=== PATIENT | female | born 1970 | race Caucasian/White ===

== ENCOUNTER 2019-07-11 11:00 | Outpatient (RCR) | payer MEDICARE, MEDICAID, SELFPAY ==
--- NOTE | 2019-04-17 16:00 | PT.OIE ---
Current Diagnoses Lymphedema, not elsewhere classified (04/17/19) Visit Care Team Role Provider Type Yao Mallory MD Attending Provider Non-Staff Primary Care Provider Specialty: Family Practice Address: [address] [place] [address], [address], [place], [address] Email: Physical Therapy Initial Evaluation PT-OP-A Visit Information Start: 04/17/19 12:57 Freq: Status: Active Protocol: Document 04/17/19 12:58 [facility]AK (Rec: 04/17/19 14:24 SAK [id number]) Out-Patient Physical Therapy Visit Information Visit Information Visit Type Initial Evaluation Visit Start Time 12:58 Visit Stop Time 14:13 Total Visit Minutes 75 Visit Number 1 Number of DIGITAL FIELD SERVICE TECHNICIAN Visits 0 PT-OP-B Current Condition Start: 04/17/19 12:57 Freq: Status: Active Protocol: Document 04/17/19 12:58 SAK (Rec: 04/17/19 14:24 SAK [id number]) Current Condition History of Current Condition Onset Date 2001 Current Complaints lymphedema bilateral LE's. History of Current Condition lymphedema waist to toes. diagnosed 2001, not treated until 2009. Was in coma for 3 wks 2008, states she almost due to infection in legs. States the lymphedema is thought to have been caused by mosquitoes; had severe reaction to bites. Gradual increase in swelling in LE's. Most recent LE infection a couple months ago with open wound left LE. 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 Prior Treatments and Tests Has had wraps, MLD, has a lymphedema pump; unable to use pump at this time due to increase in lymphedema with inability to fit into pump legs. Has no compression garments. Currently wraps her legs her self, uses ones with velcro. Used to go to pool, had to stop due to open wound. Goes to [employer] 3x/wk , wears wraps when she exercises. States Farrow wrap ordered for her right LE due to having open wound so insurance will cover it; she is unable to afford on her own . Lymphedema surgery bilateral LE's 2 years ago, with tissue and skin removed after determined lymph node transfer wouldn't be effective due to lack of functioning lymph nodes. Gastric bypass 2012 went from 600lbs, now down to 340. Has had skin removal on stomach. Treatment Goals Patient/Caregiver Goals Decrease lymphedema sufficient to allow her to use compression pump, be able to self-manage her lymphedema. 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 Current Functional Impairments (Reported) Functional Limitations- ADL's More difficult due to increased weight of legs Functional Limitations- Mobility/Gait limited to household due to weight of legs Functional Limitations- Work/School more difficult to care for her mother Personal Factors Other Personal Factors That May Effect Patient is 5'9, 340lbs Therapy/Recovery PT-OP-C Subjective Start: 04/17/19 12:57 Freq: Status: Active Protocol: Document 04/17/19 12:58 [facility] (Rec: 04/21/19 17:06 [facility] [id number]) Patient Questionnaires Lymphedema Life Impact Score Lymphedema Score 54% OP-PT Pain Assessment Pain Assessment Grid Paper Pain Assessment Grid Completed Yes Location right knee Pain Location Details 2 PT-OP-F Manual Assessment Start: 04/17/19 12:57 Freq: Status: Active Protocol: Document 04/17/19 12:58 [facility] (Rec: 04/21/19 17:06 [facility] [id number]) Manual Assessments Soft Tissue Assessment Soft Tissue Mobility Assessment Due to lymphedema patient demonstrating decreased movement of LE tissue with fibrosis evident medial lower leg on left around area of healing wound. PT-OP-K Range of Motion Start: 04/17/19 12:57 Freq: Status: Active Protocol: Document 04/17/19 12:58 [facility] (Rec: 04/21/19 17:06 [facility] [id number]) Knee Goniometric Range of Motion Knee ROM Limitations Knee ROM Limitations Swelling Comments lacking full flexion due to tissue approximation from lymphedema bilateral Ankle and Foot Goniometric Range of Motion Ankle and Foot ROM Limitations ROM Limitations Swelling Comments ankle df to neutral jaiden, pf WFL jaiden PT-OP-M Strength Start: 04/17/19 12:57 Freq: Status: Active Protocol: Document 04/17/19 12:58 SAK (Rec: 04/21/19 17:06 [facility] [id number]) Hip Strength Hip Manual Muscle Testing jaiden Flexion (L2) 3- Fair- Extension (S1) 2 Poor Abduction 2+ Poor+ Comments heaviness of leg Knee Strength Knee Manual Muscle Testing jaiden Flexion (S2) 4 Good Extension (L3) 4 Good Ankle/Foot Strength Ankle and Foot Manual Muscle Testing jaiden Dorsiflexion (L4) 4- Good- Plantarflexion (S1) 4- Good- PT-OP-N Lymphedema Start: 04/17/19 12:57 Freq: Status: Active Protocol: Document 04/17/19 12:58 [facility] (Rec: 04/21/19 17:06 [facility] [id number]) Lymphedema Measurements Lower Extremity Circumference Measurements Right Affected MT Heads 24.9 cm Medial Malleolus 30.4 cm 10 cm From Medial Malleolus 49.9 cm 20 cm From Medial Malleolus 64 cm 30 cm From Medial Malleolus 87.4 cm 40 cm From Medial Malleolus 63.7 cm 50 cm From Medial Malleolus 60.2 cm 60 cm From Medial Malleolus 80.2 cm 70 cm From Medial Malleolus 82.9 cm 80 cm From Medial Malleolus 81.4 cm Left Affected MT Heads 23.6 cm Medial Malleolus 30.2 cm 10 cm From Medial Malleolus 50.7 cm 20 cm From Medial Malleolus 64.1 cm 30 cm From Medial Malleolus 69.2 cm 40 cm From Medial Malleolus 65.8 cm 50 cm From Medial Malleolus 82.9 cm 60 cm From Medial Malleolus 82.7 cm 70 cm From Medial Malleolus 79.4 cm 80 cm From Medial Malleolus 91.7 cm PT-OP-Q Treatments Start: 04/17/19 12:57 Freq: Status: Active Protocol: Document 04/17/19 12:58 [facility] (Rec: 04/21/19 17:06 [facility] [id number]) Cardio Equipment Recumbent Elliptical (BiodTyto Life) Duration (Minutes) 10 Resistance 1 Other to facilitate lymphatic flow after lymphedema wrapping Lymphedema Treatment Lymphedema Wrapping Body Location bilateral LE's toes to knees Materials Comprilan, artiflex PT-OP-T Assessment and Plan Start: 04/17/19 12:57 Freq: Status: Active Protocol: Document 04/17/19 12:58 [facility] (Rec: 04/21/19 17:06 [facility] [id number]) Physical Therapy Assessment Rehab Potential Rehabilitation Potential Fair Evaluation Complexity Number of Personal Factors/Comorbidities 3 or More Number of Body Systems Impaired 3 Clinical Presentation at Evaluation Evolving Impairments Impairments Edema,ROM,Soft Tissue Mobility Goals Two Impairment Lymphedema Life Impact Scale 54% Short Term Goal (STG) Decrease to 40% STG Duration 6 wks Catering Staff Member Goal (LTG) Decrease to 30% LTG Duration 07/17/19 One Impairment lymphedema exacerbation [facility] Goal (LTG) Decrease lymphedema to stable level (no increase or decrease greater than 1 cm over the course of 1 wk), patient to be independent with self- management to include use of lymphedema pump, self-wrapping or use of appropriate compression garments, sequential lymphedema exercises and self-massage. LTG Duration 07/17/19 Assessment Summary Assessment Patient presents with lymphedema exacerbation bilateral LE's which has made it difficult for her to perform her usual activities and to self-manage her lymphedema including inability to use her lymphedema pump at home. She would benefit from physical therapy to decrease her lymphedema to the point that she can use her pump at home and self-managem as well as return to prior functional level. She has some fibrosis of her left LE soft tissues occurring with potential for more as well as for more infections if lymphedema not reduced. She appears highly motivated and cooperative. Physical Therapy Plan Frequency and Duration Frequency of Treatment 2x/Week Duration of Treatment 12 wks Plan of Care Start Date 04/17/19 Plan of Care End Date 07/17/19 Therapeutic Interventions Therapeutic Interventions Aquatic Therapy,Home Exercise Program,Lymphedema Management, Manual Therapy,Patient/ Caregiver Education,Self-Care/ Home Management,Therapeutic Exercises Modalities Vasopneumatic Devices Next Visit Focus/Plan Next Note Type Treatment Note Next Visit Plan Manual lymphatic drainage, lymphedema wrapping, sequential lymphedema exercise review. Determine whether current lymphedema pump has larger leg sleeves available.
--- NOTE | 2019-04-22 16:27 | PT.OTN ---
Current Diagnoses Lymphedema, not elsewhere classified (04/22/19) Physical Therapy Treatment Note PT-OP-A Visit Information Start: 04/17/19 12:57 Freq: Status: Active Protocol: Document 04/22/19 14:30 [facility]AK (Rec: 04/22/19 15:06 [facility] [id number]) Out-Patient Physical Therapy Visit Information Visit Information Visit Type Treatment Note Visit Start Time 14:58 Visit Stop Time 16:15 Total Visit Minutes 77 Visit Number 2 Number of ELECTRICAL MAINTENANCE MAN Visits 0 PT-OP-B Current Condition Start: 04/17/19 12:57 Freq: Status: Active Protocol: Document 04/17/19 12:58 [facility]AK (Rec: 04/17/19 14:24 SAK [id number]) Current Condition History of Current Condition Onset Date 2001 Current Complaints lymphedema bilateral LE's. History of Current Condition lymphedema waist to toes. diagnosed 2001, not treated until 2009. Was in coma for 3 wks 2008, states she almost due to infection in legs. States the lymphedema is thought to have been caused by mosquitoes; had severe reaction to bites. Gradual increase in swelling in LE's. Most recent LE infection a couple months ago with open wound left LE. 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 Prior Treatments and Tests Has had wraps, MLD, has a lymphedema pump; unable to use pump at this time due to increase in lymphedema with inability to fit into pump legs. Has no compression garments. Currently wraps her legs her self, uses ones with velcro. Used to go to pool, had to stop due to open wound. Goes to [employer] 3x/wk , wears wraps when she exercises. States Farrow wrap ordered for her right LE due to having open wound so insurance will cover it; she is unable to afford on her own . Lymphedema surgery bilateral LE's 2 years ago, with tissue and skin removed after determined lymph node transfer wouldn't be effective due to lack of functioning lymph nodes. Gastric bypass 2011 went from 600lbs, now down to 340. Has had skin removal on stomach. Treatment Goals Patient/Caregiver Goals Decrease lymphedema sufficient to allow her to use compression pump, be able to self-manage her lymphedema. 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 Current Functional Impairments (Reported) Functional Limitations- ADL's More difficult due to increased weight of legs Functional Limitations- Mobility/Gait limited to household due to weight of legs Functional Limitations- Work/School more difficult to care for her mother Personal Factors Other Personal Factors That May Effect Patient is 5'9, 340lbs Therapy/Recovery PT-OP-C Subjective Start: 04/17/19 12:57 Freq: Status: Active Protocol: Document 04/22/19 14:30 [facility] (Rec: 04/22/19 15:06 [facility] [id number]) OP-PT Subjective Patient Comments Patient Comments Patient reports has had LE's wrapped an average of 12 hrs/ day./ Using Dermasil lotion on LE's. Lymphedema pump brand [employer]. PT-OP-F Manual Assessment Start: 04/17/19 12:57 Freq: Status: Active Protocol: Document 04/17/19 12:58 [facility] (Rec: 04/21/19 17:06 [facility] [id number]) Manual Assessments Soft Tissue Assessment Soft Tissue Mobility Assessment Due to lymphedema patient demonstrating decreased movement of LE tissue with fibrosis evident medial lower leg on left around area of healing wound. PT-OP-K Range of Motion Start: 04/17/19 12:57 Freq: Status: Active Protocol: Document 04/17/19 12:58 [facility] (Rec: 04/21/19 17:06 [facility] [id number]) Knee Goniometric Range of Motion Knee ROM Limitations Knee ROM Limitations Swelling Comments lacking full flexion due to tissue approximation from lymphedema bilateral Ankle and Foot Goniometric Range of Motion Ankle and Foot ROM Limitations ROM Limitations Swelling Comments ankle df to neutral jaiden, pf WFL jaiden PT-OP-M Strength Start: 04/17/19 12:57 Freq: Status: Active Protocol: Document 04/17/19 12:58 [facility]AK (Rec: 04/21/19 17:06 [facility] [id number]) Hip Strength Hip Manual Muscle Testing jaiden Flexion (L2) 3- Fair- Extension (S1) 2 Poor Abduction 2+ Poor+ Comments heaviness of leg Knee Strength Knee Manual Muscle Testing jaiden Flexion (S2) 4 Good Extension (L3) 4 Good Ankle/Foot Strength Ankle and Foot Manual Muscle Testing jaiden Dorsiflexion (L4) 4- Good- Plantarflexion (S1) 4- Good- PT-OP-N Lymphedema Start: 04/17/19 12:57 Freq: Status: Active Protocol: Document 04/17/19 12:58 [facility] (Rec: 04/21/19 17:06 [facility] [id number]) Lymphedema Measurements Lower Extremity Circumference Measurements Right Affected MT Heads 24.9 cm Medial Malleolus 30.4 cm 10 cm From Medial Malleolus 49.9 cm 20 cm From Medial Malleolus 64 cm 30 cm From Medial Malleolus 87.4 cm 40 cm From Medial Malleolus 63.7 cm 50 cm From Medial Malleolus 60.2 cm 60 cm From Medial Malleolus 80.2 cm 70 cm From Medial Malleolus 82.9 cm 80 cm From Medial Malleolus 81.4 cm Left Affected MT Heads 23.6 cm Medial Malleolus 30.2 cm 10 cm From Medial Malleolus 50.7 cm 20 cm From Medial Malleolus 64.1 cm 30 cm From Medial Malleolus 69.2 cm 40 cm From Medial Malleolus 65.8 cm 50 cm From Medial Malleolus 82.9 cm 60 cm From Medial Malleolus 82.7 cm 70 cm From Medial Malleolus 79.4 cm 80 cm From Medial Malleolus 91.7 cm PT-OP-Q Treatments Start: 04/17/19 12:57 Freq: Status: Active Protocol: Document 04/22/19 14:30 [facility] (Rec: 04/22/19 15:06 [facility] [id number]) Cardio Equipment Recumbent Elliptical (Biodex) Duration (Minutes) 10 Resistance 1 Other to facilitate lymphatic flow after lymphedema wrapping Lymphedema Treatment Manual Lymphatic Drainage Location jaiden LE's Duration 50 min Lymphedema Wrapping Body Location bilateral LE's toes to knees Materials Comprilan, artiflex, foam around right ankle to achieve more cylindrical LE shape PT-OP-T Assessment and Plan Start: 04/17/19 12:57 Freq: Status: Active Protocol: Document 04/22/19 14:30 [facility] (Rec: 04/22/19 15:06 [facility] [id number]) Physical Therapy Assessment Goals Two Impairment Lymphedema Life Impact Scale 54% Short Term Goal (STG) Decrease to 40% STG Duration 6 wks Heavy Equipment Rental Associate Goal (LTG) Decrease to 30% LTG Duration 07/17/19 One Impairment lymphedema exacerbation Nursing Home Goal (LTG) Decrease lymphedema to stable level (no increase or decrease greater than 1 cm over the course of 1 wk), patient to be independent with self- management to include use of lymphedema pump, self-wrapping or use of appropriate compression garments, sequential lymphedema exercises and self-massage. LTG Duration 07/17/19 Assessment Summary Assessment Good tolerance for MLD and wrapping, Decrease in LE redness and lymphedema after MLD. Reports she should have Farrow wraps delivered by next PT appointment. Physical Therapy Plan Frequency and Duration Frequency of Treatment 2x/Week Duration of Treatment 12 wks Plan of Care Start Date 04/17/19 Plan of Care End Date 07/17/19 Therapeutic Interventions Therapeutic Interventions Aquatic Therapy,Home Exercise Program,Lymphedema Management, Manual Therapy,Patient/ Caregiver Education,Self-Care/ Home Management,Therapeutic Exercises Modalities Vasopneumatic Devices Next Visit Focus/Plan Next Note Type Treatment Note Next Visit Plan Circumferntial measurements, continue lymphedema management .
--- NOTE | 2019-04-24 15:16 | PT.OTN ---
Current Diagnoses Lymphedema, not elsewhere classified (04/24/19) Physical Therapy Treatment Note PT-OP-A Visit Information Start: 04/17/19 12:57 Freq: Status: Active Protocol: Document 04/24/19 15:07 [facility]GD (Rec: 04/24/19 15:15 [facility]GD [id number]) Out-Patient Physical Therapy Visit Information Visit Information Visit Type Treatment Note Visit Start Time 13:45 Visit Stop Time 15:15 Total Visit Minutes 90 Visit Number 3 Number of RETAIL SALES ASSOCIATE BILINGUAL Visits 1 PT-OP-B Current Condition Start: 04/17/19 12:57 Freq: Status: Active Protocol: Document 04/17/19 12:58 SAK (Rec: 04/17/19 14:24 SAK [id number]) Current Condition History of Current Condition Onset Date 2001 Current Complaints lymphedema bilateral LE's. History of Current Condition lymphedema waist to toes. diagnosed 2001, not treated until 2009. Was in coma for 3 wks 2008, states she almost due to infection in legs. States the lymphedema is thought to have been caused by mosquitoes; had severe reaction to bites. Gradual increase in swelling in LE's. Most recent LE infection a couple months ago with open wound left LE. 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 Prior Treatments and Tests Has had wraps, MLD, has a lymphedema pump; unable to use pump at this time due to increase in lymphedema with inability to fit into pump legs. Has no compression garments. Currently wraps her legs her self, uses ones with velcro. Used to go to pool, had to stop due to open wound. Goes to [employer] 3x/wk , wears wraps when she exercises. States Farrow wrap ordered for her right LE due to having open wound so insurance will cover it; she is unable to afford on her own . Lymphedema surgery bilateral LE's 2 years ago, with tissue and skin removed after determined lymph node transfer wouldn't be effective due to lack of functioning lymph nodes. Gastric bypass 2011 went from 600lbs, now down to 340. Has had skin removal on stomach. Treatment Goals Patient/Caregiver Goals Decrease lymphedema sufficient to allow her to use compression pump, be able to self-manage her lymphedema. 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 PT-OP-F Manual Assessment Start: 04/17/19 12:57 Freq: Status: Active Protocol: Document 04/17/19 12:58 SAK (Rec: 04/21/19 17:06 SAK [id number]) Manual Assessments Soft Tissue Assessment Soft Tissue Mobility Assessment Due to lymphedema patient demonstrating decreased movement of LE tissue with fibrosis evident medial lower leg on left around area of healing wound. PT-OP-K Range of Motion Start: 04/17/19 12:57 Freq: Status: Active Protocol: Document 04/17/19 12:58 SAK (Rec: 04/21/19 17:06 SAK [id number]) Knee Goniometric Range of Motion Knee ROM Limitations Knee ROM Limitations Swelling Comments lacking full flexion due to tissue approximation from lymphedema bilateral Ankle and Foot Goniometric Range of Motion Ankle and Foot ROM Limitations ROM Limitations Swelling Comments ankle df to neutral jaiden, pf WFL jaiden PT-OP-M Strength Start: 04/17/19 12:57 Freq: Status: Active Protocol: Document 04/17/19 12:58 SAK (Rec: 04/21/19 17:06 SAK [id number]) Hip Strength Hip Manual Muscle Testing jaiden Flexion (L2) 3- Fair- Extension (S1) 2 Poor Abduction 2+ Poor+ Comments heaviness of leg Knee Strength Knee Manual Muscle Testing jaiden Flexion (S2) 4 Good Extension (L3) 4 Good Ankle/Foot Strength Ankle and Foot Manual Muscle Testing jaiden Dorsiflexion (L4) 4- Good- Plantarflexion (S1) 4- Good- PT-OP-N Lymphedema Start: 04/17/19 12:57 Freq: Status: Active Protocol: Document 04/24/19 15:07 GGD (Rec: 04/24/19 15:15 GGD [id number]) Lymphedema Measurements Lower Extremity Circumference Measurements Right Affected MT Heads 25 cm Medial Malleolus 30.3 cm 10 cm From Medial Malleolus 49.1 cm 20 cm From Medial Malleolus 62 cm 30 cm From Medial Malleolus 69.6 cm 40 cm From Medial Malleolus 65.1 cm 50 cm From Medial Malleolus 62.2 cm 60 cm From Medial Malleolus 81.6 cm 70 cm From Medial Malleolus 82 cm Left Affected MT Heads 23.5 cm Medial Malleolus 30.1 cm 10 cm From Medial Malleolus 46.8 cm 20 cm From Medial Malleolus 58.7 cm 30 cm From Medial Malleolus 66.3 cm 40 cm From Medial Malleolus 66.5 cm 50 cm From Medial Malleolus 83 cm 60 cm From Medial Malleolus 83.5 cm 70 cm From Medial Malleolus 81.3 cm PT-OP-Q Treatments Start: 04/17/19 12:57 Freq: Status: Active Protocol: Document 04/24/19 15:07 GGD (Rec: 04/24/19 15:15 GGD [id number]) Cardio Equipment Recumbent Elliptical (Biodex) Duration (Minutes) 10 Resistance 1 Other to facilitate lymphatic flow after lymphedema wrapping Lymphedema Treatment Manual Lymphatic Drainage Location jaiden LE's Duration 50 min Lymphedema Wrapping Body Location bilateral LE's toes to knees Materials Comprilan, artiflex, foam around right ankle to achieve more cylindrical LE shape PT-OP-T Assessment and Plan Start: 04/17/19 12:57 Freq: Status: Active Protocol: Document 04/24/19 15:07 GGD (Rec: 04/24/19 15:15 GGD [id number]) Physical Therapy Assessment Goals Two Impairment Lymphedema Life Impact Scale 54% Short Term Goal (STG) Decrease to 40% STG Duration 6 wks [facility] Goal (LTG) Decrease to 30% LTG Duration 07/17/19 One Impairment lymphedema exacerbation Postal Superintendent Goal (LTG) Decrease lymphedema to stable level (no increase or decrease greater than 1 cm over the course of 1 wk), patient to be independent with self- management to include use of lymphedema pump, self-wrapping or use of appropriate compression garments, sequential lymphedema exercises and self-massage. LTG Duration 07/17/19 Assessment Summary Assessment Pt improving overall. She had decrease in circumferential measurements by 3 - 6 CM. Pt left knee increase in measurements, pt did report increase in knee pain. Physical Therapy Plan Next Visit Focus/Plan Next Note Type Treatment Note Next Visit Plan Circumferntial measurements, continue lymphedema management .
--- NOTE | 2019-04-29 16:47 | PT.OTN ---
Current Diagnoses Lymphedema, not elsewhere classified (04/29/19) Physical Therapy Treatment Note PT-OP-A Visit Information Start: 04/17/19 12:57 Freq: Status: Active Protocol: Document 04/29/19 16:39 GGD (Rec: 04/29/19 16:47 GGD [email or web address]) Out-Patient Physical Therapy Visit Information Visit Information Visit Type Treatment Note Visit Start Time 10:40 Visit Stop Time 11:50 Total Visit Minutes 70 Visit Number 4 Number of CATALOGUE [employer] PRODUCTS MANAGER Visits 2 PT-OP-B Current Condition Start: 04/17/19 12:57 Freq: Status: Active Protocol: Document 04/17/19 12:58 SAK (Rec: 04/17/19 14:24 SAK [id number]) Current Condition History of Current Condition Onset Date 2001 Current Complaints lymphedema bilateral LE's. History of Current Condition lymphedema waist to toes. diagnosed 2001, not treated until 2009. Was in coma for 3 wks 2008, states she almost due to infection in legs. States the lymphedema is thought to have been caused by mosquitoes; had severe reaction to bites. Gradual increase in swelling in LE's. Most recent LE infection a couple months ago with open wound left LE. 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 Prior Treatments and Tests Has had wraps, MLD, has a lymphedema pump; unable to use pump at this time due to increase in lymphedema with inability to fit into pump legs. Has no compression garments. Currently wraps her legs her self, uses ones with velcro. Used to go to pool, had to stop due to open wound. Goes to [employer] 3x/wk , wears wraps when she exercises. States Farrow wrap ordered for her right LE due to having open wound so insurance will cover it; she is unable to afford on her own . Lymphedema surgery bilateral LE's 2 years ago, with tissue and skin removed after determined lymph node transfer wouldn't be effective due to lack of functioning lymph nodes. Gastric bypass 2011 went from 600lbs, now down to 340. Has had skin removal on stomach. Treatment Goals Patient/Caregiver Goals Decrease lymphedema sufficient to allow her to use compression pump, be able to self-manage her lymphedema. 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 PT-OP-F Manual Assessment Start: 04/17/19 12:57 Freq: Status: Active Protocol: Document 04/17/19 12:58 SAK (Rec: 04/21/19 17:06 SAK [id number]) Manual Assessments Soft Tissue Assessment Soft Tissue Mobility Assessment Due to lymphedema patient demonstrating decreased movement of LE tissue with fibrosis evident medial lower leg on left around area of healing wound. PT-OP-K Range of Motion Start: 04/17/19 12:57 Freq: Status: Active Protocol: Document 04/17/19 12:58 SAK (Rec: 04/21/19 17:06 SAK [id number]) Knee Goniometric Range of Motion Knee ROM Limitations Knee ROM Limitations Swelling Comments lacking full flexion due to tissue approximation from lymphedema bilateral Ankle and Foot Goniometric Range of Motion Ankle and Foot ROM Limitations ROM Limitations Swelling Comments ankle df to neutral jaiden, pf WFL jaiden PT-OP-M Strength Start: 04/17/19 12:57 Freq: Status: Active Protocol: Document 04/17/19 12:58 SAK (Rec: 04/21/19 17:06 SAK [id number]) Hip Strength Hip Manual Muscle Testing jaiden Flexion (L2) 3- Fair- Extension (S1) 2 Poor Abduction 2+ Poor+ Comments heaviness of leg Knee Strength Knee Manual Muscle Testing [place] Flexion (S2) 4 Good Extension (L3) 4 Good Ankle/Foot Strength Ankle and Foot Manual Muscle Testing jaiden Dorsiflexion (L4) 4- Good- Plantarflexion (S1) 4- Good- PT-OP-N Lymphedema Start: 04/17/19 12:57 Freq: Status: Active Protocol: Document 04/24/19 15:07 GGD (Rec: 04/24/19 15:15 GGD [email or web address]) Lymphedema Measurements Lower Extremity Circumference Measurements Right Affected MT Heads 25 cm Medial Malleolus 30.3 cm 10 cm From Medial Malleolus 49.1 cm 20 cm From Medial Malleolus 62 cm 30 cm From Medial Malleolus 69.6 cm 40 cm From Medial Malleolus 65.1 cm 50 cm From Medial Malleolus 62.2 cm 60 cm From Medial Malleolus 81.6 cm 70 cm From Medial Malleolus 82 cm Left Affected MT Heads 23.5 cm Medial Malleolus 30.1 cm 10 cm From Medial Malleolus 46.8 cm 20 cm From Medial Malleolus 58.7 cm 30 cm From Medial Malleolus 66.3 cm 40 cm From Medial Malleolus 66.5 cm 50 cm From Medial Malleolus 83 cm 60 cm From Medial Malleolus 83.5 cm 70 cm From Medial Malleolus 81.3 cm PT-OP-Q Treatments Start: 04/17/19 12:57 Freq: Status: Active Protocol: Document 04/29/19 16:39 GGD (Rec: 04/29/19 16:47 GGD [email or web address]) Cardio Equipment Recumbent Elliptical (Biodex) Duration (Minutes) 10 Resistance 1 Other to facilitate lymphatic flow after lymphedema wrapping Lymphedema Treatment Manual Lymphatic Drainage Location jaiden LE's Duration 50 min Lymphedema Wrapping Body Location right LE's toes to knees Materials Comprilan, artiflex, foam around right ankle to achieve more cylindrical LE shape Other Farrow wrap to left LE PT-OP-T Assessment and Plan Start: 04/17/19 12:57 Freq: Status: Active Protocol: Document 04/29/19 16:39 GGD (Rec: 04/29/19 16:47 GGD [email or web address]) Physical Therapy Assessment Goals Two Impairment Lymphedema Life Impact Scale 54% Short Term Goal (STG) Decrease to 40% STG Duration 6 wks [facility] Goal (LTG) Decrease to 30% LTG Duration 07/17/19 Assessment Summary Assessment Pt improving with circumferential measurements. She continue to have right knee. Physical Therapy Plan Frequency and Duration Frequency of Treatment 2x/Week Duration of Treatment 12 wks Plan of Care Start Date 04/17/19 Plan of Care End Date 07/17/19 Next Visit Focus/Plan Next Note Type Treatment Note Next Visit Plan Circumferntial measurements, continue lymphedema management .
--- NOTE | 2019-05-05 16:19 | PT.OTN ---
Current Diagnoses Lymphedema, not elsewhere classified (05/05/19) Physical Therapy Treatment Note PT-OP-A Visit Information Start: 04/17/19 12:57 Freq: Status: Active Protocol: Document 05/05/19 11:00 LJ (Rec: 05/05/19 16:19 LJ [id number]) Out-Patient Physical Therapy Visit Information Visit Information Visit Type Aquatic Treatment Note Visit Start Time 11:00 Visit Stop Time 11:45 Total Visit Minutes 45 Visit Number 5 Number of PULP PRESS TENDER Visits 3 PT-OP-B Current Condition Start: 04/17/19 12:57 Freq: Status: Active Protocol: Document 04/17/19 12:58 SAK (Rec: 04/17/19 14:24 SAK [id number]) Current Condition History of Current Condition Onset Date 2001 Current Complaints lymphedema bilateral LE's. History of Current Condition lymphedema waist to toes. diagnosed 2001, not treated until 2009. Was in coma for 3 wks 2008, states she almost due to infection in legs. States the lymphedema is thought to have been caused by mosquitoes; had severe reaction to bites. Gradual increase in swelling in LE's. Most recent LE infection a couple months ago with open wound left LE. 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 Prior Treatments and Tests Has had wraps, MLD, has a lymphedema pump; unable to use pump at this time due to increase in lymphedema with inability to fit into pump legs. Has no compression garments. Currently wraps her legs her self, uses ones with velcro. Used to go to pool, had to stop due to open wound. Goes to [employer] 3x/wk , wears wraps when she exercises. States Farrow wrap ordered for her right LE due to having open wound so insurance will cover it; she is unable to afford on her own . Lymphedema surgery bilateral LE's 2 years ago, with tissue and skin removed after determined lymph node transfer wouldn't be effective due to lack of functioning lymph nodes. Gastric bypass 2011 went from 600lbs, now down to 340. Has had skin removal on stomach. Treatment Goals Patient/Caregiver Goals Decrease lymphedema sufficient to allow her to use compression pump, be able to self-manage her lymphedema. 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 Current Functional Impairments (Reported) Functional Limitations- ADL's More difficult due to increased weight of legs Functional Limitations- Mobility/Gait limited to household due to weight of legs Functional Limitations- Work/School more difficult to care for her mother Personal Factors Other Personal Factors That May Effect Patient is 5'9, 340lbs Therapy/Recovery PT-OP-C Subjective Start: 04/17/19 12:57 Freq: Status: Active Protocol: Document 05/05/19 11:00 LJ (Rec: 05/05/19 16:19 LJ [id number]) OP-PT Subjective Patient Comments Patient Comments Pt states she likes the pool and has attended water aerobics in the past at [facility]. PT-OP-F Manual Assessment Start: 04/17/19 12:57 Freq: Status: Active Protocol: Document 04/17/19 12:58 SAK (Rec: 04/21/19 17:06 SAK [id number]) Manual Assessments Soft Tissue Assessment Soft Tissue Mobility Assessment Due to lymphedema patient demonstrating decreased movement of LE tissue with fibrosis evident medial lower leg on left around area of healing wound. PT-OP-K Range of Motion Start: 04/17/19 12:57 Freq: Status: Active Protocol: Document 04/17/19 12:58 SAK (Rec: 04/21/19 17:06 SAK [id number]) Knee Goniometric Range of Motion Knee ROM Limitations Knee ROM Limitations Swelling Comments lacking full flexion due to tissue approximation from lymphedema bilateral Ankle and Foot Goniometric Range of Motion Ankle and Foot ROM Limitations ROM Limitations Swelling Comments ankle df to neutral jaiden, pf WFL jaiden PT-OP-M Strength Start: 04/17/19 12:57 Freq: Status: Active Protocol: Document 04/17/19 12:58 SAK (Rec: 04/21/19 17:06 SAK [id number]) Hip Strength Hip Manual Muscle Testing [place] Flexion (L2) 3- Fair- Extension (S1) 2 Poor Abduction 2+ Poor+ Comments heaviness of leg Knee Strength Knee Manual Muscle Testing [place] Flexion (S2) 4 Good Extension (L3) 4 Good Ankle/Foot Strength Ankle and Foot Manual Muscle Testing ja[place] Dorsiflexion (L4) 4- Good- Plantarflexion (S1) 4- Good- PT-OP-N Lymphedema Start: 04/17/19 12:57 Freq: Status: Active Protocol: Document 04/24/19 15:07 GGD (Rec: 04/24/19 15:15 GGD [email or web address]) Lymphedema Measurements Lower Extremity Circumference Measurements Right Affected MT Heads 25 cm Medial Malleolus 30.3 cm 10 cm From Medial Malleolus 49.1 cm 20 cm From Medial Malleolus 62 cm 30 cm From Medial Malleolus 69.6 cm 40 cm From Medial Malleolus 65.1 cm 50 cm From Medial Malleolus 62.2 cm 60 cm From Medial Malleolus 81.6 cm 70 cm From Medial Malleolus 82 cm Left Affected MT Heads 23.5 cm Medial Malleolus 30.1 cm 10 cm From Medial Malleolus 46.8 cm 20 cm From Medial Malleolus 58.7 cm 30 cm From Medial Malleolus 66.3 cm 40 cm From Medial Malleolus 66.5 cm 50 cm From Medial Malleolus 83 cm 60 cm From Medial Malleolus 83.5 cm 70 cm From Medial Malleolus 81.3 cm PT-OP-Q Treatments Start: 04/17/19 12:57 Freq: Status: Active Protocol: Document 04/29/19 16:39 GGD (Rec: 04/29/19 16:47 GGD [email or web address]) Cardio Equipment Recumbent Elliptical (Biodex) Duration (Minutes) 10 Resistance 1 Other to facilitate lymphatic flow after lymphedema wrapping Lymphedema Treatment Manual Lymphatic Drainage Location jaiden LE's Duration 50 min Lymphedema Wrapping Body Location right LE's toes to knees Materials Comprilan, artiflex, foam around right ankle to achieve more cylindrical LE shape Other Farrow wrap to left LE PT-OP-S Aquatic Treatment Start: 05/05/19 08:29 Freq: Status: Active Protocol: Document 05/05/19 11:00 LJ (Rec: 05/05/19 16:19 LJ [id number]) Aquatics Treatment Pool Entry/Exit Pool Entry/Exit Method Stairs Water Walking Lunge Walk Water Level Chest Level Level of Assistance Verbal Cues Marching Water Level Chest Level Level of Assistance Verbal Cues Monster Walk Water Level Chest Level Level of Assistance Verbal Cues [place] March Water Level Chest Level Level of Assistance Verbal Cues Sideways Water Level Chest Level Level of Assistance Verbal Cues Backwards Water Level Chest Level Level of Assistance Verbal Cues forward Water Level Chest Level Level of Assistance Verbal Cues Lower Extremity Exercises heel/toe raise Body Position Standing Water Level Waist Level Reps/Duration 2x10 each hip circumduction Body Position Standing Water Level Waist Level Reps/Duration 2x10 bilat, both directions ab/add Water Level Waist Level Reps/Duration 2x10 flex/ext Body Position Standing Water Level Waist Level Reps/Duration 2x10 Lower Extremity Stretches hip flexor Body Position Standing Water Level Waist Level Comments hand hold on wall Quad Body Position Standing Water Level Waist Level Equipment Small Noodle Comments cues for posture HS Body Position Standing Water Level Waist Level Equipment Small Noodle Upper Extremity Exercises ab/add; flex/ext Body Position Standing Water Level Chest Level Reps/Duration 2x10 each Winter Activities Winter Activities Bicycle,Cross Country,Hip Abduction/Adduction,Sit Kicks Other Activities pendulum w/sm BBs Equipment none Duration 12 Comments pt has experience exercising in deep water PT-OP-T Assessment and Plan Start: 04/17/19 12:57 Freq: Status: Active Protocol: Document 05/05/19 11:00 IDALIA (Rec: 05/05/19 16:19 [id number]) Physical Therapy Assessment Rehab Potential Rehabilitation Potential Fair Impairments Impairments Edema,ROM,Soft Tissue Mobility Goals Two Impairment Lymphedema Life Impact Scale 54% Short Term Goal (STG) Decrease to 40% STG Duration 6 wks Jail Goal (LTG) Decrease to 30% LTG Duration 07/17/19 One Impairment lymphedema exacerbation [employer] Goal (LTG) Decrease lymphedema to stable level (no increase or decrease greater than 1 cm over the course of 1 wk), patient to be independent with self- management to include use of lymphedema pump, self-wrapping or use of appropriate compression garments, sequential lymphedema exercises and self-massage. LTG Duration 07/17/19 Assessment Summary Assessment Pt tolerated exercises well. Due to previous experience with water aerobics, she is experienced with water exercises and shows knowledge and understanding with core exercises. Physical Therapy Plan Frequency and Duration Frequency of Treatment 2x/Week Duration of Treatment 12 wks Plan of Care Start Date 04/17/19 Plan of Care End Date 07/17/19 Next Visit Focus/Plan Next Note Type Treatment Note Next Visit Plan Continue with overall strengthening and conditioning to improve pt ability to continue exercising at [employer] and improve ability for pt to care for herself and her mother
--- NOTE | 2019-05-08 17:58 | PT.OTN ---
Current Diagnoses Lymphedema, not elsewhere classified (05/08/19) Physical Therapy Treatment Note PT-OP-A Visit Information Start: 04/17/19 12:57 Freq: Status: Active Protocol: Document 05/08/19 13:45 GGD (Rec: 05/08/19 17:51 GGD [email or web address]) Out-Patient Physical Therapy Visit Information Visit Information Visit Type Treatment Note Visit Start Time 13:45 Visit Stop Time 14:55 Total Visit Minutes 70 Visit Number 6 Number of VENEER DRIER FEEDER Visits 4 PT-OP-B Current Condition Start: 04/17/19 12:57 Freq: Status: Active Protocol: Document 04/17/19 12:58 SAK (Rec: 04/17/19 14:24 SAK [id number]) Current Condition History of Current Condition Onset Date 2001 Current Complaints lymphedema bilateral LE's. History of Current Condition lymphedema waist to toes. diagnosed 2001, not treated until 2009. Was in coma for 3 wks 2008, states she almost due to infection in legs. States the lymphedema is thought to have been caused by mosquitoes; had severe reaction to bites. Gradual increase in swelling in LE's. Most recent LE infection a couple months ago with open wound left LE. 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 Prior Treatments and Tests Has had wraps, MLD, has a lymphedema pump; unable to use pump at this time due to increase in lymphedema with inability to fit into pump legs. Has no compression garments. Currently wraps her legs her self, uses ones with velcro. Used to go to pool, had to stop due to open wound. Goes to [employer] 3x/wk , wears wraps when she exercises. States Farrow wrap ordered for her right LE due to having open wound so insurance will cover it; she is unable to afford on her own . Lymphedema surgery bilateral LE's 2 years ago, with tissue and skin removed after determined lymph node transfer wouldn't be effective due to lack of functioning lymph nodes. Gastric bypass 2011 went from 600lbs, now down to 340. Has had skin removal on stomach. Treatment Goals Patient/Caregiver Goals Decrease lymphedema sufficient to allow her to use compression pump, be able to self-manage her lymphedema. 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 PT-OP-F Manual Assessment Start: 04/17/19 12:57 Freq: Status: Active Protocol: Document 04/17/19 12:58 SAK (Rec: 04/21/19 17:06 SAK [id number]) Manual Assessments Soft Tissue Assessment Soft Tissue Mobility Assessment Due to lymphedema patient demonstrating decreased movement of LE tissue with fibrosis evident medial lower leg on left around area of healing wound. PT-OP-K Range of Motion Start: 04/17/19 12:57 Freq: Status: Active Protocol: Document 04/17/19 12:58 SAK (Rec: 04/21/19 17:06 SAK [id number]) Knee Goniometric Range of Motion Knee ROM Limitations Knee ROM Limitations Swelling Comments lacking full flexion due to tissue approximation from lymphedema bilateral Ankle and Foot Goniometric Range of Motion Ankle and Foot ROM Limitations ROM Limitations Swelling Comments ankle df to neutral jaiden, pf WFL jaiden PT-OP-M Strength Start: 04/17/19 12:57 Freq: Status: Active Protocol: Document 04/17/19 12:58 SAK (Rec: 04/21/19 17:06 SAK [id number]) Hip Strength Hip Manual Muscle Testing jaiden Flexion (L2) 3- Fair- Extension (S1) 2 Poor Abduction 2+ Poor+ Comments heaviness of leg Knee Strength Knee Manual Muscle Testing jaiden Flexion (S2) 4 Good Extension (L3) 4 Good Ankle/Foot Strength Ankle and Foot Manual Muscle Testing jaiden Dorsiflexion (L4) 4- Good- Plantarflexion (S1) 4- Good- PT-OP-N Lymphedema Start: 04/17/19 12:57 Freq: Status: Active Protocol: Document 05/08/19 13:45 GGD (Rec: 05/08/19 17:57 GGD [email or web address]) Lymphedema Measurements Lower Extremity Circumference Measurements Right Affected MT Heads 24.5 cm Medial Malleolus 32.3 cm 10 cm From Medial Malleolus 45.6 cm 20 cm From Medial Malleolus 57.4 cm 30 cm From Medial Malleolus 63.4 cm 40 cm From Medial Malleolus 68.1 cm 50 cm From Medial Malleolus 67.4 cm 60 cm From Medial Malleolus 80.6 cm 70 cm From Medial Malleolus 82.3 cm Left Affected MT Heads 23.7 cm Medial Malleolus 31.5 cm 10 cm From Medial Malleolus 44.3 cm 20 cm From Medial Malleolus 58.7 cm 30 cm From Medial Malleolus 66 cm 40 cm From Medial Malleolus 69.5 cm 50 cm From Medial Malleolus 80.3 cm 60 cm From Medial Malleolus 84.9 cm PT-OP-Q Treatments Start: 04/17/19 12:57 Freq: Status: Active Protocol: Document 05/08/19 13:45 GGD (Rec: 05/08/19 17:57 GGD [email or web address]) Cardio Equipment Recumbent Elliptical (Biodex) Duration (Minutes) 10 Resistance 3 Other to facilitate lymphatic flow after lymphedema wrapping Lymphedema Treatment Manual Lymphatic Drainage Location jaiden LE's Duration 50 min Lymphedema Wrapping Body Location right LE's toes to knees Materials Comprilan, artiflex, foam around right ankle to achieve more cylindrical LE shape Other Farrow wrap to left LE PT-OP-S Aquatic Treatment Start: 05/05/19 08:29 Freq: Status: Active Protocol: Document 05/05/19 11:00 LJ (Rec: 05/05/19 16:19 LJ [id number]) Aquatics Treatment Pool Entry/Exit Pool Entry/Exit Method Stairs Water Walking Lunge Walk Water Level Chest Level Level of Assistance Verbal Cues Marching Water Level Chest Level Level of Assistance Verbal Cues Monster Walk Water Level Chest Level Level of Assistance Verbal Cues [place] March Water Level Chest Level Level of Assistance Verbal Cues Sideways Water Level Chest Level Level of Assistance Verbal Cues Backwards Water Level Chest Level Level of Assistance Verbal Cues forward Water Level Chest Level Level of Assistance Verbal Cues Lower Extremity Exercises heel/toe raise Body Position Standing Water Level Waist Level Reps/Duration 2x10 each hip circumduction Body Position Standing Water Level Waist Level Reps/Duration 2x10 bilat, both directions ab/add Water Level Waist Level Reps/Duration 2x10 flex/ext Body Position Standing Water Level Waist Level Reps/Duration 2x10 Lower Extremity Stretches hip flexor Body Position Standing Water Level Waist Level Comments hand hold on wall Quad Body Position Standing Water Level Waist Level Equipment Small Noodle Comments cues for posture HS Body Position Standing Water Level Waist Level Equipment Small Noodle Upper Extremity Exercises ab/add; flex/ext Body Position Standing Water Level Chest Level Reps/Duration 2x10 each [place] Activities [place] Activities Bicycle,Cross Country,Hip Abduction/Adduction,Sit Kicks Other Activities pendulum w/sm BBs Equipment none Duration 12 Comments pt has experience exercising in deep water PT-OP-T Assessment and Plan Start: 04/17/19 12:57 Freq: Status: Active Protocol: Document 05/08/19 13:45 GGD (Rec: 05/08/19 17:57 GGD [email or web address]) Physical Therapy Assessment Goals Two Impairment Lymphedema Life Impact Scale 54% Short Term Goal (STG) Decrease to 40% STG Duration 6 wks Nursing Home Goal (LTG) Decrease to 30% LTG Duration 07/17/19 One Impairment lymphedema exacerbation Nursing Home Goal (LTG) Decrease lymphedema to stable level (no increase or decrease greater than 1 cm over the course of 1 wk), patient to be independent with self- management to include use of lymphedema pump, self-wrapping or use of appropriate compression garments, sequential lymphedema exercises and self-massage. LTG Duration 07/17/19 Assessment Summary Assessment Pt had decrease in circumferntial measurements. She had decrease in knee pain. Physical Therapy Plan Frequency and Duration Frequency of Treatment 2x/Week Duration of Treatment 12 wks Plan of Care Start Date 04/17/19 Plan of Care End Date 07/17/19 Next Visit Focus/Plan Next Note Type Treatment Note Next Visit Plan Continue with overall strengthening and conditioning to improve pt ability to continue exercising at [employer] and improve ability for pt to care for herself and her mother
--- NOTE | 2019-05-16 14:43 | PT.OTN ---
Current Diagnoses Lymphedema, not elsewhere classified (05/16/19) Physical Therapy Treatment Note PT-OP-A Visit Information Start: 04/17/19 12:57 Freq: Status: Active Protocol: Document 05/16/19 11:45 LJ (Rec: 05/16/19 14:43 LJ [id number]) Out-Patient Physical Therapy Visit Information Visit Information Visit Type Aquatic Treatment Note Visit Start Time 11:45 Visit Stop Time 12:30 Total Visit Minutes 45 Visit Number 7 Number of LARRIMAN HELPER Visits 5 PT-OP-B Current Condition Start: 04/17/19 12:57 Freq: Status: Active Protocol: Document 04/17/19 12:58 SAK (Rec: 04/17/19 14:24 SAK [id number]) Current Condition History of Current Condition Onset Date 2001 Current Complaints lymphedema bilateral LE's. History of Current Condition lymphedema waist to toes. diagnosed 2001, not treated until 2009. Was in coma for 3 wks 2008, states she almost due to infection in legs. States the lymphedema is thought to have been caused by mosquitoes; had severe reaction to bites. Gradual increase in swelling in LE's. Most recent LE infection a couple months ago with open wound left LE. 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 Prior Treatments and Tests Has had wraps, MLD, has a lymphedema pump; unable to use pump at this time due to increase in lymphedema with inability to fit into pump legs. Has no compression garments. Currently wraps her legs her self, uses ones with velcro. Used to go to pool, had to stop due to open wound. Goes to [employer] 3x/wk , wears wraps when she exercises. States Farrow wrap ordered for her right LE due to having open wound so insurance will cover it; she is unable to afford on her own . Lymphedema surgery bilateral LE's 2 years ago, with tissue and skin removed after determined lymph node transfer wouldn't be effective due to lack of functioning lymph nodes. Gastric bypass 2011 went from 600lbs, now down to 340. Has had skin removal on stomach. Treatment Goals Patient/Caregiver Goals Decrease lymphedema sufficient to allow her to use compression pump, be able to self-manage her lymphedema. 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 Her leg measurements have decreased. PT-OP-F Manual Assessment Start: 04/17/19 12:57 Freq: Status: Active Protocol: Document 04/17/19 12:58 SAK (Rec: 04/21/19 17:06 SAK [id number]) Manual Assessments Soft Tissue Assessment Soft Tissue Mobility Assessment Due to lymphedema patient demonstrating decreased movement of LE tissue with fibrosis evident medial lower leg on left around area of healing wound. PT-OP-K Range of Motion Start: 04/17/19 12:57 Freq: Status: Active Protocol: Document 04/17/19 12:58 SAK (Rec: 04/21/19 17:06 SAK [id number]) Knee Goniometric Range of Motion Knee ROM Limitations Knee ROM Limitations Swelling Comments lacking full flexion due to tissue approximation from lymphedema bilateral Ankle and Foot Goniometric Range of Motion Ankle and Foot ROM Limitations ROM Limitations Swelling Comments ankle df to neutral jaiden, pf WFL jaiden PT-OP-M Strength Start: 04/17/19 12:57 Freq: Status: Active Protocol: Document 04/17/19 12:58 SAK (Rec: 04/21/19 17:06 SAK [id number]) Hip Strength Hip Manual Muscle Testing ja[place] Flexion (L2) 3- Fair- Extension (S1) 2 Poor Abduction 2+ Poor+ Comments heaviness of leg Knee Strength Knee Manual Muscle Testing ja[place] Flexion (S2) 4 Good Extension (L3) 4 Good Ankle/Foot Strength Ankle and Foot Manual Muscle Testing ja[place] Dorsiflexion (L4) 4- Good- Plantarflexion (S1) 4- Good- PT-OP-N Lymphedema Start: 04/17/19 12:57 Freq: Status: Active Protocol: Document 05/08/19 13:45 GGD (Rec: 05/08/19 17:57 GGD [id number]) Lymphedema Measurements Lower Extremity Circumference Measurements Right Affected MT Heads 24.5 cm Medial Malleolus 32.3 cm 10 cm From Medial Malleolus 45.6 cm 20 cm From Medial Malleolus 57.4 cm 30 cm From Medial Malleolus 63.4 cm 40 cm From Medial Malleolus 68.1 cm 50 cm From Medial Malleolus 67.4 cm 60 cm From Medial Malleolus 80.6 cm 70 cm From Medial Malleolus 82.3 cm Left Affected MT Heads 23.7 cm Medial Malleolus 31.5 cm 10 cm From Medial Malleolus 44.3 cm 20 cm From Medial Malleolus 58.7 cm 30 cm From Medial Malleolus 66 cm 40 cm From Medial Malleolus 69.5 cm 50 cm From Medial Malleolus 80.3 cm 60 cm From Medial Malleolus 84.9 cm PT-OP-Q Treatments Start: 04/17/19 12:57 Freq: Status: Active Protocol: Document 05/08/19 13:45 GGD (Rec: 05/08/19 17:57 GGD [id number]) Cardio Equipment Recumbent Elliptical (Biodex) Duration (Minutes) 10 Resistance 3 Other to facilitate lymphatic flow after lymphedema wrapping Lymphedema Treatment Manual Lymphatic Drainage Location jaiden LE's Duration 50 min Lymphedema Wrapping Body Location right LE's toes to knees Materials Comprilan, artiflex, foam around right ankle to achieve more cylindrical LE shape Other Farrow wrap to left LE PT-OP-S Aquatic Treatment Start: 05/05/19 08:29 Freq: Status: Active Protocol: Document 05/16/19 11:45 LJ (Rec: 05/16/19 14:43 LJ [id number]) Aquatics Treatment Pool Entry/Exit Pool Entry/Exit Method Stairs Water Walking Lunge Walk Water Level Chest Level Marching Water Level Chest Level Monster Walk Water Level Chest Level [place] March Water Level Chest Level Sideways Water Level Chest Level Backwards Water Level Chest Level forward Water Level Chest Level Lower Extremity Exercises HS curl jog in place Water Level Chest Level Reps/Duration 1 min Comments gentle heel/toe raise Body Position Standing Water Level Chest Level Reps/Duration 2x10 each hip circumduction Body Position Standing Water Level Chest Level Reps/Duration 2x10 bilat, both directions ab/add Water Level Chest Level Reps/Duration 2x10 flex/ext Body Position Standing Water Level Chest Level Reps/Duration 2x10 Lower Extremity Stretches hip flexor Body Position Standing Water Level Waist Level Comments hand hold on wall Quad Body Position Standing Water Level Waist Level Equipment Small Noodle Comments cues for posture HS Body Position Standing Water Level Waist Level Equipment Small Noodle Upper Extremity Exercises ab/add; flex/ext Body Position Standing Water Level Chest Level Reps/Duration 2x10 each [place] Activities [place] Activities Bicycle,Cross Country,Hip Abduction/Adduction,Sit Kicks Other Activities pendulum w/sm BBs Equipment none Duration 10 PT-OP-T Assessment and Plan Start: 04/17/19 12:57 Freq: Status: Active Protocol: Document 05/16/19 11:45 LJ (Rec: 05/16/19 14:43 LJ [id number]) Physical Therapy Assessment Rehab Potential Rehabilitation Potential Fair Impairments Impairments Edema,ROM,Soft Tissue Mobility Goals Two Impairment Lymphedema Life Impact Scale 54% Short Term Goal (STG) Decrease to 40% STG Duration 6 wks Meat Cooler Goal (LTG) Decrease to 30% LTG Duration 07/17/19 One Impairment lymphedema exacerbation Mcfp Goal (LTG) Decrease lymphedema to stable level (no increase or decrease greater than 1 cm over the course of 1 wk), patient to be independent with self- management to include use of lymphedema pump, self-wrapping or use of appropriate compression garments, sequential lymphedema exercises and self-massage. LTG Duration 07/17/19 Assessment Summary Assessment Pt tolerated exercises well and had good body mechanics with all exercises. Physical Therapy Plan Frequency and Duration Frequency of Treatment 2x/Week Duration of Treatment 12 wks Plan of Care Start Date 04/17/19 Plan of Care End Date 07/17/19 Next Visit Focus/Plan Next Note Type Treatment Note Next Visit Plan Continue with overall strengthening and conditioning to improve pt ability to continue exercising at [employer] and improve ability for pt to care for herself and her mother
--- NOTE | 2019-05-19 15:28 | PT.OTN ---
Current Diagnoses Lymphedema, not elsewhere classified (05/16/19) Physical Therapy Treatment Note PT-OP-A Visit Information Start: 04/17/19 12:57 Freq: Status: Active Protocol: Document 05/19/19 11:00 LJ (Rec: 05/19/19 15:28 LJ [id number]) Out-Patient Physical Therapy Visit Information Visit Information Visit Type Aquatic Treatment Note Visit Start Time 11:00 Visit Stop Time 11:45 Total Visit Minutes 45 Visit Number 8 Number of APPEALS REPRESENTATIVE Visits 6 PT-OP-B Current Condition Start: 04/17/19 12:57 Freq: Status: Active Protocol: Document 04/17/19 12:58 SAK (Rec: 04/17/19 14:24 SAK [id number]) Current Condition History of Current Condition Onset Date 2001 Current Complaints lymphedema bilateral LE's. History of Current Condition lymphedema waist to toes. diagnosed 2001, not treated until 2009. Was in coma for 3 wks 2008, states she almost due to infection in legs. States the lymphedema is thought to have been caused by mosquitoes; had severe reaction to bites. Gradual increase in swelling in LE's. Most recent LE infection a couple months ago with open wound left LE. 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 Prior Treatments and Tests Has had wraps, MLD, has a lymphedema pump; unable to use pump at this time due to increase in lymphedema with inability to fit into pump legs. Has no compression garments. Currently wraps her legs her self, uses ones with velcro. Used to go to pool, had to stop due to open wound. Goes to [employer] 3x/wk , wears wraps when she exercises. States Farrow wrap ordered for her right LE due to having open wound so insurance will cover it; she is unable to afford on her own . Lymphedema surgery bilateral LE's 2 years ago, with tissue and skin removed after determined lymph node transfer wouldn't be effective due to lack of functioning lymph nodes. Gastric bypass 2011 went from 600lbs, now down to 340. Has had skin removal on stomach. Treatment Goals Patient/Caregiver Goals Decrease lymphedema sufficient to allow her to use compression pump, be able to self-manage her lymphedema. 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 She has not been able to go to the gym due to her other being sick PT-OP-F Manual Assessment Start: 04/17/19 12:57 Freq: Status: Active Protocol: Document 04/17/19 12:58 SAK (Rec: 04/21/19 17:06 SAK [id number]) Manual Assessments Soft Tissue Assessment Soft Tissue Mobility Assessment Due to lymphedema patient demonstrating decreased movement of LE tissue with fibrosis evident medial lower leg on left around area of healing wound. PT-OP-K Range of Motion Start: 04/17/19 12:57 Freq: Status: Active Protocol: Document 04/17/19 12:58 SAK (Rec: 04/21/19 17:06 SAK [id number]) Knee Goniometric Range of Motion Knee ROM Limitations Knee ROM Limitations Swelling Comments lacking full flexion due to tissue approximation from lymphedema bilateral Ankle and Foot Goniometric Range of Motion Ankle and Foot ROM Limitations ROM Limitations Swelling Comments ankle df to neutral jaiden, pf WFL jaiden PT-OP-M Strength Start: 04/17/19 12:57 Freq: Status: Active Protocol: Document 04/17/19 12:58 SAK (Rec: 04/21/19 17:06 SAK [id number]) Hip Strength Hip Manual Muscle Testing [place] Flexion (L2) 3- Fair- Extension (S1) 2 Poor Abduction 2+ Poor+ Comments heaviness of leg Knee Strength Knee Manual Muscle Testing [place] Flexion (S2) 4 Good Extension (L3) 4 Good Ankle/Foot Strength Ankle and Foot Manual Muscle Testing [place] Dorsiflexion (L4) 4- Good- Plantarflexion (S1) 4- Good- PT-OP-N Lymphedema Start: 04/17/19 12:57 Freq: Status: Active Protocol: Document 05/08/19 13:45 GGD (Rec: 05/08/19 17:57 GGD [id number]) Lymphedema Measurements Lower Extremity Circumference Measurements Right Affected MT Heads 24.5 cm Medial Malleolus 32.3 cm 10 cm From Medial Malleolus 45.6 cm 20 cm From Medial Malleolus 57.4 cm 30 cm From Medial Malleolus 63.4 cm 40 cm From Medial Malleolus 68.1 cm 50 cm From Medial Malleolus 67.4 cm 60 cm From Medial Malleolus 80.6 cm 70 cm From Medial Malleolus 82.3 cm Left Affected MT Heads 23.7 cm Medial Malleolus 31.5 cm 10 cm From Medial Malleolus 44.3 cm 20 cm From Medial Malleolus 58.7 cm 30 cm From Medial Malleolus 66 cm 40 cm From Medial Malleolus 69.5 cm 50 cm From Medial Malleolus 80.3 cm 60 cm From Medial Malleolus 84.9 cm PT-OP-Q Treatments Start: 04/17/19 12:57 Freq: Status: Active Protocol: Document 05/08/19 13:45 GGD (Rec: 05/08/19 17:57 GGD [id number]) Cardio Equipment Recumbent Elliptical (Biodex) Duration (Minutes) 10 Resistance 3 Other to facilitate lymphatic flow after lymphedema wrapping Lymphedema Treatment Manual Lymphatic Drainage Location jaiden LE's Duration 50 min Lymphedema Wrapping Body Location right LE's toes to knees Materials Comprilan, artiflex, foam around right ankle to achieve more cylindrical LE shape Other Farrow wrap to left LE PT-OP-S Aquatic Treatment Start: 05/05/19 08:29 Freq: Status: Active Protocol: Document 05/19/19 11:00 IDALIA (Rec: 05/19/19 15:28 LJ [id number]) Aquatics Treatment Pool Entry/Exit Pool Entry/Exit Method Stairs Water Walking hip circumduction Water Level Chest Level Lunge Walk Water Level Chest Level Marching Water Level Chest Level Monster Walk Water Level Chest Level [place] March Water Level Chest Level Sideways Water Level Chest Level Backwards Water Level Chest Level forward Water Level Chest Level Lower Extremity Exercises HS curl jog in place Water Level Chest Level Reps/Duration 1 min Comments gentle heel/toe raise Body Position Standing Water Level Chest Level Reps/Duration 2x10 each hip circumduction Body Position Standing Water Level Chest Level Reps/Duration 2x10 bilat, both directions ab/add Water Level Chest Level Reps/Duration 2x10 Comments cross over behind standing leg flex/ext Body Position Standing Water Level Chest Level Reps/Duration 2x10 Lower Extremity Stretches gastroc and soleus Body Position Standing Water Level Chest Level hip flexor Body Position Standing Water Level Waist Level Comments hand hold on wall Quad Body Position Standing Water Level Waist Level Equipment Small Noodle Comments cues for posture HS Body Position Standing Water Level Waist Level Equipment Small Noodle Upper Extremity Exercises unilateral flex ext Body Position Standing Water Level Chest Level Reps/Duration 2x10 each ab/add; flex/ext Body Position Standing Water Level Chest Level Reps/Duration 2x10 each Comments cues for sholder retraction [place] Activities [place] Activities Bicycle,Cross Country,Hip Abduction/Adduction,Sit Kicks Other Activities pendulum w/sm BBs Equipment none Duration 12 PT-OP-T Assessment and Plan Start: 04/17/19 12:57 Freq: Status: Active Protocol: Document 05/19/19 11:00 IDALIA (Rec: 05/19/19 15:28 [id number]) Physical Therapy Assessment Rehab Potential Rehabilitation Potential Fair Impairments Impairments Edema,ROM,Soft Tissue Mobility Goals Two Impairment Lymphedema Life Impact Scale 54% Short Term Goal (STG) Decrease to 40% STG Duration 6 wks Dance Teacher Goal (LTG) Decrease to 30% LTG Duration 07/17/19 One Impairment lymphedema exacerbation Dance Teacher Goal (LTG) Decrease lymphedema to stable level (no increase or decrease greater than 1 cm over the course of 1 wk), patient to be independent with self- management to include use of lymphedema pump, self-wrapping or use of appropriate compression garments, sequential lymphedema exercises and self-massage. LTG Duration 07/17/19 Assessment Summary Assessment Pt reported slight knee pain with standing exercises. Tolerated exercise session well requiring fewer cues for posture and body mechanics. Physical Therapy Plan Frequency and Duration Frequency of Treatment 2x/Week Duration of Treatment 12 wks Plan of Care Start Date 04/17/19 Plan of Care End Date 07/17/19 Next Visit Focus/Plan Next Note Type Treatment Note Next Visit Plan Increase strengthening and endurance with resistance equipment. Incorporate more core strengthening in water for pt gait functioning on land to reduce lateral sway
--- NOTE | 2019-05-27 08:44 | PT.OTN ---
Current Diagnoses Lymphedema, not elsewhere classified (05/26/19) Physical Therapy Treatment Note PT-OP-A Visit Information Start: 04/17/19 12:57 Freq: Status: Active Protocol: Document 05/26/19 11:15 NFW (Rec: 05/27/19 08:44 NFW [id number]) Out-Patient Physical Therapy Visit Information Visit Information Visit Type Aquatic Treatment Note Visit Start Time 11:15 Visit Stop Time 12:00 Total Visit Minutes 45 Visit Number 9 Number of CLIPPER COUNTERS Visits 0 PT-OP-B Current Condition Start: 04/17/19 12:57 Freq: Status: Active Protocol: Document 04/17/19 12:58 SAK (Rec: 04/17/19 14:24 SAK [id number]) Current Condition History of Current Condition Onset Date 2001 Current Complaints lymphedema bilateral LE's. History of Current Condition lymphedema waist to toes. diagnosed 2001, not treated until 2009. Was in coma for 3 wks 2008, states she almost due to infection in legs. States the lymphedema is thought to have been caused by mosquitoes; had severe reaction to bites. Gradual increase in swelling in LE's. Most recent LE infection a couple months ago with open wound left LE. 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 Prior Treatments and Tests Has had wraps, MLD, has a lymphedema pump; unable to use pump at this time due to increase in lymphedema with inability to fit into pump legs. Has no compression garments. Currently wraps her legs her self, uses ones with velcro. Used to go to pool, had to stop due to open wound. Goes to [employer] 3x/wk , wears wraps when she exercises. States Farrow wrap ordered for her right LE due to having open wound so insurance will cover it; she is unable to afford on her own . Lymphedema surgery bilateral LE's 2 years ago, with tissue and skin removed after determined lymph node transfer wouldn't be effective due to lack of functioning lymph nodes. Gastric bypass 2011 went from 600lbs, now down to 340. Has had skin removal on stomach. Treatment Goals Patient/Caregiver Goals Decrease lymphedema sufficient to allow her to use compression pump, be able to self-manage her lymphedema. 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 Current Functional Impairments (Reported) Functional Limitations- ADL's More difficult due to increased weight of legs Functional Limitations- Mobility/Gait limited to household due to weight of legs Functional Limitations- Work/School more difficult to care for her mother Personal Factors Other Personal Factors That May Effect Patient is 5'9, 340lbs Therapy/Recovery PT-OP-C Subjective Start: 04/17/19 12:57 Freq: Status: Active Protocol: Document 05/26/19 11:15 NFW (Rec: 05/27/19 08:44 NFW [id number]) OP-PT Subjective Patient Comments Patient Comments Patient has been busy caring for her mother. Keeping up with her own home care. PT-OP-F Manual Assessment Start: 04/17/19 12:57 Freq: Status: Active Protocol: Document 04/17/19 12:58 SAK (Rec: 04/21/19 17:06 SAK [id number]) Manual Assessments Soft Tissue Assessment Soft Tissue Mobility Assessment Due to lymphedema patient demonstrating decreased movement of LE tissue with fibrosis evident medial lower leg on left around area of healing wound. PT-OP-K Range of Motion Start: 04/17/19 12:57 Freq: Status: Active Protocol: Document 04/17/19 12:58 SAK (Rec: 04/21/19 17:06 SAK [id number]) Knee Goniometric Range of Motion Knee ROM Limitations Knee ROM Limitations Swelling Comments lacking full flexion due to tissue approximation from lymphedema bilateral Ankle and Foot Goniometric Range of Motion Ankle and Foot ROM Limitations ROM Limitations Swelling Comments ankle df to neutral jaiden, pf WFL jaiden PT-OP-M Strength Start: 04/17/19 12:57 Freq: Status: Active Protocol: Document 04/17/19 12:58 SAK (Rec: 04/21/19 17:06 SAK [id number]) Hip Strength Hip Manual Muscle Testing jaiden Flexion (L2) 3- Fair- Extension (S1) 2 Poor Abduction 2+ Poor+ Comments heaviness of leg Knee Strength Knee Manual Muscle Testing jaiden Flexion (S2) 4 Good Extension (L3) 4 Good Ankle/Foot Strength Ankle and Foot Manual Muscle Testing jaiden Dorsiflexion (L4) 4- Good- Plantarflexion (S1) 4- Good- PT-OP-N Lymphedema Start: 04/17/19 12:57 Freq: Status: Active Protocol: Document 05/08/19 13:45 GGD (Rec: 05/08/19 17:57 GGD [email or web address]) Lymphedema Measurements Lower Extremity Circumference Measurements Right Affected MT Heads 24.5 cm Medial Malleolus 32.3 cm 10 cm From Medial Malleolus 45.6 cm 20 cm From Medial Malleolus 57.4 cm 30 cm From Medial Malleolus 63.4 cm 40 cm From Medial Malleolus 68.1 cm 50 cm From Medial Malleolus 67.4 cm 60 cm From Medial Malleolus 80.6 cm 70 cm From Medial Malleolus 82.3 cm Left Affected MT Heads 23.7 cm Medial Malleolus 31.5 cm 10 cm From Medial Malleolus 44.3 cm 20 cm From Medial Malleolus 58.7 cm 30 cm From Medial Malleolus 66 cm 40 cm From Medial Malleolus 69.5 cm 50 cm From Medial Malleolus 80.3 cm 60 cm From Medial Malleolus 84.9 cm PT-OP-Q Treatments Start: 04/17/19 12:57 Freq: Status: Active Protocol: Document 05/08/19 13:45 GGD (Rec: 05/08/19 17:57 GGD [email or web address]) Cardio Equipment Recumbent Elliptical ([employer]) Duration (Minutes) 10 Resistance 3 Other to facilitate lymphatic flow after lymphedema wrapping Lymphedema Treatment Manual Lymphatic Drainage Location jaiden LE's Duration 50 min Lymphedema Wrapping Body Location right LE's toes to knees Materials Comprilan, artiflex, foam around right ankle to achieve more cylindrical LE shape Other Farrow wrap to left LE PT-OP-S Aquatic Treatment Start: 05/05/19 08:29 Freq: Status: Active Protocol: Document 05/26/19 11:15 NFW (Rec: 05/27/19 08:44 NFW [id number]) Aquatics Treatment Water Walking hip circumduction Water Level Chest Level Lunge Walk Water Level Chest Level Marching Water Level Chest Level Monster Walk Water Level Chest Level Clarita March Water Level Chest Level Sideways Water Level Chest Level Backwards Water Level Chest Level forward Water Level Chest Level Lower Extremity Exercises HS curl jog in place Water Level Chest Level Reps/Duration 1 min Comments gentle heel/toe raise Body Position Standing Water Level Chest Level Reps/Duration 2x10 each hip circumduction Body Position Standing Water Level Chest Level Reps/Duration 2x10 bilat, both directions ab/add Water Level Chest Level Comments cross over behind standing leg flex/ext Body Position Standing Water Level Chest Level Reps/Duration 2x10 Upper Extremity Exercises unilateral flex ext Body Position Standing Water Level Chest Level Reps/Duration 2x10 each ab/add; flex/ext Body Position Standing Water Level Chest Level Reps/Duration 2x10 each Boswell Activities Boswell Activities Bicycle,Cross Country,Hip Abduction/Adduction,Sit Kicks Other Activities pendulum w/sm BBs Equipment none Duration 15 PT-OP-T Assessment and Plan Start: 04/17/19 12:57 Freq: Status: Active Protocol: Document 05/26/19 11:15 NFW (Rec: 05/27/19 08:44 NFW [id number]) Physical Therapy Assessment Rehab Potential Rehabilitation Potential Fair Impairments Impairments Edema,ROM,Soft Tissue Mobility Assessment Summary Assessment Tolerated core strengthening exercises with deep water exercises. Occasional cuing for proper body positioning. Exercises with good intensity. Physical Therapy Plan Frequency and Duration Duration of Treatment 12 wks Plan of Care Start Date 04/17/19 Plan of Care End Date 07/17/19 Next Visit Focus/Plan Next Note Type Treatment Note Next Visit Plan Continue to progress in improving endurance and core strengthening.
--- NOTE | 2019-05-29 15:41 | PT.OTN ---
Current Diagnoses Lymphedema, not elsewhere classified (05/29/19) Physical Therapy Treatment Note PT-OP-A Visit Information Start: 04/17/19 12:57 Freq: Status: Active Protocol: Document 05/29/19 15:30 GGD (Rec: 05/29/19 15:41 GGD [email or web address]) Out-Patient Physical Therapy Visit Information Visit Information Visit Type Treatment Note Visit Start Time 13:45 Visit Stop Time 14:55 Total Visit Minutes 70 Visit Number 10 Number of ARTIFICIAL BREEDING RANCH SUPERVISOR Visits 1 PT-OP-B Current Condition Start: 04/17/19 12:57 Freq: Status: Active Protocol: Document 04/17/19 12:58 SAK (Rec: 04/17/19 14:24 SAK [id number]) Current Condition History of Current Condition Onset Date 2001 Current Complaints lymphedema bilateral LE's. History of Current Condition lymphedema waist to toes. diagnosed 2001, not treated until 2009. Was in coma for 3 wks 2008, states she almost due to infection in legs. States the lymphedema is thought to have been caused by mosquitoes; had severe reaction to bites. Gradual increase in swelling in LE's. Most recent LE infection a couple months ago with open wound left LE. 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 Prior Treatments and Tests Has had wraps, MLD, has a lymphedema pump; unable to use pump at this time due to increase in lymphedema with inability to fit into pump legs. Has no compression garments. Currently wraps her legs her self, uses ones with velcro. Used to go to pool, had to stop due to open wound. Goes to [employer] 3x/wk , wears wraps when she exercises. States Farrow wrap ordered for her right LE due to having open wound so insurance will cover it; she is unable to afford on her own . Lymphedema surgery bilateral LE's 2 years ago, with tissue and skin removed after determined lymph node transfer wouldn't be effective due to lack of functioning lymph nodes. Gastric bypass 2011 went from 600lbs, now down to 340. Has had skin removal on stomach. Treatment Goals Patient/Caregiver Goals Decrease lymphedema sufficient to allow her to use compression pump, be able to self-manage her lymphedema. 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 Current Functional Impairments (Reported) Functional Limitations- ADL's More difficult due to increased weight of legs Functional Limitations- Mobility/Gait limited to household due to weight of legs Functional Limitations- Work/School more difficult to care for her mother Personal Factors Other Personal Factors That May Effect Patient is 5'9, 340lbs Therapy/Recovery PT-OP-C Subjective Start: 04/17/19 12:57 Freq: Status: Active Protocol: Document 05/29/19 15:30 GGD (Rec: 05/29/19 15:41 GGD [email or web address]) OP-PT Subjective Patient Comments Patient Comments 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 Patient Questionnaires Lymphedema Life Impact Score Lymphedema Score 25 PT-OP-F Manual Assessment Start: 04/17/19 12:57 Freq: Status: Active Protocol: Document 04/17/19 12:58 SAK (Rec: 04/21/19 17:06 SAK [id number]) Manual Assessments Soft Tissue Assessment Soft Tissue Mobility Assessment Due to lymphedema patient demonstrating decreased movement of LE tissue with fibrosis evident medial lower leg on left around area of healing wound. PT-OP-K Range of Motion Start: 04/17/19 12:57 Freq: Status: Active Protocol: Document 04/17/19 12:58 SAK (Rec: 04/21/19 17:06 SAK [id number]) Knee Goniometric Range of Motion Knee ROM Limitations Knee ROM Limitations Swelling Comments lacking full flexion due to tissue approximation from lymphedema bilateral Ankle and Foot Goniometric Range of Motion Ankle and Foot ROM Limitations ROM Limitations Swelling Comments ankle df to neutral jaiden, pf WFL jaiden PT-OP-M Strength Start: 04/17/19 12:57 Freq: Status: Active Protocol: Document 04/17/19 12:58 SAK (Rec: 04/21/19 17:06 SAK [id number]) Hip Strength Hip Manual Muscle Testing jaiden Flexion (L2) 3- Fair- Extension (S1) 2 Poor Abduction 2+ Poor+ Comments heaviness of leg Knee Strength Knee Manual Muscle Testing jaiden Flexion (S2) 4 Good Extension (L3) 4 Good Ankle/Foot Strength Ankle and Foot Manual Muscle Testing jaiden Dorsiflexion (L4) 4- Good- Plantarflexion (S1) 4- Good- PT-OP-N Lymphedema Start: 04/17/19 12:57 Freq: Status: Active Protocol: Document 05/29/19 15:30 GGD (Rec: 05/29/19 15:41 GGD [email or web address]) Lymphedema Measurements Lower Extremity Circumference Measurements Right Affected MT Heads 23.5 cm Medial Malleolus 30.5 cm 10 cm From Medial Malleolus 47.5 cm 20 cm From Medial Malleolus 59 cm 30 cm From Medial Malleolus 61.9 cm 40 cm From Medial Malleolus 68.5 cm 50 cm From Medial Malleolus 66.5 cm 60 cm From Medial Malleolus 80 cm 70 cm From Medial Malleolus 80.6 cm Left Affected MT Heads 23.5 cm Medial Malleolus 30.2 cm 10 cm From Medial Malleolus 43 cm 20 cm From Medial Malleolus 58.6 cm 30 cm From Medial Malleolus 66.9 cm 40 cm From Medial Malleolus 70 cm 50 cm From Medial Malleolus 66.5 cm 60 cm From Medial Malleolus 81.7 cm 70 cm From Medial Malleolus 81.6 cm PT-OP-Q Treatments Start: 04/17/19 12:57 Freq: Status: Active Protocol: Document 05/29/19 15:30 GGD (Rec: 05/29/19 15:41 GGD [email or web address]) Cardio Equipment Recumbent Elliptical ([employer]) Duration (Minutes) 10 Resistance 3 Other to facilitate lymphatic flow after lymphedema wrapping Lymphedema Treatment Manual Lymphatic Drainage Location jaiden LE's Duration 50 min Lymphedema Wrapping Body Location right LE's toes to knees Materials Comprilan, artiflex, foam around right ankle to achieve more cylindrical LE shape Other Farrow wrap to left LE PT-OP-T Assessment and Plan Start: 04/17/19 12:57 Freq: Status: Active Protocol: Document 05/29/19 15:30 GGD (Rec: 05/29/19 15:41 GGD [email or web address]) Physical Therapy Assessment Goals Two Impairment Lymphedema Life Impact Scale 54% Short Term Goal (STG) Decrease to 40% STG Duration met 05/29/19 Food Supervisor Goal (LTG) Decrease to 30% LTG Duration 07/17/19 One Impairment lymphedema exacerbation Food Supervisor Goal (LTG) Decrease lymphedema to stable level (no increase or decrease greater than 1 cm over the course of 1 wk), patient to be independent with self- management to include use of lymphedema pump, self-wrapping or use of appropriate compression garments, sequential lymphedema exercises and self-massage. 05/29/19: making progress left > right LTG Duration 07/17/19 Assessment Summary Assessment Pt had decrease in circumferntial measurements, left > right. Left LE overall decreased by .5-1 cm, did increase above farrow wraps. Physical Therapy Plan Frequency and Duration Duration of Treatment 12 wks Plan of Care Start Date 04/17/19 Plan of Care End Date 07/17/19 Next Visit Focus/Plan Next Note Type Treatment Note Next Visit Plan Circumferntial measurements, continue lymphedema management .
--- NOTE | 2019-05-29 15:48 | PT.OPPN ---
Current Diagnoses Lymphedema, not elsewhere classified (05/29/19) Physical Therapy Progress Note PT-OP-A Visit Information Start: 04/17/19 12:57 Freq: Status: Active Protocol: Document 05/29/19 15:30 GGD (Rec: 05/29/19 15:41 GGD [email or web address]) Out-Patient Physical Therapy Visit Information Visit Information Visit Type Treatment Note Visit Start Time 13:45 Visit Stop Time 14:55 Total Visit Minutes 70 Visit Number 10 Number of DRILLER'S ASSISTANT Visits 1 PT-OP-B Current Condition Start: 04/17/19 12:57 Freq: Status: Active Protocol: Document 04/17/19 12:58 SAK (Rec: 04/17/19 14:24 SAK [id number]) Current Condition History of Current Condition Onset Date 2001 Current Complaints lymphedema bilateral LE's. History of Current Condition lymphedema waist to toes. diagnosed 2001, not treated until 2009. Was in coma for 3 wks 2008, states she almost due to infection in legs. States the lymphedema is thought to have been caused by mosquitoes; had severe reaction to bites. Gradual increase in swelling in LE's. Most recent LE infection a couple months ago with open wound left LE. 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 Prior Treatments and Tests Has had wraps, MLD, has a lymphedema pump; unable to use pump at this time due to increase in lymphedema with inability to fit into pump legs. Has no compression garments. Currently wraps her legs her self, uses ones with velcro. Used to go to pool, had to stop due to open wound. Goes to [employer] 3x/wk , wears wraps when she exercises. States Farrow wrap ordered for her right LE due to having open wound so insurance will cover it; she is unable to afford on her own . Lymphedema surgery bilateral LE's 2 years ago, with tissue and skin removed after determined lymph node transfer wouldn't be effective due to lack of functioning lymph nodes. Gastric bypass 2011 went from 600lbs, now down to 340. Has had skin removal on stomach. Treatment Goals Patient/Caregiver Goals Decrease lymphedema sufficient to allow her to use compression pump, be able to self-manage her lymphedema. 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 Current Functional Impairments (Reported) Functional Limitations- ADL's More difficult due to increased weight of legs Functional Limitations- Mobility/Gait limited to household due to weight of legs Functional Limitations- Work/School more difficult to care for her mother Personal Factors Other Personal Factors That May Effect Patient is 5'9, 340lbs Therapy/Recovery PT-OP-C Subjective Start: 04/17/19 12:57 Freq: Status: Active Protocol: Document 05/29/19 15:30 GGD (Rec: 05/29/19 15:41 GGD [email or web address]) OP-PT Subjective Patient Comments Patient Comments 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 Patient Questionnaires Lymphedema Life Impact Score Lymphedema Score 25 PT-OP-F Manual Assessment Start: 04/17/19 12:57 Freq: Status: Active Protocol: Document 04/17/19 12:58 SAK (Rec: 04/21/19 17:06 SAK [id number]) Manual Assessments Soft Tissue Assessment Soft Tissue Mobility Assessment Due to lymphedema patient demonstrating decreased movement of LE tissue with fibrosis evident medial lower leg on left around area of healing wound. PT-OP-K Range of Motion Start: 04/17/19 12:57 Freq: Status: Active Protocol: Document 04/17/19 12:58 SAK (Rec: 04/21/19 17:06 SAK [id number]) Knee Goniometric Range of Motion Knee ROM Limitations Knee ROM Limitations Swelling Comments lacking full flexion due to tissue approximation from lymphedema bilateral Ankle and Foot Goniometric Range of Motion Ankle and Foot ROM Limitations ROM Limitations Swelling Comments ankle df to neutral jaiden, pf WFL jaiden PT-OP-M Strength Start: 04/17/19 12:57 Freq: Status: Active Protocol: Document 04/17/19 12:58 SAK (Rec: 04/21/19 17:06 SAK [id number]) Hip Strength Hip Manual Muscle Testing jaiden Flexion (L2) 3- Fair- Extension (S1) 2 Poor Abduction 2+ Poor+ Comments heaviness of leg Knee Strength Knee Manual Muscle Testing jaiden Flexion (S2) 4 Good Extension (L3) 4 Good Ankle/Foot Strength Ankle and Foot Manual Muscle Testing jaiden Dorsiflexion (L4) 4- Good- Plantarflexion (S1) 4- Good- PT-OP-N Lymphedema Start: 04/17/19 12:57 Freq: Status: Active Protocol: Document 05/29/19 15:30 GGD (Rec: 05/29/19 15:41 GGD [email or web address]) Lymphedema Measurements Lower Extremity Circumference Measurements Right Affected MT Heads 23.5 cm Medial Malleolus 30.5 cm 10 cm From Medial Malleolus 47.5 cm 20 cm From Medial Malleolus 59 cm 30 cm From Medial Malleolus 61.9 cm 40 cm From Medial Malleolus 68.5 cm 50 cm From Medial Malleolus 66.5 cm 60 cm From Medial Malleolus 80 cm 70 cm From Medial Malleolus 80.6 cm Left Affected MT Heads 23.5 cm Medial Malleolus 30.2 cm 10 cm From Medial Malleolus 43 cm 20 cm From Medial Malleolus 58.6 cm 30 cm From Medial Malleolus 66.9 cm 40 cm From Medial Malleolus 70 cm 50 cm From Medial Malleolus 66.5 cm 60 cm From Medial Malleolus 81.7 cm 70 cm From Medial Malleolus 81.6 cm PT-OP-T Assessment and Plan Start: 04/17/19 12:57 Freq: Status: Active Protocol: Document 05/29/19 15:30 GGD (Rec: 05/29/19 15:41 GGD [email or web address]) Physical Therapy Assessment Goals Two Impairment Lymphedema Life Impact Scale 54% Short Term Goal (STG) Decrease to 40% STG Duration met 05/29/19 Fdc Goal (LTG) Decrease to 30% LTG Duration 07/17/19 One Impairment lymphedema exacerbation Fdc Goal (LTG) Decrease lymphedema to stable level (no increase or decrease greater than 1 cm over the course of 1 wk), patient to be independent with self- management to include use of lymphedema pump, self-wrapping or use of appropriate compression garments, sequential lymphedema exercises and self-massage. 05/29/19: making progress left > right LTG Duration 07/17/19 Assessment Summary Assessment Pt had decrease in circumferntial measurements, left > right. Left LE overall decreased by .5-1 cm, did increase above farrow wraps. Physical Therapy Plan Frequency and Duration Duration of Treatment 12 wks Plan of Care Start Date 04/17/19 Plan of Care End Date 07/17/19 Next Visit Focus/Plan Next Note Type Treatment Note Next Visit Plan Circumferntial measurements, continue lymphedema management .
--- NOTE | 2019-06-02 11:45 | PT.OTN ---
Current Diagnoses Lymphedema, not elsewhere classified (05/29/19) Physical Therapy Treatment Note PT-OP-A Visit Information Start: 04/17/19 12:57 Freq: Status: Active Protocol: Document 06/02/19 11:00 CLB (Rec: 06/02/19 14:05 CLB [id number]) Out-Patient Physical Therapy Visit Information Visit Information Visit Type Aquatic Treatment Note Visit Start Time 11:00 Visit Stop Time 11:45 Total Visit Minutes 45 Visit Number 11 Number of DRAPERY AND UPHOLSTERY ESTIMATOR Visits 2 PT-OP-B Current Condition Start: 04/17/19 12:57 Freq: Status: Active Protocol: Document 04/17/19 12:58 SAK (Rec: 04/17/19 14:24 SAK [id number]) Current Condition History of Current Condition Onset Date 2001 Current Complaints lymphedema bilateral LE's. History of Current Condition lymphedema waist to toes. diagnosed 2001, not treated until 2009. Was in coma for 3 wks 2008, states she almost due to infection in legs. States the lymphedema is thought to have been caused by mosquitoes; had severe reaction to bites. Gradual increase in swelling in LE's. Most recent LE infection a couple months ago with open wound left LE. 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 Prior Treatments and Tests Has had wraps, MLD, has a lymphedema pump; unable to use pump at this time due to increase in lymphedema with inability to fit into pump legs. Has no compression garments. Currently wraps her legs her self, uses ones with velcro. Used to go to pool, had to stop due to open wound. Goes to [employer] 3x/wk , wears wraps when she exercises. States Farrow wrap ordered for her right LE due to having open wound so insurance will cover it; she is unable to afford on her own . Lymphedema surgery bilateral LE's 2 years ago, with tissue and skin removed after determined lymph node transfer wouldn't be effective due to lack of functioning lymph nodes. Gastric bypass 2011 went from 600lbs, now down to 340. Has had skin removal on stomach. Treatment Goals Patient/Caregiver Goals Decrease lymphedema sufficient to allow her to use compression pump, be able to self-manage her lymphedema. 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 Current Functional Impairments (Reported) Functional Limitations- ADL's More difficult due to increased weight of legs Functional Limitations- Mobility/Gait limited to household due to weight of legs Functional Limitations- Work/School more difficult to care for her mother Personal Factors Other Personal Factors That May Effect Patient is 5'9, 340lbs Therapy/Recovery PT-OP-C Subjective Start: 04/17/19 12:57 Freq: Status: Active Protocol: Document 06/02/19 11:00 CLB (Rec: 06/02/19 14:05 CLB [id number]) OP-PT Subjective Patient Comments Patient Comments Pt with no new complaints states mom was in hospital but is now home. PT-OP-F Manual Assessment Start: 04/17/19 12:57 Freq: Status: Active Protocol: Document 04/17/19 12:58 SAK (Rec: 04/21/19 17:06 SAK [id number]) Manual Assessments Soft Tissue Assessment Soft Tissue Mobility Assessment Due to lymphedema patient demonstrating decreased movement of LE tissue with fibrosis evident medial lower leg on left around area of healing wound. PT-OP-K Range of Motion Start: 04/17/19 12:57 Freq: Status: Active Protocol: Document 04/17/19 12:58 SAK (Rec: 04/21/19 17:06 SAK [id number]) Knee Goniometric Range of Motion Knee ROM Limitations Knee ROM Limitations Swelling Comments lacking full flexion due to tissue approximation from lymphedema bilateral Ankle and Foot Goniometric Range of Motion Ankle and Foot ROM Limitations ROM Limitations Swelling Comments ankle df to neutral jaiden, pf WFL jaiden PT-OP-M Strength Start: 04/17/19 12:57 Freq: Status: Active Protocol: Document 04/17/19 12:58 SAK (Rec: 04/21/19 17:06 SAK [id number]) Hip Strength Hip Manual Muscle Testing [place] Flexion (L2) 3- Fair- Extension (S1) 2 Poor Abduction 2+ Poor+ Comments heaviness of leg Knee Strength Knee Manual Muscle Testing [place] Flexion (S2) 4 Good Extension (L3) 4 Good Ankle/Foot Strength Ankle and Foot Manual Muscle Testing [place] Dorsiflexion (L4) 4- Good- Plantarflexion (S1) 4- Good- PT-OP-N Lymphedema Start: 04/17/19 12:57 Freq: Status: Active Protocol: Document 05/29/19 15:30 GGD (Rec: 05/29/19 15:41 GGD [id number]) Lymphedema Measurements Lower Extremity Circumference Measurements Right Affected MT Heads 23.5 cm Medial Malleolus 30.5 cm 10 cm From Medial Malleolus 47.5 cm 20 cm From Medial Malleolus 59 cm 30 cm From Medial Malleolus 61.9 cm 40 cm From Medial Malleolus 68.5 cm 50 cm From Medial Malleolus 66.5 cm 60 cm From Medial Malleolus 80 cm 70 cm From Medial Malleolus 80.6 cm Left Affected MT Heads 23.5 cm Medial Malleolus 30.2 cm 10 cm From Medial Malleolus 43 cm 20 cm From Medial Malleolus 58.6 cm 30 cm From Medial Malleolus 66.9 cm 40 cm From Medial Malleolus 70 cm 50 cm From Medial Malleolus 66.5 cm 60 cm From Medial Malleolus 81.7 cm 70 cm From Medial Malleolus 81.6 cm PT-OP-Q Treatments Start: 04/17/19 12:57 Freq: Status: Active Protocol: Document 05/29/19 15:30 GGD (Rec: 05/29/19 15:41 GGD [id number]) Cardio Equipment Recumbent Elliptical (Biodex) Duration (Minutes) 10 Resistance 3 Other to facilitate lymphatic flow after lymphedema wrapping Lymphedema Treatment Manual Lymphatic Drainage Location jaiden LE's Duration 50 min Lymphedema Wrapping Body Location right LE's toes to knees Materials Comprilan, artiflex, foam around right ankle to achieve more cylindrical LE shape Other Farrow wrap to left LE PT-OP-S Aquatic Treatment Start: 05/05/19 08:29 Freq: Status: Active Protocol: Document 06/02/19 11:00 CLB (Rec: 06/02/19 14:05 CLB [id number]) Aquatics Treatment Pool Entry/Exit Pool Entry/Exit Method Stairs Water Walking hip circumduction Water Level Chest Level Lunge Walk Water Level Chest Level Marching Water Level Chest Level Monster Walk Water Level Chest Level [place] March Water Level Chest Level Sideways Water Level Chest Level Backwards Water Level Chest Level forward Water Level Chest Level Lower Extremity Exercises Lumbar stabilization Details squats Body Position Standing Water Level Waist Level Equipment pull cord Reps/Duration [address] Comments cues for mm activation HS curl jog in place Water Level Chest Level Reps/Duration 1 min Comments gentle heel/toe raise Body Position Standing Water Level Chest Level Reps/Duration 2x10 each hip circumduction Body Position Standing Water Level Chest Level Reps/Duration 2x10 bilat, both directions ab/add Water Level Chest Level Comments cross over behind standing leg flex/ext Body Position Standing Water Level Chest Level Reps/Duration 2x10 [place] Activities [place] Activities Bicycle,Cross Country,Hip Abduction/Adduction,Sit Kicks Other Activities pendulum w/sm BBs Equipment none Duration 15 PT-OP-T Assessment and Plan Start: 04/17/19 12:57 Freq: Status: Active Protocol: Document 06/02/19 11:00 CLB (Rec: 06/02/19 14:05 CLB [id number]) Physical Therapy Assessment Goals Two Impairment Lymphedema Life Impact Scale 54% Short Term Goal (STG) Decrease to 40% STG Duration met 05/29/19 Diesel Locomotive Engineer Goal (LTG) Decrease to 30% LTG Duration 07/17/19 One Impairment lymphedema exacerbation Mcfp Goal (LTG) Decrease lymphedema to stable level (no increase or decrease greater than 1 cm over the course of 1 wk), patient to be independent with self- management to include use of lymphedema pump, self-wrapping or use of appropriate compression garments, sequential lymphedema exercises and self-massage. 05/29/19: making progress left > right LTG Duration 07/17/19 Assessment Summary Assessment Pt tolerating all aquatic ther ex well with cues for mm activation. Physical Therapy Plan Frequency and Duration Duration of Treatment 12 wks Plan of Care Start Date 04/17/19 Plan of Care End Date 07/17/19 Next Visit Focus/Plan Next Visit Plan Continue to progress in improving endurance and core strengthening.
--- NOTE | 2019-06-10 15:46 | PT.OTN ---
Current Diagnoses Lymphedema, not elsewhere classified (06/10/19) Physical Therapy Treatment Note PT-OP-A Visit Information Start: 04/17/19 12:57 Freq: Status: Active Protocol: Document 06/10/19 08:13 [facility] (Rec: 06/10/19 15:44 [facility] [id number]) Out-Patient Physical Therapy Visit Information Visit Information Visit Type Treatment Note Visit Start Time 08:13 Visit Stop Time 09:38 Total Visit Minutes 80 Visit Number 12 Number of OTOLARYNGOLOGY REP Visits 0 PT-OP-B Current Condition Start: 04/17/19 12:57 Freq: Status: Active Protocol: Document 04/17/19 12:58 SAK (Rec: 04/17/19 14:24 SAK [id number]) Current Condition History of Current Condition Onset Date 2001 Current Complaints lymphedema bilateral LE's. History of Current Condition lymphedema waist to toes. diagnosed 2001, not treated until 2009. Was in coma for 3 wks 2008, states she almost due to infection in legs. States the lymphedema is thought to have been caused by mosquitoes; had severe reaction to bites. Gradual increase in swelling in LE's. Most recent LE infection a couple months ago with open wound left LE. 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 Prior Treatments and Tests Has had wraps, MLD, has a lymphedema pump; unable to use pump at this time due to increase in lymphedema with inability to fit into pump legs. Has no compression garments. Currently wraps her legs her self, uses ones with velcro. Used to go to pool, had to stop due to open wound. Goes to [employer] 3x/wk , wears wraps when she exercises. States Farrow wrap ordered for her right LE due to having open wound so insurance will cover it; she is unable to afford on her own . Lymphedema surgery bilateral LE's 2 years ago, with tissue and skin removed after determined lymph node transfer wouldn't be effective due to lack of functioning lymph nodes. Gastric bypass 2011 went from 600lbs, now down to 340. Has had skin removal on stomach. Treatment Goals Patient/Caregiver Goals Decrease lymphedema sufficient to allow her to use compression pump, be able to self-manage her lymphedema. 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 Current Functional Impairments (Reported) Functional Limitations- ADL's More difficult due to increased weight of legs Functional Limitations- Mobility/Gait limited to household due to weight of legs Functional Limitations- Work/School more difficult to care for her mother Personal Factors Other Personal Factors That May Effect Patient is 5'9, 340lbs Therapy/Recovery PT-OP-C Subjective Start: 04/17/19 12:57 Freq: Status: Active Protocol: Document 06/10/19 08:13 SAK (Rec: 06/10/19 09:39 SAK [id number]) OP-PT Subjective Patient Comments Patient Comments REports over the weekend swelling increased in both legs for no known reason. Will be getting Farrow wrap for right LE for [place]. Had x-ray of right knee due to persistent pain, no results yet. PT-OP-F Manual Assessment Start: 04/17/19 12:57 Freq: Status: Active Protocol: Document 04/17/19 12:58 SAK (Rec: 04/21/19 17:06 [facility] [id number]) Manual Assessments Soft Tissue Assessment Soft Tissue Mobility Assessment Due to lymphedema patient demonstrating decreased movement of LE tissue with fibrosis evident medial lower leg on left around area of healing wound. PT-OP-K Range of Motion Start: 04/17/19 12:57 Freq: Status: Active Protocol: Document 04/17/19 12:58 SAK (Rec: 04/21/19 17:06 [facility] [id number]) Knee Goniometric Range of Motion Knee ROM Limitations Knee ROM Limitations Swelling Comments lacking full flexion due to tissue approximation from lymphedema bilateral Ankle and Foot Goniometric Range of Motion Ankle and Foot ROM Limitations ROM Limitations Swelling Comments ankle df to neutral jaiden, pf WFL ja[place] PT-OP-M Strength Start: 04/17/19 12:57 Freq: Status: Active Protocol: Document 04/17/19 12:58 SAK (Rec: 04/21/19 17:06 SAK [id number]) Hip Strength Hip Manual Muscle Testing [place] Flexion (L2) 3- Fair- Extension (S1) 2 Poor Abduction 2+ Poor+ Comments heaviness of leg Knee Strength Knee Manual Muscle Testing [place] Flexion (S2) 4 Good Extension (L3) 4 Good Ankle/Foot Strength Ankle and Foot Manual Muscle Testing [place] Dorsiflexion (L4) 4- Good- Plantarflexion (S1) 4- Good- PT-OP-N Lymphedema Start: 04/17/19 12:57 Freq: Status: Active Protocol: Document 06/10/19 08:13 SAK (Rec: 06/10/19 15:44 [facility] [id number]) Lymphedema Measurements Lower Extremity Circumference Measurements Right Affected MT Heads 25 cm Medial Malleolus 29.1 cm 10 cm From Medial Malleolus 49.7 cm 20 cm From Medial Malleolus 62.5 cm 30 cm From Medial Malleolus 72 cm 40 cm From Medial Malleolus 63.4 cm 50 cm From Medial Malleolus 81.9 cm 60 cm From Medial Malleolus 80 cm 70 cm From Medial Malleolus 82 cm Left Affected MT Heads 23.8 cm Medial Malleolus 28.3 cm 10 cm From Medial Malleolus 48.9 cm 20 cm From Medial Malleolus 63.7 cm 30 cm From Medial Malleolus 68.2 cm 40 cm From Medial Malleolus 67.4 cm 50 cm From Medial Malleolus 67.3 cm 60 cm From Medial Malleolus 82.2 cm 70 cm From Medial Malleolus 81.2 cm PT-OP-Q Treatments Start: 04/17/19 12:57 Freq: Status: Active Protocol: Document 06/10/19 08:13 SAK (Rec: 06/10/19 15:44 [facility] [id number]) Cardio Equipment Recumbent Elliptical (Biodex) Duration (Minutes) 10 Resistance 3 Other to facilitate lymphatic flow after lymphedema wrapping Lymphedema Treatment Manual Lymphatic Drainage Location jaiden LE's Duration 50 min Lymphedema Wrapping Body Location right LE's toes to knees Materials Comprilan, artiflex, foam around right ankle to achieve more cylindrical LE shape Other Farrow wrap to left LE Patient Education Other Discussed potential causes of increased lymphedema over weekend. PT-OP-S Aquatic Treatment Start: 05/05/19 08:29 Freq: Status: Active Protocol: Document 06/02/19 11:00 CLB (Rec: 06/02/19 14:05 CLB [id number]) Aquatics Treatment Pool Entry/Exit Pool Entry/Exit Method Stairs Water Walking hip circumduction Water Level Chest Level Lunge Walk Water Level Chest Level Marching Water Level Chest Level Monster Walk Water Level Chest Level [place] March Water Level Chest Level Sideways Water Level Chest Level Backwards Water Level Chest Level forward Water Level Chest Level Lower Extremity Exercises Lumbar stabilization Details squats Body Position Standing Water Level Waist Level Equipment pull cord Reps/Duration [address] Comments cues for mm activation HS curl jog in place Water Level Chest Level Reps/Duration 1 min Comments gentle heel/toe raise Body Position Standing Water Level Chest Level Reps/Duration 2x10 each hip circumduction Body Position Standing Water Level Chest Level Reps/Duration 2x10 bilat, both directions ab/add Water Level Chest Level Comments cross over behind standing leg flex/ext Body Position Standing Water Level Chest Level Reps/Duration 2x10 [place] Activities [place] Activities Bicycle,Cross Country,Hip Abduction/Adduction,Sit Kicks Other Activities pendulum w/sm BBs Equipment none Duration 15 PT-OP-T Assessment and Plan Start: 04/17/19 12:57 Freq: Status: Active Protocol: Document 06/10/19 08:13 [facility] (Rec: 06/10/19 09:39 SAK [id number]) Physical Therapy Assessment Goals Two Impairment Lymphedema Life Impact Scale 54% Short Term Goal (STG) Decrease to 40% STG Duration met 05/29/19 Sales Management Intern Goal (LTG) Decrease to 30% LTG Duration 07/17/19 One Impairment lymphedema exacerbation Care Home Goal (LTG) Decrease lymphedema to stable level (no increase or decrease greater than 1 cm over the course of 1 wk), patient to be independent with self- management to include use of lymphedema pump, self-wrapping or use of appropriate compression garments, sequential lymphedema exercises and self-massage. 05/29/19: making progress left > right LTG Duration 07/17/19 Assessment Summary Assessment Patient presented with increase in edema today bilateral LE's, no known reason. Applied new short stretch bandages on right LE due to current bandages worn out. Farrow wrap to left. Tolerated treatment well. Physical Therapy Plan Frequency and Duration Frequency of Treatment 2x/Week Duration of Treatment 12 wks Plan of Care Start Date 04/17/19 Plan of Care End Date 07/17/19 Next Visit Focus/Plan Next Note Type Treatment Note Next Visit Plan Continue lymphedema management .
--- NOTE | 2019-06-10 15:48 | PT.OTN ---
Current Diagnoses Lymphedema, not elsewhere classified (06/10/19) Physical Therapy Treatment Note PT-OP-A Visit Information Start: 04/17/19 12:57 Freq: Status: Active Protocol: Document 06/10/19 08:13 [facility] (Rec: 06/10/19 15:44 [facility] [id number]) Out-Patient Physical Therapy Visit Information Visit Information Visit Type Treatment Note Visit Start Time 08:13 Visit Stop Time 09:38 Total Visit Minutes 80 Visit Number 12 Number of CRUMB PACKER Visits 0 PT-OP-B Current Condition Start: 04/17/19 12:57 Freq: Status: Active Protocol: Document 04/17/19 12:58 SAK (Rec: 04/17/19 14:24 SAK [id number]) Current Condition History of Current Condition Onset Date 2001 Current Complaints lymphedema bilateral LE's. History of Current Condition lymphedema waist to toes. diagnosed 2001, not treated until 2009. Was in coma for 3 wks 2008, states she almost due to infection in legs. States the lymphedema is thought to have been caused by mosquitoes; had severe reaction to bites. Gradual increase in swelling in LE's. Most recent LE infection a couple months ago with open wound left LE. 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 Prior Treatments and Tests Has had wraps, MLD, has a lymphedema pump; unable to use pump at this time due to increase in lymphedema with inability to fit into pump legs. Has no compression garments. Currently wraps her legs her self, uses ones with velcro. Used to go to pool, had to stop due to open wound. Goes to [employer] 3x/wk , wears wraps when she exercises. States Farrow wrap ordered for her right LE due to having open wound so insurance will cover it; she is unable to afford on her own . Lymphedema surgery bilateral LE's 2 years ago, with tissue and skin removed after determined lymph node transfer wouldn't be effective due to lack of functioning lymph nodes. Gastric bypass 2011 went from 600lbs, now down to 340. Has had skin removal on stomach. Treatment Goals Patient/Caregiver Goals Decrease lymphedema sufficient to allow her to use compression pump, be able to self-manage her lymphedema. 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 Current Functional Impairments (Reported) Functional Limitations- ADL's More difficult due to increased weight of legs Functional Limitations- Mobility/Gait limited to household due to weight of legs Functional Limitations- Work/School more difficult to care for her mother Personal Factors Other Personal Factors That May Effect Patient is 5'9, 340lbs Therapy/Recovery PT-OP-C Subjective Start: 04/17/19 12:57 Freq: Status: Active Protocol: Document 06/10/19 08:13 SAK (Rec: 06/10/19 09:39 SAK [id number]) OP-PT Subjective Patient Comments Patient Comments REports over the weekend swelling increased in both legs for no known reason. Will be getting Farrow wrap for right LE for [place]ent. Had x-ray of right knee due to persistent pain, no results yet. PT-OP-F Manual Assessment Start: 04/17/19 12:57 Freq: Status: Active Protocol: Document 04/17/19 12:58 SAK (Rec: 04/21/19 17:06 [facility] [id number]) Manual Assessments Soft Tissue Assessment Soft Tissue Mobility Assessment Due to lymphedema patient demonstrating decreased movement of LE tissue with fibrosis evident medial lower leg on left around area of healing wound. PT-OP-K Range of Motion Start: 04/17/19 12:57 Freq: Status: Active Protocol: Document 04/17/19 12:58 SAK (Rec: 04/21/19 17:06 [facility] [id number]) Knee Goniometric Range of Motion Knee ROM Limitations Knee ROM Limitations Swelling Comments lacking full flexion due to tissue approximation from lymphedema bilateral Ankle and Foot Goniometric Range of Motion Ankle and Foot ROM Limitations ROM Limitations Swelling Comments ankle df to neutral jaiden, pf WFL jaiden PT-OP-M Strength Start: 04/17/19 12:57 Freq: Status: Active Protocol: Document 04/17/19 12:58 SAK (Rec: 04/21/19 17:06 SAK [id number]) Hip Strength Hip Manual Muscle Testing jaiden Flexion (L2) 3- Fair- Extension (S1) 2 Poor Abduction 2+ Poor+ Comments heaviness of leg Knee Strength Knee Manual Muscle Testing ja[place] Flexion (S2) 4 Good Extension (L3) 4 Good Ankle/Foot Strength Ankle and Foot Manual Muscle Testing jaiden Dorsiflexion (L4) 4- Good- Plantarflexion (S1) 4- Good- PT-OP-N Lymphedema Start: 04/17/19 12:57 Freq: Status: Active Protocol: Document 06/10/19 08:13 SAK (Rec: 06/10/19 15:44 [facility] [id number]) Lymphedema Measurements Lower Extremity Circumference Measurements Right Affected MT Heads 25 cm Medial Malleolus 29.1 cm 10 cm From Medial Malleolus 49.7 cm 20 cm From Medial Malleolus 62.5 cm 30 cm From Medial Malleolus 72 cm 40 cm From Medial Malleolus 63.4 cm 50 cm From Medial Malleolus 81.9 cm 60 cm From Medial Malleolus 80 cm 70 cm From Medial Malleolus 82 cm Left Affected MT Heads 23.8 cm Medial Malleolus 28.3 cm 10 cm From Medial Malleolus 48.9 cm 20 cm From Medial Malleolus 63.7 cm 30 cm From Medial Malleolus 68.2 cm 40 cm From Medial Malleolus 67.4 cm 50 cm From Medial Malleolus 67.3 cm 60 cm From Medial Malleolus 82.2 cm 70 cm From Medial Malleolus 81.2 cm PT-OP-Q Treatments Start: 04/17/19 12:57 Freq: Status: Active Protocol: Document 06/10/19 08:13 SAK (Rec: 06/10/19 15:44 [facility] [id number]) Cardio Equipment Recumbent Elliptical (Biodex) Duration (Minutes) 10 Resistance 3 Other to facilitate lymphatic flow after lymphedema wrapping Lymphedema Treatment Manual Lymphatic Drainage Location jaiden LE's Duration 50 min Lymphedema Wrapping Body Location right LE's toes to knees Materials Comprilan, artiflex, foam around right ankle to achieve more cylindrical LE shape Other Farrow wrap to left LE Patient Education Other Discussed potential causes of increased lymphedema over weekend. PT-OP-S Aquatic Treatment Start: 05/05/19 08:29 Freq: Status: Active Protocol: Document 06/02/19 11:00 CLB (Rec: 06/02/19 14:05 CLB [id number]) Aquatics Treatment Pool Entry/Exit Pool Entry/Exit Method Stairs Water Walking hip circumduction Water Level Chest Level Lunge Walk Water Level Chest Level Marching Water Level Chest Level Monster Walk Water Level Chest Level [place] March Water Level Chest Level Sideways Water Level Chest Level Backwards Water Level Chest Level forward Water Level Chest Level Lower Extremity Exercises Lumbar stabilization Details squats Body Position Standing Water Level Waist Level Equipment pull cord Reps/Duration [address] Comments cues for mm activation HS curl jog in place Water Level Chest Level Reps/Duration 1 min Comments gentle heel/toe raise Body Position Standing Water Level Chest Level Reps/Duration 2x10 each hip circumduction Body Position Standing Water Level Chest Level Reps/Duration 2x10 bilat, both directions ab/add Water Level Chest Level Comments cross over behind standing leg flex/ext Body Position Standing Water Level Chest Level Reps/Duration 2x10 [place] Activities [place] Activities Bicycle,Cross Country,Hip Abduction/Adduction,Sit Kicks Other Activities pendulum w/sm BBs Equipment none Duration 15 PT-OP-T Assessment and Plan Start: 04/17/19 12:57 Freq: Status: Active Protocol: Document 06/10/19 08:13 ASHWIN (Rec: 06/10/19 09:39 SAK [id number]) Physical Therapy Assessment Goals Two Impairment Lymphedema Life Impact Scale 54% Short Term Goal (STG) Decrease to 40% STG Duration met 05/29/19 Micromatic Hone Operator Goal (LTG) Decrease to 30% LTG Duration 07/17/19 One Impairment lymphedema exacerbation Alf Goal (LTG) Decrease lymphedema to stable level (no increase or decrease greater than 1 cm over the course of 1 wk), patient to be independent with self- management to include use of lymphedema pump, self-wrapping or use of appropriate compression garments, sequential lymphedema exercises and self-massage. 05/29/19: making progress left > right LTG Duration 07/17/19 Assessment Summary Assessment Patient presented with increase in edema today bilateral LE's, no known reason. Applied new short stretch bandages on right LE due to current bandages worn out. Farrow wrap to left. Tolerated treatment well. Physical Therapy Plan Frequency and Duration Frequency of Treatment 2x/Week Duration of Treatment 12 wks Plan of Care Start Date 04/17/19 Plan of Care End Date 07/17/19 Next Visit Focus/Plan Next Note Type Treatment Note Next Visit Plan Continue lymphedema management .
--- NOTE | 2019-06-13 16:22 | PT.OTN ---
Current Diagnoses Lymphedema, not elsewhere classified (06/13/19) Physical Therapy Treatment Note PT-OP-A Visit Information Start: 04/17/19 12:57 Freq: Status: Active Protocol: Document 06/13/19 10:15 LJ (Rec: 06/13/19 16:22 LJ [id number]) Out-Patient Physical Therapy Visit Information Visit Information Visit Type Aquatic Treatment Note Visit Start Time 10:15 Visit Stop Time 11:00 Total Visit Minutes 45 Visit Number 13 Number of NEUROCRITICAL CARE PHYSICIAN Visits 1 PT-OP-B Current Condition Start: 04/17/19 12:57 Freq: Status: Active Protocol: Document 04/17/19 12:58 SAK (Rec: 04/17/19 14:24 SAK [id number]) Current Condition History of Current Condition Onset Date 2001 Current Complaints lymphedema bilateral LE's. History of Current Condition lymphedema waist to toes. diagnosed 2001, not treated until 2009. Was in coma for 3 wks 2008, states she almost due to infection in legs. States the lymphedema is thought to have been caused by mosquitoes; had severe reaction to bites. Gradual increase in swelling in LE's. Most recent LE infection a couple months ago with open wound left LE. 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 Prior Treatments and Tests Has had wraps, MLD, has a lymphedema pump; unable to use pump at this time due to increase in lymphedema with inability to fit into pump legs. Has no compression garments. Currently wraps her legs her self, uses ones with velcro. Used to go to pool, had to stop due to open wound. Goes to [email or web address] 3x/wk , wears wraps when she exercises. States Farrow wrap ordered for her right LE due to having open wound so insurance will cover it; she is unable to afford on her own . Lymphedema surgery bilateral LE's 2 years ago, with tissue and skin removed after determined lymph node transfer wouldn't be effective due to lack of functioning lymph nodes. Gastric bypass 2011 went from 600lbs, now down to 340. Has had skin removal on stomach. Treatment Goals Patient/Caregiver Goals Decrease lymphedema sufficient to allow her to use compression pump, be able to self-manage her lymphedema. 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 Current Functional Impairments (Reported) Functional Limitations- ADL's More difficult due to increased weight of legs Functional Limitations- Mobility/Gait limited to household due to weight of legs Functional Limitations- Work/School more difficult to care for her mother Personal Factors Other Personal Factors That May Effect Patient is 5'9, 340lbs Therapy/Recovery PT-OP-C Subjective Start: 04/17/19 12:57 Freq: Status: Active Protocol: Document 06/13/19 10:15 LJ (Rec: 06/13/19 16:22 LJ [id number]) OP-PT Subjective Patient Comments Patient Comments Pt reports RLE knee sandy increased swelling for unknown reason. Pt will be getting Farrow wraps sooner than Madyson. Reports she has appointment with ortho to discuss treatment options for knee. PT-OP-F Manual Assessment Start: 04/17/19 12:57 Freq: Status: Active Protocol: Document 04/17/19 12:58 SAK (Rec: 04/21/19 17:06 SAK [id number]) Manual Assessments Soft Tissue Assessment Soft Tissue Mobility Assessment Due to lymphedema patient demonstrating decreased movement of LE tissue with fibrosis evident medial lower leg on left around area of healing wound. PT-OP-K Range of Motion Start: 04/17/19 12:57 Freq: Status: Active Protocol: Document 04/17/19 12:58 SAK (Rec: 04/21/19 17:06 SAK [id number]) Knee Goniometric Range of Motion Knee ROM Limitations Knee ROM Limitations Swelling Comments lacking full flexion due to tissue approximation from lymphedema bilateral Ankle and Foot Goniometric Range of Motion Ankle and Foot ROM Limitations ROM Limitations Swelling Comments ankle df to neutral jaiden, pf WFL jaiden PT-OP-M Strength Start: 04/17/19 12:57 Freq: Status: Active Protocol: Document 04/17/19 12:58 SAK (Rec: 04/21/19 17:06 SAK [id number]) Hip Strength Hip Manual Muscle Testing ja[place] Flexion (L2) 3- Fair- Extension (S1) 2 Poor Abduction 2+ Poor+ Comments heaviness of leg Knee Strength Knee Manual Muscle Testing [place] Flexion (S2) 4 Good Extension (L3) 4 Good Ankle/Foot Strength Ankle and Foot Manual Muscle Testing ja[place] Dorsiflexion (L4) 4- Good- Plantarflexion (S1) 4- Good- PT-OP-N Lymphedema Start: 04/17/19 12:57 Freq: Status: Active Protocol: Document 06/10/19 08:13 SAK (Rec: 06/10/19 15:44 SAK [id number]) Lymphedema Measurements Lower Extremity Circumference Measurements Right Affected MT Heads 25 cm Medial Malleolus 29.1 cm 10 cm From Medial Malleolus 49.7 cm 20 cm From Medial Malleolus 62.5 cm 30 cm From Medial Malleolus 72 cm 40 cm From Medial Malleolus 63.4 cm 50 cm From Medial Malleolus 81.9 cm 60 cm From Medial Malleolus 80 cm 70 cm From Medial Malleolus 82 cm Left Affected MT Heads 23.8 cm Medial Malleolus 28.3 cm 10 cm From Medial Malleolus 48.9 cm 20 cm From Medial Malleolus 63.7 cm 30 cm From Medial Malleolus 68.2 cm 40 cm From Medial Malleolus 67.4 cm 50 cm From Medial Malleolus 67.3 cm 60 cm From Medial Malleolus 82.2 cm 70 cm From Medial Malleolus 81.2 cm PT-OP-Q Treatments Start: 04/17/19 12:57 Freq: Status: Active Protocol: Document 06/10/19 08:13 SAK (Rec: 06/10/19 15:44 SAK [id number]) Cardio Equipment Recumbent Elliptical (Biodex) Duration (Minutes) 10 Resistance 3 Other to facilitate lymphatic flow after lymphedema wrapping Lymphedema Treatment Manual Lymphatic Drainage Location jaiden LE's Duration 50 min Lymphedema Wrapping Body Location right LE's toes to knees Materials Comprilan, artiflex, foam around right ankle to achieve more cylindrical LE shape Other Farrow wrap to left LE Patient Education Other Discussed potential causes of increased lymphedema over weekend. PT-OP-S Aquatic Treatment Start: 05/05/19 08:29 Freq: Status: Active Protocol: Document 06/13/19 10:15 IDALIA (Rec: 06/13/19 16:22 LJ [id number]) Aquatics Treatment Pool Entry/Exit Pool Entry/Exit Method Stairs Water Walking hip circumduction Water Level Chest Level Lunge Walk Water Level Chest Level Level of Assistance Verbal Cues Marching Water Level Chest Level Level of Assistance Verbal Cues Comments with spinal rotation Monster Walk Water Level Chest Level Level of Assistance Verbal Cues Sharps March Water Level Chest Level Level of Assistance Verbal Cues Comments with spinal rotation Sideways Water Level Chest Level Comments ab/ad arms Backwards Water Level Chest Level Comments BS arms forward Water Level Chest Level Comments BS arms Lower Extremity Exercises figure 8 hip stretch Body Position Standing Water Level Chest Level Reps/Duration 12 bilateral HS curl jog in place Water Level Chest Level Reps/Duration 1 min Comments gentle hip circumduction Body Position Standing Water Level Chest Level Reps/Duration 2x10 bilat, both directions ab/add Water Level Chest Level Comments cross over behind standing leg flex/ext Body Position Standing Water Level Chest Level Reps/Duration 2x10 Lower Extremity Stretches gastroc and soleus Body Position Standing Water Level Chest Level hip flexor Body Position Standing Water Level Waist Level Comments hand hold on wall Quad Body Position Standing Water Level Waist Level Equipment Small Noodle Comments cues for posture HS Body Position Standing Water Level Waist Level Equipment Small Noodle [place] Activities [place] Activities Bicycle,Cross Country,Hip Abduction/Adduction,Sit Kicks Other Activities pendulum w/sm BBs wall burpees 3 ways lateral pull downs sm BBs 5 second increments Equipment none Duration 15 PT-OP-T Assessment and Plan Start: 04/17/19 12:57 Freq: Status: Active Protocol: Document 06/13/19 10:15 IDALIA (Rec: 06/13/19 16:22 IDALIA [id number]) Physical Therapy Assessment Goals Two Impairment Lymphedema Life Impact Scale 54% Short Term Goal (STG) Decrease to 40% STG Duration met 05/29/19 [facility] Goal (LTG) Decrease to 30% LTG Duration 07/17/19 One Impairment lymphedema exacerbation Slicing Machine Feeder Goal (LTG) Decrease lymphedema to stable level (no increase or decrease greater than 1 cm over the course of 1 wk), patient to be independent with self- management to include use of lymphedema pump, self-wrapping or use of appropriate compression garments, sequential lymphedema exercises and self-massage. 05/29/19: making progress left > right LTG Duration 07/17/19 Assessment Summary Assessment Pt tolerated all treatment exercises this session. Increased difficulty of deep water activities and exercises challenged pt but she responded well to cueing. Physical Therapy Plan Frequency and Duration Frequency of Treatment 2x/Week Duration of Treatment 12 wks Plan of Care Start Date 04/17/19 Plan of Care End Date 07/17/19 Next Visit Focus/Plan Next Note Type Treatment Note Next Visit Plan Continue to progress in improving endurance and core strengthening in pool sessions
--- NOTE | 2019-06-18 14:28 | PT.OTN ---
Current Diagnoses Lymphedema, not elsewhere classified (06/18/19) Physical Therapy Treatment Note PT-OP-A Visit Information Start: 04/17/19 12:57 Freq: Status: Active Protocol: Document 06/18/19 11:45 LJ (Rec: 06/18/19 14:28 LJ [id number]) Out-Patient Physical Therapy Visit Information Visit Information Visit Type Aquatic Treatment Note Visit Start Time 11:45 Visit Stop Time 12:30 Total Visit Minutes 45 Visit Number 14 Number of HEMODIALYSIS RN Visits 2 PT-OP-B Current Condition Start: 04/17/19 12:57 Freq: Status: Active Protocol: Document 04/17/19 12:58 SAK (Rec: 04/17/19 14:24 SAK [id number]) Current Condition History of Current Condition Onset Date 2001 Current Complaints lymphedema bilateral LE's. History of Current Condition lymphedema waist to toes. diagnosed 2001, not treated until 2009. Was in coma for 3 wks 2008, states she almost due to infection in legs. States the lymphedema is thought to have been caused by mosquitoes; had severe reaction to bites. Gradual increase in swelling in LE's. Most recent LE infection a couple months ago with open wound left LE. 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 Prior Treatments and Tests Has had wraps, MLD, has a lymphedema pump; unable to use pump at this time due to increase in lymphedema with inability to fit into pump legs. Has no compression garments. Currently wraps her legs her self, uses ones with velcro. Used to go to pool, had to stop due to open wound. Goes to [email or web address] 3x/wk , wears wraps when she exercises. States Farrow wrap ordered for her right LE due to having open wound so insurance will cover it; she is unable to afford on her own . Lymphedema surgery bilateral LE's 2 years ago, with tissue and skin removed after determined lymph node transfer wouldn't be effective due to lack of functioning lymph nodes. Gastric bypass 2011 went from 600lbs, now down to 340. Has had skin removal on stomach. Treatment Goals Patient/Caregiver Goals Decrease lymphedema sufficient to allow her to use compression pump, be able to self-manage her lymphedema. 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 Current Functional Impairments (Reported) Functional Limitations- ADL's More difficult due to increased weight of legs Functional Limitations- Mobility/Gait limited to household due to weight of legs Functional Limitations- Work/School more difficult to care for her mother Personal Factors Other Personal Factors That May Effect Patient is 5'9, 340lbs Therapy/Recovery PT-OP-C Subjective Start: 04/17/19 12:57 Freq: Status: Active Protocol: Document 06/18/19 11:45 LJ (Rec: 06/18/19 14:28 LJ [id number]) OP-PT Subjective Patient Comments Patient Comments Pt reports she will be seeing an orthopedic surgeon for possible TKA. She thought her appointment was for 11:00 so she worked out in the shallow for 45 minutes prior to scheduled appointment PT-OP-F Manual Assessment Start: 04/17/19 12:57 Freq: Status: Active Protocol: Document 04/17/19 12:58 SAK (Rec: 04/21/19 17:06 SAK [id number]) Manual Assessments Soft Tissue Assessment Soft Tissue Mobility Assessment Due to lymphedema patient demonstrating decreased movement of LE tissue with fibrosis evident medial lower leg on left around area of healing wound. PT-OP-K Range of Motion Start: 04/17/19 12:57 Freq: Status: Active Protocol: Document 04/17/19 12:58 SAK (Rec: 04/21/19 17:06 SAK [id number]) Knee Goniometric Range of Motion Knee ROM Limitations Knee ROM Limitations Swelling Comments lacking full flexion due to tissue approximation from lymphedema bilateral Ankle and Foot Goniometric Range of Motion Ankle and Foot ROM Limitations ROM Limitations Swelling Comments ankle df to neutral jaiden, pf WFL jaiden PT-OP-M Strength Start: 04/17/19 12:57 Freq: Status: Active Protocol: Document 04/17/19 12:58 SAK (Rec: 04/21/19 17:06 SAK [id number]) Hip Strength Hip Manual Muscle Testing [place] Flexion (L2) 3- Fair- Extension (S1) 2 Poor Abduction 2+ Poor+ Comments heaviness of leg Knee Strength Knee Manual Muscle Testing [place] Flexion (S2) 4 Good Extension (L3) 4 Good Ankle/Foot Strength Ankle and Foot Manual Muscle Testing ja[place] Dorsiflexion (L4) 4- Good- Plantarflexion (S1) 4- Good- PT-OP-N Lymphedema Start: 04/17/19 12:57 Freq: Status: Active Protocol: Document 06/10/19 08:13 SAK (Rec: 06/10/19 15:44 SAK [id number]) Lymphedema Measurements Lower Extremity Circumference Measurements Right Affected MT Heads 25 cm Medial Malleolus 29.1 cm 10 cm From Medial Malleolus 49.7 cm 20 cm From Medial Malleolus 62.5 cm 30 cm From Medial Malleolus 72 cm 40 cm From Medial Malleolus 63.4 cm 50 cm From Medial Malleolus 81.9 cm 60 cm From Medial Malleolus 80 cm 70 cm From Medial Malleolus 82 cm Left Affected MT Heads 23.8 cm Medial Malleolus 28.3 cm 10 cm From Medial Malleolus 48.9 cm 20 cm From Medial Malleolus 63.7 cm 30 cm From Medial Malleolus 68.2 cm 40 cm From Medial Malleolus 67.4 cm 50 cm From Medial Malleolus 67.3 cm 60 cm From Medial Malleolus 82.2 cm 70 cm From Medial Malleolus 81.2 cm PT-OP-Q Treatments Start: 04/17/19 12:57 Freq: Status: Active Protocol: Document 06/10/19 08:13 SAK (Rec: 06/10/19 15:44 SAK [id number]) Cardio Equipment Recumbent Elliptical (Biodex) Duration (Minutes) 10 Resistance 3 Other to facilitate lymphatic flow after lymphedema wrapping Lymphedema Treatment Manual Lymphatic Drainage Location jaiden LE's Duration 50 min Lymphedema Wrapping Body Location right LE's toes to knees Materials Comprilan, artiflex, foam around right ankle to achieve more cylindrical LE shape Other Farrow wrap to left LE Patient Education Other Discussed potential causes of increased lymphedema over weekend. PT-OP-S Aquatic Treatment Start: 05/05/19 08:29 Freq: Status: Active Protocol: Document 06/18/19 11:45 LJ (Rec: 06/18/19 14:28 LJ [id number]) Aquatics Treatment Pool Entry/Exit Pool Entry/Exit Method Stairs Water Walking Marching Water Level Chest Level Level of Assistance Verbal Cues Comments with spinal rotation Monster Walk Water Level Chest Level Level of Assistance Verbal Cues [place] March Water Level Chest Level Level of Assistance Verbal Cues Comments with spinal rotation Sideways Water Level Chest Level Comments ab/ad arms Backwards Water Level Chest Level Comments BS arms forward Water Level Chest Level Comments BS arms Lower Extremity Exercises figure 8 hip stretch Body Position Standing Water Level Chest Level Reps/Duration 2x12 bilateral HS curl jog in place Water Level Chest Level Reps/Duration 1 min Comments gentle hip circumduction Body Position Standing Water Level Chest Level Reps/Duration 2x15 bilat, both directions ab/add Water Level Chest Level Reps/Duration 2x15 Comments cross over behind standing leg flex/ext Body Position Standing Water Level Chest Level Reps/Duration 2x15 Lower Extremity Stretches gastroc and soleus Body Position Standing Water Level Chest Level Reps/Duration 2x45 sec hip flexor Body Position Standing Water Level Waist Level Reps/Duration 2x45 sec Comments hand hold on wall Quad Body Position Standing Water Level Waist Level Equipment Small Noodle Reps/Duration 2x45 Comments cues for posture; right knee pain with too much resistance HS Body Position Standing Water Level Waist Level Equipment Small Noodle Reps/Duration 2x45 sec [place] Activities [place] Activities Bicycle,Cross Country,Hip Abduction/Adduction,Sit Kicks Other Activities pendulum w/sm BBs wall burpees 3 ways lateral pull downs sm BBs 5 second increments modified supine crunches w/BBs tap under bent knees Equipment none Duration 18 PT-OP-T Assessment and Plan Start: 04/17/19 12:57 Freq: Status: Active Protocol: Document 06/18/19 11:45 IDALIA (Rec: 06/18/19 14:28 IDALIA [email or web address]) Physical Therapy Assessment Goals Two Impairment Lymphedema Life Impact Scale 54% Short Term Goal (STG) Decrease to 40% STG Duration met 05/29/19 Met[employer] Equipment Rep[employer]r Goal (LTG) Decrease to 30% LTG Duration 07/17/19 One Impairment lymphedema exacerbation Fdc Goal (LTG) Decrease lymphedema to stable level (no increase or decrease greater than 1 cm over the course of 1 wk), patient to be independent with self- management to include use of lymphedema pump, self-wrapping or use of appropriate compression garments, sequential lymphedema exercises and self-massage. 05/29/19: making progress left > right LTG Duration 07/17/19 Assessment Summary Assessment Pt tolerated all treatment exercises this session. Shallow water included rocking horse and side kicks with plyometrics with soft landing. Pt able to tolerate increased intensity in shallow water. Physical Therapy Plan Next Visit Focus/Plan Next Note Type Treatment Note Next Visit Plan Continue to progress in improving endurance and core strengthening in pool sessions . Include sit kicks for LE VMO strengthening
--- NOTE | 2019-06-25 15:27 | PT.OTN ---
Current Diagnoses Lymphedema, not elsewhere classified (06/25/19) Physical Therapy Treatment Note PT-OP-A Visit Information Start: 04/17/19 12:57 Freq: Status: Active Protocol: Document 06/25/19 11:00 LJ (Rec: 06/25/19 15:26 LJ [id number]) Out-Patient Physical Therapy Visit Information Visit Information Visit Type Aquatic Treatment Note Visit Start Time 11:00 Visit Stop Time 11:45 Total Visit Minutes 45 Visit Number 15 Number of [employer]ERS Visits 3 PT-OP-B Current Condition Start: 04/17/19 12:57 Freq: Status: Active Protocol: Document 04/17/19 12:58 SAK (Rec: 04/17/19 14:24 SAK [id number]) Current Condition History of Current Condition Onset Date 2001 Current Complaints lymphedema bilateral LE's. History of Current Condition lymphedema waist to toes. diagnosed 2001, not treated until 2009. Was in coma for 3 wks 2008, states she almost due to infection in legs. States the lymphedema is thought to have been caused by mosquitoes; had severe reaction to bites. Gradual increase in swelling in LE's. Most recent LE infection a couple months ago with open wound left LE. 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 Prior Treatments and Tests Has had wraps, MLD, has a lymphedema pump; unable to use pump at this time due to increase in lymphedema with inability to fit into pump legs. Has no compression garments. Currently wraps her legs her self, uses ones with velcro. Used to go to pool, had to stop due to open wound. Goes to [employer] 3x/wk , wears wraps when she exercises. States Farrow wrap ordered for her right LE due to having open wound so insurance will cover it; she is unable to afford on her own . Lymphedema surgery bilateral LE's 2 years ago, with tissue and skin removed after determined lymph node transfer wouldn't be effective due to lack of functioning lymph nodes. Gastric bypass 2011 went from 600lbs, now down to 340. Has had skin removal on stomach. Treatment Goals Patient/Caregiver Goals Decrease lymphedema sufficient to allow her to use compression pump, be able to self-manage her lymphedema. 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 She has ordered wraps to apply for edema management and will be able to apply them herself. PT-OP-F Manual Assessment Start: 04/17/19 12:57 Freq: Status: Active Protocol: Document 04/17/19 12:58 SAK (Rec: 04/21/19 17:06 SAK [id number]) Manual Assessments Soft Tissue Assessment Soft Tissue Mobility Assessment Due to lymphedema patient demonstrating decreased movement of LE tissue with fibrosis evident medial lower leg on left around area of healing wound. PT-OP-K Range of Motion Start: 04/17/19 12:57 Freq: Status: Active Protocol: Document 04/17/19 12:58 SAK (Rec: 04/21/19 17:06 SAK [id number]) Knee Goniometric Range of Motion Knee ROM Limitations Knee ROM Limitations Swelling Comments lacking full flexion due to tissue approximation from lymphedema bilateral Ankle and Foot Goniometric Range of Motion Ankle and Foot ROM Limitations ROM Limitations Swelling Comments ankle df to neutral jaiden, pf WFL jaiden PT-OP-M Strength Start: 04/17/19 12:57 Freq: Status: Active Protocol: Document 04/17/19 12:58 SAK (Rec: 04/21/19 17:06 SAK [id number]) Hip Strength Hip Manual Muscle Testing [place] Flexion (L2) 3- Fair- Extension (S1) 2 Poor Abduction 2+ Poor+ Comments heaviness of leg Knee Strength Knee Manual Muscle Testing [place] Flexion (S2) 4 Good Extension (L3) 4 Good Ankle/Foot Strength Ankle and Foot Manual Muscle Testing [place] Dorsiflexion (L4) 4- Good- Plantarflexion (S1) 4- Good- PT-OP-N Lymphedema Start: 04/17/19 12:57 Freq: Status: Active Protocol: Document 06/10/19 08:13 SAK (Rec: 06/10/19 15:44 SAK [id number]) Lymphedema Measurements Lower Extremity Circumference Measurements Right Affected MT Heads 25 cm Medial Malleolus 29.1 cm 10 cm From Medial Malleolus 49.7 cm 20 cm From Medial Malleolus 62.5 cm 30 cm From Medial Malleolus 72 cm 40 cm From Medial Malleolus 63.4 cm 50 cm From Medial Malleolus 81.9 cm 60 cm From Medial Malleolus 80 cm 70 cm From Medial Malleolus 82 cm Left Affected MT Heads 23.8 cm Medial Malleolus 28.3 cm 10 cm From Medial Malleolus 48.9 cm 20 cm From Medial Malleolus 63.7 cm 30 cm From Medial Malleolus 68.2 cm 40 cm From Medial Malleolus 67.4 cm 50 cm From Medial Malleolus 67.3 cm 60 cm From Medial Malleolus 82.2 cm 70 cm From Medial Malleolus 81.2 cm PT-OP-Q Treatments Start: 04/17/19 12:57 Freq: Status: Active Protocol: Document 06/10/19 08:13 SAK (Rec: 06/10/19 15:44 SAK [id number]) Cardio Equipment Recumbent Elliptical (Biodex) Duration (Minutes) 10 Resistance 3 Other to facilitate lymphatic flow after lymphedema wrapping Lymphedema Treatment Manual Lymphatic Drainage Location jaiden LE's Duration 50 min Lymphedema Wrapping Body Location right LE's toes to knees Materials Comprilan, artiflex, foam around right ankle to achieve more cylindrical LE shape Other Farrow wrap to left LE Patient Education Other Discussed potential causes of increased lymphedema over weekend. PT-OP-S Aquatic Treatment Start: 05/05/19 08:29 Freq: Status: Active Protocol: Document 06/25/19 11:00 IDALIA (Rec: 06/25/19 15:26 LJ [id number]) Aquatics Treatment Pool Entry/Exit Pool Entry/Exit Method Stairs Water Walking hip circumduction Water Level Chest Level Lunge Walk Water Level Chest Level Level of Assistance Verbal Cues Marching Water Level Chest Level Level of Assistance Verbal Cues Comments with spinal rotation Monster Walk Water Level Chest Level Level of Assistance Verbal Cues [place] March Water Level Chest Level Level of Assistance Verbal Cues Comments with spinal rotation Sideways Water Level Chest Level Comments ab/ad arms Backwards Water Level Chest Level Comments BS arms forward Water Level Chest Level Comments BS arms Lower Extremity Exercises HS curl jog in place Water Level Chest Level Reps/Duration 1 min Comments gentle hip circumduction Body Position Standing Water Level Chest Level Reps/Duration 2x15 bilat, both directions ab/add Water Level Chest Level Reps/Duration 2x15 Comments cross over behind standing leg flex/ext Body Position Standing Water Level Chest Level Reps/Duration 2x15 Lower Extremity Stretches gastroc and soleus Body Position Standing Water Level Chest Level Reps/Duration 2x45 sec hip flexor Body Position Standing Water Level Waist Level Reps/Duration 2x45 sec Comments hand hold on wall Quad Body Position Standing Water Level Waist Level Equipment Small Noodle Reps/Duration 2x45 Comments cues for posture; right knee pain with too much resistance HS Body Position Standing Water Level Waist Level Equipment Small Noodle Reps/Duration 2x45 sec Upper Extremity Exercises unilateral flex ext Body Position Standing Water Level Chest Level Reps/Duration 2x10 each ab/add; flex/ext Body Position Standing Water Level Chest Level Reps/Duration 2x10 each [place] Activities [place] Activities Cross [place] Other Activities pendulum w/sm BBs wall burpees 3 ways Equipment none Duration 9 PT-OP-T Assessment and Plan Start: 04/17/19 12:57 Freq: Status: Active Protocol: Document 06/25/19 11:00 IDALIA (Rec: 06/25/19 15:26 [id number]) Physical Therapy Assessment Goals Two Impairment Lymphedema Life Impact Scale 54% Short Term Goal (STG) Decrease to 40% STG Duration met 05/29/19 Correction Goal (LTG) Decrease to 30% LTG Duration 07/17/19 One Impairment lymphedema exacerbation Correction Goal (LTG) Decrease lymphedema to stable level (no increase or decrease greater than 1 cm over the course of 1 wk), patient to be independent with self- management to include use of lymphedema pump, self-wrapping or use of appropriate compression garments, sequential lymphedema exercises and self-massage. 05/29/19: making progress left > right LTG Duration 07/17/19 Assessment Summary Assessment Pt tolerates all treatment exercises well. Demonstrates good posture with exercises in shallow and deep water. Physical Therapy Plan Frequency and Duration Frequency of Treatment 2x/Week Duration of Treatment 12 wks Plan of Care Start Date 04/17/19 Plan of Care End Date 07/17/19 Next Visit Focus/Plan Next Note Type Treatment Note Next Visit Plan Continue to progress in improving endurance and core strengthening in pool sessions . Include sit kicks for LE VMO strengthening
--- NOTE | 2019-06-30 17:19 | PT.OTN ---
Current Diagnoses Lymphedema, not elsewhere classified (06/30/19) Physical Therapy Treatment Note PT-OP-A Visit Information Start: 04/17/19 12:57 Freq: Status: Active Protocol: Document 06/30/19 10:15 SAK (Rec: 06/30/19 17:19 [facility] [id number]) Out-Patient Physical Therapy Visit Information Visit Information Visit Type Aquatic Treatment Note Visit Start Time 11:00 Visit Stop Time 11:45 Total Visit Minutes 45 Visit Number 15 Number of CLIENT APPLICATION SUPPORT ENGINEER Visits 3 PT-OP-B Current Condition Start: 04/17/19 12:57 Freq: Status: Active Protocol: Document 04/17/19 12:58 SAK (Rec: 04/17/19 14:24 SAK [id number]) Current Condition History of Current Condition Onset Date 2001 Current Complaints lymphedema bilateral LE's. History of Current Condition lymphedema waist to toes. diagnosed 2001, not treated until 2009. Was in coma for 3 wks 2008, states she almost due to infection in legs. States the lymphedema is thought to have been caused by mosquitoes; had severe reaction to bites. Gradual increase in swelling in LE's. Most recent LE infection a couple months ago with open wound left LE. 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 Prior Treatments and Tests Has had wraps, MLD, has a lymphedema pump; unable to use pump at this time due to increase in lymphedema with inability to fit into pump legs. Has no compression garments. Currently wraps her legs her self, uses ones with velcro. Used to go to pool, had to stop due to open wound. Goes to [email or web address] 3x/wk , wears wraps when she exercises. States Farrow wrap ordered for her right LE due to having open wound so insurance will cover it; she is unable to afford on her own . Lymphedema surgery bilateral LE's 2 years ago, with tissue and skin removed after determined lymph node transfer wouldn't be effective due to lack of functioning lymph nodes. Gastric bypass 2011 went from 600lbs, now down to 340. Has had skin removal on stomach. Treatment Goals Patient/Caregiver Goals Decrease lymphedema sufficient to allow her to use compression pump, be able to self-manage her lymphedema. 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 Current Functional Impairments (Reported) Functional Limitations- ADL's More difficult due to increased weight of legs Functional Limitations- Mobility/Gait limited to household due to weight of legs Functional Limitations- Work/School more difficult to care for her mother Personal Factors Other Personal Factors That May Effect Patient is 5'9, 340lbs Therapy/Recovery PT-OP-C Subjective Start: 04/17/19 12:57 Freq: Status: Active Protocol: Document 06/30/19 10:15 SAK (Rec: 06/30/19 17:19 SAK [id number]) OP-PT Subjective Patient Comments Patient Comments States she received her Farrow Wraps, hasn't put on yet, has continued to wrap her legs. Will bring Farrow Wraps to next land-based PT visit in a few days. PT-OP-F Manual Assessment Start: 04/17/19 12:57 Freq: Status: Active Protocol: Document 04/17/19 12:58 SAK (Rec: 04/21/19 17:06 [facility] [id number]) Manual Assessments Soft Tissue Assessment Soft Tissue Mobility Assessment Due to lymphedema patient demonstrating decreased movement of LE tissue with fibrosis evident medial lower leg on left around area of healing wound. PT-OP-K Range of Motion Start: 04/17/19 12:57 Freq: Status: Active Protocol: Document 04/17/19 12:58 SAK (Rec: 04/21/19 17:06 [facility] [id number]) Knee Goniometric Range of Motion Knee ROM Limitations Knee ROM Limitations Swelling Comments lacking full flexion due to tissue approximation from lymphedema bilateral Ankle and Foot Goniometric Range of Motion Ankle and Foot ROM Limitations ROM Limitations Swelling Comments ankle df to neutral jaiden, pf WFL jaiden PT-OP-M Strength Start: 04/17/19 12:57 Freq: Status: Active Protocol: Document 04/17/19 12:58 SAK (Rec: 04/21/19 17:06 SAK [id number]) Hip Strength Hip Manual Muscle Testing [place] Flexion (L2) 3- Fair- Extension (S1) 2 Poor Abduction 2+ Poor+ Comments heaviness of leg Knee Strength Knee Manual Muscle Testing [place] Flexion (S2) 4 Good Extension (L3) 4 Good Ankle/Foot Strength Ankle and Foot Manual Muscle Testing jaiden Dorsiflexion (L4) 4- Good- Plantarflexion (S1) 4- Good- PT-OP-N Lymphedema Start: 04/17/19 12:57 Freq: Status: Active Protocol: Document 06/10/19 08:13 SAK (Rec: 06/10/19 15:44 [facility] [id number]) Lymphedema Measurements Lower Extremity Circumference Measurements Right Affected MT Heads 25 cm Medial Malleolus 29.1 cm 10 cm From Medial Malleolus 49.7 cm 20 cm From Medial Malleolus 62.5 cm 30 cm From Medial Malleolus 72 cm 40 cm From Medial Malleolus 63.4 cm 50 cm From Medial Malleolus 81.9 cm 60 cm From Medial Malleolus 80 cm 70 cm From Medial Malleolus 82 cm Left Affected MT Heads 23.8 cm Medial Malleolus 28.3 cm 10 cm From Medial Malleolus 48.9 cm 20 cm From Medial Malleolus 63.7 cm 30 cm From Medial Malleolus 68.2 cm 40 cm From Medial Malleolus 67.4 cm 50 cm From Medial Malleolus 67.3 cm 60 cm From Medial Malleolus 82.2 cm 70 cm From Medial Malleolus 81.2 cm PT-OP-Q Treatments Start: 04/17/19 12:57 Freq: Status: Active Protocol: Document 06/10/19 08:13 ASHWIN (Rec: 06/10/19 15:44 [facility] [id number]) Cardio Equipment Recumbent Elliptical (Biodex) Duration (Minutes) 10 Resistance 3 Other to facilitate lymphatic flow after lymphedema wrapping Lymphedema Treatment Manual Lymphatic Drainage Location jaiden LE's Duration 50 min Lymphedema Wrapping Body Location right LE's toes to knees Materials Comprilan, artiflex, foam around right ankle to achieve more cylindrical LE shape Other Farrow wrap to left LE Patient Education Other Discussed potential causes of increased lymphedema over weekend. PT-OP-S Aquatic Treatment Start: 05/05/19 08:29 Freq: Status: Active Protocol: Document 06/30/19 10:15 SAK (Rec: 06/30/19 17:19 [facility] [id number]) Aquatics Treatment Pool Entry/Exit Pool Entry/Exit Method Stairs Water Walking walk with back kick/heel touch Water Level Chest Level Level of Assistance Verbal Cues hip circumduction Water Level Chest Level Lunge Walk Water Level Chest Level Level of Assistance Verbal Cues Marching Water Level Chest Level Level of Assistance Verbal Cues Comments with spinal rotation Monster Walk Water Level Chest Level Level of Assistance Verbal Cues [place] September Water Level Chest Level Level of Assistance Verbal Cues Comments with spinal rotation Sideways Water Level Chest Level Comments ab/ad arms Backwards Water Level Chest Level Comments BS arms forward Water Level Chest Level Comments BS arms Lower Extremity Exercises figure 8 hip stretch Body Position Standing Water Level Chest Level Reps/Duration 2x12 bilateral heel/toe raise Body Position Standing Water Level Chest Level Reps/Duration 2x10 each hip circumduction Body Position Standing Water Level Chest Level Reps/Duration 2x15 bilat, both directions ab/add Water Level Chest Level Reps/Duration 2x15 Comments cross over behind standing leg flex/ext Body Position Standing Water Level Chest Level Reps/Duration 2x15 Lower Extremity Stretches gastroc and soleus Body Position Standing Water Level Chest Level Reps/Duration 2x45 sec hip flexor Body Position Standing Water Level Waist Level Reps/Duration 2x45 sec Comments hand hold on wall Quad Body Position Standing Water Level Waist Level Equipment Small Noodle Reps/Duration 2x45 Comments cues for posture; right knee pain with too much resistance HS Body Position Standing Water Level Waist Level Equipment Small Noodle Reps/Duration 2x45 sec [place] Activities [place] Activities Bicycle,Bicycle Backwards, Cross Country,Running,Hip Abduction/Adduction,Sit Kicks Other Activities pendulum w/med BBs: lateral, side wall burpees 3 ways Equipment none Duration 14 PT-OP-T Assessment and Plan Start: 04/17/19 12:57 Freq: Status: Active Protocol: Document 06/30/19 10:15 [facility] (Rec: 06/30/19 17:19 [facility] [id number]) Physical Therapy Assessment Goals Two Impairment Lymphedema Life Impact Scale 54% Short Term Goal (STG) Decrease to 40% STG Duration met 05/29/19 Halfway Goal (LTG) Decrease to 30% LTG Duration 07/17/19 One Impairment lymphedema exacerbation Halfway Goal (LTG) Decrease lymphedema to stable level (no increase or decrease greater than 1 cm over the course of 1 wk), patient to be independent with self- management to include use of lymphedema pump, self-wrapping or use of appropriate compression garments, sequential lymphedema exercises and self-massage. 05/29/19: making progress left > right LTG Duration 07/17/19 Assessment Summary Assessment Improving exercise tolerance with emphasis on core activation, sequential ROM and flexibility ex to facilitate lymphatic flow Physical Therapy Plan Frequency and Duration Frequency of Treatment 2x/Week Duration of Treatment 12 wks Plan of Care Start Date 04/17/19 Plan of Care End Date 07/17/19 Next Visit Focus/Plan Next Note Type Treatment Note Next Visit Plan Circumferential measurements, assess fit of Farrow Wraps, MLD
--- NOTE | 2019-07-02 16:10 | PT.OTN ---
Current Diagnoses Lymphedema, not elsewhere classified (07/02/19) Physical Therapy Treatment Note PT-OP-A Visit Information Start: 04/17/19 12:57 Freq: Status: Active Protocol: Document 07/02/19 14:32 SAK (Rec: 07/02/19 16:06 SAK [id number]) Out-Patient Physical Therapy Visit Information Visit Information Visit Type Treatment Note Visit Start Time 14:30 Visit Stop Time 11:45 Total Visit Minutes 45 Visit Number 15 Number of ENRICHMENT DIRECTOR Visits 3 PT-OP-B Current Condition Start: 04/17/19 12:57 Freq: Status: Active Protocol: Document 04/17/19 12:58 SAK (Rec: 04/17/19 14:24 SAK [id number]) Current Condition History of Current Condition Onset Date 2001 Current Complaints lymphedema bilateral LE's. History of Current Condition lymphedema waist to toes. diagnosed 2001, not treated until 2009. Was in coma for 3 wks 2008, states she almost due to infection in legs. States the lymphedema is thought to have been caused by mosquitoes; had severe reaction to bites. Gradual increase in swelling in LE's. Most recent LE infection a couple months ago with open wound left LE. 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 Prior Treatments and Tests Has had wraps, MLD, has a lymphedema pump; unable to use pump at this time due to increase in lymphedema with inability to fit into pump legs. Has no compression garments. Currently wraps her legs her self, uses ones with velcro. Used to go to pool, had to stop due to open wound. Goes to [employer] 3x/wk , wears wraps when she exercises. States Farrow wrap ordered for her right LE due to having open wound so insurance will cover it; she is unable to afford on her own . Lymphedema surgery bilateral LE's 2 years ago, with tissue and skin removed after determined lymph node transfer wouldn't be effective due to lack of functioning lymph nodes. Gastric bypass 2011 went from 600lbs, now down to 340. Has had skin removal on stomach. Treatment Goals Patient/Caregiver Goals Decrease lymphedema sufficient to allow her to use compression pump, be able to self-manage her lymphedema. 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 Current Functional Impairments (Reported) Functional Limitations- ADL's More difficult due to increased weight of legs Functional Limitations- Mobility/Gait limited to household due to weight of legs Functional Limitations- Work/School more difficult to care for her mother Personal Factors Other Personal Factors That May Effect Patient is 5'9, 340lbs Therapy/Recovery PT-OP-C Subjective Start: 04/17/19 12:57 Freq: Status: Active Protocol: Document 07/02/19 14:32 SAK (Rec: 07/02/19 16:06 SAK [id number]) OP-PT Subjective Patient Comments Patient Comments Has new Farrow wraps, has worn since got out of pool 06/30/19 , seem to be fitting well. Is hopeful she may be able to use pump (sleeve may now fit.) PT-OP-F Manual Assessment Start: 04/17/19 12:57 Freq: Status: Active Protocol: Document 04/17/19 12:58 SAK (Rec: 04/21/19 17:[address] [facility] [id number]) Manual Assessments Soft Tissue Assessment Soft Tissue Mobility Assessment Due to lymphedema patient demonstrating decreased movement of LE tissue with fibrosis evident medial lower leg on left around area of healing wound. PT-OP-K Range of Motion Start: 04/17/19 12:57 Freq: Status: Active Protocol: Document 04/17/19 12:58 SAK (Rec: 04/21/19 17:[address] [facility] [id number]) Knee Goniometric Range of Motion Knee ROM Limitations Knee ROM Limitations Swelling Comments lacking full flexion due to tissue approximation from lymphedema bilateral Ankle and Foot Goniometric Range of Motion Ankle and Foot ROM Limitations ROM Limitations Swelling Comments ankle df to neutral jaiden, pf WFL jaiden PT-OP-M Strength Start: 04/17/19 12:57 Freq: Status: Active Protocol: Document 04/17/19 12:58 SAK (Rec: 04/21/19 17:06 SAK [id number]) Hip Strength Hip Manual Muscle Testing [place] Flexion (L2) 3- Fair- Extension (S1) 2 Poor Abduction 2+ Poor+ Comments heaviness of leg Knee Strength Knee Manual Muscle Testing [place] Flexion (S2) 4 Good Extension (L3) 4 Good Ankle/Foot Strength Ankle and Foot Manual Muscle Testing [place] Dorsiflexion (L4) 4- Good- Plantarflexion (S1) 4- Good- PT-OP-N Lymphedema Start: 04/17/19 12:57 Freq: Status: Active Protocol: Document 06/10/19 08:13 SAK (Rec: 06/10/19 15:44 SAK [id number]) Lymphedema Measurements Lower Extremity Circumference Measurements Right Affected MT Heads 25 cm Medial Malleolus 29.1 cm 10 cm From Medial Malleolus 49.7 cm 20 cm From Medial Malleolus 62.5 cm 30 cm From Medial Malleolus 72 cm 40 cm From Medial Malleolus 63.4 cm 50 cm From Medial Malleolus 81.9 cm 60 cm From Medial Malleolus 80 cm 70 cm From Medial Malleolus 82 cm Left Affected MT Heads 23.8 cm Medial Malleolus 28.3 cm 10 cm From Medial Malleolus 48.9 cm 20 cm From Medial Malleolus 63.7 cm 30 cm From Medial Malleolus 68.2 cm 40 cm From Medial Malleolus 67.4 cm 50 cm From Medial Malleolus 67.3 cm 60 cm From Medial Malleolus 82.2 cm 70 cm From Medial Malleolus 81.2 cm PT-OP-Q Treatments Start: 04/17/19 12:57 Freq: Status: Active Protocol: Document 07/02/19 14:32 SAK (Rec: 07/02/19 16:[address] [facility] [id number]) Cardio Equipment Recumbent Stepper (Sci-Fit) Duration (Minutes) 10 Resistance 6 Seat Position 13 Lymphedema Treatment Manual Lymphatic Drainage Location jaiden LE's Duration 40 min Lymphedema Wrapping Other Farrow wrap to bilateral LE's with education for assuring good coverage distally just above ankle. Compression Garment Assessment Compression Garment Assessment Details Good fit of compression garment (Farrow wraps) except for superior lower right leg due to larger circumference wraps tend to slide down. Overall patient pleased with compression. PT-OP-S Aquatic Treatment Start: 05/05/19 08:29 Freq: Status: Active Protocol: Document 06/30/19 10:15 SAK (Rec: 06/30/19 17:[address] [facility] [id number]) Aquatics Treatment Pool Entry/Exit Pool Entry/Exit Method Stairs Water Walking walk with back kick/heel touch Water Level Chest Level Level of Assistance Verbal Cues hip circumduction Water Level Chest Level Lunge Walk Water Level Chest Level Level of Assistance Verbal Cues Marching Water Level Chest Level Level of Assistance Verbal Cues Comments with spinal rotation Monster Walk Water Level Chest Level Level of Assistance Verbal Cues [place] March Water Level Chest Level Level of Assistance Verbal Cues Comments with spinal rotation Sideways Water Level Chest Level Comments ab/ad arms Backwards Water Level Chest Level Comments BS arms forward Water Level Chest Level Comments BS arms Lower Extremity Exercises figure 8 hip stretch Body Position Standing Water Level Chest Level Reps/Duration 2x12 bilateral heel/toe raise Body Position Standing Water Level Chest Level Reps/Duration 2x10 each hip circumduction Body Position Standing Water Level Chest Level Reps/Duration 2x15 bilat, both directions ab/add Water Level Chest Level Reps/Duration 2x15 Comments cross over behind standing leg flex/ext Body Position Standing Water Level Chest Level Reps/Duration 2x15 Lower Extremity Stretches gastroc and soleus Body Position Standing Water Level Chest Level Reps/Duration 2x45 sec hip flexor Body Position Standing Water Level Waist Level Reps/Duration 2x45 sec Comments hand hold on wall Quad Body Position Standing Water Level Waist Level Equipment Small Noodle Reps/Duration 2x45 Comments cues for posture; right knee pain with too much resistance HS Body Position Standing Water Level Waist Level Equipment Small Noodle Reps/Duration 2x45 sec [place] Activities [place] Activities Bicycle,Bicycle Backwards, Cross [place],Running,Hip Abduction/Adduction,Sit Kicks Other Activities pendulum w/med BBs: lateral, side wall burpees 3 ways Equipment none Duration 14 PT-OP-T Assessment and Plan Start: 04/17/19 12:57 Freq: Status: Active Protocol: Document 07/02/19 14:32 ASHWIN (Rec: 07/02/19 16:06 ASHWIN [id number]) Physical Therapy Assessment Goals Two Impairment Lymphedema Life Impact Scale 54% Short Term Goal (STG) Decrease to 40% STG Duration met 05/29/19 Alf Goal (LTG) Decrease to 30% LTG Duration 07/17/19 One Impairment lymphedema exacerbation Clinical Operations Consultant Goal (LTG) Decrease lymphedema to stable level (no increase or decrease greater than 1 cm over the course of 1 wk), patient to be independent with self- management to include use of lymphedema pump, self-wrapping or use of appropriate compression garments, sequential lymphedema exercises and self-massage. 05/29/19: making progress left > right LTG Duration 07/17/19 Assessment Summary Assessment Decrease in circumferential measurements bilateral LE's, responding well to treatment. Good fit of new Farrow wrap. Physical Therapy Plan Frequency and Duration Frequency of Treatment 2x/Week Duration of Treatment 12 wks Plan of Care Start Date 04/17/19 Plan of Care End Date 07/17/19 Therapeutic Interventions Therapeutic Interventions Aquatic Therapy,Home Exercise Program,Lymphedema Management, Manual Therapy,Patient/ Caregiver Education,Self-Care/ Home Management,Therapeutic Exercises Modalities Vasopneumatic Devices Next Visit Focus/Plan Next Note Type Treatment Note Next Visit Plan Continue PT treatment to decrease lymphedema and progress toward independent management.
--- NOTE | 2019-07-07 11:00 | PT.OTN ---
Current Diagnoses Lymphedema, not elsewhere classified (07/07/19) Physical Therapy Treatment Note PT-OP-A Visit Information Start: 04/17/19 12:57 Freq: Status: Active Protocol: Document 07/07/19 11:00 CLB (Rec: 07/07/19 15:19 CLB [email or web address]) Out-Patient Physical Therapy Visit Information Visit Information Visit Type Aquatic Treatment Note Visit Start Time 11:00 Visit Stop Time 11:45 Total Visit Minutes 45 Visit Number 17 Number of MAINTENANCE DEPARTMENT TECHNICIAN Visits 4 PT-OP-B Current Condition Start: 04/17/19 12:57 Freq: Status: Active Protocol: Document 04/17/19 12:58 SAK (Rec: 04/17/19 14:24 SAK [id number]) Current Condition History of Current Condition Onset Date 2001 Current Complaints lymphedema bilateral LE's. History of Current Condition lymphedema waist to toes. diagnosed 2001, not treated until 2009. Was in coma for 3 wks 2008, states she almost due to infection in legs. States the lymphedema is thought to have been caused by mosquitoes; had severe reaction to bites. Gradual increase in swelling in LE's. Most recent LE infection a couple months ago with open wound left LE. 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 Prior Treatments and Tests Has had wraps, MLD, has a lymphedema pump; unable to use pump at this time due to increase in lymphedema with inability to fit into pump legs. Has no compression garments. Currently wraps her legs her self, uses ones with velcro. Used to go to pool, had to stop due to open wound. Goes to [employer] 3x/wk , wears wraps when she exercises. States Farrow wrap ordered for her right LE due to having open wound so insurance will cover it; she is unable to afford on her own . Lymphedema surgery bilateral LE's 2 years ago, with tissue and skin removed after determined lymph node transfer wouldn't be effective due to lack of functioning lymph nodes. Gastric bypass 2011 went from 600lbs, now down to 340. Has had skin removal on stomach. Treatment Goals Patient/Caregiver Goals Decrease lymphedema sufficient to allow her to use compression pump, be able to self-manage her lymphedema. 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 Current Functional Impairments (Reported) Functional Limitations- ADL's More difficult due to increased weight of legs Functional Limitations- Mobility/Gait limited to household due to weight of legs Functional Limitations- Work/School more difficult to care for her mother Personal Factors Other Personal Factors That May Effect Patient is 5'9, 340lbs Therapy/Recovery PT-OP-C Subjective Start: 04/17/19 12:57 Freq: Status: Active Protocol: Document 07/07/19 11:00 CLB (Rec: 07/07/19 15:19 CLB [email or web address]) OP-PT Subjective Patient Comments Patient Comments Pt had no new information or issues to report. PT-OP-F Manual Assessment Start: 04/17/19 12:57 Freq: Status: Active Protocol: Document 04/17/19 12:58 SAK (Rec: 04/21/19 17:06 SAK [id number]) Manual Assessments Soft Tissue Assessment Soft Tissue Mobility Assessment Due to lymphedema patient demonstrating decreased movement of LE tissue with fibrosis evident medial lower leg on left around area of healing wound. PT-OP-K Range of Motion Start: 04/17/19 12:57 Freq: Status: Active Protocol: Document 04/17/19 12:58 SAK (Rec: 04/21/19 17:06 SAK [id number]) Knee Goniometric Range of Motion Knee ROM Limitations Knee ROM Limitations Swelling Comments lacking full flexion due to tissue approximation from lymphedema bilateral Ankle and Foot Goniometric Range of Motion Ankle and Foot ROM Limitations ROM Limitations Swelling Comments ankle df to neutral jaiden, pf WFL jaiden PT-OP-M Strength Start: 04/17/19 12:57 Freq: Status: Active Protocol: Document 04/17/19 12:58 SAK (Rec: 04/21/19 17:06 SAK [id number]) Hip Strength Hip Manual Muscle Testing [place] Flexion (L2) 3- Fair- Extension (S1) 2 Poor Abduction 2+ Poor+ Comments heaviness of leg Knee Strength Knee Manual Muscle Testing [place] Flexion (S2) 4 Good Extension (L3) 4 Good Ankle/Foot Strength Ankle and Foot Manual Muscle Testing [place] Dorsiflexion (L4) 4- Good- Plantarflexion (S1) 4- Good- PT-OP-N Lymphedema Start: 04/17/19 12:57 Freq: Status: Active Protocol: Document 06/10/19 08:13 [facility] (Rec: 06/10/19 15:44 [facility] [id number]) Lymphedema Measurements Lower Extremity Circumference Measurements Right Affected MT Heads 25 cm Medial Malleolus 29.1 cm 10 cm From Medial Malleolus 49.7 cm 20 cm From Medial Malleolus 62.5 cm 30 cm From Medial Malleolus 72 cm 40 cm From Medial Malleolus 63.4 cm 50 cm From Medial Malleolus 81.9 cm 60 cm From Medial Malleolus 80 cm 70 cm From Medial Malleolus 82 cm Left Affected MT Heads 23.8 cm Medial Malleolus 28.3 cm 10 cm From Medial Malleolus 48.9 cm 20 cm From Medial Malleolus 63.7 cm 30 cm From Medial Malleolus 68.2 cm 40 cm From Medial Malleolus 67.4 cm 50 cm From Medial Malleolus 67.3 cm 60 cm From Medial Malleolus 82.2 cm 70 cm From Medial Malleolus 81.2 cm PT-OP-Q Treatments Start: 04/17/19 12:57 Freq: Status: Active Protocol: Document 07/02/19 14:32 SAK (Rec: 07/02/19 16:06 [facility] [id number]) Cardio Equipment Recumbent Stepper (Sci-Fit) Duration (Minutes) 10 Resistance 6 Seat Position 13 Lymphedema Treatment Manual Lymphatic Drainage Location jaiden LE's Duration 40 min Lymphedema Wrapping Other Farrow wrap to bilateral LE's with education for assuring good coverage distally just above ankle. Compression Garment Assessment Compression Garment Assessment Details Good fit of compression garment (Farrow wraps) except for superior lower right leg due to larger circumference wraps tend to slide down. Overall patient pleased with compression. PT-OP-S Aquatic Treatment Start: 05/05/19 08:29 Freq: Status: Active Protocol: Document 07/07/19 11:00 CLB (Rec: 07/07/19 15:19 CLB [id number]) Aquatics Treatment Water Walking walk with back kick/heel touch Water Level Chest Level Level of Assistance Verbal Cues Lunge Walk Water Level Chest Level Level of Assistance Verbal Cues September Water Level Chest Level Level of Assistance Verbal Cues Comments with spinal rotation Sideways Water Level Chest Level Comments ab/ad arms Backwards Water Level Chest Level Comments BS arms Lower Extremity Exercises figure 8 hip stretch Body Position Standing Water Level Chest Level Reps/Duration 2x12 bilateral heel/toe raise Body Position Standing Water Level Chest Level Reps/Duration 2x10 each hip circumduction Body Position Standing Water Level Chest Level Reps/Duration 2x15 bilat, both directions ab/add Water Level Chest Level Reps/Duration 2x15 Comments cross over behind standing leg flex/ext Body Position Standing Water Level Chest Level Reps/Duration 2x15 Lower Extremity Stretches gastroc and soleus Body Position Standing Water Level Chest Level Reps/Duration 2x45 sec Quad Body Position Standing Water Level Waist Level Equipment Small Noodle Reps/Duration 2x45 Comments cues for posture; right knee pain with too much resistance HS Body Position Standing Water Level Waist Level Equipment Small Noodle Reps/Duration 2x45 sec Upper Extremity Exercises ab/add; flex/ext Body Position Standing Water Level Chest Level Reps/Duration 2x10 each [place] Activities [place] Activities Bicycle,Bicycle Backwards, Cross Country,Running,Hip Abduction/Adduction,Sit Kicks Other Activities pendulum w/med BBs: lateral, side wall burpees 3 ways Equipment none Duration 14 PT-OP-T Assessment and Plan Start: 04/17/19 12:57 Freq: Status: Active Protocol: Document 07/07/19 11:00 CLB (Rec: 07/07/19 15:19 CLB [email or web address]) Physical Therapy Assessment Goals Two Impairment Lymphedema Life Impact Scale 54% Short Term Goal (STG) Decrease to 40% STG Duration met 05/29/19 Custodial Goal (LTG) Decrease to 30% LTG Duration 07/17/19 One Impairment lymphedema exacerbation Custodial Goal (LTG) Decrease lymphedema to stable level (no increase or decrease greater than 1 cm over the course of 1 wk), patient to be independent with self- management to include use of lymphedema pump, self-wrapping or use of appropriate compression garments, sequential lymphedema exercises and self-massage. 05/29/19: making progress left > right LTG Duration 07/17/19 Assessment Summary Assessment Pt continues to improve with core activation but continues to require cues for posture during tx session. Physical Therapy Plan Frequency and Duration Frequency of Treatment 2x/Week Duration of Treatment 12 wks Plan of Care Start Date 04/17/19 Plan of Care End Date 07/17/19 Next Visit Focus/Plan Next Note Type Treatment Note Next Visit Plan Continue aquatic therapy per POC.
--- NOTE | 2019-07-09 15:53 | PT.OTN ---
Current Diagnoses Lymphedema, not elsewhere classified (07/09/19) Physical Therapy Treatment Note PT-OP-A Visit Information Start: 04/17/19 12:57 Freq: Status: Active Protocol: Document 07/09/19 14:29 [facility] (Rec: 07/09/19 14:41 [facility] [id number]) Out-Patient Physical Therapy Visit Information Visit Information Visit Type Treatment Note Visit Start Time 14:30 Visit Stop Time 15:57 Total Visit Minutes 88 Visit Number 18 Number of ACCOUNTING REPRESENTATIVE Visits 0 PT-OP-B Current Condition Start: 04/17/19 12:57 Freq: Status: Active Protocol: Document 04/17/19 12:58 SAK (Rec: 04/17/19 14:24 SAK [id number]) Current Condition History of Current Condition Onset Date 2001 Current Complaints lymphedema bilateral LE's. History of Current Condition lymphedema waist to toes. diagnosed 2001, not treated until 2009. Was in coma for 3 wks 2008, states she almost due to infection in legs. States the lymphedema is thought to have been caused by mosquitoes; had severe reaction to bites. Gradual increase in swelling in LE's. Most recent LE infection a couple months ago with open wound left LE. 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 Prior Treatments and Tests Has had wraps, MLD, has a lymphedema pump; unable to use pump at this time due to increase in lymphedema with inability to fit into pump legs. Has no compression garments. Currently wraps her legs her self, uses ones with velcro. Used to go to pool, had to stop due to open wound. Goes to [employer] 3x/wk , wears wraps when she exercises. States Farrow wrap ordered for her right LE due to having open wound so insurance will cover it; she is unable to afford on her own . Lymphedema surgery bilateral LE's 2 years ago, with tissue and skin removed after determined lymph node transfer wouldn't be effective due to lack of functioning lymph nodes. Gastric bypass 2011 went from 600lbs, now down to 340. Has had skin removal on stomach. Treatment Goals Patient/Caregiver Goals Decrease lymphedema sufficient to allow her to use compression pump, be able to self-manage her lymphedema. 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 Current Functional Impairments (Reported) Functional Limitations- ADL's More difficult due to increased weight of legs Functional Limitations- Mobility/Gait limited to household due to weight of legs Functional Limitations- Work/School more difficult to care for her mother Personal Factors Other Personal Factors That May Effect Patient is 5'9, 340lbs Therapy/Recovery PT-OP-C Subjective Start: 04/17/19 12:57 Freq: Status: Active Protocol: Document 07/09/19 14:29 SAK (Rec: 07/09/19 14:41 SAK [id number]) OP-PT Subjective Patient Comments Patient Comments Neuropathy right foot caused her to have to take off stocking and Farrow wraps last night. Was on feet a large part of the day. Hasn't tried lymphedema pump yet. PT-OP-F Manual Assessment Start: 04/17/19 12:57 Freq: Status: Active Protocol: Document 04/17/19 12:58 SAK (Rec: 04/21/19 17:06 [facility] [id number]) Manual Assessments Soft Tissue Assessment Soft Tissue Mobility Assessment Due to lymphedema patient demonstrating decreased movement of LE tissue with fibrosis evident medial lower leg on left around area of healing wound. PT-OP-K Range of Motion Start: 04/17/19 12:57 Freq: Status: Active Protocol: Document 04/17/19 12:58 SAK (Rec: 04/21/19 17:06 [facility] [id number]) Knee Goniometric Range of Motion Knee ROM Limitations Knee ROM Limitations Swelling Comments lacking full flexion due to tissue approximation from lymphedema bilateral Ankle and Foot Goniometric Range of Motion Ankle and Foot ROM Limitations ROM Limitations Swelling Comments ankle df to neutral jaiden, pf WFL jaiden PT-OP-M Strength Start: 04/17/19 12:57 Freq: Status: Active Protocol: Document 04/17/19 12:58 SAK (Rec: 04/21/19 17:06 [facility] [id number]) Hip Strength Hip Manual Muscle Testing [place] Flexion (L2) 3- Fair- Extension (S1) 2 Poor Abduction 2+ Poor+ Comments heaviness of leg Knee Strength Knee Manual Muscle Testing [place] Flexion (S2) 4 Good Extension (L3) 4 Good Ankle/Foot Strength Ankle and Foot Manual Muscle Testing [place] Dorsiflexion (L4) 4- Good- Plantarflexion (S1) 4- Good- PT-OP-N Lymphedema Start: 04/17/19 12:57 Freq: Status: Active Protocol: Document 06/10/19 08:13 SAK (Rec: 06/10/19 15:44 [facility] [id number]) Lymphedema Measurements Lower Extremity Circumference Measurements Right Affected MT Heads 25 cm Medial Malleolus 29.1 cm 10 cm From Medial Malleolus 49.7 cm 20 cm From Medial Malleolus 62.5 cm 30 cm From Medial Malleolus 72 cm 40 cm From Medial Malleolus 63.4 cm 50 cm From Medial Malleolus 81.9 cm 60 cm From Medial Malleolus 80 cm 70 cm From Medial Malleolus 82 cm Left Affected MT Heads 23.8 cm Medial Malleolus 28.3 cm 10 cm From Medial Malleolus 48.9 cm 20 cm From Medial Malleolus 63.7 cm 30 cm From Medial Malleolus 68.2 cm 40 cm From Medial Malleolus 67.4 cm 50 cm From Medial Malleolus 67.3 cm 60 cm From Medial Malleolus 82.2 cm 70 cm From Medial Malleolus 81.2 cm PT-OP-Q Treatments Start: 04/17/19 12:57 Freq: Status: Active Protocol: Document 07/09/19 14:29 SAK (Rec: 07/09/19 14:41 [facility] [id number]) Cardio Equipment Recumbent Stepper (Sci-Fit) Duration (Minutes) 10 Resistance 8 Seat Position 13 Lymphedema Treatment Manual Lymphatic Drainage Location jaiden LE's Duration 40 min Lymphedema Wrapping Other Farrow wraps ja[place] LE's PT-OP-R Modalities Start: 04/17/19 12:57 Freq: Status: Active Protocol: Document 07/09/19 14:29 SAK (Rec: 07/09/19 15:53 [facility] [id number]) Compression Pump Treatment Treatment Location bilateral LE's Pressure Amount (mmHg) (mmHG) 40 Inflation Time (Seconds) 30 Deflation Time (Seconds) 10 Treatment Duration (minutes) 30 Treatment Tolerance Excellent Treatment Comments 30x each LE during MLD to opposite LE PT-OP-S Aquatic Treatment Start: 05/05/19 08:29 Freq: Status: Active Protocol: Document 07/07/19 11:00 CLB (Rec: 07/07/19 15:19 CLB [id number]) Aquatics Treatment Water Walking walk with back kick/heel touch Water Level Chest Level Level of Assistance Verbal Cues Lunge Walk Water Level Chest Level Level of Assistance Verbal Cues September Water Level Chest Level Level of Assistance Verbal Cues Comments with spinal rotation Sideways Water Level Chest Level Comments ab/ad arms Backwards Water Level Chest Level Comments BS arms Lower Extremity Exercises figure 8 hip stretch Body Position Standing Water Level Chest Level Reps/Duration 2x12 bilateral heel/toe raise Body Position Standing Water Level Chest Level Reps/Duration 2x10 each hip circumduction Body Position Standing Water Level Chest Level Reps/Duration 2x15 bilat, both directions ab/add Water Level Chest Level Reps/Duration 2x15 Comments cross over behind standing leg flex/ext Body Position Standing Water Level Chest Level Reps/Duration 2x15 Lower Extremity Stretches gastroc and soleus Body Position Standing Water Level Chest Level Reps/Duration 2x45 sec Quad Body Position Standing Water Level Waist Level Equipment Small Noodle Reps/Duration 2x45 Comments cues for posture; right knee pain with too much resistance HS Body Position Standing Water Level Waist Level Equipment Small Noodle Reps/Duration 2x45 sec Upper Extremity Exercises ab/add; flex/ext Body Position Standing Water Level Chest Level Reps/Duration 2x10 each [place] Activities [place] Activities Bicycle,Bicycle Backwards, Cross [place],Running,Hip Abduction/Adduction,Sit Kicks Other Activities pendulum w/med BBs: lateral, side wall burpees 3 ways Equipment none Duration 14 PT-OP-T Assessment and Plan Start: 04/17/19 12:57 Freq: Status: Active Protocol: Document 07/09/19 14:29 [facility] (Rec: 07/09/19 14:41 [facility] [id number]) Physical Therapy Assessment Goals Two Impairment Lymphedema Life Impact Scale 54% Short Term Goal (STG) Decrease to 40% STG Duration met 05/29/19 Retirement Goal (LTG) Decrease to 30% LTG Duration 07/17/19 One Impairment lymphedema exacerbation Retirement Goal (LTG) Decrease lymphedema to stable level (no increase or decrease greater than 1 cm over the course of 1 wk), patient to be independent with self- management to include use of lymphedema pump, self-wrapping or use of appropriate compression garments, sequential lymphedema exercises and self-massage. 05/29/19: making progress left > right LTG Duration 07/17/19 Assessment Summary Assessment Mild increase in circumferential measurements on right LE, decrease on left LE today. Encouraged to use pump at home, decrease time on feet, try to get to pool on her own. Physical Therapy Plan Frequency and Duration Frequency of Treatment 2x/Week Duration of Treatment 12 wks Plan of Care Start Date 04/17/19 Plan of Care End Date 07/17/19 Therapeutic Interventions Therapeutic Interventions Aquatic Therapy,Home Exercise Program,Lymphedema Management, Manual Therapy,Patient/ Caregiver Education,Self-Care/ Home Management,Therapeutic Exercises Next Visit Focus/Plan Next Note Type Treatment Note Next Visit Plan Transition toward independent aquatic exercise and home management of lymphedema
--- NOTE | 2019-07-11 16:00 | PT.OPDS ---
Current Diagnoses Lymphedema, not elsewhere classified (07/11/19) Visit Care Team Role Provider Type Yao Mallory MD Attending Provider Non-Staff Primary Care Provider Specialty: Family Practice Address: [address] [place] [address], [place], [address] Email: Visit Number Visit Number 19 Discharge Summary PT-OP-B Current Condition Start: 04/17/19 12:57 Freq: Status: Active Protocol: Document 04/17/19 12:58 SAK (Rec: 04/17/19 14:24 SAK [id number]) Current Condition History of Current Condition Onset Date 2001 Current Complaints lymphedema bilateral LE's. History of Current Condition lymphedema waist to toes. diagnosed 2001, not treated until 2009. Was in coma for 3 wks 2008, states she almost due to infection in legs. States the lymphedema is thought to have been caused by mosquitoes; had severe reaction to bites. Gradual increase in swelling in LE's. Most recent LE infection a couple months ago with open wound left LE. 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 Prior Treatments and Tests Has had wraps, MLD, has a lymphedema pump; unable to use pump at this time due to increase in lymphedema with inability to fit into pump legs. Has no compression garments. Currently wraps her legs her self, uses ones with velcro. Used to go to pool, had to stop due to open wound. Goes to [employer] 3x/wk , wears wraps when she exercises. States Farrow wrap ordered for her right LE due to having open wound so insurance will cover it; she is unable to afford on her own . Lymphedema surgery bilateral LE's 2 years ago, with tissue and skin removed after determined lymph node transfer wouldn't be effective due to lack of functioning lymph nodes. Gastric bypass 2011 went from 600lbs, now down to 340. Has had skin removal on stomach. Treatment Goals Patient/Caregiver Goals Decrease lymphedema sufficient to allow her to use compression pump, be able to self-manage her lymphedema. 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 Current Functional Impairments (Reported) Functional Limitations- ADL's More difficult due to increased weight of legs Functional Limitations- Mobility/Gait limited to household due to weight of legs Functional Limitations- Work/School more difficult to care for her mother Personal Factors Other Personal Factors That May Effect Patient is 5'9, 340lbs Therapy/Recovery PT-OP-C Subjective Start: 04/17/19 12:57 Freq: Status: Active Protocol: Document 07/11/19 11:00 LJ (Rec: 07/11/19 16:49 LJ [id number]) OP-PT Subjective Patient Comments Patient Comments Pt looking forward to incorporate aquatic HEP into her weekly exercise routing. Not interested in printed HEP PT-OP-F Manual Assessment Start: 04/17/19 12:57 Freq: Status: Active Protocol: Document 04/17/19 12:58 SAK (Rec: 04/21/19 17:06 SAK [id number]) Manual Assessments Soft Tissue Assessment Soft Tissue Mobility Assessment Due to lymphedema patient demonstrating decreased movement of LE tissue with fibrosis evident medial lower leg on left around area of healing wound. PT-OP-K Range of Motion Start: 04/17/19 12:57 Freq: Status: Active Protocol: Document 04/17/19 12:58 SAK (Rec: 04/21/19 17:06 SAK [id number]) Knee Goniometric Range of Motion Knee ROM Limitations Knee ROM Limitations Swelling Comments lacking full flexion due to tissue approximation from lymphedema bilateral Ankle and Foot Goniometric Range of Motion Ankle and Foot ROM Limitations ROM Limitations Swelling Comments ankle df to neutral jaiden, pf WFL jaiden PT-OP-M Strength Start: 04/17/19 12:57 Freq: Status: Active Protocol: Document 04/17/19 12:58 SAK (Rec: 04/21/19 17:06 SAK [id number]) Hip Strength Hip Manual Muscle Testing [place]iden Flexion (L2) 3- Fair- Extension (S1) 2 Poor Abduction 2+ Poor+ Comments heaviness of leg Knee Strength Knee Manual Muscle Testing jaiden Flexion (S2) 4 Good Extension (L3) 4 Good Ankle/Foot Strength Ankle and Foot Manual Muscle Testing jaiden Dorsiflexion (L4) 4- Good- Plantarflexion (S1) 4- Good- PT-OP-N Lymphedema Start: 04/17/19 12:57 Freq: Status: Active Protocol: Document 06/10/19 08:13 SAK (Rec: 06/10/19 15:44 SAK [id number]) Lymphedema Measurements Lower Extremity Circumference Measurements Right Affected MT Heads 25 cm Medial Malleolus 29.1 cm 10 cm From Medial Malleolus 49.7 cm 20 cm From Medial Malleolus 62.5 cm 30 cm From Medial Malleolus 72 cm 40 cm From Medial Malleolus 63.4 cm 50 cm From Medial Malleolus 81.9 cm 60 cm From Medial Malleolus 80 cm 70 cm From Medial Malleolus 82 cm Left Affected MT Heads 23.8 cm Medial Malleolus 28.3 cm 10 cm From Medial Malleolus 48.9 cm 20 cm From Medial Malleolus 63.7 cm 30 cm From Medial Malleolus 68.2 cm 40 cm From Medial Malleolus 67.4 cm 50 cm From Medial Malleolus 67.3 cm 60 cm From Medial Malleolus 82.2 cm 70 cm From Medial Malleolus 81.2 cm PT-OP-T Assessment and Plan Start: 04/17/19 12:57 Freq: Status: Active Protocol: Document 07/11/19 11:00 IDALIA (Rec: 07/11/19 16:49 [id number]) Physical Therapy Assessment Rehab Potential Rehabilitation Potential Fair Evaluation Complexity Number of Personal Factors/Comorbidities 3 or More Number of Body Systems Impaired 3 Clinical Presentation at Evaluation Evolving Impairments Impairments Edema,ROM,Soft Tissue Mobility Goals Two Impairment Lymphedema Life Impact Scale 54% Short Term Goal (STG) Decrease to 40% STG Duration met 05/29/19 [facility]pc Goal (LTG) Decrease to 30% LTG Duration 07/17/19 One Impairment lymphedema exacerbation [employer] Goal (LTG) Decrease lymphedema to stable level (no increase or decrease greater than 1 cm over the course of 1 wk), patient to be independent with self- management to include use of lymphedema pump, self-wrapping or use of appropriate compression garments, sequential lymphedema exercises and self-massage. 05/29/19: making progress left > right LTG Duration 07/17/19 Assessment Summary Assessment Pt able to increase intensity with exercises this session. Posture has improved. Pt is ready for independent aquatic HEP Physical Therapy Plan Frequency and Duration Frequency of Treatment 2x/Week Duration of Treatment 12 wks Plan of Care Start Date 04/17/19 Plan of Care End Date 07/17/19 Therapeutic Interventions Therapeutic Interventions Aquatic Therapy,Home Exercise Program,Lymphedema Management, Manual Therapy,Patient/ Caregiver Education,Self-Care/ Home Management,Therapeutic Exercises Next Visit Focus/Plan Next Note Type Treatment Note Next Visit Plan DC pt to independent home and aquatic HEP.
--- NOTE | 2019-07-11 16:49 | PT.OTN ---
Current Diagnoses Lymphedema, not elsewhere classified (07/11/19) Physical Therapy Treatment Note PT-OP-A Visit Information Start: 04/17/19 12:57 Freq: Status: Active Protocol: Document 07/11/19 11:00 LJ (Rec: 07/11/19 16:49 LJ [id number]) Out-Patient Physical Therapy Visit Information Visit Information Visit Type Aquatic Treatment Note Visit Start Time 11:00 Visit Stop Time 11:45 Total Visit Minutes 45 Visit Number 19 Number of DATA SECURITY CONSULTANT Visits 1 PT-OP-B Current Condition Start: 04/17/19 12:57 Freq: Status: Active Protocol: Document 04/17/19 12:58 SAK (Rec: 04/17/19 14:24 SAK [id number]) Current Condition History of Current Condition Onset Date 2001 Current Complaints lymphedema bilateral LE's. History of Current Condition lymphedema waist to toes. diagnosed 2001, not treated until 2009. Was in coma for 3 wks 2008, states she almost due to infection in legs. States the lymphedema is thought to have been caused by mosquitoes; had severe reaction to bites. Gradual increase in swelling in LE's. Most recent LE infection a couple months ago with open wound left LE. 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 Prior Treatments and Tests Has had wraps, MLD, has a lymphedema pump; unable to use pump at this time due to increase in lymphedema with inability to fit into pump legs. Has no compression garments. Currently wraps her legs her self, uses ones with velcro. Used to go to pool, had to stop due to open wound. Goes to [employer] 3x/wk , wears wraps when she exercises. States Farrow wrap ordered for her right LE due to having open wound so insurance will cover it; she is unable to afford on her own . Lymphedema surgery bilateral LE's 2 years ago, with tissue and skin removed after determined lymph node transfer wouldn't be effective due to lack of functioning lymph nodes. Gastric bypass 2011 went from 600lbs, now down to 340. Has had skin removal on stomach. Treatment Goals Patient/Caregiver Goals Decrease lymphedema sufficient to allow her to use compression pump, be able to self-manage her lymphedema. 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 Current Functional Impairments (Reported) Functional Limitations- ADL's More difficult due to increased weight of legs Functional Limitations- Mobility/Gait limited to household due to weight of legs Functional Limitations- Work/School more difficult to care for her mother Personal Factors Other Personal Factors That May Effect Patient is 5'9, 340lbs Therapy/Recovery PT-OP-C Subjective Start: 04/17/19 12:57 Freq: Status: Active Protocol: Document 07/11/19 11:00 LJ (Rec: 07/11/19 16:49 LJ [id number]) OP-PT Subjective Patient Comments Patient Comments Pt looking forward to incorporate aquatic HEP into her weekly exercise routing. Not interested in printed HEP PT-OP-F Manual Assessment Start: 04/17/19 12:57 Freq: Status: Active Protocol: Document 04/17/19 12:58 SAK (Rec: 04/21/19 17:06 SAK [id number]) Manual Assessments Soft Tissue Assessment Soft Tissue Mobility Assessment Due to lymphedema patient demonstrating decreased movement of LE tissue with fibrosis evident medial lower leg on left around area of healing wound. PT-OP-K Range of Motion Start: 04/17/19 12:57 Freq: Status: Active Protocol: Document 04/17/19 12:58 SAK (Rec: 04/21/19 17:06 SAK [id number]) Knee Goniometric Range of Motion Knee ROM Limitations Knee ROM Limitations Swelling Comments lacking full flexion due to tissue approximation from lymphedema bilateral Ankle and Foot Goniometric Range of Motion Ankle and Foot ROM Limitations ROM Limitations Swelling Comments ankle df to neutral jaiden, pf WFL jaiden PT-OP-M Strength Start: 04/17/19 12:57 Freq: Status: Active Protocol: Document 04/17/19 12:58 SAK (Rec: 04/21/19 17:06 SAK [id number]) Hip Strength Hip Manual Muscle Testing ja[place] Flexion (L2) 3- Fair- Extension (S1) 2 Poor Abduction 2+ Poor+ Comments heaviness of leg Knee Strength Knee Manual Muscle Testing [place] Flexion (S2) 4 Good Extension (L3) 4 Good Ankle/Foot Strength Ankle and Foot Manual Muscle Testing ja[place] Dorsiflexion (L4) 4- Good- Plantarflexion (S1) 4- Good- PT-OP-N Lymphedema Start: 04/17/19 12:57 Freq: Status: Active Protocol: Document 06/10/19 08:13 SAK (Rec: 06/10/19 15:44 [facility] [id number]) Lymphedema Measurements Lower Extremity Circumference Measurements Right Affected MT Heads 25 cm Medial Malleolus 29.1 cm 10 cm From Medial Malleolus 49.7 cm 20 cm From Medial Malleolus 62.5 cm 30 cm From Medial Malleolus 72 cm 40 cm From Medial Malleolus 63.4 cm 50 cm From Medial Malleolus 81.9 cm 60 cm From Medial Malleolus 80 cm 70 cm From Medial Malleolus 82 cm Left Affected MT Heads 23.8 cm Medial Malleolus 28.3 cm 10 cm From Medial Malleolus 48.9 cm 20 cm From Medial Malleolus 63.7 cm 30 cm From Medial Malleolus 68.2 cm 40 cm From Medial Malleolus 67.4 cm 50 cm From Medial Malleolus 67.3 cm 60 cm From Medial Malleolus 82.2 cm 70 cm From Medial Malleolus 81.2 cm PT-OP-Q Treatments Start: 04/17/19 12:57 Freq: Status: Active Protocol: Document 07/09/19 14:29 [facility] (Rec: 07/09/19 14:41 [facility] [id number]) Cardio Equipment Recumbent Stepper (Sci-Fit) Duration (Minutes) 10 Resistance 8 Seat Position 13 Lymphedema Treatment Manual Lymphatic Drainage Location jaiden LE's Duration 40 min Lymphedema Wrapping Other Farrow wraps jaiden LE's PT-OP-R Modalities Start: 04/17/19 12:57 Freq: Status: Active Protocol: Document 07/09/19 14:29 [facility] (Rec: 07/09/19 15:53 [facility] [id number]) Compression Pump Treatment Treatment Location bilateral LE's Pressure Amount (mmHg) (mmHG) 40 Inflation Time (Seconds) 30 Deflation Time (Seconds) 10 Treatment Duration (minutes) 30 Treatment Tolerance Excellent Treatment Comments 30x each LE during MLD to opposite LE PT-OP-S Aquatic Treatment Start: 05/05/19 08:29 Freq: Status: Active Protocol: Document 07/11/19 11:00 LJ (Rec: 07/11/19 16:49 LJ [id number]) Aquatics Treatment Pool Entry/Exit Pool Entry/Exit Method Stairs Assistance Independent Water Walking jogging Water Level Chest Level Walking Equipment Ankle Weight- 2.5# Lunge Walk Water Level Chest Level Walking Equipment Ankle Weight- 2.5# Level of Assistance Verbal Cues Marching Water Level Chest Level Walking Equipment Ankle Weight- 2.5# Level of Assistance Verbal Cues Comments with spinal rotation [place] March Water Level Chest Level Walking Equipment Ankle Weight- 2.5# Level of Assistance Verbal Cues Comments with spinal rotation Sideways Water Level Chest Level Walking Equipment Ankle Weight- 2.5# Comments ab/ad arms Backwards Water Level Chest Level Walking Equipment Ankle Weight- 2.5# Comments BS arms forward Water Level Chest Level Comments BS arms Lower Extremity Exercises HS curls with kick back Body Position Standing Water Level Chest Level Equipment Ankle Weight- 2.5# Reps/Duration 15x2 figure 8 hip stretch Body Position Standing Water Level Chest Level Equipment Ankle Weight- 2.5# Reps/Duration 2x12 bilateral hip circumduction Body Position Standing Water Level Chest Level Equipment Ankle Weight- 2.5# Reps/Duration 2x15 bilat, both directions ab/add Water Level Chest Level Equipment Ankle Weight- 2.5# Reps/Duration 2x15 Comments cross over behind standing leg Lower Extremity Stretches gastroc and soleus Body Position Standing Water Level Chest Level Reps/Duration 2x45 sec Quad Body Position Standing Water Level Waist Level Equipment Small Noodle Reps/Duration 2x45 Comments cues for posture; right knee pain with too much resistance HS Body Position Standing Water Level Waist Level Equipment Small Noodle Reps/Duration 2x45 sec Upper Extremity Exercises ab/add; flex/ext Body Position Standing Water Level Chest Level Equipment med BBs Reps/Duration 2x10 each [place] Activities [place] Activities Bicycle,Cross Country,Running, Hip Abduction/Adduction Other Activities pendulum w/med BBs: lateral, side wall burpees 3 ways Equipment none Duration 15 PT-OP-T Assessment and Plan Start: 04/17/19 12:57 Freq: Status: Active Protocol: Document 07/11/19 11:00 IDALIA (Rec: 07/11/19 16:49 IDALIA [id number]) Physical Therapy Assessment Rehab Potential Rehabilitation Potential Fair Evaluation Complexity Number of Personal Factors/Comorbidities 3 or More Number of Body Systems Impaired 3 Clinical Presentation at Evaluation Evolving Impairments Impairments Edema,ROM,Soft Tissue Mobility Goals Two Impairment Lymphedema Life Impact Scale 54% Short Term Goal (STG) Decrease to 40% STG Duration met 05/29/19 Nursing Home Goal (LTG) Decrease to 30% LTG Duration 07/17/19 One Impairment lymphedema exacerbation [employer] Goal (LTG) Decrease lymphedema to stable level (no increase or decrease greater than 1 cm over the course of 1 wk), patient to be independent with self- management to include use of lymphedema pump, self-wrapping or use of appropriate compression garments, sequential lymphedema exercises and self-massage. 05/29/19: making progress left > right LTG Duration 07/17/19 Assessment Summary Assessment Pt able to increase intensity with exercises this session. Posture has improved. Pt is ready for independent aquatic HEP Physical Therapy Plan Frequency and Duration Frequency of Treatment 2x/Week Duration of Treatment 12 wks Plan of Care Start Date 04/17/19 Plan of Care End Date 07/17/19 Therapeutic Interventions Therapeutic Interventions Aquatic Therapy,Home Exercise Program,Lymphedema Management, Manual Therapy,Patient/ Caregiver Education,Self-Care/ Home Management,Therapeutic Exercises Next Visit Focus/Plan Next Note Type Treatment Note Next Visit Plan DC pt to independent home and aquatic HEP.
== END 2019-10-08 07:58 ==
LOC: PHYS 11:00
PROVIDERS: PCP Family Medicine; Visit Provider Family Medicine
DX: I89.0 Lymphedema, not elsewhere classified (principal)
CPT/HCPCS: 97016; 97110; 97113; 97140; 97163; 97530; 97535

== ENCOUNTER → 2021-04-25 11:58 | Outpatient (CLI) | payer OTHER, SELFPAY ==
[2021-04-25 16:42] LABS: COVID19 -Nasal RAPID Negative (Negative)
== END ==
PROVIDERS: PCP Family Medicine; Visit Provider Nurse Practitioner Family
DX: Z20.822 Contact with and (suspected) exposure to COVID-19 (principal); Z01.812 Encounter for preprocedural laboratory examination
CPT/HCPCS: 87635; C9803

== ENCOUNTER → 2021-04-26 13:28 | Day surgery (SDC) | payer OTHER, MEDICAID, SELFPAY ==
--- NOTE | 2021-04-26 | PATH_ITS ---
[facility] Accession Number: [id number] . 01 Material submitted: . esophagus, E-G Junction - GEJ . 02 Diagnosis: Gastroesophageal Junction, Biopsy: Columnar mucosa with mild chronic inflammation. Negative for intestinal metaplasia by alcian blue stain. Negative for dysplasia and malignancy. MRV 04/29/2021 1500 Local . 02 Electronically signed: . Gabriela Lemus MD, Pathologist NPI- [id number] . 01 Gross description: . GEJ: Received in formalin is 1 fragment(s) of garcia, soft tissue measuring 0.1 x 0.1 x 0.1 cm submitted entirely in 1 cassette(s) /JOANA 04/27/2021 0432 Local . 02 Microscopic: . An alcian blue stain was performed to evaluate for intestinal metaplasia and is negative. The control stain showed appropriate reactivity. . 02 Pathologist provided ICD-10: R13.10 . 02 CPT . 250768 Performed at: 01 [facility] [address], [place], [place] [id number] MD Aubrey Saravia MD Phone: [phone] Performed at: [address] [facility] [address] [place], [place] [id number] MD Gabriela Lemus MD Phone: [phone]
[2021-04-26] MEDS: SODIUM CHLORIDE 0.9% 1,000 ML 100 ML IV (14:09)
[2021-04-26 14:11] VITALS: BP 146/86; PULSE 65; RESP 18; TEMP 36.2; BMI 44.3
--- NOTE | 2021-04-26 14:37 | P.HP_ITS ---
History of Present Illness History of Present Illness Date Patient Seen: 04/26/21 Time Patient Seen: 14:37 Chief complaint: SDC Narrative: I reviewed my note from January 17, 2021. No changes. Patient History Family & Social History Social History: household members none Tobacco & Substance use: Smoking Status Never smoker alcohol intake never Substance Use Type does not use Meds Home Medications and Allergies Home Medications Medication Instructions Recorded Confirmed Type bupropion HCl 300 mg 24 hr tablet, 300 mg PO QDAY #0 10/04/11 04/26/21 History extended release (Wellbutrin XL) fluoxetine 40 mg capsule 80 mg PO QDAY #0 10/04/11 04/26/21 History furosemide 40 mg tablet 120 mg PO QDAY #0 10/04/11 04/26/21 History gabapentin 600 mg tablet 300 mg PO SEE INSTRUCTIONS #2 10/04/11 04/26/21 History (Neurontin) pantoprazole 40 mg tablet,delayed 40 mg PO QDAY #0 10/04/11 04/26/21 History release (Protonix) cholecalciferol (vitamin D3) 50 8,000 unit PO QDAY #0 07/03/17 04/26/21 History mcg (2,000 unit) capsule (Vitamin D3) cyanocobalamin (vitamin B-12) 1,000 mcg IM QMONTH #0 07/03/17 04/26/21 History 1,000 mcg/mL injection solution ibuprofen 600 mg tablet 600 mg PO Q6HP PRN #0 07/03/17 04/26/21 History multivitamin-iron 9 mg-folic acid 1 tab PO QDAY #0 07/03/17 04/26/21 History 400 mcg-calcium and minerals tablet (Thera M Plus (ferrous fumarate)) Allergies Allergy/AdvReac Type Severity Reaction Status Date / Time clindamycin [CLINDAMYCIN] Allergy Severe Hives Verified 04/26/21 14:01 doxycycline [DOXYCYCLINE] Allergy Severe Hives Verified 04/26/21 14:01 Sulfa (Sulfonamide Allergy Severe Hives Verified 04/26/21 14:01 Antibiotics) [SULFA (SULFONAMIDE ANTIBIOTICS)] adhesive tape [ADHESIVE TAPE] Allergy Intermediate Verified 04/26/21 14:01 quetiapine [From SEROQUEL] AdvReac Severe Anxiety Verified 04/26/21 14:14 Review of Systems Review of Systems ROS: Yes All systems reviewed with the patient and are negative except as otherwise documented Exam Vital Signs (past 8 hours): - 04/26/21 14:11 Temperature 97.1 F L Pulse Rate 65 Respiratory Rate 18 Blood Pressure 146/86 H Oxygen Delivery Method Room Air Const General: cooperative and comfortable Orientation: alert HENMT Head: normocephalic Ears: external ears normal Nose: external nose normal Face and sinus: normal facial exam Mouth: oral mucosae normal Eyes General: appearance normal, both eyes and all related structures Neck Neck: normal visual inspection Chest Chest: normal inspection of the chest Resp Effort & Inspection: normal respiratory effort Auscultation: clear to auscultation bilaterally Cardio Rate: regular rate Rhythm: regular rhythm Heart Sounds: no murmurs GI Inspection: normal to inspection Palpation: soft and No tender Auscultation: normal bowel sounds Skin General: no rashes or lesions noted and No jaundice Neuro General: patient alert and moves all extremities Cognition: normal cognition Speech: speech normal Extrem General: edema Psych Appearance: grossly normal Assessment & Plan Assessment & Plan narrative: 50-year-old female with a reported history of Singh ett's esophagus indicated for surveillance. EGD is planned for today. She has a history of gastric bypass anatomy. Time Spent With Patient Critical Care time: I spent a total of [] minutes of critical care time on this patient's care today; this time is exclusive of procedural time.
--- NOTE | 2021-04-26 14:39 | PM.PREOP ---
Pre-operative Note COVID-19 COVID-19 status: Negative Result date/Date tested (Pos, Neg/Pending): 04/25/21 Interval Note History & Physical reviewed/Exam performed by Physician: Yes Changes to H&P: No ASA Class (for procedural sedation): III
--- NOTE | 2021-04-26 14:56 | PM.OP.EGD ---
Operative Date/Time/Diagnoses Date of procedure: 04/26/21 Time of procedure: 14:56 Pre-op diagnosis: Leyva's esophagus Post-op diagnosis: same Procedure & Clinicians Study performed: EGD with biopsy Same procedure as scheduled: Yes Indications: Leyva's esophagus Surgeon: Venkat Garza Procedure Notes SCOAP/Timeout: Done Procedure in detail: After the risks and benefits were explained, written and verbal informed consent was obtained. The patient was brought into the procedure room and placed into the left lateral decubitus position. Please see nurse campaign assistant notes for sedation details. The scope was introduced into the mouth through the bite block and advanced under direct visualization to the 2nd portion of the duodenum. The scope was slowly withdrawn carefully examining the mucosa for any defects or lesions. Retroflexed views were accomplished in the stomach. The stomach was decompressed, the scope was then removed from the patient who tolerated the procedure well. Sedation minutes: 6 Complications: none Impression: 1. Esophagus: The GE junction was at approximately 36 cm from the incisors. There was no evidence of any active esophagitis. The Z-line was only mildly irregular and appeared to wonder into the distal esophagus by less than half a cm in a couple of locations. I therefore took a biopsy from 1 of these tongues of salmon-colored mucosa at the GE junction/Z-line. The remainder of the esophagus was visually unremarkable. 2. Stomach: Patient had a normal-sized gastric pouch. I did not see any ulceration or signs of neoplasia. The anastomosis was widely patent. 3. Afferent limb: This was quite short. See photographs. Otherwise normal. 4. Efferent limb: I traversed the ED for in limb for perhaps 10-15 cm and the mucosa appeared normal to this depth. Endoscopic diagnosis 1. Gastric bypass anatomy 2. Irregular Z-line -biopsied Post-procedure Plan for aftercare: 1. Await histopathology 2. If specialized intestinal metaplasia is identified, surveillance EGD can be considered for 3 years time. Disposition: PACU
[2021-04-26 15:00] VITALS: BP 118/75; PULSE 70; RESP 16; TEMP 36.3; O2SAT 93
[2021-04-26 15:04] VITALS: BP 130/75; PULSE 66; RESP 16; O2SAT 93
[2021-04-26 15:09] VITALS: BP 135/78; PULSE 66; RESP 14; O2SAT 93
[2021-04-26 15:14] VITALS: BP 133/82; PULSE 67; RESP 12; O2SAT 98
[2021-04-26 15:19] VITALS: BP 132/78; PULSE 74; RESP 16; O2SAT 97
== END | disposition home or self-care (01) ==
PROVIDERS: PCP Physician Assistant Medical; Referring Provider Internal Medicine Gastroenterology; Visit Provider Internal Medicine Gastroenterology
PROC: 0DJ08ZZ Inspection of Upper Intestinal Tract, Via Natural or Artificial Opening Endoscopic (ICD-10-PCS; CPT 43235; principal; 2021-04-26 15:00)
DX: K22.70 Barrett's esophagus without dysplasia (principal); E66.01 Morbid (severe) obesity due to excess calories; I89.0 Lymphedema, not elsewhere classified; K21.9 Gastro-esophageal reflux disease without esophagitis; Z68.41 Body mass index [BMI] 40.0-44.9, adult; K29.50 Unspecified chronic gastritis without bleeding
CPT/HCPCS: 43239; J2704

== ENCOUNTER 2021-10-27 14:53 | Observation (INO) | payer MEDICARE, MEDICAID, SELFPAY ==
[2021-10-27] VITALS (29 sets, daily range): BP systolic 109–206; BP diastolic 50–90; PULSE 99–130; RESP 15–25; TEMP 36.2–36.5; O2SAT 92–100; BMI 47.9; BMI 48.1
--- NOTE | 2021-10-27 15:04 | DI.RAD.S_ITS ---
PROCEDURE: XR CHEST 1V INDICATIONS: SOB TECHNIQUE: One view of the chest was acquired. COMPARISON: [facility], , CHEST 1 VIEW, 01/27/2014, 13:49. FINDINGS: Surgical changes and devices: None. Lungs and pleura: Increased interstitial markings with cephalization of pulmonary vessels. No pleural effusions or pneumothorax. Mediastinum: Mediastinal contours appear normal. Heart size is borderline enlarged. Bones and chest wall: No suspicious bony lesions. Overlying soft tissues appear unremarkable. IMPRESSION: Borderline cardiomegaly with findings of cardiogenic pulmonary edema, mild-moderate. Dictated by: Graeme Montes M.D. on 10/27/2021 at 15:21 Approved by: Graeme Montes M.D. on 10/27/2021 at 15:21
--- NOTE | 2021-10-27 15:36 | DI.US.S_ITS ---
PROCEDURE: US PERIPH VENOUS LOW EXTREM RT INDICATIONS: PAIN, INCREASED SWELLING, HARD LUMP IN UPPER R THIGH TECHNIQUE: Real-time imaging, as well as color and pulse Doppler interrogation, were performed of the lower extremity deep veins from the inguinal ligament to the popliteal fossa. COMPARISON: None. FINDINGS: The common femoral, femoral and popliteal veins are normally compressible, and free of intraluminal thrombus. Color and pulse Doppler demonstrate normal phasic intraluminal flow. There is normal augmentation response to distal compression maneuver. IMPRESSION: No sonographic evidence of DVT. Diffuse lower extremity edema. Dictated by: Graeme Montes M.D. on 10/27/2021 at 16:27 Approved by: Graeme Montes M.D. on 10/27/2021 at 16:28
--- NOTE | 2021-10-27 16:42 | ED_ITS ---
HPI - Arrhythmia/Palpitations General Chief Complaint: Arrhythmia/Palpitations Stated Complaint: pain/swelling in right leg, sudden weight gain Time Seen by Provider: 10/27/21 16:39 History of Present Illness HPI narrative: Patient is a 50-year-old female with morbid obesity bilateral lymphedema presenting today with increasing shortness of breath. She is also complaining of right leg pain which seems to be her biggest complaint. She has had bariatric surgery and multiple skin removal surgeries on her legs she says that she felt hard lump in her right medial thigh. It is not erythematous. She has not had any fever or chills. She was concerned about. She is found to be in AF ib with RVR heart rate of 130. She has no prior history of atrial fibrillation. She has noted increasing shortness of breath with exertion. She says with very little exertion she is quite short of breath. Related Data Home Medications Medication Instructions Recorded Confirmed bupropion HCl 300 mg 24 hr tablet, 300 mg PO QDAY #0 10/04/11 04/26/21 extended release (Wellbutrin XL) fluoxetine 40 mg capsule 80 mg PO QDAY #0 10/04/11 04/26/21 furosemide 40 mg tablet 120 mg PO QDAY #0 10/04/11 04/26/21 gabapentin 600 mg tablet 300 mg PO SEE INSTRUCTIONS #2 10/04/11 04/26/21 (Neurontin) pantoprazole 40 mg tablet,delayed 40 mg PO QDAY #0 10/04/11 04/26/21 release (Protonix) cholecalciferol (vitamin D3) 50 8,000 unit PO QDAY #0 07/03/17 04/26/21 mcg (2,000 unit) capsule (Vitamin D3) cyanocobalamin (vitamin B-12) 1,000 mcg IM QMONTH #0 07/03/17 04/26/21 1,000 mcg/mL injection solution ibuprofen 600 mg tablet 600 mg PO Q6HP PRN #0 07/03/17 04/26/21 multivitamin-iron 9 mg-folic acid 1 tab PO QDAY #0 07/03/17 04/26/21 400 mcg-calcium and minerals tablet (Thera M Plus (ferrous fumarate)) Allergies Allergy/AdvReac Type Severity Reaction Status Date / Time clindamycin [CLINDAMYCIN] Allergy Severe Hives Verified 04/26/21 14:01 doxycycline [DOXYCYCLINE] Allergy Severe Hives Verified 04/26/21 14:01 Sulfa (Sulfonamide Allergy Severe Hives Verified 04/26/21 14:01 Antibiotics) [SULFA (SULFONAMIDE ANTIBIOTICS)] adhesive tape [ADHESIVE TAPE] Allergy Intermediate Verified 04/26/21 14:01 quetiapine [From SEROQUEL] AdvReac Severe Anxiety Verified 04/26/21 14:14 Review of Systems Review of Systems Narrative: GENERAL: Denies chills, fatigue, malaise, fever, sweats, travel HEENT: Denies sinus pain, ear pain, sore throat, difficulty swallowing, neck pain RESPIRATORY: See HPI CARDIOVASCULAR: See HPI GASTROINTESTINAL: Denies nausea, vomiting, abdominal pain, diarrhea, constipation, melena. : Denies dysuria, frequency, incontinence, hematuria, urinary retention, flank pain. MUSCULOSKELETAL: Denies weakness, joint pain, or bony pain SKIN: No rash, no erythema, no pruritus NEUROLOGIC: Denies weakness, dizziness, headache, numbness, change in speech, confusion PSYCHIATRIC: No concerning psychosocial issues. 12 point review of systems is negative except for those stated above and HPI Patient History Social History household members: none Smoking Status: Never smoker alcohol intake: never Smoking Status: Never smoker Substance Use Type: does not use Exam Initial Vital Signs Initial Vital Signs: Vital Signs Temperature 97.7 F 10/27/21 14:58 Pulse Rate 130 H 10/27/21 14:58 Respiratory Rate 18 10/27/21 14:58 Blood Pressure 206/88 H 10/27/21 14:58 Pulse Oximetry 97 10/27/21 14:58 GENERAL: Alert well-appearing 50-year-old female BMI 47 HEENT: Head atraumatic,EOMI, pupils reactive, face symmetric, moist mucous membranes CARDIOVASCULAR: Tachycardic irregularly irregular RESPIRATORY: Breath sounds equal bilaterally, no wheezes rales or rhonchi. ABDOMEN: Soft, nontender. Normoactive bowel sounds all 4 quadrants. No guarding or rebound. EXTREMITIES: Normal range of motion, no clubbing or edema. Neurovascularly intact Lymphedema present bilaterally she does have bilateral medial thigh scars she is having some hardening of the skin on the right it is non erythematous nontender to touch NEUROLOGICAL: Alert and oriented x4.Normal gait and speech. SKIN: Warm, dry, no laceration, no petechiae, no rashes or lesions. Course Orders Ordered: ED Orders 10/27/21 15:03 EKG-12 Lead Stat Measure peak expiratory flow ONCE RT Consult Eval and Treat Now 10/27/21 15:04 XR chest 1V Stat 10/27/21 15:36 US periph venous low extrem rt Stat 10/27/21 16:49 Complete Blood Count AUTO DIFF Stat Comprehensive Metabolic Panel Stat Lactate (Lactic Acid) Stat NT-proBNP (BNP-Adult 18+) Stat Prothrombin Time INR Stat Troponin & CK Cardiac Panel Stat 10/27/21 17:08 CT angio chest PE protocol Stat 10/27/21 19:10 COVID19 -Nasal swab/Pre-Proc Stat Discontinued Medications Diltiazem HCl (Diltiazem 5 Mg/Ml Sdv) 10 mg IV NOW ONE Stop: 10/27/21 17:09 Last Admin: 10/27/21 18:05 Dose: 10 mg Documented by: KEN Diltiazem HCl (Diltiazem Sr 60 Mg) 60 mg PO NOW ONE Stop: 10/27/21 18:47 Last Admin: 10/27/21 19:02 Dose: 60 mg Documented by: FLORIN Furosemide (Furosemide 40 Mg/4 Ml Vial) 20 mg IV NOW ONE Stop: 10/27/21 18:58 Last Admin: 10/27/21 19:02 Dose: 20 mg Documented by: FLORIN Vital Signs Vital signs: Vital Signs - 8 hr 10/27/21 14:58 10/27/21 16:54 10/27/21 17:00 Temperature 97.7 F Pulse Rate 130 H 120 H 126 H Respiratory Rate 18 20 17 Blood Pressure 206/88 H Pulse Oximetry 97 95 94 10/27/21 17:01 10/27/21 17:45 10/27/21 18:00 Temperature Pulse Rate 116 H 115 H 111 H Respiratory Rate 18 23 Blood Pressure 146/71 H Pulse Oximetry 94 93 92 10/27/21 18:04 10/27/21 18:05 10/27/21 18:09 Temperature Pulse Rate 100 H 115 H 110 H Respiratory Rate 16 18 Blood Pressure 128/90 128/90 121/84 Pulse Oximetry 96 94 10/27/21 18:11 10/27/21 18:15 10/27/21 18:16 Temperature Pulse Rate 102 H 116 H 100 H Respiratory Rate 16 22 24 Blood Pressure 125/88 111/50 L 126/67 Pulse Oximetry 93 98 97 10/27/21 18:20 10/27/21 18:25 10/27/21 18:30 Temperature Pulse Rate 100 H 103 H 106 H Respiratory Rate 19 19 19 Blood Pressure 129/63 109/63 116/59 L Pulse Oximetry 99 100 99 10/27/21 18:36 10/27/21 18:41 10/27/21 18:46 Temperature Pulse Rate 107 H 99 H 105 H Respiratory Rate 25 H 16 21 Blood Pressure 119/61 112/69 118/58 L Pulse Oximetry 99 99 99 10/27/21 18:50 10/27/21 18:56 10/27/21 19:00 Temperature Pulse Rate 104 H 99 H 106 H Respiratory Rate 18 17 15 Blood Pressure 131/58 L 118/80 Pulse Oximetry 100 99 99 10/27/21 19:01 10/27/21 19:05 Temperature Pulse Rate 105 H 102 H Respiratory Rate 18 21 Blood Pressure 133/60 119/71 Pulse Oximetry 100 99 MDM - Arrhythmia/Palpitations Lab Data Result diagrams: 10/27/21 16:49 10/27/21 16:49 Labs: Lab Results 10/27/21 10/27/21 10/27/21 Range/Units 16:49 16:49 16:49 WBC 7.1 (4.5-11.0) X10^3/uL RBC 3.73 L (4.0-5.2) X10^6/uL Hgb 11.5 L (12.0-16.0) g/dL Hct 36.0 (36-46) % MCV 96.6 (80-100) fL MCH 30.9 (26-34) PG MCHC 32.0 (30-36) % RDW 14.7 (11.6-14.8) % Plt Count 283 (150-400) X10^3/uL Neut % (Auto) 61.7 (50-75) % Lymph % (Auto) 23.7 L (25-40) % [place] % (Auto) 9.9 (3-14) % Eos % (Auto) 3.4 (2-4) % Baso % (Auto) 1.3 (0-2) % Neut # (Auto) 4400 (9767-2010) /uL Lymph # (Auto) 1700 (1612-5867) /uL [place] # (Auto) 700 (0-900) /uL Eos # (Auto) 200 (0-450) /uL Baso # (Auto) 100 (0-100) /uL PT (10.1-12.7) SECONDS INR (0.9-1.3) Sodium 143 (137-145) mmol/L Potassium 4.2 (3.4-5.1) mmol/L Chloride 109 H (98-107) mmol/L Carbon Dioxide 26 (22-32) mmol/L BUN 19 H (7-17) mg/dL Creatinine 1.05 H (0.52-1.04) mg/dL Estimated GFR 55.0 L (>60) mL/min BUN/Creatinine Ratio 18.1 (6-22) Glucose 77 (70-100) mg/dL Lactate 0.7 (0.7-2.1) mmol/L Calcium 8.4 (8.4-10.2) mg/dL Total Bilirubin 0.2 (0.2-1.3) mg/dL AST 20 (14-36) IU/L ALT 18 (<35) IU/L Alkaline Phosphatase 88 (38-126) U/L Total Creatine Kinase (30-135) U/L CK-MB (CK-2) CK-MB (CK-2) Rel Index Troponin I (0.01-0.034) ng/mL NT-Pro-B Natriuret Pep (<125) pg/mL Total Protein 6.9 (6.3-8.2) g/dL Albumin 3.9 (3.5-5.0) g/dL Globulin 3.0 (1.7-4.1) g/dL Albumin/Globulin Ratio 1.3 (1.0-2.8) 10/27/21 10/27/21 10/27/21 Range/Units 16:49 16:49 16:49 WBC (4.5-11.0) X10^3/uL RBC (4.0-5.2) X10^6/uL Hgb (12.0-16.0) g/dL Hct (36-46) % MCV (80-100) fL MCH (26-34) PG MCHC (30-36) % RDW (11.6-14.8) % Plt Count (150-400) X10^3/uL Neut % (Auto) (50-75) % Lymph % (Auto) (25-40) % [place] % (Auto) (3-14) % Eos % (Auto) (2-4) % Baso % (Auto) (0-2) % Neut # (Auto) (1986-1777) /uL Lymph # (Auto) (8708-5194) /uL [place] # (Auto) (0-900) /uL Eos # (Auto) (0-450) /uL Baso # (Auto) (0-100) /uL PT 11.3 (10.1-12.7) SECONDS INR 1.0 (0.9-1.3) Sodium (137-145) mmol/L Potassium (3.4-5.1) mmol/L Chloride (98-107) mmol/L Carbon Dioxide (22-32) mmol/L BUN (7-17) mg/dL Creatinine (0.52-1.04) mg/dL Estimated GFR (>60) mL/min BUN/Creatinine Ratio (6-22) Glucose (70-100) mg/dL Lactate (0.7-2.1) mmol/L Calcium (8.4-10.2) mg/dL Total Bilirubin (0.2-1.3) mg/dL AST (14-36) IU/L ALT (<35) IU/L Alkaline Phosphatase (38-126) U/L Total Creatine Kinase 46 (30-135) U/L CK-MB (CK-2) TNP CK-MB (CK-2) Rel Index TNP Troponin I < 0.012 (0.01-0.034) ng/mL NT-Pro-B Natriuret Pep 2640 H (<125) pg/mL Total Protein (6.3-8.2) g/dL Albumin (3.5-5.0) g/dL Globulin (1.7-4.1) g/dL Albumin/Globulin Ratio (1.0-2.8) Imaging Data Chest x-ray: Radiologist[employer]: PROCEDURE:? XR CHEST 1V ? INDICATIONS:? SOB ? TECHNIQUE:? One view of the chest was acquired.? ? COMPARISON:? [facility], , CHEST 1 VIEW, 01/27/2014, 13:49. ? FINDINGS:? ? Surgical changes and devices:? None.? ? Lungs and pleura:? Increased interstitial markings with cephalization of pulmonary vessels.? No pleural effusions or pneumothorax.? ? Mediastinum:? Mediastinal contours appear normal.? Heart size is borderline enlarged.? ? Bones and chest wall:? No suspicious bony lesions.? Overlying soft tissues appear unremarkable.? ? IMPRESSION:? Borderline cardiomegaly with findings of cardiogenic pulmonary edema, mild-moderate. ? ? Dictated by: Graeme Montes M.D. on 10/27/2021 at 15:21 ? ? US - DVT: [employer]: PROCEDURE:? US PERIPH VENOUS LOW EXTREM RT ? INDICATIONS:? PAIN, INCREASED SWELLING, HARD LUMP IN UPPER R THIGH ? TECHNIQUE:? Real-time imaging, as well as color and pulse Doppler interrogation, were pe rformed of the lower extremity deep veins from the inguinal ligament to the popliteal fossa.? ? COMPARISON:? None. ? FINDINGS:? The common femoral, femoral and popliteal veins are normally compressible, and free of intraluminal thrombus.? Color and pulse Doppler demonstrate normal phasic intraluminal flow.? There is normal augmentation response to distal compression maneuver. ? ? IMPRESSION:? No sonographic evidence of DVT.? Diffuse lower extremity edema. ? ? Dictated by: Graeme Montes M.D. on 10/27/2021 at 16:27 ? ? CT scan - chest: Radiologist[employer]on: PROCEDURE:? CT ANGIO CHEST PE PROTOCOL ? INDICATIONS:? short of breath new onset afib and short of breath ? TECHNIQUE:? After the administration of intravenous contrast, 2 mm thick sections acquired from the pulmonary apices to the posterior costophrenic angles.? 3-dimensional maximum intensity projection (MIP) coronal and sagittal reformats were then acquired through the thorax.? For radiation dose reduction, the following was used:? automated exposure control, adjustment of mA and/or kV according to patient size.? ? COMPARISON:? [facility], , XR CHEST 1V, 10/27/2021, 15:04. ? FINDINGS:? Image quality:? Excellent.? ? Pulmonary arteries:? Main pulmonary artery is mildly enlarged, measuring 3.3 cm in diameter.? Pulmonary arteries demonstrate no intraluminal filling defects to suggest central pulmonary embolism.? ? Lungs and pleura:? Ground-glass density within both lungs is most likely secondary to subsegmental atelectasis related to non breath hold technique.? No pleural effusions or pneumothorax.? Central and peripheral airways are patent.? ? Mediastinum:? Heart size is mildly enlarged, without pericardial effusion.? No mediastinal or hilar adenopathy.? Thoracic aorta is normal in caliber and enhancement.? Esophagus is normal in caliber, without hiatal hernia.? ? Bones and chest wall:? Multiple healed right posterior rib fractures.? No susp icious bony lesions.? Mild degenerative changes are seen in the spine.? Thyroid is unremarkable.? No axillary or supraclavicular adenopathy.? ? Abdomen:? Postsurgical changes are partially seen at the gastroesophageal junction.? Visualized upper abdominal solid organs appear normal in the early arterial phase of enhancement.? ? IMPRESSION:? 1. No acute pulmonary embolus. 2. Main pulmonary artery is mildly enlarged to 3.3 cm, which can be seen in the setting of pulmonary arterial hypertension. 3. Mild cardiomegaly. ? ? ? Dictated by: Manuel Sanches M.D. on 10/27/2021 at 17:53 ? ? ECG Data Interpretation: Atrial fibrillation rate [address] no priors to compare MDM Narrative Medical decision making narrative: The patient's initial complaint is right leg pain is which is very underwhelming. She is found to have new onset atrial fibrillation with congestive heart failure. She is not hypoxic. Rate is controlled with initial dose of IV diltiazem. She is given an oral dose along with Lasix. However with new onset of atrial fibrillation and he is symptomatic recommended admission. Discussed case with Dr. Diez who happily accepts. Discharge Plan Departure Patient Disposition: Admitted as Observation Clinical Impression: Atrial fibrillation, new onset, Congestive heart failure Admit Date/Time: 10/27/21 19:05 Admit Provider: Srinivas Manzo
[2021-10-27 16:55] LABS: Add Manual Diff / Slide Review NO; Basophils Absolute Auto 100 /uL (0-100); Basophils Percent Auto 1.3 % (0-2); Eosinophils Absolute Auto 200 /uL (0-450); Eosinophils Percent Auto 3.4 % (2-4); Hemoglobin 11.5 g/dL (12.0-16.0); Lymphocytes Absolute Auto 1700 /uL (1100-4500); Lymphocytes Percent Auto 23.7 % (25-40); Mean Corpuscular Hemoglobin 30.9 PG (26-34); Mean Corpuscular Volume 96.6 fL (80-100); Monocytes Absolute Auto 700 /uL (0-900); Monocytes Percent Auto 9.9 % (3-14); Neutrophils Absolute Auto 4400 /uL (1500-7000); Neutrophils Percent Auto 61.7 % (50-75); Platelet Count 283 X10^3/uL (150-400); Red Blood Cell Count 3.73 X10^6/uL (4.0-5.2); Red Cell Distribution Width 14.7 % (11.6-14.8); White Blood Cell Count 7.1 X10^3/uL (4.5-11.0)
[2021-10-27 17:05] LABS: Prothrombin Time 11.3 SECONDS (10.1-12.7)
[2021-10-27 17:08] LABS: Creatine Kinase 46 U/L (30-135)
--- NOTE | 2021-10-27 17:08 | DI.CT.S_ITS ---
PROCEDURE: CT ANGIO CHEST PE PROTOCOL INDICATIONS: short of breath new onset afib and short of breath TECHNIQUE: After the administration of intravenous contrast, 2 mm thick sections acquired from the pulmonary apices to the posterior costophrenic angles. 3-dimensional maximum intensity projection (MIP) coronal and sagittal reformats were then acquired through the thorax. For radiation dose reduction, the following was used: automated exposure control, adjustment of mA and/or kV according to patient size. COMPARISON: [facility], CR, XR CHEST 1V, 10/27/2021, 15:04. FINDINGS: Image quality: Excellent. Pulmonary arteries: Main pulmonary artery is mildly enlarged, measuring 3.3 cm in diameter. Pulmonary arteries demonstrate no intraluminal filling defects to suggest central pulmonary embolism. Lungs and pleura: Ground-glass density within both lungs is most likely secondary to subsegmental atelectasis related to non breath hold technique. No pleural effusions or pneumothorax. Central and peripheral airways are patent. Mediastinum: Heart size is mildly enlarged, without pericardial effusion. No mediastinal or hilar adenopathy. Thoracic aorta is normal in caliber and enhancement. Esophagus is normal in caliber, without hiatal hernia. Bones and chest wall: Multiple healed right posterior rib fractures. No suspicious bony lesions. Mild degenerative changes are seen in the spine. Thyroid is unremarkable. No axillary or supraclavicular adenopathy. Abdomen: Postsurgical changes are partially seen at the gastroesophageal junction. Visualized upper abdominal solid organs appear normal in the early arterial phase of enhancement. IMPRESSION: 1. No acute pulmonary embolus. 2. Main pulmonary artery is mildly enlarged to 3.3 cm, which can be seen in the setting of pulmonary arterial hypertension. 3. Mild cardiomegaly. Dictated by: Manuel Sanches M.D. on 10/27/2021 at 17:53 Approved by: Manuel Sanches M.D. on 10/27/2021 at 18:00
[2021-10-27 17:09] LABS: Lactate (Lactic Acid) 0.7 mmol/L (0.7-2.1)
[2021-10-27 17:10] LABS: Alanine Aminotransferase 18 IU/L (<35); Albumin 3.9 g/dL (3.5-5.0); Albumin Globulin Ratio 1.3 (1.0-2.8); Alkaline Phosphatase 88 U/L (38-126); Aspartate Aminotransferase 20 IU/L (14-36); BUN Creatinine Ratio 18.1 (6-22); Bilirubin Total 0.2 mg/dL (0.2-1.3); Blood Urea Nitrogen 19 mg/dL (7-17); Calcium 8.4 mg/dL (8.4-10.2); Carbon Dioxide 26 mmol/L (22-32); Chloride 109 mmol/L (98-107); Glucose 77 mg/dL (70-100); HEMOLYSIS < 15 (0-50); Potassium 4.2 mmol/L (3.4-5.1); Sodium 143 mmol/L (137-145); Total Protein 6.9 g/dL (6.3-8.2)
[2021-10-27 17:18] LABS: NT-proBNP (BNP-Adult 18+) 2640 pg/mL (<125)
[2021-10-27 17:21] LABS: Troponin I < 0.012 ng/mL (0.01-0.034)
[2021-10-27] MEDS: dilTIAZem 5 MG/ML SDV 10 MG IV (18:05)
[2021-10-27] MEDS: dilTIAZem SR 60 MG PO (19:02)
[2021-10-27] MEDS: FUROSEMIDE 40 MG/4 ML VIAL 20 MG IV (19:02)
[2021-10-27 19:41] LABS: COVID19 -Nasal RAPID Negative (Negative)
--- NOTE | 2021-10-27 20:40 | P.HP_ITS ---
History of Present Illness History of Present Illness Date Patient Seen: 10/27/21 Time Patient Seen: 20:40 Chief complaint: pain/swelling in right leg, sudden weight gain Narrative: This is a 50-year-old female with a history of gastric bypass surgery, panniculectomy, surgical removal of excess thigh skin, depression, GERD and lymphedema who presented to the emergency department today with pain in the right thigh going on for 1 week along with increased swelling and dyspnea with exertion. She was not having palpitations and was not aware that she was in atrial fibrillation with rapid ventricular response. Her heart rate was in the 130s when she presented. With a 10 mg IV diltiazem dose the heart rate dropped into the 110s and with Lasix her dyspnea improved. Her CTA of the chest is negative for PE. Her troponin is normal. She appears to be in congestive heart failure as result of the AFib/RVR with a BNP of 2640. She tells me that she used to weigh over 600 lb and now weighs half of what she used to. Patient History Medical History (Updated 10/27/21 @ 22:18 by Srinivas Manzo MD) Depression Lymphedema Morbid obesity due to excess calories Surgical History (Updated 10/27/21 @ 22:17 by Srinivas Manzo MD) History of gastric bypass History of tonsillectomy Status post panniculectomy Family & Social History Family History (Updated 10/27/21 @ 22:18 by Srinivas Manzo MD) Father Prostate cancer Mother Congestive heart failure COPD (chronic obstructive pulmonary disease) Social History: household members none Safety & Behavioral: Feels Safe in Current Yes Environment Been Physically Hurt or No Threatened By a Person Tobacco & Substance use: Smoking Status Never smoker alcohol intake never Substance Use Type does not use Meds Home Medications and Allergies Home Medications Medication Instructions Recorded Confirmed Type bupropion HCl 300 mg 24 hr tablet, 300 mg PO QDAY #0 10/04/11 04/26/21 History extended release (Wellbutrin XL) fluoxetine 40 mg capsule 80 mg PO QDAY #0 10/04/11 04/26/21 History furosemide 40 mg tablet 120 mg PO QDAY #0 10/04/11 04/26/21 History gabapentin 600 mg tablet 300 mg PO SEE INSTRUCTIONS #2 10/04/11 04/26/21 History (Neurontin) pantoprazole 40 mg tablet,delayed 40 mg PO QDAY #0 10/04/11 04/26/21 History release (Protonix) cholecalciferol (vitamin D3) 50 8,000 unit PO QDAY #0 07/03/17 04/26/21 History mcg (2,000 unit) capsule (Vitamin D3) cyanocobalamin (vitamin B-12) 1,000 mcg IM QMONTH #0 07/03/17 04/26/21 History 1,000 mcg/mL injection solution ibuprofen 600 mg tablet 600 mg PO Q6HP PRN #0 07/03/17 04/26/21 History multivitamin-iron 9 mg-folic acid 1 tab PO QDAY #0 07/03/17 04/26/21 History 400 mcg-calcium and minerals tablet (Thera M Plus (ferrous fumarate)) Allergies Allergy/AdvReac Type Severity Reaction Status Date / Time clindamycin [CLINDAMYCIN] Allergy Severe Hives Verified 04/26/21 14:01 doxycycline [DOXYCYCLINE] Allergy Severe Hives Verified 04/26/21 14:01 Sulfa (Sulfonamide Allergy Severe Hives Verified 04/26/21 14:01 Antibiotics) [SULFA (SULFONAMIDE ANTIBIOTICS)] adhesive tape [ADHESIVE TAPE] Allergy Intermediate Verified 04/26/21 14:01 quetiapine [From SEROQUEL] AdvReac Severe Anxiety Verified 04/26/21 14:14 Review of Systems Review of Systems Narrative: Negative for fevers, chills, sweats, diarrhea, abdominal pain, chest pain, shortness breast, coughing, seizures, rash, headaches, sore throat and new aller gies Positive for shortness of breath, right leg pain. Exam Vital Signs (past 8 hours): - 10/27/21 14:58 10/27/21 16:54 10/27/21 17:00 Temperature 97.7 F Pulse Rate 130 H 120 H 126 H Respiratory Rate 18 20 17 Blood Pressure 206/88 H Pulse Oximetry 97 95 94 10/27/21 17:01 10/27/21 17:45 10/27/21 18:00 Temperature Pulse Rate 116 H 115 H 111 H Respiratory Rate 18 23 Blood Pressure 146/71 H Pulse Oximetry 94 93 92 10/27/21 18:04 10/27/21 18:05 10/27/21 18:09 Temperature Pulse Rate 100 H 115 H 110 H Respiratory Rate 16 18 Blood Pressure 128/90 128/90 121/84 Pulse Oximetry 96 94 10/27/21 18:11 10/27/21 18:15 10/27/21 18:16 Temperature Pulse Rate 102 H 116 H 100 H Respiratory Rate 16 22 24 Blood Pressure 125/88 111/50 L 126/67 Pulse Oximetry 93 98 97 10/27/21 18:20 10/27/21 18:25 10/27/21 18:30 Temperature Pulse Rate 100 H 103 H 106 H Respiratory Rate 19 19 19 Blood Pressure 129/63 109/63 116/59 L Pulse Oximetry 99 100 99 10/27/21 18:36 10/27/21 18:41 10/27/21 18:46 Temperature Pulse Rate 107 H 99 H 105 H Respiratory Rate 25 H 16 21 Blood Pressure 119/61 112/69 118/58 L Pulse Oximetry 99 99 99 10/27/21 18:50 10/27/21 18:56 10/27/21 19:00 Temperature Pulse Rate 104 H 99 H 106 H Respiratory Rate 18 17 15 Blood Pressure 131/58 L 118/80 Pulse Oximetry 100 99 99 10/27/21 19:01 10/27/21 19:05 10/27/21 19:10 Temperature Pulse Rate 105 H 102 H 99 H Respiratory Rate 18 21 22 Blood Pressure 133/60 119/71 119/58 L Pulse Oximetry 100 99 100 10/27/21 19:15 10/27/21 19:22 10/27/21 19:26 Temperature Pulse Rate 111 H 112 H 113 H Respiratory Rate 18 19 22 Blood Pressure 112/65 122/53 L 136/67 Pulse Oximetry 99 98 97 10/27/21 19:30 Temperature Pulse Rate 114 H Respiratory Rate 20 Blood Pressure Pulse Oximetry 98 Oxygen Delivery Method Room Air Narrative Exam Narrative: She is alert and oriented x3, in no apparent distress Pupils are equally round and reactive to light and accommodation Extraocular muscles are intact Sclerae are pink and nonicteric Throat looks normal No lymph nodes are felt head, neck, supraclavicular area JVD is less than 6 cm No carotid bruits are heard Heart is irregularly tachycardic. There is no murmur Lungs are clear to auscultation bilaterally Abdomen is obese, bowel sounds positive, nontender, no organomegaly. She has multiple healed laparoscopy scars She has a lower abdominal midline pannus removal scar Extremities have Ana wraps on. 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 There are scars on the inner thighs from her previous superfluous post weight loss skin excision. There is no rash or jaundice Neurological exam: Cranial nerves 2-12 test intact, there is no tremor, motor function is 4/5 throughout. Objective Labs Result Diagrams: 10/27/21 16:49 10/27/21 16:49 Labs: Laboratory Results - last 24 hr 10/27/21 10/27/21 10/27/21 16:49 16:49 16:49 WBC 7.1 RBC 3.73 L Hgb 11.5 L Hct 36.0 MCV 96.6 MCH 30.9 MCHC 32.0 RDW 14.7 Plt Count 283 Neut % (Auto) 61.7 Lymph % (Auto) 23.7 L [place] % (Auto) 9.9 Eos % (Auto) 3.4 Baso % (Auto) 1.3 Neut # (Auto) 4400 Lymph # (Auto) 1700 [place] # (Auto) 700 Eos # (Auto) 200 Baso # (Auto) 100 PT INR Sodium 143 Potassium 4.2 Chloride 109 H Carbon Dioxide 26 BUN 19 H Creatinine 1.05 H Estimated GFR 55.0 L BUN/Creatinine Ratio 18.1 Glucose 77 Lactate 0.7 Calcium 8.4 Total Bilirubin 0.2 AST 20 ALT 18 Alkaline Phosphatase 88 Total Creatine Kinase CK-MB (CK-2) CK-MB (CK-2) Rel Index Troponin I NT-Pro-B Natriuret Pep Total Protein 6.9 Albumin 3.9 Globulin 3.0 Albumin/Globulin Ratio 1.3 SARS-CoV-2 (PCR) 10/27/21 10/27/21 10/27/21 16:49 16:49 16:49 WBC RBC Hgb Hct MCV MCH MCHC RDW Plt Count Neut % (Auto) Lymph % (Auto) Jun[place] % (Auto) Eos % (Auto) Baso % (Auto) Neut # (Auto) Lymph # (Auto) Jun[place] # (Auto) Eos # (Auto) Baso # (Auto) PT 11.3 INR 1.0 Sodium Potassium Chloride Carbon Dioxide BUN Creatinine Estimated GFR BUN/Creatinine Ratio Glucose Lactate Calcium Total Bilirubin AST ALT Alkaline Phosphatase Total Creatine Kinase 46 CK-MB (CK-2) TNP CK-MB (CK-2) Rel Index TNP Troponin I < 0.012 NT-Pro-B Natriuret Pep 2640 H Total Protein Albumin Globulin Albumin/Globulin Ratio SARS-CoV-2 (PCR) 10/27/21 19:10 WBC RBC Hgb Hct MCV MCH MCHC RDW Plt Count Neut % (Auto) Lymph % (Auto) Jun[place] % (Auto) Eos % (Auto) Baso % (Auto) Neut # (Auto) Lymph # (Auto) [place] # (Auto) Eos # (Auto) Baso # (Auto) PT INR Sodium Potassium Chloride Carbon Dioxide BUN Creatinine Estimated GFR BUN/Creatinine Ratio Glucose Lactate Calcium Total Bilirubin AST ALT Alkaline Phosphatase Total Creatine Kinase CK-MB (CK-2) CK-MB (CK-2) Rel Index Troponin I NT-Pro-B Natriuret Pep Total Protein Albumin Globulin Albumin/Globulin Ratio SARS-CoV-2 (PCR) Negative Assessment & Plan Assessment & Plan narrative: This is a 50-year-old female with a history of gastric bypass surgery, panniculectomy, surgical removal of excess thigh skin, depression, GERD and lymphedema who presented to the emergency department today with pain in the right thigh going on for 1 week along with increased swelling and dyspnea with exertion. She was not having palpitations and was not aware that she was in atrial fibrillation with rapid ventricular response. Atrial fibrillation with rapid ventricle response, present on admission. Active. -check echocardiogram, magnesium and TSH. -begin metoprolol XL 50 mg daily -received IV diltiazem 10 mg x 1 in the ED. -discuss further intervention including possible cardioversion and anticoagulation with Cardiology in the morning Pulmonary edema, present on admission. Active. -secondary to AFib/RVR with BNP of 2640 -Diurese as needed, received IV Lasix x1 in the emergency department Lymphedema, present on admission. Chronic. -continue Hebert wraps and home furosemide dose of 120 mg daily GERD, present admission. Chronic. -continue pantoprazole Depression, present on admission. Chronic. -continue fluoxetine and bupropion. She will be on enoxaparin for DVT prevention Her backup decision maker is her sister Selene Ambrosio. Time Spent With Patient Critical Care time: I spent a total of [] minutes of critical care time on this patient's care today; this time is exclusive of procedural time.
[2021-10-27 21:17] LABS: Magnesium 1.9 mg/dL (1.6-2.3)
[2021-10-27 21:47] LABS: Thyroid Stimulating Hormone 1.55 uIU/mL (0.47-4.68)
[2021-10-27] MEDS: SODIUM CHLORIDE 0.9% 1,000 ML 70 ML IV (21:47)
--- NOTE | 2021-10-27 22:25 | DI.ECHO.S_ITS ---
[facility]---------+ [facility] +---------+ : : [address] [place] : : : : [id number] : : : : Phone: [phone]---------+ Echocardiogram Report + + :Name: NICHELLE RUIZ Study Date: 10/28/2021 Height: 27 in : :[facility] ReadingLocation: Weight: 316 lb: : Gender: Female BSA: 1.3 m2 : :: 1970 Age: 50 yrs : :Reason For Study: LEG PAIN : : Performed By: Veronica Johnson : :Referring: ORLIN KATE E : + + Interpretation Summary The ejection fraction is estimated to be 50-55%. Diastolic function could not be accurately assessed due to atrial fibrillation. The right ventricle is mildly dilated. Both atria are severely dilated. There is mild to moderate mitral regurgitation. The right ventricular systolic pressure is estimated to be at least at least 35 mmHg based on an estimated right atrial pressure of 15 mm Hg. Procedure: A two-dimensional transthoracic echocardiogram with color flow and Doppler was performed. The study quality was technically adequate. There is no prior echocardiogram noted for this patient. The patient was in atrial fibrillation with heart rates between 73-101 bpm during the exam. Left Ventricle: The left ventricle is normal in size and wall thickness. There is no thrombus. The ejection fraction is estimated to be 50-55%. Diastolic function could not be accurately assessed due to atrial fibrillation. Right Ventricle: The right ventricle is mildly dilated. The right ventricular systolic function is normal. Atria: Both atria are severely dilated. There is no Doppler evidence for an interatrial shunt. Mitral Valve: The mitral annulus is dilated. The mitral valve leaflets appear mildly thickened, but open well. There is mild mitral annular calcification. The mitral valve mean gradient is 3.3 mmHg. There is mild to moderate mitral regurgitation. Aortic Valve: The aortic valve opens well. There is no aortic valve stenosis. No aortic regurgitation is present. Tricuspid Valve: The tricuspid annulus is dilated. There is mild to moderate tricuspid regurgitation. The right ventricular systolic pressure is estimated to be at least at least 35 mmHg based on an estimated right atrial pressure of 15 mm Hg. Pulmonic Valve: The pulmonic valve is normal in structure and function. Great Vessels: The aortic root is normal size. The ascending aorta is normal in size. The aortic arch is mildly enlarged. The pulmonary artery is normal size. The IVC is dilated (diameter is greater than 2.1 cm) and it collapses less than 50% with a sniff. This suggests a high right atrial pressure of 15 mm Hg. Pericardium/ Pleura There is no pericardial effusion. There is no pleural effusion. MMode/2D Measurements & Calculations LVIDd: 6.0 cm LVOT diam: 2.5 cm LVIDs: 4.7 cm Ao root diam: 3.5 cm FS: 21.0 % asc Aorta Diam: 3.5 cm EPSS: 0.75 cm Ao Arch Diam (Prox Trans): 3.3 cm IVSd: 0.78 cm LVPWd: 0.97 cm LV avendaño. diameter/BSA (cm/m^2): 4.7 LV sys. diameter/BSA (cm/m^2): 3.7 LA A2 area: 30.5 cm2 RA long axis: 6.8 cm LA A4 area: 39.1 cm2 RA area: 22.2 cm2 LA length (vol): 7.0 cm RA vol: 61.5 ml LA vol: 143.6 ml RA : 48.7 ml/m2 LA vol index: 113.7 ml/m2 IVC diam: 3.4 cm RVD1 (basal): 4.5 cm TAPSE: 2.2 cm Doppler Measurements & Calculations Ao V2 max: 112.7 cm/sec LVOT Max Isai: 89.6 cm/sec Ao V2 mean: 85.9 cm/sec LV V1 max P.2 mmHg Ao max P.1 mmHg LV V1 VTI: 19.5 cm Ao mean P.2 mmHg JOANA(I,D): 4.2 cm2 Ao V2 VTI: 22.9 cm JOANA(V,D): 3.9 cm2 sev ratio: 0.85 JOANA indexed to BSA (cm^2/m^2): 3.3 MV E max isai: 110.2 cm/sec TR max isai: 222.4 cm/sec Med Peak E' Isai: 6.5 cm/sec TR max P.8 mmHg E/E' med: 16.9 MV P1/2t: 50.9 msec MVA(VTI): 3.6 cm2 MV V2 mean: 87.9 cm/sec MV P1/2t max isai: 110.2 cm/sec MV mean P.3 mmHg MVA(P1/2t): 4.3 cm2 MV V2 VTI: 26.8 cm SV(LVOT): 95.3 ml Reading Physician:01:50 PM
[2021-10-27] MEDS: IBUPROFEN 600 MG TABLET PO (23:13)
[2021-10-28 00:37] VITALS: BP 111/60; PULSE 92; RESP 16; TEMP 36.4; O2SAT 98
[2021-10-28 04:08] VITALS: BP 126/84; PULSE 74; RESP 16; TEMP 36.6; O2SAT 95
[2021-10-28 06:43] LABS: Add Manual Diff / Slide Review NO; Basophils Absolute Auto 100 /uL (0-100); Basophils Percent Auto 1.2 % (0-2); Eosinophils Absolute Auto 200 /uL (0-450); Eosinophils Percent Auto 4.1 % (2-4); Hematocrit 35.8 % (36-46); Hemoglobin 11.3 g/dL (12.0-16.0); Lymphocytes Absolute Auto 1500 /uL (1100-4500); Lymphocytes Percent Auto 30.1 % (25-40); Mean Corpuscular HGB Conc 31.6 % (30-36); Mean Corpuscular Hemoglobin 30.9 PG (26-34); Mean Corpuscular Volume 97.7 fL (80-100); Monocytes Absolute Auto 500 /uL (0-900); Monocytes Percent Auto 10.5 % (3-14); Neutrophils Absolute Auto 2600 /uL (1500-7000); Neutrophils Percent Auto 54.1 % (50-75); Platelet Count 249 X10^3/uL (150-400); Red Blood Cell Count 3.67 X10^6/uL (4.0-5.2); Red Cell Distribution Width 14.9 % (11.6-14.8); White Blood Cell Count 4.9 X10^3/uL (4.5-11.0)
[2021-10-28 06:48] LABS: BUN Creatinine Ratio 19.8 (6-22); Blood Urea Nitrogen 19 mg/dL (7-17); Calcium 8.2 mg/dL (8.4-10.2); Carbon Dioxide 27 mmol/L (22-32); Chloride 109 mmol/L (98-107); Estimated Glomerular Filt Rate > 60.0 mL/min (>60); Glucose 94 mg/dL (70-100); HEMOLYSIS < 15 (0-50); Potassium 3.9 mmol/L (3.4-5.1); Sodium 143 mmol/L (137-145)
[2021-10-28 09:00] VITALS: BP 126/82; PULSE 82; RESP 18; TEMP 36.9; O2SAT 94
[2021-10-28] MEDS: FUROSEMIDE 40 MG TABLET 80 MG PO (09:33)
[2021-10-28] MEDS: CHOLECALCIFEROL (VITAMIN D3) 1,000 UNIT TABLET 3000 UNIT PO (09:33)
[2021-10-28] MEDS: CHOLECALCIFEROL (VITAMIN D3) 5,000 UNIT TABLET 5000 UNIT PO (09:33)
[2021-10-28] MEDS: buPROPion XL 150 MG TAB 300 MG PO (09:33)
[2021-10-28] MEDS: METOPROLOL ER 50 MG TABLET PO (09:33)
[2021-10-28] MEDS: IBUPROFEN 600 MG TABLET PO (09:34)
[2021-10-28] MEDS: ENOXAPARIN 40 MG/0.4 ML SYRINGE SUBCUT (09:39)
[2021-10-28] MEDS: FLUoxetine 20 MG CAPSULE 80 MG PO (09:39)
[2021-10-28] MEDS: PANTOPRAZOLE DR 40 MG TABLET PO (09:40)
[2021-10-28 10:25] VITALS: PULSE 102
--- NOTE | 2021-10-28 10:48 | CM.DANOTE ---
DCP: Case received, EMR reviewed and met with patient. Introduced self and role. Was able to obtain information regarding patient's baseline activity status at home prior to hospitalization. DCP assessment completed with information currently available. Patient is a 50 year old female who admitted yesterday evening to the care of the hospitalist team. PCP: Dr. Dottie Miller. Payer: confirmed: [facility] MCR/Medicaid. Patient came to the hospital via private vehicle secondary to having increased pain and swelling in her leg, as well as shortness of breath. Patient was noted to have atrial fibrillation with rapic ventricular response. According to notes, patient had not had any palpitations, and unaware she was in a-fib. Patient has history of bariatric surgery in 2013, and used to weigh about 600 pounds. Patient indicated she had this surgery at [facility]. Met with patient in her room. She is pleasant, alert and oriented. Patient lives alone in [place]. She does have a [id number], Sunny Arthur, who is her main contact. At her baseline, she is independent. Her sister, Selene, is her decision maker. P: DCP to continue to follow for any needs. Patient is to be having an echo today. She should be able to go home when she is deemed medically stable. Kelsey Powell RN/[employer] Division Manager Discharge Planning/Care Management CM Discharge Assessment Start: 10/28/21 10:47 Freq: Status: Active Protocol: Document 10/28/21 10:47 (Rec: 10/28/21 10:48 [id number]) Discharge Planning Assessment Assigned Nibbler Operator Kelsey Powell RN/[employer] Division Manager Advance Directives? Yes Advance Directives on File Yes: Given at last vist History Provided By Patient,Medical Record Prior Living Arrangements Apartment/Condo Household Members none Type of transporation used prior to Drives own vehicle admit Independent with ADL's Yes Is patient alert and oriented? Yes Caregiver for Another No Barriers to Discharge No Discharge Plan Home Transportation Arrangement Family or friend. Referrals Initiated None needed Whiteboard Updated in Patient Room with Yes name and ext. # of Nibbler Operator Review Status In Process Next Review Type Continued Stay Review
[2021-10-28 11:54] VITALS: BP 112/66; PULSE 91; RESP 18; O2SAT 93
--- NOTE | 2021-10-28 14:00 | P.DS_ITS ---
History of Present Illness History of Present Illness Date Patient Seen: 10/28/21 Time Patient Seen: 09:15 Chief complaint: pain/swelling in right leg, sudden weight gain Narrative: Per Dr. Manzo, This is a 50-year-old female with a history of gastric bypass surgery, panniculectomy, surgical removal of excess thigh skin, depression, GERD and lym phedema who presented to the emergency department today with pain in the right thigh going on for 1 week along with increased swelling and dyspnea with exertion.? She was not having palpitations and was not aware that she was in atrial fibrillation with rapid ventricular response.? Her heart rate was in the 130s when she presented.? With a 10 mg IV diltiazem dose the heart rate dropped into the 110s and with Lasix her dyspnea improved.? Her CTA of the chest is negative for PE.? Her troponin is normal.? She appears to be in congestive heart failure as result of the AFib/RVR with a BNP of 2640.? She tells me that she used to weigh over 600 lb and now weighs half of what she used to. Discharge Providers Provider Date of admission: 10/27/21 19:05 Discharge Date: 10/28/21 Primary care physician: Dottie Miller PA-C Discharge provider: Addison Garcia DO Summary Hospital Course Discharge Diagnosis: Atrial fibrillation with rapid ventricle response, present on admission.? Active. Pulmonary edema, present on admission.? Active. Lymphedema, present on admission.? Chronic.? GERD, present admission.? Chronic.? Depression, present on admission.? Chronic.? Hospital Course: This is a 50-year-old female with a history of gastric bypass surgery, panniculectomy, surgical removal of excess thigh skin, depression, GERD and lymphedema who presented to the emergency department with pain in the right thigh going on for 1 week along with increased swelling and dyspnea with exertion.? She was not having palpitations and was not aware that she was in atrial fibrillation with rapid ventricular response. She had rapid improvement with oral medications, and was rate controlled on oral metoprolol. She had improvement with IV diuresis in her pulmonary edema and probably her lower extremity swelling which was seemingly resolved the following day. She complained of no respiratory symptoms, and no palpitations. She was discharged home the following day after echocardiogram revealed a normal ejection fraction of around 50-55%. She will continue her home Lasix and was started on oral metoprolol 50 mg twice a day for rate control. She was also started on warfarin, and I would do recommend that she follow-up with her primary care provider for further titration of warfarin therapy as an outpatient. Exam Vital Signs (past 8 hours): - 10/28/21 09:00 10/28/21 10:25 10/28/21 11:54 Temperature 98.5 F Pulse Rate 82 102 H 91 H Respiratory Rate 18 18 Blood Pressure 126/82 112/66 Pulse Oximetry 94 93 Oxygen Delivery Method Nasal Cannula Oxygen Flow Rate 0 Narrative Exam Narrative: General:? Patient is well developed and well nourished, in no distress at this time. HEENT:? Normocephalic, atraumatic, extraocular muscles intact, oral pharynx is clear and mucous membranes are moist. Neck: supple and symmetric, trachea is midline, no cervical adenopathy. Negative for JVD Chest:? Normal AP diameter and contour without kyphoscoliosis, no tachypnea, equal chest rise bilaterally. Lungs:? CTA b/l no wheezing rhonchi or rales. Cardio:? Irregularly irregular with a normal rate and no m/r/g. Abdomen: S NT ND. No CVA tenderness. Musculoskeletal:? Muscle strength and tone are equal within normal limits, no deformity. Extremities: Trace non-pitting edema bilateral LE. No cyanosis or clubbing. Skin:? Pale,? Warm to touch,dry and intact without rashes, ulcerations or petec hiae.? Neuro:? Alert and orientated x3,? sensation to touch intact in all extremities, no gross deficits noted of cranial nerves. Psych:? Patient has a well-kept appearance, appropriate affect, mental status attitude thought context and judgment are appropriate for age. Objective Labs Result Diagrams: 10/28/21 06:20 10/28/21 06:20 Labs: Laboratory Results - last 24 hr 10/27/21 10/27/21 10/27/21 16:49 16:49 16:49 WBC 7.1 RBC 3.73 L Hgb 11.5 L Hct 36.0 MCV 96.6 MCH 30.9 MCHC 32.0 RDW 14.7 Plt Count 283 Neut % (Auto) 61.7 Lymph % (Auto) 23.7 L [place] % (Auto) 9.9 Eos % (Auto) 3.4 Baso % (Auto) 1.3 Neut # (Auto) 4400 Lymph # (Auto) 1700 [place] # (Auto) 700 Eos # (Auto) 200 Baso # (Auto) 100 PT INR Sodium 143 Potassium 4.2 Chloride 109 H Carbon Dioxide 26 BUN 19 H Creatinine 1.05 H Estimated GFR 55.0 L BUN/Creatinine Ratio 18.1 Glucose 77 Lactate 0.7 Calcium 8.4 Magnesium Total Bilirubin 0.2 AST 20 ALT 18 Alkaline Phosphatase 88 Total Creatine Kinase CK-MB (CK-2) CK-MB (CK-2) Rel Index Troponin I NT-Pro-B Natriuret Pep Total Protein 6.9 Albumin 3.9 Globulin 3.0 Albumin/Globulin Ratio 1.3 TSH SARS-CoV-2 (PCR) 10/27/21 10/27/21 10/27/21 16:49 16:49 16:49 WBC RBC Hgb Hct MCV MCH MCHC RDW Plt Count Neut % (Auto) Lymph % (Auto) [place] % (Auto) Eos % (Auto) Baso % (Auto) Neut # (Auto) Lymph # (Auto) [place] # (Auto) Eos # (Auto) Baso # (Auto) PT 11.3 INR 1.0 Sodium Potassium Chloride Carbon Dioxide BUN Creatinine Estimated GFR BUN/Creatinine Ratio Glucose Lactate Calcium Magnesium Total Bilirubin AST ALT Alkaline Phosphatase Total Creatine Kinase 46 CK-MB (CK-2) TNP CK-MB (CK-2) Rel Index TNP Troponin I < 0.012 NT-Pro-B Natriuret Pep 2640 H Total Protein Albumin Globulin Albumin/Globulin Ratio TSH SARS-CoV-2 (PCR) 10/27/21 10/27/21 10/27/21 16:49 16:49 19:10 WBC RBC Hgb Hct MCV MCH MCHC RDW Plt Count Neut % (Auto) Lymph % (Auto) [place] % (Auto) Eos % (Auto) Baso % (Auto) Neut # (Auto) Lymph # (Auto) [place] # (Auto) Eos # (Auto) Baso # (Auto) PT INR Sodium Potassium Chloride Carbon Dioxide BUN Creatinine Estimated GFR BUN/Creatinine Ratio Glucose Lactate Calcium Magnesium 1.9 Total Bilirubin AST ALT Alkaline Phosphatase Total Creatine Kinase CK-MB (CK-2) CK-MB (CK-2) Rel Index Troponin I NT-Pro-B Natriuret Pep Total Protein Albumin Globulin Albumin/Globulin Ratio TSH 1.55 SARS-CoV-2 (PCR) Negative 10/28/21 10/28/21 06:20 06:20 WBC 4.9 RBC 3.67 L Hgb 11.3 L Hct 35.8 L MCV 97.7 MCH 30.9 MCHC 31.6 RDW 14.9 H Plt Count 249 Neut % (Auto) 54.1 Lymph % (Auto) 30.1 [place] % (Auto) 10.5 Eos % (Auto) 4.1 H Baso % (Auto) 1.2 Neut # (Auto) 2600 Lymph # (Auto) 1500 [place] # (Auto) 500 Eos # (Auto) 200 Baso # (Auto) 100 PT INR Sodium 143 Potassium 3.9 Chloride 109 H Carbon Dioxide 27 BUN 19 H Creatinine 0.96 Estimated GFR > 60.0 BUN/Creatinine Ratio 19.8 Glucose 94 Lactate Calcium 8.2 L Magnesium Total Bilirubin AST ALT Alkaline Phosphatase Total Creatine Kinase CK-MB (CK-2) CK-MB (CK-2) Rel Index Troponin I NT-Pro-B Natriuret Pep Total Protein Albumin Globulin Albumin/Globulin Ratio TSH SARS-CoV-2 (PCR) [facility] Medical History Depression Lymphedema Morbid obesity due to excess calories Surgical History (Updated 10/27/21 @ 22:17 by Srinivas Manzo MD) History of gastric bypass History of tonsillectomy Status post panniculectomy Family History (Updated 10/27/21 @ 22:18 by Srinivas Manzo MD) Father Prostate cancer Mother Congestive heart failure COPD (chronic obstructive pulmonary disease) Social History household members: none Smoking Status: Never smoker alcohol intake: never Discharge Plan Discharge Plan Patient Disposition: Home Provider Discharge Comment: You were admitted to the hospital with atrial fibrillation. No significant findings on echocardiogram. Your heart rate improved with oral medications. Started on warfarin for stroke risk reduction. Please follow up with PCP for coumadin check next week. If your BP is low at home, would reduce your dose of furosemide. Ibuprofen is not recommended while taking warfarin due to risk of bleeding. Discharge orders & Medications Prescriptions: New metoprolol succinate 50 mg tablet extended release 24 hr 50 mg PO BID 30 Days Qty: 60 0RF warfarin 5 mg tablet 5 mg PO DAILY 30 Days Qty: 30 0RF Continued fluoxetine 40 MG capsule 80 mg PO QDAY Qty: 0 0RF furosemide 40 MG tablet 120 mg PO QDAY Qty: 0 0RF gabapentin [Neurontin] 600 MG tablet 300 mg PO SEE INSTRUCTIONS Qty: 2 0RF pantoprazole [Protonix] 40 MG tablet,delayed release (DR/EC) 40 mg PO QDAY Qty: 0 0RF bupropion HCl [Wellbutrin XL] 300 MG tablet extended release 24 hr 300 mg PO QDAY Qty: 0 0RF cholecalciferol (vitamin D3) [Vitamin D3] 2,000 UNIT capsule 8,000 unit PO QDAY Qty: 0 0RF cyanocobalamin (vitamin B-12) Vitamin B-12 solution 1,000 mcg IM QMONTH Qty: 0 0RF Discontinued ibuprofen 600 MG tablet 600 mg PO Q6HP PRN (Reason: Breakthrough Pain) Qty: 0 0RF Medication counseling provided by Pharmacist: Yes Follow up/Referrals: Dottie Miller PA-C [Primary Care Provider] - Diet/Activity/Treatments Diet: Diet as Tolerated Activity: As tolerated Visit Report/Discharge Packet Instructions: Atrial Fibrillation, DI for Atrial Fibrillation, DI for Warfarin Therapy Discharge Data Primary Care Provider: Dottie Miller
--- NOTE | 2021-10-28 15:23 | PC.NURSE ---
Day shift: paperwork signed and all questions answered. Pt has all personal belongings. scripts sent electronic to Pt's pharmacy. New med use instructions given by Janae. Pt is driving herself home. Taken to her car via WC by MICH. Pt encouraged to f/u with her PCP and she has made an appointment already she said. Left unit at approx 1525.
== END 2021-10-28 15:27 | disposition home or self-care (01) ==
LOC: ED 18:20 → AC 19:29
PROVIDERS: Admitting Provider Family Medicine; Emergency Provider Emergency Medicine; PCP Physician Assistant Medical; Referring Provider Emergency Medicine; Visit Provider Family Medicine
DX: I48.91 Unspecified atrial fibrillation (principal); R06.02 Shortness of breath; E66.01 Morbid (severe) obesity due to excess calories; I89.0 Lymphedema, not elsewhere classified; Z98.84 Bariatric surgery status; K21.9 Gastro-esophageal reflux disease without esophagitis; F32.A Depression, unspecified; J81.1 Chronic pulmonary edema; Z20.822 Contact with and (suspected) exposure to COVID-19
CPT/HCPCS: 36415; 71045; 71275; 80048; 80053; 82550; 83605; 83735; 83880; 84443; 84484; 85025; 85610; 87635; 93005; 93010; 93306; 93971; 96372; 96374; 96375; 99284; C9803; G0378; J1650; J1940

== ENCOUNTER 2021-12-16 14:57 | Observation (INO) | payer MEDICARE, MEDICAID, SELFPAY ==
[2021-10-27 20:00] VITALS: BMI 48.1
[2021-12-16] VITALS (9 sets, daily range): BP systolic 100–123; BP diastolic 59–74; PULSE 78–123; RESP 16–22; TEMP 36.1; O2SAT 94–100; BMI 44.8
--- NOTE | 2021-12-16 | DI.US.S_ITS ---
PROCEDURE: US CAROTID DOPPLER BI INDICATIONS: TIA TECHNIQUE: Color and pulse Doppler interrogation was performed of both carotid systems, with image documentation and velocity measurements. COMPARISON: None. FINDINGS: Stenosis calculations are based on SRU (Society of Radiologists in Ultrasound) criteria. Right side: Brachial blood pressure: 110/55 mm Hg. Common carotid artery peak systolic velocity: 111 cm/sec. Internal carotid artery peak systolic velocity: 94 cm/sec. Internal carotid artery end diastolic velocity: 46 cm/sec. External carotid artery peak systolic velocity: 66 cm/sec. ICA/CCA peak systolic ratio: 0.9 . [place] scale imaging description: No visualized plaque Percent internal carotid artery stenosis: No hemodynamically significant stenosis . Vertebral artery: Flow direction is antegrade. Left side: Brachial blood pressure: 107/71 mm Hg. Common carotid artery peak systolic velocity: 82 cm/sec. Internal carotid artery peak systolic velocity: 90 cm/sec. Internal carotid artery end diastolic velocity: 45 cm/sec. External carotid artery peak systolic velocity: 89 cm/sec. ICA/CCA peak systolic ratio: 1.2 [place] scale imaging description: No visualized plaque Percent internal carotid artery stenosis: No hemodynamically significant stenosis . Vertebral artery: Flow direction is antegrade. IMPRESSION: No hemodynamically significant stenosis bilaterally. Dictated by: Hetal Dos Santos M.D. on 12/17/2021 at 11:24 Approved by: Hetal Dos Santos M.D. on 12/17/2021 at 11:25
--- NOTE | 2021-12-16 15:15 | DI.RAD.S_ITS ---
PROCEDURE: XR CHEST 1V INDICATIONS: chest pain TECHNIQUE: One view of the chest was acquired. COMPARISON: [facility], CR, XR CHEST 1V, 10/27/2021, 15:04. FINDINGS: Surgical changes and devices: None. Lungs and pleura: There is blunting of the costophrenic angles bilaterally. Mild appearance of increased vascularity. Mediastinum: Mediastinal contours appear normal. Heart size is enlarged. Bones and chest wall: No suspicious bony lesions. Overlying soft tissues appear unremarkable. IMPRESSION: Mild appearance of increased vascularity with blunting of the costophrenic angle suggestive trace effusions versus scarring. Dictated by: Hetal Dos Santos M.D. on 12/16/2021 at 15:59 Approved by: Hetal Dos Santos M.D. on 12/16/2021 at 15:59
[2021-12-16 16:04] LABS: Add Manual Diff / Slide Review NO; Basophils Absolute Auto 100 /uL (0-100); Eosinophils Absolute Auto 100 /uL (0-450); Eosinophils Percent Auto 1.9 % (2-4); Hematocrit 38.4 % (36-46); Hemoglobin 12.3 g/dL (12.0-16.0); Lymphocytes Absolute Auto 1200 /uL (1100-4500); Lymphocytes Percent Auto 24.4 % (25-40); Mean Corpuscular HGB Conc 32.1 % (30-36); Mean Corpuscular Hemoglobin 31.7 PG (26-34); Mean Corpuscular Volume 98.9 fL (80-100); Monocytes Absolute Auto 500 /uL (0-900); Monocytes Percent Auto 10.6 % (3-14); Neutrophils Absolute Auto 3100 /uL (1500-7000); Neutrophils Percent Auto 62.1 % (50-75); Platelet Count 287 X10^3/uL (150-400); Red Blood Cell Count 3.88 X10^6/uL (4.0-5.2); Red Cell Distribution Width 17.8 % (11.6-14.8); White Blood Cell Count 4.9 X10^3/uL (4.5-11.0)
[2021-12-16 16:17] LABS: Alanine Aminotransferase 17 IU/L (<35); Albumin 3.6 g/dL (3.5-5.0); Albumin Globulin Ratio 1.3 (1.0-2.8); Alkaline Phosphatase 81 U/L (38-126); Aspartate Aminotransferase 20 IU/L (14-36); BUN Creatinine Ratio 21.8 (6-22); Bilirubin Total 0.4 mg/dL (0.2-1.3); Blood Urea Nitrogen 37 mg/dL (7-17); Calcium 8.3 mg/dL (8.4-10.2); Carbon Dioxide 20 mmol/L (22-32); Chloride 112 mmol/L (98-107); Creatine Kinase 81 U/L (30-135); Estimated Glomerular Filt Rate 36 mL/min (>60); Globulin 2.8 g/dL (1.7-4.1); Glucose 97 mg/dL (70-100); HEMOLYSIS < 15 (0-50); Lipase 88 U/L (23-300); Magnesium 2.4 mg/dL (1.6-2.3); Potassium 3.5 mmol/L (3.4-5.1); Sodium 144 mmol/L (137-145); Total Protein 6.4 g/dL (6.3-8.2)
[2021-12-16 16:28] LABS: Troponin I < 0.012 ng/mL (0.01-0.034)
--- NOTE | 2021-12-16 16:51 | DI.CT.S_ITS ---
PROCEDURE: CT KIDNEY URETER BLADDER (KUB) INDICATIONS: TROY, swelling TECHNIQUE: Axial sections were acquired from the lung bases to the pubic symphysis. Coronal and sagittal reformats were performed. For radiation dose reduction, the following was used: automated exposure control, adjustment of mA and/or kV according to patient size. COMPARISON: None. FINDINGS: Image quality:44 Lung bases: Unremarkable. Heart: No significant findings. URINARY: There are 2 adjacent calculi within the inferior pole left kidney measuring 3 mm diameter each. No right nephrolithiasis. No hydronephrosis. No ureteral dilatation or calcification. Bladder: Normal wall thickness. No stones. ABDOMEN: Liver: Unremarkable. Gallbladder: Unremarkable. Biliary ducts: Unremarkable. Pancreas: Unremarkable. Spleen: Unremarkable. Adrenal Glands: Unremarkable. Stomach and Bowel: Gastric bypass been performed. Stomach, small bowel loops, and colon are unremarkable. Normal appendix. Peritoneum: No abnormal intraperitoneal fluid. No free air. Ventral Wall: No hernia. Abdominal Nodes: No enlarged retroperitoneal or mesenteric lymph nodes. Vessels: Aorta and inferior vena cava are normal in size. PELVIS: Pelvic Organs: Unremarkable. Pelvic Nodes: Unremarkable. Miscellaneous: No inguinal hernias are seen. Bones: Unremarkable. IMPRESSION: 1. Nonobstructing small left inferior pole renal calculi. 2. No evidence of urinary tract obstruction. 3. Normal appendix. Dictated by: Samantha Iverson M.D. on 12/16/2021 at 17:20 Approved by: Samantha Iverson M.D. on 12/16/2021 at 17:22
[2021-12-16 17:18] LABS: NT-proBNP (BNP-Adult 18+) 5190 pg/mL (<125)
--- NOTE | 2021-12-16 19:14 | DI.CT.S_ITS ---
PROCEDURE: CT HEAD/BRAIN WO CON INDICATIONS: TIA symptoms TECHNIQUE: Noncontrast 4.5 mm thick angled axial sections acquired from the foramen magnum to the vertex, with coronal and sagittal reformats. For radiation dose reduction, the following was used: automated exposure control, adjustment of mA and/or kV according to patient size. COMPARISON: [facility], CT, HEAD WITHOUT CONTRAST, 10/06/2011, 17:26. FINDINGS: Image quality: Excellent. CSF spaces: Basal cisterns are patent. No extra-axial fluid collections. Ventricles are normal in size and shape. Brain: No midline shift. No intracranial masses or hemorrhage. [place]-white matter interface is normal. Skull and face: Calvarium and visualized facial bones are intact, without suspicious lesions. Sinuses: Visualized sinuses and mastoids are clear. IMPRESSION: No acute intracranial abnormality. Dictated by: Samantha Iverson M.D. on 12/16/2021 at 19:36 Approved by: Samantha Iverson M.D. on 12/16/2021 at 19:37
--- NOTE | 2021-12-16 19:14 | ED.GENADULT ---
HPI - General Adult General Chief complaint: Shortness of Breath/Dyspnea Stated complaint: sob,friend says she sounds drunk doesn't drink Time Seen by Provider: 12/16/21 16:50 Source: patient Mode of arrival: Ambulatory Limitations: no limitations History of Present Illness HPI narrative: Patient is a 51-year-old female. She is currently on warfarin for a recent diagnosis of atrial fibrillation. She states that approximately 1 month ago she was seen at this facility for pain in her left leg. She had a workup to include ultrasound and CT scan of her chest. There was no signs of any DVT or pulmonary embolism however was found that she was in atrial fibrillation. She has been on Coumadin since then. She has followed up with Cardiology and is scheduled for a cardioversion approximately 1 month from now. She states that yesterday she was talking with some friends over the phone and they stated that she was slurring her words. She stated that they described it as her sound like she was drunk but she denied drinking any alcohol. That was at approximately 1100 hours in the morning. She talked to another friend at approximately 1900 hours at night and this individual told her the same thing. She stated that she did not feel like she was slurring of her words. She did sustain a fall a couple days ago. Did not hit her head. Has had some abdominal tenderness since then. She has lower extremity swelling with this is not new for her. She also states he yesterday she thought that she had some difficulty with unscrewing the cap off of a bottle of it drink. This is new for her. Related Data Home Medications Medication Instructions Recorded Confirmed bupropion HCl 300 mg 24 hr tablet, 300 mg PO QDAY #0 10/04/11 12/16/21 extended release (Wellbutrin XL) fluoxetine 40 mg capsule 80 mg PO QDAY #0 10/04/11 12/16/21 furosemide 40 mg tablet 120 mg PO QDAY #0 10/04/11 12/16/21 gabapentin 600 mg tablet 600 mg PO BEDTIME #2 10/04/11 12/16/21 (Neurontin) pantoprazole 40 mg tablet,delayed 40 mg PO QDAY #0 10/04/11 12/16/21 release (Protonix) cholecalciferol (vitamin D3) 50 8,000 unit PO QDAY #0 07/03/17 12/16/21 mcg (2,000 unit) capsule (Vitamin D3) cyanocobalamin (vitamin B-12) 1,000 mcg IM QMONTH #0 07/03/17 12/16/21 1,000 mcg/mL injection solution acetaminophen 325 mg capsule 650 mg PO Q4H PRN 12/16/21 12/16/21 (Tylenol) cetirizine 10 mg tablet (Zyrtec) 10 mg PO DAILY 12/16/21 12/16/21 potassium chloride 20 mEq 20 meq PO DAILY 12/16/21 12/16/21 tablet,extended release(part/cryst) sotalol 80 mg tablet 80 mg PO BID 12/16/21 12/16/21 warfarin 5 mg tablet 5 mg PO DAILY 12/16/21 12/16/21 Allergies Allergy/AdvReac Type Severity Reaction Status Date / Time clindamycin [CLINDAMYCIN] Allergy Severe Hives Verified 12/16/21 15:13 doxycycline [DOXYCYCLINE] Allergy Severe Hives Verified 12/16/21 15:13 Sulfa (Sulfonamide Allergy Severe Hives Verified 12/16/21 15:13 Antibiotics) [SULFA (SULFONAMIDE ANTIBIOTICS)] adhesive tape [ADHESIVE TAPE] Allergy Intermediate Verified 12/16/21 15:13 quetiapine [From SEROQUEL] AdvReac Severe Anxiety Verified 12/16/21 15:13 Review of Systems Review of Systems ROS Unobtainable: All systems reviewed & are unremarkable except as noted in HPI and below Constitutional Constitutional: Denies fever(s), Denies frequent falls and Denies headache(s) Eyes Eyes: Denies blurry vision and Denies change in vision ENT Ears, Nose, Mouth, and Throat: Reports system reviewed and no additional complaints, except as documented and Denies headache(s) Cardiovascular Cardiovascular: Denies system reviewed and no additional complaints, except as documented, Denies chest pain, Denies rapid heart rate and Denies lightheadedness Respiratory Respiratory: Reports as per HPI and Reports system reviewed and no additional complaints, except as documented Gastrointestinal Gastrointestinal: Reports as per HPI and Reports system reviewed and no additional complaints, except as documented Musculoskeletal Musculoskeletal: Reports system reviewed and no additional complaints, except as documented Integumentary/Breasts Skin/Breast: Reports system reviewed and no additional complaints, except as documented Neurologic Neurologic: Denies frequent falls and Denies headache(s) Hematologic/Lymphatic On Anticoagulants: No Allergic/Immunologic Allergic/Immunologic: Reports system reviewed and no additional complaints, except as documented Patient History Medical History Depression Lymphedema Morbid obesity due to excess calories Surgical History History of gastric bypass History of tonsillectomy Status post panniculectomy Family History Father Prostate cancer Mother Congestive heart failure COPD (chronic obstructive pulmonary disease) Social History household members: none Smoking Status: Never smoker alcohol intake: never Smoking Status: Never smoker Substance Use Type: does not use Exam Initial Vital Signs Initial Vital Signs: Vital Signs Temperature 97.0 F L 12/16/21 15:07 Pulse Rate 123 H 12/16/21 15:07 Respiratory Rate 22 12/16/21 15:07 Blood Pressure 100/71 12/16/21 15:07 Pulse Oximetry 94 12/16/21 15:07 Const General: cooperative and comfortable HENMT Head: normal to inspection and normocephalic Eyes Pupils: PERRL EOM: EOM intact bilaterally Resp Effort & Inspection: normal respiratory effort Auscultation: clear to auscultation bilaterally Cardio Rate: regular rate Rhythm: regular rhythm GI Inspection: normal to inspection Skin General: no rashes or lesions noted Neuro General: patient alert, patient awake, patient oriented x3 and moves all extremities Cranial Nerves: CN's II-XI intact bilaterally Cognition: normal cognition Speech: speech normal Motor: muscle tone normal throughout Extrem General: edema Psych Appearance: grossly normal and well kempt Scores GCS [place] coma scale eye opening: Spontaneous [place] coma scale verbal response: Orientated [place] coma scale motor response: Obey commands [place] coma scale total score: 15 NIH Stroke Scale Level of Conciousness: Alert, keenly responsive Ask month/age: Answers both questions correctly. Open/close eyes, close hand: Performs both tasks correctly Best gaze horizontal: Normal Visual more: No visual loss Facial palsy: Normal symetrical movement Left arm drift: No drift for full 10 sec Right arm drift: No drift for full 10 sec Left leg drift: No drift for full 5 sec Right leg drift: No drift for full 5 sec Limb ataxia: Absent Sensory on face/arms/legs: Normal, no sensory loss Best language: No aphasia, normal Dysarthria: Normal Extinction or inattention: No abnormality Total NIH Stroke scale score: 0 Course Orders Ordered: ED Orders 12/16/21 16:51 CT kidney ureter bladder (KUB) Stat 12/16/21 19:14 CT head/brain wo con Stat 12/16/21 19:55 COVID19 -Nasal RAPID/Pre-Proc Stat Acetaminophen (Acetaminophen 325 Mg Tablet) 650 mg PO Q6HR LUIS Last Admin: 12/16/21 23:31 Dose: 650 mg Documented by: MATT Sodium Chloride (Normal Saline 0.9%) 1,000 mls @ 100 mls/hr IV CONT LUIS Stop: 12/17/21 08:30 Last Admin: 12/16/21 23:29 Dose: 100 mls/hr Documented by: MATT Naloxone HCl (Naloxone 0.4 Mg/Ml Vial) 0.2 mg IV Q2MIN PRN PRN Reason: Opiate Reversal Ondansetron HCl (Ondansetron 4 Mg Odt) 4 mg PO Q8HR PRN PRN Reason: Nausea And Vomiting Pantoprazole Sodium (Pantoprazole Dr 40 Mg Tablet) 40 mg PO 0700,2100 LUIS Tramadol HCl (Tramadol 50 Mg Tablet) 50 mg PO Q4H PRN PRN Reason: Pain, Moderate (4-6) Discontinued Medications Pantoprazole Sodium (Pantoprazole 40 Mg Vial) 40 mg IV NOW ONE Stop: 12/16/21 22:09 Last Admin: 12/16/21 23:29 Dose: 40 mg Documented by: MATT Vital Signs Vital signs: Vital Signs - 8 hr 12/16/21 18:00 12/16/21 18:30 12/16/21 19:00 Pulse Rate 78 84 96 H Respiratory Rate 20 20 Blood Pressure 122/60 Pulse Oximetry 96 95 97 Medical Decision Making Lab Data Lab results reviewed: Yes I reviewed the patient's lab results. Result diagrams: 12/16/21 15:54 12/16/21 15:54 Labs: Lab Results 12/16/21 12/16/21 12/16/21 Range/Units 15:34 15:54 15:54 WBC 4.9 (4.5-11.0) X10^3/uL RBC 3.88 L (4.0-5.2) X10^6/uL Hgb 12.3 (12.0-16.0) g/dL Hct 38.4 (36-46) % MCV 98.9 (80-100) fL MCH 31.7 (26-34) PG MCHC 32.1 (30-36) % RDW 17.8 H (11.6-14.8) % Plt Count 287 (150-400) X10^3/uL Neut % (Auto) 62.1 (50-75) % Lymph % (Auto) 24.4 L (25-40) % Andrews % (Auto) 10.6 (3-14) % Eos % (Auto) 1.9 L (2-4) % Baso % (Auto) 1.0 (0-2) % Neut # (Auto) 3100 (3679-3044) /uL Lymph # (Auto) 1200 (5181-0275) /uL Andrews # (Auto) 500 (0-900) /uL Eos # (Auto) 100 (0-450) /uL Baso # (Auto) 100 (0-100) /uL PT 42.2 H (10.1-12.7) SECONDS INR 3.6 H (0.9-1.3) APTT 70 H (26.4-36.2) SECONDS Sodium 144 (137-145) mmol/L Potassium 3.5 (3.4-5.1) mmol/L Chloride 112 H (98-107) mmol/L Carbon Dioxide 20 L (22-32) mmol/L BUN 37 H (7-17) mg/dL Creatinine 1.70 H (0.52-1.04) mg/dL Estimated GFR 36 L (>60) mL/min BUN/Creatinine Ratio 21.8 (6-22) Glucose 97 (70-100) mg/dL Calcium 8.3 L (8.4-10.2) mg/dL Magnesium 2.4 H (1.6-2.3) mg/dL Total Bilirubin 0.4 (0.2-1.3) mg/dL AST 20 (14-36) IU/L ALT 17 (<35) IU/L Alkaline Phosphatase 81 (38-126) U/L Total Creatine Kinase 81 (30-135) U/L CK-MB (CK-2) TNP CK-MB (CK-2) Rel Index TNP Troponin I < 0.012 (0.01-0.034) ng/mL NT-Pro-B Natriuret Pep (<125) pg/mL Total Protein 6.4 (6.3-8.2) g/dL Albumin 3.6 (3.5-5.0) g/dL Globulin 2.8 (1.7-4.1) g/dL Albumin/Globulin Ratio 1.3 (1.0-2.8) Lipase 88 (23-300) U/L SARS-CoV-2 (PCR) (Negative) 12/16/21 12/16/21 Range/Units 15:54 19:55 WBC (4.5-11.0) X10^3/uL RBC (4.0-5.2) X10^6/uL Hgb (12.0-16.0) g/dL Hct (36-46) % MCV (80-100) fL MCH (26-34) PG MCHC (30-36) % RDW (11.6-14.8) % Plt Count (150-400) X10^3/uL Neut % (Auto) (50-75) % Lymph % (Auto) (25-40) % Andrews % (Auto) (3-14) % Eos % (Auto) (2-4) % Baso % (Auto) (0-2) % Neut # (Auto) (2280-1919) /uL Lymph # (Auto) (1998-1260) /uL Andrews # (Auto) (0-900) /uL Eos # (Auto) (0-450) /uL Baso # (Auto) (0-100) /uL PT (10.1-12.7) SECONDS INR (0.9-1.3) APTT (26.4-36.2) SECONDS Sodium (137-145) mmol/L Potassium (3.4-5.1) mmol/L Chloride (98-107) mmol/L Carbon Dioxide (22-32) mmol/L BUN (7-17) mg/dL Creatinine (0.52-1.04) mg/dL Estimated GFR (>60) mL/min BUN/Creatinine Ratio (6-22) Glucose (70-100) mg/dL Calcium (8.4-10.2) mg/dL Magnesium (1.6-2.3) mg/dL Total Bilirubin (0.2-1.3) mg/dL AST (14-36) IU/L ALT (<35) IU/L Alkaline Phosphatase (38-126) U/L Total Creatine Kinase (30-135) U/L CK-MB (CK-2) CK-MB (CK-2) Rel Index Troponin I (0.01-0.034) ng/mL NT-Pro-B Natriuret Pep 5190 H (<125) pg/mL Total Protein (6.3-8.2) g/dL Albumin (3.5-5.0) g/dL Globulin (1.7-4.1) g/dL Albumin/Globulin Ratio (1.0-2.8) Lipase (23-300) U/L SARS-CoV-2 (PCR) Negative (Negative) Urine Dip Bedside Urine Glucose Negative Bedside Urine Bilirubin - Negative Bedside Urine Ketone - Negative Urine Specific [place] 1.015 Bedside Urine Occult Blood - Negative Bedside Urine pH 6.0 Bedside Urine Protein - Negative Bedside Urine Urobilinogen - Negative Bedside Urine Nitrite - Negative Bedside Urine Leukocytes - Negative Esterase Point of care testing: Urine Dip Bedside Urine Glucose Negative Bedside Urine Bilirubin - Negative Bedside Urine Ketone - Negative Urine Specific [place] 1.015 Bedside Urine Occult Blood - Negative Bedside Urine pH 6.0 Bedside Urine Protein - Negative Bedside Urine Urobilinogen - Negative Bedside Urine Nitrite - Negative Bedside Urine Leukocytes - Negative Esterase Imaging Data Chest x-ray: Radiologist's Impression: [address] [address] XRay Report Signed Patient: Adela Arthur MR#: [id number] : 1970 Acct:[id number] Age/Sex: 51 / F Date of Service: 12/16/21 Loc: ED Accession Number: [id number] ?? Procedure: XR chest 1V Ordering Provider: Tiffani Lyman D.O. PROCEDURE:? XR CHEST 1V ? INDICATIONS:? chest pain ? TECHNIQUE:? One view of the chest was acquired.? ? COMPARISON:? [facility], CR, XR CHEST 1V, 10/27/2021, 15:04. ? FINDINGS:? ? Surgical changes and devices:? None.? ? Lungs and pleura:? There is blunting of the costophrenic angles bilaterally.? Mild appearance of increased vascularity. ? Mediastinum:? Mediastinal contours appear normal.? Heart size is enlarged. ? Bones and chest wall:? No suspicious bony lesions.? Overlying soft tissues appear unremarkable.? ? IMPRESSION:? Mild appearance of increased vascularity with blunting of the costophrenic angle suggestive trace effusions versus scarring. ? ? Dictated by: Hetal Dos Santos M.D. on 12/16/2021 at 15:59 ? ? Approved by: Hetal Dos Santos M.D. on 12/16/2021 at 15:59 CT scan - abdomen/pelvis: Radiologist's Impression: [place] [address] CT Scan Report Signed Patient: Adela Arthur MR#: [id number] : 1970 Acct:[id number] Age/Sex: 51 / F Date of Service: 12/16/21 Loc: ED Accession Number: [id number] ?? Procedure: CT kidney ureter bladder (KUB) Ordering Provider: Tiffani Lyman D.O. PROCEDURE:? CT KIDNEY URETER BLADDER (KUB) ? INDICATIONS:? TROY, swelling ? TECHNIQUE:? Axial sections were acquired from the lung bases to the pubic symphysis.? Coronal and sagittal reformats were performed.? For radiation dose reduction, the following was used: ?automated exposure control, adjustment of mA and/or kV according to patient size.? ? COMPARISON:? None. ? FINDINGS:? Image quality:44 ? Lung bases:? Unremarkable.? ? Heart:? No significant findings. ? URINARY: There are 2 adjacent calculi within the inferior pole left kidney measuring 3 mm diameter each.? No right nephrolithiasis.? No hydronephrosis.? No ureteral dilatation or calcification. ? Bladder:? Normal wall thickness. No stones. ? ? ? ABDOMEN: Liver:? Unremarkable.? ? Gallbladder:? Unremarkable.? ? Biliary ducts:? Unremarkable.? ? Pancreas:? Unremarkable.? ? Spleen:? Unremarkable.? ? Adrenal Glands:? Unremarkable.? ? ? Stomach and Bowel:? Gastric bypass been performed.? Stomach, small bowel loops, and colon are unremarkable.? Normal appendix. Peritoneum:? No abnormal intraperitoneal fluid.? No free air.? ? Ventral Wall: ? No hernia.? Abdominal Nodes:? No enlarged retroperitoneal or mesenteric lymph nodes.? Vessels:? Aorta and inferior vena cava are normal in size.? ? PELVIS: Pelvic Organs:? Unremarkable.? ? Pelvic Nodes: Unremarkable. Miscellaneous: No inguinal hernias are seen. ? ? ? Bones:? Unremarkable. ? IMPRESSION:? ? 1.? Nonobstructing small left inferior pole renal calculi. 2. No evidence of urinary tract obstruction. 3. Normal appendix. ? Dictated by: Samantha Iverson M.D. on 12/16/2021 at 17:20 ? ? Approved by: Samantha Iverson M.D. on 12/16/2021 at 17:22? CT scan - head: Radiologist's Impression: [place] [address] CT Scan Report Signed Patient: Adela Arthur MR#: [id number] : 1970 Acct:[id number] Age/Sex: 51 / F Date of Service: 12/16/21 Loc: ED Accession Number: [id number] ?? Procedure: CT head/brain wo con Ordering Provider: Karan Gorman D.O. PROCEDURE:? CT HEAD/BRAIN WO CON ? INDICATIONS:? TIA symptoms ? TECHNIQUE:? Noncontrast 4.5 mm thick angled axial sections acquired from the foramen magnum to the vertex, with coronal and sagittal reformats.? For radiation dose reduction, the following was used:? automated exposure control, adjustment of mA and/or kV according to patient size.? ? COMPARISON:? [facility], CT, HEAD WITHOUT CONTRAST, 10/06/2011, 17:26. ? FINDINGS:? Image quality:? Excellent.? ? CSF spaces:? Basal cisterns are patent.? No extra-axial fluid collections.? Ventricles are normal in size and shape.? ? Brain:? No midline shift.? No intracranial masses or hemorrhage.? Eugene-white matter interface is normal.? ? Skull and face:? Calvarium and visualized facial bones are intact, without suspicious lesions.? ? Sinuses:? Visualized sinuses and mastoids are clear.? ? IMPRESSION:? No acute intracranial abnormality. ? ? Dictated by: Samantha Iverson M.D. on 12/16/2021 at 19:36 ? ? Approved by: Samantha Iverson M.D. on 12/16/2021 at 19:37?? ECG Data Attestation: I personally reviewed and interpreted this ECG as follows: Interpretation: Atrial fibrillation Ventricular rate [address] T wave changes MDM Narrative Medical decision making narrative: NIH score of 0. Symptoms been going on for greater than [address] is unremarkable. The rest of her radiologic studies are unremarkable as well. She has AFib rate controlled on her EKG. Has an INR of 3.6. Given her presentation today there was concern about a TIA. Patient does require admission to the hospital for further evaluation and treatment. Patient expressed understanding and agreement this. Discuss case with hospitalist who will admit for further evaluation treatment. Discharge Plan Departure Patient Disposition: Admitted as Observation Clinical Impression: Brain TIA, A-fib Admit Date/Time: 12/16/21 19:56 Admit Provider: Oriana Mendez
[2021-12-16 19:46] LABS: INR 3.6 (0.9-1.3); Prothrombin Time 42.2 SECONDS (10.1-12.7)
[2021-12-16 19:48] LABS: PTT Partial Thromboplastin Tim 70 SECONDS (26.4-36.2)
[2021-12-16 20:13] LABS: COVID19 -Nasal RAPID Negative (Negative)
--- NOTE | 2021-12-16 20:53 | DI.MRI.S_ITS ---
PROCEDURE: MR HEAD/BRAIN WO CON INDICATIONS: TIA TECHNIQUE: Noncontrast axial T1 spin echo, axial T2 fast spin echo, sagittal and axial FLAIR, coronal T2 fast spin echo, axial gradient echo, axial diffusion and ADC through the brain. COMPARISON: [facility], CT, CT HEAD/BRAIN WO CON, 12/16/2021, 19:16. FINDINGS: Image quality: Excellent. CSF Spaces: Basal cisterns are patent. No extra-axial fluid collections. Ventricles are normal in size and shape. Brain: No intracranial masses or hemorrhage. Eugene/white matter interface is normal. Brainstem appears normal. Diffusion-weighted images demonstrate no acute ischemic insult. No chronic ischemic insults. Normal intravascular flow voids are present. Skull and face: Calvarium has normal marrow signal. Orbits appear normal. Sinuses: Sinuses are clear. Mild fluid is present in the right mastoid air cells. IMPRESSION: 1. No acute intracranial process. No ischemia. 2. Mild fluid is present in the right mastoid air cells. Recommend correlation potential mastoiditis. Dictated by: Hetal Dos Santos M.D. on 12/17/2021 at 10:57 Approved by: Hetal Dos Santos M.D. on 12/17/2021 at 10:58
--- NOTE | 2021-12-16 20:55 | PM.HP.1 ---
History of Present Illness History of Present Illness Date Patient Seen: 12/16/21 Date of Onset of Symptoms: 12/15/21 Chief complaint: sob,friend says she sounds drunk doesn't drink Narrative: 51-year-old super pleasant female with the history of lymphedema but no other medical problems came to ER for further evaluation of slurred speech. Patient was told by her friends yesterday morning and also yesterday evening on 2 separate phone calls with her friends that she was slurring her speech. Patient says that she did not notice anything significant but because of the concerns raised by friends she came to the ER. During the ER evaluation her NIH score is 0. During my evaluation I did not see any significant symptoms. Patient does not have a concern related to her slurred speech have been episodes. She lives alone. Admitted for further evaluation of her stroke-like symptoms. Potentially TIA. She never had such episodes before. Patient denies any specific tingling numbness anywhere else. She did not notice any weakness. She did say that she is having blurred vision especially when she is looking up. Probably some double vision yesterday. She is not complaining of double vision at this time. But during my examination she did say her vision may be blurred when she is looking up. She denies any loss of consciousness. Did not notice any difficulties in walking. Ambulation. She denies any headaches. Extensive further questioning related to neurological symptoms is negative. She denies any chest pain. She was recently diagnosed with atrial fibrillation. Last INR check was on Sunday and it was 4. She was advised to hold off 1 dose of warfarin. She resumed her dosing yesterday. Today her INR is also supratherapeutic. Patient History Medical History Depression Lymphedema Morbid obesity due to excess calories Surgical History History of gastric bypass History of tonsillectomy Status post panniculectomy Family & Social History Family History Father Prostate cancer Mother Congestive heart failure COPD (chronic obstructive pulmonary disease) Social History: household members none Safety & Behavioral: Feels Safe in Current Yes Environment Tobacco & Substance use: Smoking Status Never smoker alcohol intake never Substance Use Type does not use Meds Home Medications and Allergies Home Medications Medication Instructions Recorded Confirmed Type bupropion HCl 300 mg 24 hr tablet, 300 mg PO QDAY #0 10/04/11 12/16/21 History extended release (Wellbutrin XL) fluoxetine 40 mg capsule 80 mg PO QDAY #0 10/04/11 12/16/21 History furosemide 40 mg tablet 120 mg PO QDAY #0 10/04/11 12/16/21 History gabapentin 600 mg tablet 600 mg PO BEDTIME #2 10/04/11 12/16/21 History (Neurontin) pantoprazole 40 mg tablet,delayed 40 mg PO QDAY #0 10/04/11 12/16/21 History release (Protonix) cholecalciferol (vitamin D3) 50 8,000 unit PO QDAY #0 07/03/17 12/16/21 History mcg (2,000 unit) capsule (Vitamin D3) cyanocobalamin (vitamin B-12) 1,000 mcg IM QMONTH #0 07/03/17 12/16/21 History 1,000 mcg/mL injection solution acetaminophen 325 mg capsule 650 mg PO Q4H PRN 12/16/21 12/16/21 History (Tylenol) cetirizine 10 mg tablet (Zyrtec) 10 mg PO DAILY 12/16/21 12/16/21 History potassium chloride 20 mEq 20 meq PO DAILY 12/16/21 12/16/21 History tablet,extended release(part/cryst) sotalol 80 mg tablet 80 mg PO BID 12/16/21 12/16/21 History warfarin 5 mg tablet 5 mg PO DAILY 12/16/21 12/16/21 History Allergies Allergy/AdvReac Type Severity Reaction Status Date / Time clindamycin [CLINDAMYCIN] Allergy Severe Hives Verified 12/16/21 15:13 doxycycline [DOXYCYCLINE] Allergy Severe Hives Verified 12/16/21 15:13 Sulfa (Sulfonamide Allergy Severe Hives Verified 12/16/21 15:13 Antibiotics) [SULFA (SULFONAMIDE ANTIBIOTICS)] adhesive tape [ADHESIVE TAPE] Allergy Intermediate Verified 12/16/21 15:13 quetiapine [From SEROQUEL] AdvReac Severe Anxiety Verified 12/16/21 15:13 Review of Systems Review of Systems Narrative: Patient denies any chest pain. No palpitations. Constitutional, eyes, ENT, cardiovascular, respiratory, GI, genitourinary, skin, psychiatric, endocrine, hematologic, all other systems have been reviewed., negative. Exam Vital Signs (past 8 hours): - 12/16/21 15:07 12/16/21 16:18 12/16/21 18:00 Temperature 97.0 F L Pulse Rate 123 H 81 78 Respiratory Rate 22 16 20 Blood Pressure 100/71 110/59 L 122/60 Pulse Oximetry 94 95 96 12/16/21 18:30 12/16/21 19:00 Temperature Pulse Rate 84 96 H Respiratory Rate 20 Blood Pressure Pulse Oximetry 95 97 Oxygen Delivery Method Room Air Objective Labs Result Diagrams: 12/16/21 15:54 12/16/21 15:54 Labs: Laboratory Results - last 24 hr 12/16/21 12/16/21 12/16/21 15:34 15:54 15:54 WBC 4.9 RBC 3.88 L Hgb 12.3 Hct 38.4 MCV 98.9 MCH 31.7 MCHC 32.1 RDW 17.8 H Plt Count 287 Neut % (Auto) 62.1 Lymph % (Auto) 24.4 L [place] % (Auto) 10.6 Eos % (Auto) 1.9 L Baso % (Auto) 1.0 Neut # (Auto) 3100 Lymph # (Auto) 1200 [place] # (Auto) 500 Eos # (Auto) 100 Baso # (Auto) 100 PT 42.2 H INR 3.6 H APTT 70 H Sodium 144 Potassium 3.5 Chloride 112 H Carbon Dioxide 20 L BUN 37 H Creatinine 1.70 H Estimated GFR 36 L BUN/Creatinine Ratio 21.8 Glucose 97 Calcium 8.3 L Magnesium 2.4 H Total Bilirubin 0.4 AST 20 ALT 17 Alkaline Phosphatase 81 Total Creatine Kinase 81 CK-MB (CK-2) TNP CK-MB (CK-2) Rel Index TNP Troponin I < 0.012 NT-Pro-B Natriuret Pep Total Protein 6.4 Albumin 3.6 Globulin 2.8 Albumin/Globulin Ratio 1.3 Lipase 88 SARS-CoV-2 (PCR) 12/16/21 12/16/21 15:54 19:55 WBC RBC Hgb Hct MCV MCH MCHC RDW Plt Count Neut % (Auto) Lymph % (Auto) [place] % (Auto) Eos % (Auto) Baso % (Auto) Neut # (Auto) Lymph # (Auto) [place] # (Auto) Eos # (Auto) Baso # (Auto) PT INR APTT Sodium Potassium Chloride Carbon Dioxide BUN Creatinine Estimated GFR BUN/Creatinine Ratio Glucose Calcium Magnesium Total Bilirubin AST ALT Alkaline Phosphatase Total Creatine Kinase CK-MB (CK-2) CK-MB (CK-2) Rel Index Troponin I NT-Pro-B Natriuret Pep 5190 H Total Protein Albumin Globulin Albumin/Globulin Ratio Lipase SARS-CoV-2 (PCR) Negative Assessment & Plan Assessment and plan (1) Brain TIA: Status: Acute (2) A-fib: Status: Acute (3) TROY (acute kidney injury): Status: Acute Plan Admit as an observation for further evaluation of the TIA like symptoms and TROY Q 4 neuro checks MRI of brain for further evaluation Hold off warfarin today, resume tomorrow, INR is supratherapeutic Recent echocardiogram, no need to repeat at this time. Carotid Dopplers Acute kidney injury probably related to Lasix and relatively poor oral intake in recent days Hydration at 100 cc per hour, Encourage p.o. fluids, check BMP again in the morning. If her imaging negative, and if kidney function seems to be improved, she probably can be discharged tomorrow. INR supratherapeutic, no need of further DVT prophylaxis. GI prophylaxis, diet. Patient is full code. Plan extensively discussed with the patient. Offered to talk to family members. Will update as needed. Time Spent With Patient Critical Care time: I spent a total of [] minutes of critical care time on this patient's care today; this time is exclusive of procedural time.
[2021-12-16] MEDS: PANTOPRAZOLE 40 MG VIAL IV (23:29)
[2021-12-16] MEDS: SODIUM CHLORIDE 0.9% 1,000 ML 100 ML IV (23:29)
[2021-12-16] MEDS: ACETAMINOPHEN 325 MG TABLET 650 MG PO (23:31)
[2021-12-17 04:32] VITALS: BP 111/59; PULSE 86; RESP 17; TEMP 36.4; O2SAT 94
[2021-12-17] MEDS: PANTOPRAZOLE DR 40 MG TABLET PO (06:33)
[2021-12-17] MEDS: ACETAMINOPHEN 325 MG TABLET 650 MG PO (06:33)
[2021-12-17 06:56] LABS: BUN Creatinine Ratio 24.3 (6-22); Blood Urea Nitrogen 33 mg/dL (7-17); Calcium 8.3 mg/dL (8.4-10.2); Carbon Dioxide 23 mmol/L (22-32); Chloride 113 mmol/L (98-107); Estimated Glomerular Filt Rate 47 mL/min (>60); Glucose 87 mg/dL (70-100); HEMOLYSIS < 15 (0-50); Potassium 3.8 mmol/L (3.4-5.1); Sodium 143 mmol/L (137-145)
[2021-12-17 08:00] VITALS: BP 93/56; PULSE 80; RESP 16; TEMP 36.5; O2SAT 94
--- NOTE | 2021-12-17 09:04 | PC.NURSE ---
Day shift: Pt off unit for MRI at approx 0850. Off tele
--- NOTE | 2021-12-17 11:32 | P.PN_ITS ---
Subjective Subjective Interval history: Patient reports feeling well this morning. She endorses full resolution of her presenting complaint of slurred speech, and is speaking fluently. She denies that this has happened before. She denies any issues with PO intake. She endorses being Lasix 40 mg tid at home for lymphedema for the past 2 years. She denies knowing any hx of kidney disease. She reports having outpatient follow-up soon for possible cardioversion of a fib. Exam Vital Signs (past 8 hours): - 12/17/21 04:32 12/17/21 08:00 Temperature 97.6 F 97.7 F Pulse Rate 86 80 Respiratory Rate 17 16 Blood Pressure 111/59 L 93/56 L Pulse Oximetry 94 94 Oxygen Delivery Method Room Air Oxygen Flow Rate 0 Const Other: Patient sitting up in bed comfortably upon my entering the room, eating breakfast, and in no apparent acute distress, larger body habitus noted Eyes Other: No scleral icterus appreciated Neck Other: No carotid bruits noted Resp Other: Lungs clear to auscultation bilaterally Cardio Other: RRR, with normal S1 and S2 heart sounds, and no extra heart sounds or murmurs appreciated GI Other: Soft, non-distended, non-tender, bowel sounds present Skin Other: No grossly abnormal skin lesions noted Neuro Other: CN II-XII grossly intact, with no grossly focal neurological deficits appreciated Extrem Other: Palpable dorsalis pedis pulses bilaterally Objective Labs Result Diagrams: 12/16/21 15:54 12/17/21 06:27 Labs: Laboratory Results - last 24 hr 12/16/21 12/16/21 12/16/21 15:34 15:54 15:54 WBC 4.9 RBC 3.88 L Hgb 12.3 Hct 38.4 MCV 98.9 MCH 31.7 MCHC 32.1 RDW 17.8 H Plt Count 287 Neut % (Auto) 62.1 Lymph % (Auto) 24.4 L [place] % (Auto) 10.6 Eos % (Auto) 1.9 L Baso % (Auto) 1.0 Neut # (Auto) 3100 Lymph # (Auto) 1200 [place] # (Auto) 500 Eos # (Auto) 100 Baso # (Auto) 100 PT 42.2 H INR 3.6 H APTT 70 H Sodium 144 Potassium 3.5 Chloride 112 H Carbon Dioxide 20 L BUN 37 H Creatinine 1.70 H Estimated GFR 36 L BUN/Creatinine Ratio 21.8 Glucose 97 Calcium 8.3 L Magnesium 2.4 H Total Bilirubin 0.4 AST 20 ALT 17 Alkaline Phosphatase 81 Total Creatine Kinase 81 CK-MB (CK-2) TNP CK-MB (CK-2) Rel Index TNP Troponin I < 0.012 NT-Pro-B Natriuret Pep Total Protein 6.4 Albumin 3.6 Globulin 2.8 Albumin/Globulin Ratio 1.3 Lipase 88 SARS-CoV-2 (PCR) 12/16/21 12/16/21 12/17/21 15:54 19:55 06:27 WBC RBC Hgb Hct MCV MCH MCHC RDW Plt Count Neut % (Auto) Lymph % (Auto) [place] % (Auto) Eos % (Auto) Baso % (Auto) Neut # (Auto) Lymph # (Auto) [place] # (Auto) Eos # (Auto) Baso # (Auto) PT INR APTT Sodium 143 Potassium 3.8 Chloride 113 H Carbon Dioxide 23 BUN 33 H Creatinine 1.36 H Estimated GFR 47 L BUN/Creatinine Ratio 24.3 H Glucose 87 Calcium 8.3 L Magnesium Total Bilirubin AST ALT Alkaline Phosphatase Total Creatine Kinase CK-MB (CK-2) CK-MB (CK-2) Rel Index Troponin I NT-Pro-B Natriuret Pep 5190 H Total Protein Albumin Globulin Albumin/Globulin Ratio Lipase SARS-CoV-2 (PCR) Negative [facility] Medical History Depression Lymphedema Morbid obesity due to excess calories Surgical History History of gastric bypass History of tonsillectomy Status post panniculectomy Family History Father Prostate cancer Mother Congestive heart failure COPD (chronic obstructive pulmonary disease) Social History household members: none Smoking Status: Never smoker alcohol intake: never Assessment & Plan Assessment & Plan narrative: Assessment: 1. TIA, resolved 2. TROY, likely pre-renal, likely diuretic-induced 3. Atrial fibrillation 4. Depression/anxiety 5. GERD 6. Obesity, class 3 7. Bilateral lower extremity lymphedema, severe Plan: 1. Brain imaging unremarkable. Echocardiogram done recently and unremarkable. Patient declines being put on aspirin 81 mg daily and atorvastatin, stating that aspirin will make her more likely to bleed since she's on warfarin, and that her cholesterol is consistently low when checked by outpatient cardiology. Pending carotid duplex US. 2. Cr improving with hydration. Patient reluctant to stop home Lasix 40 mg tid, as she states this helps with her lower extremity lymphedema. I counseled her that it not necessarily helping her lymphedema, and she only agreed to lower her dose to Lasix 40 mg bid, knowing the continued risk to her kidneys. 3. Patient follows-up with outpt cardiology, and has an upcoming appt for possible cardioversion. Anticoagulated on warfarin, with sotalol for rate control. 4. Home bupropion 300 mg daily and fluoxetine 80 mg daily. 5. Home Protonix 40 mg daily. 6. This is likely adversely affecting all her other comorbidities. Counseling provided. 7. Patient manages with lower extremity wraps and Lasix as above. VTE prophylaxis: Warfarin, as above Code: Full Code I have utilized all immediate available resource to obtain, update, or reconcile the patient's home medications. Time Spent With Patient Critical Care time: I spent a total of [] minutes of critical care time on this patient's care today; this time is exclusive of procedural time. Quality VTE Deep Vein Thrombosis/Pulmonary Embolism Present on Admission: No MIPS - Admit I confirm the patient?s Advance Care Plan is present, Code status is documented, Surrogate decision maker is in patient?s record [If Yes, STOP here]: Yes
[2021-12-17 12:00] VITALS: BP 110/56; PULSE 72; RESP 18; TEMP 36.1; O2SAT 98
--- NOTE | 2021-12-17 12:10 | CM.IDA ---
Addendum entered by Yeni Hyde 12/17/21 12:19: DCP Assessment Discharge Planning/Care Management CM Discharge Assessment Start: 12/17/21 12:01 Freq: Status: Active Protocol: Document 12/17/21 12:04 LN (Rec: 12/17/21 12:10 LN [id number]) Discharge Planning Assessment Assigned Inspector Watch Assembly SADI Jaime DPOA/Assigned Designee Name Karan Arthur Advance Directives? Yes Advance Directives on File Yes: Given at last vist History Provided By Patient,Medical Record Has Patient been admitted in last 30 No days? Prior Living Arrangements Apartment/Condo Comment 1 level ADA accessible condo Household Members none Type of transporation used prior to Drives own vehicle admit Independent with ADL's Yes Is patient alert and oriented? Yes Caregiver for Another No DME Already Rented / Owned Wheelchair,FWW / Walker Discharge Plan Home Transportation Arrangement Patient states she plans to drive her own vehicle home. Referrals Initiated None needed Please Provide Date Initial DC 12/17/21 Assessment Was Performed SADI Mercado Original Note: DCP Assessment Patient is 51 y/o female who presents to due to concern for slurred speech and possible TIA. Per MRI, results are negative for such. Patient has hx of TROY, AFib, GERD, lymphedema, Anxiety and Depression. Patient's PCP is Dr. Dottie Miller, patient has [facility] and Medicaid insurance. Patient endorses she has regular f/u with patient access coordinator in [place] and plans to schedule PCP f/u soon. Per Nima RN, MRI results are negative and Hospitalist is awaiting doppler results. MEASUREMENT COORDINATOR enters room to meet with patient. Patient presents as A/Ox4 and states she is less tired today. Patient endorses she resides alone at home with her two dogs. Patient endorses good friend supports who identified the concern for her slurred speech. Patient states that she visits with friends on a weekly basis, patient indicates good neighbor supports and a brother in law that lives in [facility]. Patient resides in [place] [address] [facility]. Patient endorses independence with ADLs and states she uses a FWW and walker as needed. Patient states she also has a wheelchair at home but has not needed it. Patient endorses that she tripped on her dog earlier this week, when she wasn't able to get up she utilized the fire department. Patient denies DCP needs and indicates she feels comfortable discharging to home when medically clear. Plan: Patient to d/c to home by POV when medically clear. Possible d/c today. SADI Mercado
--- NOTE | 2021-12-17 12:23 | PM.DS.1 ---
History of Present Illness History of Present Illness Chief complaint: sob,friend says she sounds drunk doesn't drink Narrative: 51-year-old super pleasant female with the history of lymphedema but no other medical problems came to ER for further evaluation of slurred speech.? Patient was told by her friends yesterday morning and also yesterday evening on 2 separate phone calls with her friends that she was slurring her speech.? Patient says that she did not notice anything significant but because of the concerns raised by friends she came to the ER.? During the ER evaluation her NIH score is 0.? During my evaluation I did not see any significant symptoms.? Patient does not have a concern related to her slurred speech have been episodes.? She lives alone.? Admitted for further evaluation of her stroke-like symptoms.? Potentially TIA.? She never had such episodes before.? Patient denies any specific tingling numbness anywhere else.? She did not notice any weakness.? She did say that she is having blurred vision especially when she is looking up.? Probably some double vision yesterday.? She is not complaining of double vision at this time.? But during my examination she did say her vision may be blurred when she is looking up.? She denies any loss of consciousness.? Did not notice any difficulties in walking.? Ambulation.? She denies any headaches.? Extensive further questioning related to neurological symptoms is negative.? She denies any chest pain.? She was recently diagnosed with atrial fibrillation.? Last INR check was on Sunday and it was 4.? She was advised to hold off 1 dose of warfarin.? She resumed her dosing yesterday.? Today her INR is also supratherapeutic. Written by admitting provider. Discharge Providers Provider Date of admission: 12/16/21 19:56 Discharge Date: 12/17/21 Primary care physician: Dottie Miller PA-C Discharge provider: Lindy David MD Summary Hospital Course Discharge Diagnosis: Assessment: 1. TIA, resolved 2. TROY, likely pre-renal, likely diuretic-induced 3. Atrial fibrillation 4. Depression/anxiety 5. GERD 6. Obesity, class 3 7. Bilateral lower extremity lymphedema, severe Plan: 1. Brain imaging unremarkable. Echocardiogram done recently and unremarkable. Patient declines being put on aspirin 81 mg daily and atorvastatin, stating that aspirin will make her more likely to bleed since she's on warfarin, and that her cholesterol is consistently low when checked by outpatient cardiology. Pending carotid duplex US. 2. Cr improving with hydration. Patient reluctant to stop home Lasix 40 mg tid, as she states this helps with her lower extremity lymphedema. I counseled her that it not necessarily helping her lymphedema, and she only agreed to lower her dose to Lasix 40 mg bid, knowing the continued risk to her kidneys. 3. Patient follows-up with outpt cardiology, and has an upcoming appt for possible cardioversion. Anticoagulated on warfarin, with sotalol for rate control. 4. Home bupropion 300 mg daily and fluoxetine 80 mg daily. 5. Home Protonix 40 mg daily. 6. This is likely adversely affecting all her other comorbidities. Counseling provided. 7. Patient manages with lower extremity wraps and Lasix as above. Exam Vital Signs (past 8 hours): - 12/17/21 04:32 12/17/21 08:00 12/17/21 12:00 Temperature 97.6 F 97.7 F 97.0 F L Pulse Rate 86 80 72 Respiratory Rate 17 16 18 Blood Pressure 111/59 L 93/56 L 110/56 L Pulse Oximetry 94 94 98 Oxygen Delivery Method Room Air Oxygen Flow Rate 0 Objective Labs Result Diagrams: 12/16/21 15:54 12/17/21 06:27 Labs: Laboratory Results - last 24 hr 12/16/21 12/16/21 12/16/21 15:34 15:54 15:54 WBC 4.9 RBC 3.88 L Hgb 12.3 Hct 38.4 MCV 98.9 MCH 31.7 MCHC 32.1 RDW 17.8 H Plt Count 287 Neut % (Auto) 62.1 Lymph % (Auto) 24.4 L [place] % (Auto) 10.6 Eos % (Auto) 1.9 L Baso % (Auto) 1.0 Neut # (Auto) 3100 Lymph # (Auto) 1200 [place] # (Auto) 500 Eos # (Auto) 100 Baso # (Auto) 100 PT 42.2 H INR 3.6 H APTT 70 H Sodium 144 Potassium 3.5 Chloride 112 H Carbon Dioxide 20 L BUN 37 H Creatinine 1.70 H Estimated GFR 36 L BUN/Creatinine Ratio 21.8 Glucose 97 Calcium 8.3 L Magnesium 2.4 H Total Bilirubin 0.4 AST 20 ALT 17 Alkaline Phosphatase 81 Total Creatine Kinase 81 CK-MB (CK-2) TNP CK-MB (CK-2) Rel Index TNP Troponin I < 0.012 NT-Pro-B Natriuret Pep Total Protein 6.4 Albumin 3.6 Globulin 2.8 Albumin/Globulin Ratio 1.3 Lipase 88 SARS-CoV-2 (PCR) 12/16/21 12/16/21 12/17/21 15:54 19:55 06:27 WBC RBC Hgb Hct MCV MCH MCHC RDW Plt Count Neut % (Auto) Lymph % (Auto) [place] % (Auto) Eos % (Auto) Baso % (Auto) Neut # (Auto) Lymph # (Auto) [place] # (Auto) Eos # (Auto) Baso # (Auto) PT INR APTT Sodium 143 Potassium 3.8 Chloride 113 H Carbon Dioxide 23 BUN 33 H Creatinine 1.36 H Estimated GFR 47 L BUN/Creatinine Ratio 24.3 H Glucose 87 Calcium 8.3 L Magnesium Total Bilirubin AST ALT Alkaline Phosphatase Total Creatine Kinase CK-MB (CK-2) CK-MB (CK-2) Rel Index Troponin I NT-Pro-B Natriuret Pep 5190 H Total Protein Albumin Globulin Albumin/Globulin Ratio Lipase SARS-CoV-2 (PCR) Negative [facility] Medical History Depression Lymphedema Morbid obesity due to excess calories Surgical History History of gastric bypass History of tonsillectomy Status post panniculectomy Family History Father Prostate cancer Mother Congestive heart failure COPD (chronic obstructive pulmonary disease) Social History household members: none Smoking Status: Never smoker alcohol intake: never Discharge Assessment & Plan Assessment and Plan Assessment: Assessment: 1. TIA, resolved 2. TROY, likely pre-renal, likely diuretic-induced 3. Atrial fibrillation 4. Depression/anxiety 5. GERD 6. Obesity, class 3 7. Bilateral lower extremity lymphedema, severe Plan: 1. Brain imaging unremarkable. Echocardiogram done recently and unremarkable. Patient declines being put on aspirin 81 mg daily and atorvastatin, stating that aspirin will make her more likely to bleed since she's on warfarin, and that her cholesterol is consistently low when checked by outpatient cardiology. Pending carotid duplex US. 2. Cr improving with hydration. Patient reluctant to stop home Lasix 40 mg tid, as she states this helps with her lower extremity lymphedema. I counseled her that it not necessarily helping her lymphedema, and she only agreed to lower her dose to Lasix 40 mg bid, knowing the continued risk to her kidneys. 3. Patient follows-up with outpt cardiology, and has an upcoming appt for possible cardioversion. Anticoagulated on warfarin, with sotalol for rate control. 4. Home bupropion 300 mg daily and fluoxetine 80 mg daily. 5. Home Protonix 40 mg daily. 6. This is likely adversely affecting all her other comorbidities. Counseling provided. 7. Patient manages with lower extremity wraps and Lasix as above. Discharge Plan Discharge Plan Patient Disposition: Home Discharge orders & Medications Prescriptions: Continued fluoxetine 40 MG capsule 80 mg PO QDAY Qty: 0 0RF gabapentin [Neurontin] 600 MG tablet 600 mg PO BEDTIME Qty: 2 0RF pantoprazole [Protonix] 40 MG tablet,delayed release (DR/EC) 40 mg PO QDAY Qty: 0 0RF bupropion HCl [Wellbutrin XL] 300 MG tablet extended release 24 hr 300 mg PO QDAY Qty: 0 0RF cholecalciferol (vitamin D3) [Vitamin D3] 2,000 UNIT capsule 8,000 unit PO QDAY Qty: 0 0RF cyanocobalamin (vitamin B-12) Vitamin B-12 solution 1,000 mcg IM QMONTH Qty: 0 0RF cetirizine [Zyrtec] 10 mg Tablet 10 mg PO DAILY 0RF acetaminophen [Tylenol] 325 mg Capsule 650 mg PO Q4H PRN (Reason: Pain (Scale Score 1-3)) 0RF sotalol 80 mg tablet 80 mg PO BID 0RF Label Comments: Take 1 tablet by mouth twice a day warfarin 5 mg tablet 5 mg PO DAILY 0RF Label Comments: TAKE 1 TABLET BY MOUTH IN THE EVENING OR DIRECTED BASED ON INR Changed furosemide 40 MG tablet 40 mg PO QDAY Qty: 0 0RF Discontinued potassium chloride 20 mEq tablet,ER particles/crystals 20 meq PO DAILY 0RF Label Comments: TAKE 1 TABLET BY MOUTH TWICE DAILY. PLEASE HAVE LABS DRAWN PRIOR TO NEXT REFILL Follow up/Referrals: Dottie Miller PA-C [Primary Care Provider] - Discharge Data Primary Care Provider: Dottie Miller Attending Provider: Oriana Mendez VTE Deep Vein Thrombosis/Pulmonary Embolism Present on Admission: No
--- NOTE | 2021-12-17 13:15 | PC.NURSE ---
Day shift: Paperwork signed and all questions answered. No new medications. Pt has all personal belongings. Left unit via WC at approx 1315. Taken to her car by [employer]. Pt is driving herself home to [facility]. Encouraged to f/u with her PCP CHARANJIT.
== END 2021-12-17 13:18 | disposition home or self-care (01) ==
LOC: ED 19:38 → AC 19:57
PROVIDERS: Emergency Medicine; Admitting Provider Family Medicine; Emergency Provider Emergency Medicine; PCP Physician Assistant Medical; Referring Provider Emergency Medicine; Visit Provider Family Medicine
DX: G45.9 Transient cerebral ischemic attack, unspecified (principal); R06.02 Shortness of breath; I48.91 Unspecified atrial fibrillation; N17.9 Acute kidney failure, unspecified; F32.A Depression, unspecified; F41.9 Anxiety disorder, unspecified; K21.9 Gastro-esophageal reflux disease without esophagitis; I89.0 Lymphedema, not elsewhere classified; E66.01 Morbid (severe) obesity due to excess calories; Z79.01 Long term (current) use of anticoagulants; R29.700 NIHSS score 0; Z20.822 Contact with and (suspected) exposure to COVID-19
CPT/HCPCS: 36415; 70450; 70551; 71045; 74176; 80048; 80053; 81003; 82550; 83690; 83735; 83880; 84484; 85025; 85610; 85730; 87635; 93005; 93880; 96374; 99284; C9803; G0378; C9113

== ENCOUNTER 2022-03-11 16:34 | Emergency (ER) | payer MEDICARE, MEDICAID, SELFPAY ==
[2021-12-16 21:21] VITALS: BMI 44.8
[2022-03-11 16:37] VITALS: BP 110/56; PULSE 61; RESP 20; TEMP 36.4; O2SAT 100; BMI 43.4
[2022-03-11 17:08] LABS: COVID19 -Nasal RAPID Negative (Negative)
--- NOTE | 2022-03-11 17:30 | DI.RAD.S_ITS ---
PROCEDURE: XR CHEST 2V INDICATIONS: Shortness of Breast and congestion TECHNIQUE: 2 views of the chest were acquired. COMPARISON: [facility], CR, XR CHEST 1V, 12/16/2021, 15:39. FINDINGS: Surgical changes and devices: None. Lungs and pleura: Right basilar atelectasis and or infiltrate Mediastinum: Heart size enlarged. Mild vascular congestion present. Bones and chest wall: No suspicious bony abnormalities. Soft tissues appear unremarkable. IMPRESSION: Mild right basilar atelectasis and or infiltrate. Cardiomegaly and mild vascular congestion Approved by: Estuardo Martinez M.D. on 03/11/2022 at 17:32
[2022-03-11 17:54] LABS: Add Manual Diff / Slide Review NO; Basophils Absolute Auto 100 /uL (0-100); Eosinophils Absolute Auto 200 /uL (0-450); Eosinophils Percent Auto 3.5 % (2-4); Hematocrit 35.7 % (36-46); Hemoglobin 11.7 g/dL (12.0-16.0); Lymphocytes Absolute Auto 1400 /uL (1100-4500); Lymphocytes Percent Auto 19.4 % (25-40); Mean Corpuscular HGB Conc 32.7 % (30-36); Mean Corpuscular Hemoglobin 34.7 PG (26-34); Mean Corpuscular Volume 106.2 fL (80-100); Monocytes Absolute Auto 700 /uL (0-900); Neutrophils Absolute Auto 4700 /uL (1500-7000); Neutrophils Percent Auto 66.1 % (50-75); Platelet Count 215 X10^3/uL (150-400); Red Blood Cell Count 3.36 X10^6/uL (4.0-5.2); Red Cell Distribution Width 16.4 % (11.6-14.8); White Blood Cell Count 7.1 X10^3/uL (4.5-11.0)
[2022-03-11 18:02] LABS: Alanine Aminotransferase 15 IU/L (<35); Albumin 3.8 g/dL (3.5-5.0); Albumin Globulin Ratio 1.4 (1.0-2.8); Alkaline Phosphatase 80 U/L (38-126); Aspartate Aminotransferase 17 IU/L (14-36); Bilirubin Total 0.3 mg/dL (0.2-1.3); Blood Urea Nitrogen 32 mg/dL (7-17); Calcium 8.3 mg/dL (8.4-10.2); Carbon Dioxide 25 mmol/L (22-32); Chloride 108 mmol/L (98-107); Creatine Kinase 34 U/L (30-135); Estimated Glomerular Filt Rate 50 mL/min (>60); Globulin 2.7 g/dL (1.7-4.1); Glucose 96 mg/dL (70-100); HEMOLYSIS < 15 (0-50); Lipase 164 U/L (23-300); Potassium 3.9 mmol/L (3.4-5.1); Sodium 142 mmol/L (137-145); Total Protein 6.5 g/dL (6.3-8.2)
[2022-03-11 18:13] LABS: Troponin I < 0.012 ng/mL (0.01-0.034)
[2022-03-11] MEDS: SODIUM CHLORIDE 0.9% 1,000 ML 150 ML IV (19:42)
[2022-03-11] MEDS: ASPIRIN 81 MG CHEW TAB 324 MG PO (19:43)
--- NOTE | 2022-03-11 19:58 | ED.SOB ---
HPI - SOB/Dyspnea <Mikel Saldana PA-C - Last Filed: 03/11/22 20:31> General Chief Complaint: Shortness of Breath/Dyspnea Stated Complaint: Bad Chest Congestion Time Seen by Provider: 03/11/22 17:22 Source: patient Mode of arrival: Ambulatory Limitations: no limitations History of Present Illness HPI Narrative: Patient is a 51-year-old female reports to the emergency room today with complaint of cough that started about 2 weeks ago. Cough is very minor at that time and has progressed to being productive over the last 3 days. Cough is not associated with any chest pain or shortness of breath. Admits having a history of atrial fibrillation session that is treated with Eliquis and sotalol. Last saw religious assistant for her AFib on February 13. No other acute concerns at this time. Admits to taking Lasix and potassium for her chronic edema. Related Data Home Medications Medication Instructions Recorded Confirmed bupropion HCl 300 mg 24 hr tablet, 300 mg PO QDAY ##0 10/04/11 12/16/21 extended release (Wellbutrin XL) fluoxetine 40 mg capsule 80 mg PO QDAY ##0 10/04/11 12/16/21 gabapentin 600 mg tablet 600 mg PO BEDTIME ##2 10/04/11 12/16/21 (Neurontin) pantoprazole 40 mg tablet,delayed 40 mg PO QDAY ##0 10/04/11 12/16/21 release (Protonix) cholecalciferol (vitamin D3) 50 8,000 unit PO QDAY ##0 07/03/17 12/16/21 mcg (2,000 unit) capsule (Vitamin D3) cyanocobalamin (vitamin B-12) 1,000 mcg IM QMONTH ##0 07/03/17 12/16/21 1,000 mcg/mL injection solution acetaminophen 325 mg capsule 650 mg PO Q4H PRN Pain (Scale 12/16/21 12/16/21 (Tylenol) Score 1-3) cetirizine 10 mg tablet (Zyrtec) 10 mg PO DAILY 12/16/21 12/16/21 sotalol 80 mg tablet 80 mg PO BID 12/16/21 12/16/21 warfarin 5 mg tablet 5 mg PO DAILY 12/16/21 12/16/21 Previous Rx's Medication Instructions Recorded furosemide 40 mg tablet 40 mg PO QDAY #0 tabs 12/17/21 furosemide 40 mg tablet (Lasix) 40 mg PO BID #14 tabs 03/11/22 potassium chloride 20 mEq oral 20 meq PO BID #14 ea 03/11/22 packet Allergies Allergy/AdvReac Type Severity Reaction Status Date / Time clindamycin [CLINDAMYCIN] Allergy Severe Hives Verified 03/11/22 16:43 doxycycline [DOXYCYCLINE] Allergy Severe Hives Verified 03/11/22 16:43 Sulfa (Sulfonamide Allergy Severe Hives Verified 03/11/22 16:43 Antibiotics) [SULFA (SULFONAMIDE ANTIBIOTICS)] adhesive tape [ADHESIVE TAPE] Allergy Intermediate Verified 03/11/22 16:43 quetiapine [From SEROQUEL] AdvReac Severe Anxiety Verified 03/11/22 16:43 Review of Systems <Mikel Saldana PA-C - Last Filed: 03/11/22 20:31> Review of Systems Narrative: REVIEW OF SYSTEMS:. General: No weight change, generally healthy, no change in strength or exercise tolerance. No fever/chill. No fatigue. Head: No headaches, no vertigo, no injury. Eyes: Normal vision, no diplopia, no tearing, no scotomata, no pain. Ears: No change in hearing, no tinnitus, no bleeding, no vertigo. Nose: No epistaxis, no coryza, no obstruction, no discharge. Mouth:Cough Neck: No stiffness, no pain, no tenderness, no noted masses. Chest: No dyspnea, no wheezing, no hemoptysis, no cough. Heart: No chest pains, no palpitations, no syncope, no orthopnea. Abdomen: No change in appetite, no dysphagia, no abdominal pains, no bowel habit changes, no emesis, no melena. Musculoskeletal: No pain in muscles or joints, no limitation of range of motion, no paresthesia or numbness. Neurologic: No weakness, no tremor, no seizures, no changes in mentation, no ataxia. Psychiatric: No depressive symptoms, no changes in sleep habits, no changes in thought content.. Patient History <Mikel Saldana PA-C - Last Filed: 03/11/22 20:31> Medical History Depression Lymphedema Morbid obesity due to excess calories Surgical History History of gastric bypass History of tonsillectomy Status post panniculectomy Family History Father Prostate cancer Mother Congestive heart failure COPD (chronic obstructive pulmonary disease) Social History household members: none Smoking Status: Never smoker alcohol intake: never Smoking Status: Never smoker Substance Use Type: does not use Exam <Mikel Saldana PA-C - Last Filed: 03/11/22 20:31> Narrative Exam Narrative: Physical Exam: General: Obese, alert, and awake. Not in acute distress. ? Head: Normocephalic, no lesions. ?? Eyes: PERRLA, EOM's full, conjunctivae clear. ? Ears: EAC's clear, TM's normal. ?? Throat: Clear, no exudates, no lesions. ?? Neck: Supple, no masses, no thyromegaly, no bruits. ?? Chest: Lungs clear, no rales, no rhonchi, no wheezes. ?? Heart: RR, no murmurs, no rubs, no gallops. ?? Neuro: Physiological, no localizing findings, CN2-12 intact. ?? Extremities: Warm, deformed, with edema but no erythema. ?? PSYCHIATRIC: The mood is good, no blunted affect. Speech is clear. Thought process is linear, thought content is appropriate. The voice is without significant inflection.. Initial Vital Signs Initial Vital Signs: Vital Signs Temperature 97.5 F L 03/11/22 16:37 Pulse Rate 61 03/11/22 16:37 Respiratory Rate 20 03/11/22 16:37 Blood Pressure 110/56 L 03/11/22 16:37 Pulse Oximetry 100 03/11/22 16:37 Oxygen Delivery Method 03/11/22 16:37 <Juan López DO - Last Filed: 03/12/22 11:34> Initial Vital Signs Initial Vital Signs: Vital Signs Temperature 97.5 F L 03/11/22 16:37 Pulse Rate 61 03/11/22 16:37 Respiratory Rate 20 03/11/22 16:37 Blood Pressure 110/56 L 03/11/22 16:37 Pulse Oximetry 100 03/11/22 16:37 Oxygen Delivery Method 03/11/22 16:37 Course <Mikel Saldana PA-C - Last Filed: 03/11/22 20:31> Orders Ordered: Discontinued Medications Aspirin (Aspirin 81 Mg Chew Tab) 324 mg PO NOW ONE Stop: 03/11/22 17:31 Last Admin: 03/11/22 19:43 Dose: 324 mg Documented By: YUNIOR Furosemide (Furosemide 20 Mg Tablet) 20 mg PO NOW ONE Stop: 03/11/22 20:12 Last Admin: 03/11/22 20:33 Dose: 20 mg Documented By: LATHA Sodium Chloride (Normal Saline 0.9%) 1,000 mls @ 150 mls/hr IV CONT LUIS Last Infusion: 03/11/22 20:37 Dose: 0 mls/hr Documented By: Admin: 03/11/22 19:42 Dose: 150 mls/hr Documented By: YUNIOR Vital Signs Vital signs: Vital Signs - 8 hr 03/11/22 16:37 Temperature 97.5 F L Pulse Rate 61 Respiratory Rate 20 Blood Pressure 110/56 L Pulse Oximetry 100 Oxygen Delivery Method Room Air <Juan López DO - Last Filed: 03/12/22 11:34> Orders Ordered: Discontinued Medications Aspirin (Aspirin 81 Mg Chew Tab) 324 mg PO NOW ONE Stop: 03/11/22 17:31 Last Admin: 03/11/22 19:43 Dose: 324 mg Documented By: YUNIOR Furosemide (Furosemide 20 Mg Tablet) 20 mg PO NOW ONE Stop: 03/11/22 20:12 Last Admin: 03/11/22 20:33 Dose: 20 mg Documented By: LATHA Sodium Chloride (Normal Saline 0.9%) 1,000 mls @ 150 mls/hr IV CONT LUIS Last Infusion: 03/11/22 20:37 Dose: 0 mls/hr Documented By: Admin: 03/11/22 19:42 Dose: 150 mls/hr Documented By: YUNIOR Vital Signs Vital signs: Vital Signs - 8 hr 03/11/22 16:37 Temperature 97.5 F L Pulse Rate 61 Respiratory Rate 20 Blood Pressure 110/56 L Pulse Oximetry 100 Oxygen Delivery Method Room Air MDM - SOB/Dyspnea <Mikel Saldana PA-C - Last Filed: 03/11/22 20:31> Lab Data Result diagrams: 03/11/22 17:43 03/11/22 17:43 Labs: Lab Results 03/11/22 03/11/22 03/11/22 Range/Units 16:49 17:43 17:43 WBC 7.1 (4.5-11.0) X10^3/uL RBC 3.36 L (4.0-5.2) X10^6/uL Hgb 11.7 L (12.0-16.0) g/dL Hct 35.7 L (36-46) % MCV 106.2 H (80-100) fL MCH 34.7 H (26-34) PG MCHC 32.7 (30-36) % RDW 16.4 H (11.6-14.8) % Plt Count 215 (150-400) X10^3/uL Neut % (Auto) 66.1 (50-75) % Lymph % (Auto) 19.4 L (25-40) % Clark % (Auto) 10.0 (3-14) % Eos % (Auto) 3.5 (2-4) % Baso % (Auto) 1.0 (0-2) % Neut # (Auto) 4700 (4588-5422) /uL Lymph # (Auto) 1400 (3461-9657) /uL Clark # (Auto) 700 (0-900) /uL Eos # (Auto) 200 (0-450) /uL Baso # (Auto) 100 (0-100) /uL Sodium 142 (137-145) mmol/L Potassium 3.9 (3.4-5.1) mmol/L Chloride 108 H (98-107) mmol/L Carbon Dioxide 25 (22-32) mmol/L BUN 32 H (7-17) mg/dL Creatinine 1.28 H (0.52-1.04) mg/dL Estimated GFR 50 L (>60) mL/min BUN/Creatinine Ratio 25.0 H (6-22) Glucose 96 (70-100) mg/dL Calcium 8.3 L (8.4-10.2) mg/dL Total Bilirubin 0.3 (0.2-1.3) mg/dL AST 17 (14-36) IU/L ALT 15 (<35) IU/L Alkaline Phosphatase 80 (38-126) U/L Total Creatine Kinase 34 (30-135) U/L CK-MB (CK-2) TNP CK-MB (CK-2) Rel Index TNP Troponin I < 0.012 (0.01-0.034) ng/mL Total Protein 6.5 (6.3-8.2) g/dL Albumin 3.8 (3.5-5.0) g/dL Globulin 2.7 (1.7-4.1) g/dL Albumin/Globulin Ratio 1.4 (1.0-2.8) Lipase 164 (23-300) U/L SARS-CoV-2 (PCR) Negative (Negative) Imaging Data Extremity x-ray #1: Radiologist's Impression: PROCEDURE:? XR CHEST 2V ? INDICATIONS:? Shortness of Breast and congestion ? TECHNIQUE:? 2 views of the chest were acquired.? ? COMPARISON:? [facility], CR, XR CHEST 1V, 12/16/2021, 15:39. ? FINDINGS:? ? Surgical changes and devices:? None.? ? Lungs and pleura:? Right basilar atelectasis and or infiltrate ? Mediastinum:? Heart size enlarged.? Mild vascular congestion present. ? Bones and chest wall:? No suspicious bony abnormalities.? Soft tissues appear unremarkable.? ? IMPRESSION:? ? Mild right basilar atelectasis and or infiltrate. ? Cardiomegaly and mild vascular congestion ? ? ? Approved by: Estuardo Martinez M.D. on 03/11/2022 at 17:32? [facility] Narrative Medical decision making narrative: Patient 51-year-old female presents to the emergency room today with complaint of cough. States the cough started about 3 weeks ago and progressed to being productive wet 3 days ago on physical exam patient is observed to be morbidly obese with extremely enlarged extremities. Cardiac and coags unremarkable for any acute concerns at this time. X-ray was positive and confirm cardiomegaly and right basilar atelectasis secondary to infiltrate. Sputum was collected and sent for culture. EKG was reviewed by this provider and the and Dr Marrero. EKG with low voltage but did not display any emergent concern this is time. Discussed plan with who also recommended patient's dosage of Lasix and potassium and having patient follow-up with her religious assistant within 1 week. This was also suggested to patient and patient agrees with this plan. <Juan López, DO - Last Filed: 03/12/22 11:34> Lab Data Labs: Lab Results 03/11/22 03/11/22 03/11/22 Range/Units 16:49 17:43 17:43 WBC 7.1 (4.5-11.0) X10^3/uL RBC 3.36 L (4.0-5.2) X10^6/uL Hgb 11.7 L (12.0-16.0) g/dL Hct 35.7 L (36-46) % MCV 106.2 H (80-100) fL MCH 34.7 H (26-34) PG MCHC 32.7 (30-36) % RDW 16.4 H (11.6-14.8) % Plt Count 215 (150-400) X10^3/uL Neut % (Auto) 66.1 (50-75) % Lymph % (Auto) 19.4 L (25-40) % Clark % (Auto) 10.0 (3-14) % Eos % (Auto) 3.5 (2-4) % Baso % (Auto) 1.0 (0-2) % Neut # (Auto) 4700 (1704-4973) /uL Lymph # (Auto) 1400 (2515-9729) /uL Clark # (Auto) 700 (0-900) /uL Eos # (Auto) 200 (0-450) /uL Baso # (Auto) 100 (0-100) /uL Sodium 142 (137-145) mmol/L Potassium 3.9 (3.4-5.1) mmol/L Chloride 108 H (98-107) mmol/L Carbon Dioxide 25 (22-32) mmol/L BUN 32 H (7-17) mg/dL Creatinine 1.28 H (0.52-1.04) mg/dL Estimated GFR 50 L (>60) mL/min BUN/Creatinine Ratio 25.0 H (6-22) Glucose 96 (70-100) mg/dL Calcium 8.3 L (8.4-10.2) mg/dL Total Bilirubin 0.3 (0.2-1.3) mg/dL AST 17 (14-36) IU/L ALT 15 (<35) IU/L Alkaline Phosphatase 80 (38-126) U/L Total Creatine Kinase 34 (30-135) U/L CK-MB (CK-2) TNP CK-MB (CK-2) Rel Index TNP Troponin I < 0.012 (0.01-0.034) ng/mL Total Protein 6.5 (6.3-8.2) g/dL Albumin 3.8 (3.5-5.0) g/dL Globulin 2.7 (1.7-4.1) g/dL Albumin/Globulin Ratio 1.4 (1.0-2.8) Lipase 164 (23-300) U/L SARS-CoV-2 (PCR) Negative (Negative) Discharge Plan Departure Patient Disposition: Home Clinical Impression: A-fib, Cough Instructions: DI for Cough -- Adult Activity Restrictions/Additional Instructions: *You have been diagnosed with [Cough, enlarged and pulmonary infiltrates. Your chest film has revealed that you have enlarged heart and infiltrates in your lungs. And increase your dose of Lasix to an additional known 80 mg per day and I have increased her potassium to an additional 40 mEq a day. We have collected sputum and sent to the lab for culture. He should be hearing from [facility] if any results are positive or if you need any antibiotics. Her I suggested follow-up with your religious assistant within the next week. I also suggest she return to the emergency room should any emergent concerns arise feel] *What to do: *Please continue to take your regular medications as directed. [ x ] New medication prescriptions sent to your pharmacy: [ ] [ ] New medication written as a paper prescription [ ] No new medications given *Please follow up with your primary care provider in 2-3 days, call for an appointment. Let them know you were seen in the Emergency Department and that we ask that you be seen in follow up. We will electronically transmit a record of today's note if your PCP is in our system *If you do not have a primary care provider please contact the [facility] Resource line at [phone]. They will ask some questions about your medical history and help get you set up with a doctor in the community. *Return to Emergency Department if you should have any new, worsening or concerning symptoms, such as [fever greater than 101 F, shaking chills, worsening pain, persistent vomiting or other bothersome symptoms] Prescriptions: New potassium chloride 20 mEq packet 20 meq PO BID Qty: 14 0RF furosemide [Lasix] 40 mg tablet 40 mg PO BID Qty: 14 0RF No Action fluoxetine 40 MG capsule 80 mg PO QDAY Qty: 0 gabapentin [Neurontin] 600 MG tablet 600 mg PO BEDTIME Qty: 2 pantoprazole [Protonix] 40 MG tablet,delayed release (DR/EC) 40 mg PO QDAY Qty: 0 bupropion HCl [Wellbutrin XL] 300 MG tablet extended release 24 hr 300 mg PO QDAY Qty: 0 cholecalciferol (vitamin D3) [Vitamin D3] 2,000 UNIT capsule 8,000 unit PO QDAY Qty: 0 cyanocobalamin (vitamin B-12) Vitamin B-12 solution 1,000 mcg IM QMONTH Qty: 0 cetirizine [Zyrtec] 10 mg Tablet 10 mg PO DAILY acetaminophen [Tylenol] 325 mg Capsule 650 mg PO Q4H PRN (Reason: Pain (Scale Score 1-3)) sotalol 80 mg tablet 80 mg PO BID Label Comments: Take 1 tablet by mouth twice a day warfarin 5 mg tablet 5 mg PO DAILY Label Comments: TAKE 1 TABLET BY MOUTH IN THE EVENING OR DIRECTED BASED ON INR furosemide 40 MG tablet 40 mg PO QDAY Qty: 0 0RF Referrals: Dottie Miller PA-C [Primary Care Provider] - Visit Report Forms: Patient Portal/API <Juan López DO - Last Filed: 03/12/22 11:34> Cosign ED Attending Margarette Attestation: I was immediately available in the department for consultation. Documentation has been reviewed. I agree with assessment and plan.
[2022-03-11] MEDS: FUROSEMIDE 20 MG TABLET PO (20:33)
[2022-03-11 20:38] VITALS: BP 111/65; PULSE 60; O2SAT 98
== END 2022-03-11 20:38 | disposition home or self-care (01) ==
PROVIDERS: Emergency Medicine; Emergency Provider Physician Assistant; PCP Physician Assistant Medical
DX: I48.91 Unspecified atrial fibrillation (principal); Z79.01 Long term (current) use of anticoagulants; R05.9 Cough, unspecified; Z20.822 Contact with and (suspected) exposure to COVID-19
CPT/HCPCS: 36415; 71046; 80053; 82550; 83690; 84484; 85025; 87070; 87205; 87635; 93005; 93010; 96360; 99284; C9803

== ENCOUNTER 2022-07-08 14:44 | Observation (INO) | payer MEDICARE, MEDICAID, SELFPAY ==
[2021-12-16 21:21] VITALS: BMI 44.8
[2022-07-08] VITALS (10 sets, daily range): BP systolic 100–136; BP diastolic 56–77; PULSE 58–70; RESP 15–26; TEMP 36.3–37.1; O2SAT 94–98; BMI 38.9; BMI 34.7
--- NOTE | 2022-07-08 14:44 | ED.ABDPAIN ---
HPI - Abdominal Pain General Chief Complaint: Abdominal Pain Stated Complaint: abdominal pain Time Seen by Provider: 07/08/22 14:44 History of Present Illness HPI narrative: 51-year-old female nonsmoker with history of AFib on Coumadin, CHF, reflux and prior gastric bypass presents by [facility] for evaluation of abdominal pain that started yesterday. She states that it has been a 7/10 sharp and stabbing mid to upper abdominal pain with radiation to her back. She is had no nausea or vomiting and denies any fever chills. She is had no change in bowel habits such as constipation or diarrhea and denies urinary complaints such as dysuria, frequency or urgency. She states that any movement seems to make it worse and resting helps. She denies any new medications or dietary change. Related Data Home Medications Medication Instructions Recorded Confirmed bupropion HCl 300 mg 24 hr tablet, 300 mg PO QDAY ##0 10/04/11 12/16/21 extended release (Wellbutrin XL) fluoxetine 40 mg capsule 80 mg PO QDAY ##0 10/04/11 12/16/21 gabapentin 600 mg tablet 600 mg PO BEDTIME ##2 10/04/11 12/16/21 (Neurontin) pantoprazole 40 mg tablet,delayed 40 mg PO QDAY ##0 10/04/11 12/16/21 release (Protonix) cholecalciferol (vitamin D3) 50 8,000 unit PO QDAY ##0 07/03/17 12/16/21 mcg (2,000 unit) capsule (Vitamin D3) cyanocobalamin (vitamin B-12) 1,000 mcg IM QMONTH ##0 07/03/17 12/16/21 1,000 mcg/mL injection solution acetaminophen 325 mg capsule 650 mg PO Q4H PRN Pain (Scale 12/16/21 12/16/21 (Tylenol) Score 1-3) cetirizine 10 mg tablet (Zyrtec) 10 mg PO DAILY 12/16/21 12/16/21 sotalol 80 mg tablet 80 mg PO BID 12/16/21 12/16/21 warfarin 5 mg tablet 5 mg PO DAILY 12/16/21 12/16/21 Previous Rx's Medication Instructions Recorded furosemide 40 mg tablet 40 mg PO QDAY #0 tabs 12/17/21 furosemide 40 mg tablet (Lasix) 40 mg PO BID #14 tabs 03/11/22 potassium chloride 20 mEq oral 20 meq PO BID #14 ea 03/11/22 packet Allergies Allergy/AdvReac Type Severity Reaction Status Date / Time clindamycin [CLINDAMYCIN] Allergy Severe Hives Verified 07/08/22 15:17 doxycycline [DOXYCYCLINE] Allergy Severe Hives Verified 07/08/22 15:17 Sulfa (Sulfonamide Allergy Severe Hives Verified 07/08/22 15:17 Antibiotics) [SULFA (SULFONAMIDE ANTIBIOTICS)] adhesive tape [ADHESIVE TAPE] Allergy Intermediate Verified 07/08/22 15:17 quetiapine [From SEROQUEL] AdvReac Severe Anxiety Verified 07/08/22 15:17 Review of Systems Review of Systems Narrative: GENERAL: Denies chills, fatigue, malaise, fever, sweats. HEENT: Denies sinus pain, ear pain, sore throat, difficulty swallowing, dizziness. RESPIRATORY: Denies dyspnea, cough, wheezing, hemoptysis, sputum. CARDIOVASCULAR: Denies chest pain, palpitations, orthopnea, edema, GASTROINTESTINAL: See HPI : Denies dysuria, frequency, incontinence, hematuria, urinary retention. MUSCULOSKELETAL: denies weakness, joint pain, or bony pain SKIN: Denies rash, skin lesions, or other NEUROLOGIC: Denies weakness, headache, numbness, change in speech, confusion, seizures, incoordination. PSYCHIATRIC: No concerning psychosocial issues. 12 point review of systems is negative except for those stated above Patient History Medical History (Updated 07/08/22 @ 18:13 by Srinivas Manzo MD) Atrial fibrillation CHF (congestive heart failure) Depression Depression Lymphedema Morbid obesity due to excess calories Surgical History (Updated 07/08/22 @ 18:12 by Srinivas Manzo MD) History of gastric bypass History of Liam-en-Y gastric bypass History of tonsillectomy Status post panniculectomy Family History (Updated 07/08/22 @ 18:11 by Srinivas Manzo MD) Father Prostate cancer Mother Congestive heart failure COPD (chronic obstructive pulmonary disease) Gallstones Social History household members: none Smoking Status: Never smoker alcohol intake: never Smoking Status: Never smoker Substance Use Type: does not use Exam Narrative Exam Narrative: GENERAL: [51] year old patient appears stated age. Well-developed patient, in mild distress. HEAD: Atraumatic. Normocephalic. EYES: Pupils equal round and reactive. Extraocular motions intact. No scleral icterus. No injection or drainage. ENT: Nose without bleeding, purulent drainage. Throat without erythema, tonsillar hypertrophy or exudate. Airway patent. NECK: Trachea midline. Non tender CARDIOVASCULAR: Regular rate and rhythm without murmurs, gallops, or rubs. RESPIRATORY: Clear to auscultation. Breath sounds equal bilaterally. No wheezes, rales, or rhonchi. GASTROINTESTINAL: Abdomen soft, mid abdominal pain, nondistended. Bowel sounds present in all 4 quadrants EXTREMITIES: No edema or joint tenderness. BACK: Nontender without deformity or crepitance. No flank tenderness. NEURO: AOx3. SKIN: No rash or erythema of visible areas Initial Vital Signs Initial Vital Signs: Vital Signs Temperature 97.9 F 07/08/22 14:58 Pulse Rate 62 07/08/22 14:58 Respiratory Rate 18 07/08/22 14:58 Blood Pressure 100/58 L 07/08/22 14:58 Pulse Oximetry 94 07/08/22 14:58 Oxygen Delivery Method 07/08/22 14:58 Course Orders Ordered: ED Orders 07/08/22 14:48 XR acute abdomen series Stat 07/08/22 15:05 Complete Blood Count AUTO DIFF Stat Comprehensive Metabolic Panel Stat Lactate (Lactic Acid) Stat Lipase Stat Magnesium Stat NT-proBNP (BNP-Adult 18+) Stat Prothrombin Time INR Stat Troponin & CK Cardiac Panel Stat 07/08/22 15:09 Urine Culture Stat Urine Microscopic Stat 07/08/22 15:13 EKG-12 Lead Stat 07/08/22 15:44 CT abdomen pelvis w con Stat Covid-19 + FLU A/B + RSV - PCR Stat Apixaban (Apixaban 5 Mg Tablet) 5 mg PO BID LUIS Gabapentin (Gabapentin 600 Mg Tablet) 600 mg PO BEDTIME LUIS Hydromorphone HCl (Hydromorphone 1 Mg Inj) 1 mg IV Q4H PRN PRN Reason: Pain, Severe (7-10) Last Admin: 07/08/22 18:04 Dose: 1 mg Documented By: MS Dextrose/Sodium Chloride (Dextrose 5%-0.9% Ns) 1,000 mls @ 100 mls/hr IV CONT LUIS Last Admin: 07/08/22 18:06 Dose: 100 mls/hr Documented By: POTASSIUM CHLORIDE IN WATER (Potassium Cl 10 Meq/100 Ml Savi) 10 meq in 100 mls @ 100 mls/hr IV Q1H [facility] Stop: 07/08/22 22:29 Naloxone HCl (Naloxone 0.4 Mg/Ml Vial) 0.2 mg IV Q2MIN PRN PRN Reason: Opiate Reversal Ondansetron HCl (Ondansetron 4 Mg/2 Ml Inj) 4 mg IV Q8HR PRN PRN Reason: Nausea And Vomiting Sotalol HCl (Sotalol 80 Mg Tablet) 80 mg PO BID [facility] Discontinued Medications Enoxaparin Sodium (Enoxaparin 40 Mg/0.4 Ml Syringe) 40 mg SUBCUT DAILY [facility] Sodium Chloride (Normal Saline 0.9%) 1,000 mls @ 1,000 mls/hr IV BOLUS ONE Stop: 07/08/22 15:46 Last Admin: 07/08/22 15:30 Dose: Not Given Documented By: HARI Ondansetron HCl (Ondansetron 4 Mg/2 Ml Inj) 4 mg IV NOW ONE Stop: 07/08/22 15:45 Last Admin: 07/08/22 16:34 Dose: 4 mg Documented By: HARI Pantoprazole Sodium (Pantoprazole 40 Mg Vial) 40 mg IV NOW ONE Stop: 07/08/22 15:45 Last Admin: 07/08/22 16:34 Dose: 40 mg Documented By: HARI Potassium Chloride (Potassium Chloride 20 Meq/15 Ml Udc) 40 meq PO NOW ONE Stop: 07/08/22 15:45 Last Admin: 07/08/22 16:34 Dose: 40 meq Documented By: HARI Vital Signs Vital signs: Vital Signs - 8 hr 07/08/22 14:58 07/08/22 15:11 07/08/22 15:30 Temperature 97.9 F Pulse Rate 62 61 Respiratory Rate 18 26 H Blood Pressure 100/58 L 116/64 Pulse Oximetry 94 98 Oxygen Delivery Method Room Air Room Air 07/08/22 15:30 07/08/22 16:00 07/08/22 16:01 Temperature Pulse Rate 58 L 70 Respiratory Rate 25 H Blood Pressure 116/57 L Pulse Oximetry 96 95 Oxygen Delivery Method Room Air 07/08/22 16:01 07/08/22 16:30 07/08/22 16:30 Temperature Pulse Rate 64 65 Respiratory Rate 18 20 Blood Pressure 116/56 L Pulse Oximetry 96 95 Oxygen Delivery Method 07/08/22 17:00 07/08/22 17:00 Temperature Pulse Rate 66 Respiratory Rate 20 Blood Pressure 106/57 L Pulse Oximetry 95 Oxygen Delivery Method Room Air MDM - Abdominal Pain Lab Data Result diagrams: 07/08/22 15:05 07/08/22 15:05 Labs: Lab Results 07/08/22 07/08/22 07/08/22 Range/Units 15:05 15:05 15:05 WBC 10.2 (4.5-11.0) X10^3/uL RBC 3.81 L (4.0-5.2) X10^6/uL Hgb 13.1 (12.0-16.0) g/dL Hct 40.9 (36-46) % MCV 107.3 H (80-100) fL MCH 34.3 H (26-34) PG MCHC 32.0 (30-36) % RDW 16.4 H (11.6-14.8) % Plt Count 234 (150-400) X10^3/uL Neut % (Auto) 88.8 H (50-75) % Lymph % (Auto) 4.1 L (25-40) % [place] % (Auto) 5.3 (3-14) % Eos % (Auto) 1.5 L (2-4) % Baso % (Auto) 0.3 (0-2) % Neut # (Auto) 9100 H (5469-0610) /uL Lymph # (Auto) 400 L (0379-5396) /uL [place] # (Auto) 500 (0-900) /uL Eos # (Auto) 200 (0-450) /uL Baso # (Auto) 0 (0-100) /uL PT 13.7 H (10.1-12.7) SECONDS INR 1.2 (0.9-1.3) Sodium 142 (137-145) mmol/L Potassium 3.1 L (3.4-5.1) mmol/L Chloride 107 (98-107) mmol/L Carbon Dioxide 22 (22-32) mmol/L BUN 26 H (7-17) mg/dL Creatinine 1.05 H (0.52-1.04) mg/dL Estimated GFR > 60 (>60) mL/min BUN/Creatinine Ratio 24.8 H (6-22) Glucose 93 (70-100) mg/dL Lactate (0.7-2.1) mmol/L Calcium 8.4 (8.4-10.2) mg/dL Magnesium 2.3 (1.6-2.3) mg/dL Total Bilirubin 0.6 (0.2-1.3) mg/dL AST 28 (14-36) IU/L ALT 22 (<35) IU/L Alkaline Phosphatase 89 (38-126) U/L Total Creatine Kinase 45 (30-135) U/L CK-MB (CK-2) TNP CK-MB (CK-2) Rel Index TNP Troponin I < 0.012 (0.01-0.034) ng/mL NT-Pro-B Natriuret Pep 1290 H (<125) pg/mL Total Protein 6.6 (6.3-8.2) g/dL Albumin 3.7 (3.5-5.0) g/dL Globulin 2.9 (1.7-4.1) g/dL Albumin/Globulin Ratio 1.3 (1.0-2.8) Lipase 5488 H (23-300) U/L Urine RBC (0-5/HPF) Urine WBC (0-5/HPF) Ur Squamous Epith Cells (0-5/HPF) Urine Bacteria (None) Ur Culture Indicated? SARS-CoV-2 (PCR) (Negative) Influenza A (RT-PCR) (NEGATIVE) Influenza B (RT-PCR) (NEGATIVE) RSV (PCR) (Negative) 07/08/22 07/08/22 07/08/22 Range/Units 15:05 15:09 15:44 WBC (4.5-11.0) X10^3/uL RBC (4.0-5.2) X10^6/uL Hgb (12.0-16.0) g/dL Hct (36-46) % MCV (80-100) fL MCH (26-34) PG MCHC (30-36) % RDW (11.6-14.8) % Plt Count (150-400) X10^3/uL Neut % (Auto) (50-75) % Lymph % (Auto) (25-40) % [place] % (Auto) (3-14) % Eos % (Auto) (2-4) % Baso % (Auto) (0-2) % Neut # (Auto) (7051-1728) /uL Lymph # (Auto) (6553-7455) /uL [place] # (Auto) (0-900) /uL Eos # (Auto) (0-450) /uL Baso # (Auto) (0-100) /uL PT (10.1-12.7) SECONDS INR (0.9-1.3) Sodium (137-145) mmol/L Potassium (3.4-5.1) mmol/L Chloride (98-107) mmol/L Carbon Dioxide (22-32) mmol/L BUN (7-17) mg/dL Creatinine (0.52-1.04) mg/dL Estimated GFR (>60) mL/min BUN/Creatinine Ratio (6-22) Glucose (70-100) mg/dL Lactate 1.1 (0.7-2.1) mmol/L Calcium (8.4-10.2) mg/dL Magnesium (1.6-2.3) mg/dL Total Bilirubin (0.2-1.3) mg/dL AST (14-36) IU/L ALT (<35) IU/L Alkaline Phosphatase (38-126) U/L Total Creatine Kinase (30-135) U/L CK-MB (CK-2) CK-MB (CK-2) Rel Index Troponin I (0.01-0.034) ng/mL NT-Pro-B Natriuret Pep (<125) pg/mL Total Protein (6.3-8.2) g/dL Albumin (3.5-5.0) g/dL Globulin (1.7-4.1) g/dL Albumin/Globulin Ratio (1.0-2.8) Lipase (23-300) U/L Urine RBC None seen (0-5/HPF) Urine WBC 1-5/hpf (0-5/HPF) Ur Squamous Epith Cells None seen (0-5/HPF) Urine Bacteria Many (>30) H (None) Ur Culture Indicated? Specimen cultured SARS-CoV-2 (PCR) Negative (Negative) Influenza A (RT-PCR) Flu a negative (NEGATIVE) Influenza B (RT-PCR) Flu b negative (NEGATIVE) RSV (PCR) Negative (Negative) Point of care testing: Urine Dip Bedside Urine Glucose Negative Bedside Urine Bilirubin - Negative Bedside Urine Ketone - Negative Urine Specific [place] 1.015 Bedside Urine Occult Blood +/- Bedside Urine pH 5.5 Bedside Urine Protein - Negative Bedside Urine Urobilinogen - Negative Bedside Urine Nitrite + Positive Bedside Urine Leukocytes - Negative Esterase Discharge Plan Departure Patient Disposition: Admitted as Observation Clinical Impression: Acute pancreatitis Admit Date/Time: 07/08/22 17:16 Admit Provider: Srinivas Manzo
--- NOTE | 2022-07-08 14:48 | DI.RAD.S_ITS ---
PROCEDURE: XR ACUTE ABDOMEN SERIES INDICATIONS: Abdominal pain TECHNIQUE: One view chest and two views of the abdomen were acquired. COMPARISON: None. FINDINGS: Surgical changes and devices: Clips project over the pelvis. Chest: Bibasilar opacities. No pleural effusions. Heart size is at the upper limit of normal. Abdomen: Nonspecific bowel gas pattern with prominent gas-filled loops of small and large bowel. Bones: Lower lumbar spondylosis. IMPRESSION: In the chest, there are bibasilar mild opacities could could represent atelectasis or early airspace disease such as aspiration. Consider future imaging surveillance to assess for resolution. In the abdomen, there are prominent gas-filled loops of both small and large bowel, overall pattern is nonspecific. Dictated by: Conner King M.D. on 07/08/2022 at 15:32 Approved by: Conner King M.D. on 07/08/2022 at 15:34
[2022-07-08 15:21] LABS: Add Manual Diff / Slide Review NO; Basophils Absolute Auto 0 /uL (0-100); Basophils Percent Auto 0.3 % (0-2); Eosinophils Absolute Auto 200 /uL (0-450); Eosinophils Percent Auto 1.5 % (2-4); Hematocrit 40.9 % (36-46); Hemoglobin 13.1 g/dL (12.0-16.0); Lymphocytes Absolute Auto 400 /uL (1100-4500); Lymphocytes Percent Auto 4.1 % (25-40); Mean Corpuscular Hemoglobin 34.3 PG (26-34); Mean Corpuscular Volume 107.3 fL (80-100); Monocytes Absolute Auto 500 /uL (0-900); Monocytes Percent Auto 5.3 % (3-14); Neutrophils Absolute Auto 9100 /uL (1500-7000); Neutrophils Percent Auto 88.8 % (50-75); Platelet Count 234 X10^3/uL (150-400); Red Blood Cell Count 3.81 X10^6/uL (4.0-5.2); Red Cell Distribution Width 16.4 % (11.6-14.8); White Blood Cell Count 10.2 X10^3/uL (4.5-11.0)
[2022-07-08 15:29] LABS: INR 1.2 (0.9-1.3); Prothrombin Time 13.7 SECONDS (10.1-12.7)
[2022-07-08 15:38] LABS: Lactate (Lactic Acid) 1.1 mmol/L (0.7-2.1)
[2022-07-08 15:39] LABS: Alanine Aminotransferase 22 IU/L (<35); Albumin 3.7 g/dL (3.5-5.0); Albumin Globulin Ratio 1.3 (1.0-2.8); Alkaline Phosphatase 89 U/L (38-126); Aspartate Aminotransferase 28 IU/L (14-36); BUN Creatinine Ratio 24.8 (6-22); Bilirubin Total 0.6 mg/dL (0.2-1.3); Blood Urea Nitrogen 26 mg/dL (7-17); Calcium 8.4 mg/dL (8.4-10.2); Carbon Dioxide 22 mmol/L (22-32); Chloride 107 mmol/L (98-107); Creatine Kinase 45 U/L (30-135); Estimated Glomerular Filt Rate > 60 mL/min (>60); Globulin 2.9 g/dL (1.7-4.1); Glucose 93 mg/dL (70-100); Magnesium 2.3 mg/dL (1.6-2.3); Potassium 3.1 mmol/L (3.4-5.1); Sodium 142 mmol/L (137-145); Total Protein 6.6 g/dL (6.3-8.2)
[2022-07-08 15:41] LABS: Bacteria Urine Many (>30); Culture Indicated Urine Specimen Cultured; RBC Urine None Seen (0-5/HPF); Squamous Epithelial Cell Urine None Seen (0-5/HPF); WBC Urine 1-5/HPF (0-5/HPF)
--- NOTE | 2022-07-08 15:44 | DI.CT.S_ITS ---
PROCEDURE: CT ABDOMEN PELVIS W CON INDICATIONS: severe pain, mid abdomen, hx gastric bypass TECHNIQUE: After the administration of intravenous contrast, axial sections acquired from the lung bases to the pubic symphysis. Coronal and sagittal reformats were performed. For radiation dose reduction, the following was used: automated exposure control, adjustment of mA and/or kV according to patient size. COMPARISON: [facility], CT, ABDOMEN/PELVIS WITH CONTRAST, 01/27/2014, 17:14. FINDINGS: Image quality: Good Lower chest: Suspected basal scarring/atelectasis. Heart size is at the upper limit of normal. Biatrial enlargement. Nonspecific distal esophageal wall thickening. Solid organs: Liver is unremarkable. Gallbladder is mildly distended. No pathologic dilation of the biliary tree or pancreatic duct. Moderate peripancreatic edema, extending to the anterior pararenal fascia bilaterally. There may be slightly decreased enhancement at the uncinate process and pancreatic head. There is also some edema surrounding the duodenum. No adrenal nodules. No splenomegaly. No hydronephrosis. Vessels and lymph nodes: The main portal vein is patent. No pathologic adenopathy by size criteria. Bowel and peritoneum: Gastric bypass changes. Chronic appearing adjacent blind-ending pouch, seen previously no bowel obstruction. Colonic diverticula. Focal inflammatory change at the splenic flexure. Body wall: Anterior abdominal wall postsurgical changes Pelvis: Reproductive organs appear physiologic. Bladder is unremarkable. Bones: No acute or suspicious osseous abnormality. Degenerative changes are present. Possible old right rib fracture deformity. IMPRESSION: Suspected pancreatitis with questionable hypoenhancement of the pancreatic head which could represent early necrosis. Moderate peripancreatic edema. Consider follow-up imaging to assess for any organizing fluid collections. There is also likely reactive inflammatory changes around the duodenum. Additional focal inflammatory change around the splenic flexure of the colon, possibly focal colitis. Differential includes water shed hypoperfusion. Other findings as above. Dictated by: Conner King M.D. on 07/08/2022 at 15:37 Approved by: Conner King M.D. on 07/08/2022 at 15:48
[2022-07-08 15:51] LABS: NT-proBNP (BNP-Adult 18+) 1290 pg/mL (<125); Troponin I < 0.012 ng/mL (0.01-0.034)
[2022-07-08 16:15] LABS: HEMOLYSIS 20 (0-50); Lipase 5488 U/L (23-300)
[2022-07-08 16:33] LABS: Influenza A - CEPHEID Flu A NEGATIVE (NEGATIVE); Influenza B - CEPHEID Flu B NEGATIVE (NEGATIVE); Respiratory Syncytial Virus Negative (Negative)
[2022-07-08 16:34] LABS: COVID-19 CEPHEID 4-PLEX PCR Negative (Negative)
[2022-07-08] MEDS: ONDANSETRON 4 MG/2 ML INJ IV (16:34)
[2022-07-08] MEDS: POTASSIUM CHLORIDE 20 MEQ/15 ML UDC 40 MEQ PO (16:34)
[2022-07-08] MEDS: PANTOPRAZOLE 40 MG VIAL IV (16:34)
[2022-07-08] MEDS: HYDROMORPHONE 1 MG INJ IV ×2 (18:04→21:56)
[2022-07-08] MEDS: DEXTROSE 5%-0.9% NS 1,000 ML 100 ML IV (18:06)
--- NOTE | 2022-07-08 18:07 | PM.HP.1 ---
History of Present Illness History of Present Illness Date Patient Seen: 07/08/22 Time Patient Seen: 18:07 Chief complaint: abdominal pain Narrative: This is a 51 year old female with CHF, Afib and Lymphedema who developed a strong pain in her abdomen radiating to her back yesterday afternoon while grocery shopping yesterday. The pain has not abated and she rates it as an 8.5 out of ten. She has no vomiting or rectal bleeding. She states that her history is complicated? by a ibrahima-en-y gastric bypass in 2013. She states that her lipids are well controlled by her statin. She denies alcohol use or a history of gallstone disease, although she mentions that her mother had gallstone problems. She states that she has been on disability for some time due to difficulty ambulating 2/2 lymphedema knee pain and weight gain. Her Lipase is elevated at 1,[address] scan shows: Suspected pancreatitis with questionable hypoenhancement of the pancreatic head which could represent early necrosis. Moderate peripancreatic edema.?There is also likely reactive inflammatory changes around the duodenum.? Additional focal inflammatory change around the splenic flexure of the colon, possibly focal colitis.?Differential includes water shed hypoperfusion.? Medical conditions: history of TROY, TIA, a-fib, CHF, Cellulitis of left leg, wound dehiscence, depression, morbid obesity Medications: bupropion, cetirizine, fluoxetine, furosemide, gabapentin, Eliquis, pantoprazole, sotalol, kcl Patient History Medical History (Updated 07/08/22 @ 18:13 by Srinivas Manzo MD) Atrial fibrillation CHF (congestive heart failure) Depression Depression Lymphedema Morbid obesity due to excess calories Surgical History (Updated 07/08/22 @ 18:12 by Srinivas Manzo MD) History of gastric bypass History of Ibrahima-en-Y gastric bypass History of tonsillectomy Status post panniculectomy Family & Social History Family History (Updated 07/08/22 @ 18:11 by Srinivas Manzo MD) Father Prostate cancer Mother Congestive heart failure COPD (chronic obstructive pulmonary disease) Gallstones Social History: household members none Safety & Behavioral: Feels Safe in Current Yes Environment Been Physically Hurt or No Threatened By a Person Tobacco & Substance use: Smoking Status Never smoker alcohol intake never Substance Use Type does not use Comment: Social history: on disability lives at home independently no drugs alcohol tobacco. PCP: ROBERT Miller Her backup decision maker is her sister in [place] - Gricelda Jasso. Meds Home Medications and Allergies Home Medications Medication Instructions Recorded Confirmed Type bupropion HCl 300 mg 24 hr tablet, 300 mg PO QDAY ##0 10/04/11 12/16/21 History extended release (Wellbutrin XL) fluoxetine 40 mg capsule 80 mg PO QDAY ##0 10/04/11 12/16/21 History gabapentin 600 mg tablet 600 mg PO BEDTIME ##2 10/04/11 12/16/21 History (Neurontin) pantoprazole 40 mg tablet,delayed 40 mg PO QDAY ##0 10/04/11 12/16/21 History release (Protonix) cholecalciferol (vitamin D3) 50 8,000 unit PO QDAY ##0 07/03/17 12/16/21 History mcg (2,000 unit) capsule (Vitamin D3) cyanocobalamin (vitamin B-12) 1,000 mcg IM QMONTH ##0 07/03/17 12/16/21 History 1,000 mcg/mL injection solution acetaminophen 325 mg capsule 650 mg PO Q4H PRN Pain (Scale 12/16/21 12/16/21 History (Tylenol) Score 1-3) cetirizine 10 mg tablet (Zyrtec) 10 mg PO DAILY 12/16/21 12/16/21 History sotalol 80 mg tablet 80 mg PO BID 12/16/21 12/16/21 History warfarin 5 mg tablet 5 mg PO DAILY 12/16/21 12/16/21 History furosemide 40 mg tablet 40 mg PO QDAY #0 tabs 12/17/21 12/16/21 Rx furosemide 40 mg tablet (Lasix) 40 mg PO BID #14 tabs 03/11/22 Rx potassium chloride 20 mEq oral 20 meq PO BID #14 ea 03/11/22 Rx packet Allergies Allergy/AdvReac Type Severity Reaction Status Date / Time clindamycin [CLINDAMYCIN] Allergy Severe Hives Verified 07/08/22 15:17 doxycycline [DOXYCYCLINE] Allergy Severe Hives Verified 07/08/22 15:17 Sulfa (Sulfonamide Allergy Severe Hives Verified 07/08/22 15:17 Antibiotics) [SULFA (SULFONAMIDE ANTIBIOTICS)] adhesive tape [ADHESIVE TAPE] Allergy Intermediate Verified 07/08/22 15:17 quetiapine [From SEROQUEL] AdvReac Severe Anxiety Verified 07/08/22 15:17 Review of Systems Review of Systems Narrative: GENERAL: Denies chills, fatigue, malaise, fever, sweats. HEENT: Denies sinus pain, ear pain, sore throat, difficulty swallowing, dizziness. RESPIRATORY: Denies dyspnea, cough, wheezing, hemoptysis, sputum. CARDIOVASCULAR: Denies chest pain, palpitations, orthopnea, edema, GASTROINTESTINAL:? See HPI : Denies dysuria, frequency, incontinence, hematuria, urinary retention. MUSCULOSKELETAL: denies weakness, joint pain, or bony pain SKIN: Denies rash, skin lesions, or other NEUROLOGIC: Denies weakness, headache, numbness, change in speech, confusion, seizures, incoordination. PSYCHIATRIC: No concerning psychosocial issues. Exam Vital Signs (past 8 hours): - 07/08/22 14:58 07/08/22 15:11 07/08/22 15:30 Temperature 97.9 F Pulse Rate 62 61 Respiratory Rate 18 26 H Blood Pressure 100/58 L 116/64 Pulse Oximetry 94 98 Oxygen Delivery Method Room Air Room Air 07/08/22 15:30 07/08/22 16:00 07/08/22 16:01 Temperature Pulse Rate 58 L 70 Respiratory Rate 25 H Blood Pressure 116/57 L Pulse Oximetry 96 95 Oxygen Delivery Method Room Air 07/08/22 16:01 07/08/22 16:30 07/08/22 16:30 Temperature Pulse Rate 64 65 Respiratory Rate 18 20 Blood Pressure 116/56 L Pulse Oximetry 96 95 Oxygen Delivery Method 07/08/22 17:00 07/08/22 17:00 07/08/22 17:30 Temperature Pulse Rate 66 Respiratory Rate 20 Blood Pressure 106/57 L 114/61 Pulse Oximetry 95 Oxygen Delivery Method Room Air 07/08/22 17:30 Temperature Pulse Rate 63 Respiratory Rate 17 Blood Pressure Pulse Oximetry 97 Oxygen Delivery Method Room Air Oxygen Delivery Method Room Air Narrative Exam Narrative: GENERAL: [51] year old patient appears stated age. Well-developed obese patient, in mild distress. HEAD: Atraumatic. Normocephalic. EYES: Pupils equal round and reactive. Extraocular motions intact. No scleral icterus. No injection or drainage. ENT: Nose without bleeding, purulent drainage. Throat without erythema, tonsillar hypertrophy or exudate. Airway patent. NECK: Trachea midline. Non tender CARDIOVASCULAR: Regular rate and rhythm without murmurs, gallops, or rubs. RESPIRATORY: Clear to auscultation. Breath sounds equal bilaterally. No wheezes, rales, or rhonchi.? GASTROINTESTINAL: Abdomen soft, severe central and epigastric abdominal tenderness, nondistended.? Bowel sounds present in all 4 quadrants EXTREMITIES: Extreme lower extremity edema. Layered wraps in place. No joint tenderness. BACK: without deformity. No flank tenderness. NEURO: AOx3. No tremor. CN 2-12 intact. Motor 4/5 throughout SKIN: No rash or erythema of visible areas Objective Labs Result Diagrams: 07/08/22 15:05 07/08/22 15:05 Labs: Laboratory Results - last 24 hr 07/08/22 07/08/22 07/08/22 15:05 15:05 15:05 WBC 10.2 RBC 3.81 L Hgb 13.1 Hct 40.9 MCV 107.3 H MCH 34.3 H MCHC 32.0 RDW 16.4 H Plt Count 234 Neut % (Auto) 88.8 H Lymph % (Auto) 4.1 L [place] % (Auto) 5.3 Eos % (Auto) 1.5 L Baso % (Auto) 0.3 Neut # (Auto) 9100 H Lymph # (Auto) 400 L [place] # (Auto) 500 Eos # (Auto) 200 Baso # (Auto) 0 PT 13.7 H INR 1.2 Sodium 142 Potassium 3.1 L Chloride 107 Carbon Dioxide 22 BUN 26 H Creatinine 1.05 H Estimated GFR > 60 BUN/Creatinine Ratio 24.8 H Glucose 93 Lactate Calcium 8.4 Magnesium 2.3 Total Bilirubin 0.6 AST 28 ALT 22 Alkaline Phosphatase 89 Total Creatine Kinase 45 CK-MB (CK-2) TNP CK-MB (CK-2) Rel Index TNP Troponin I < 0.012 NT-Pro-B Natriuret Pep 1290 H Total Protein 6.6 Albumin 3.7 Globulin 2.9 Albumin/Globulin Ratio 1.3 Lipase 5488 H Urine RBC Urine WBC Ur Squamous Epith Cells Urine Bacteria Ur Culture Indicated? SARS-CoV-2 (PCR) Influenza A (RT-PCR) Influenza B (RT-PCR) RSV (PCR) 07/08/22 07/08/22 07/08/22 15:05 15:09 15:44 WBC RBC Hgb Hct MCV MCH MCHC RDW Plt Count Neut % (Auto) Lymph % (Auto) [place] % (Auto) Eos % (Auto) Baso % (Auto) Neut # (Auto) Lymph # (Auto) [place] # (Auto) Eos # (Auto) Baso # (Auto) PT INR Sodium Potassium Chloride Carbon Dioxide BUN Creatinine Estimated GFR BUN/Creatinine Ratio Glucose Lactate 1.1 Calcium Magnesium Total Bilirubin AST ALT Alkaline Phosphatase Total Creatine Kinase CK-MB (CK-2) CK-MB (CK-2) Rel Index Troponin I NT-Pro-B Natriuret Pep Total Protein Albumin Globulin Albumin/Globulin Ratio Lipase Urine RBC None seen Urine WBC 1-5/hpf Ur Squamous Epith Cells None seen Urine Bacteria Many (>30) H Ur Culture Indicated? Specimen cultured SARS-CoV-2 (PCR) Negative Influenza A (RT-PCR) Flu a negative Influenza B (RT-PCR) Flu b negative RSV (PCR) Negative Assessment & Plan Assessment & Plan narrative: This is a 51 year old female with CHF, Afib and Lymphedema who developed a strong pain in her abdomen radiating to her back yesterday afternoon while grocery shopping. Acute Pancreatitis: -Lipase 5488 -CT scan with: Suspected pancreatitis with questionable hypoenhancement of the pancreatic head which could represent early necrosis. Moderate peripancreatic edema.?There is also likely reactive inflammatory changes around the duodenum.? Additional focal inflammatory change around the splenic flexure of the colon, possibly focal colitis.?Differential includes water shed hypoperfusion.? -No history of gallstones, no alcohol consumption. Waiting on lipids. Severe abdominal pain radiating to the back in a morbidly obese individual. -Order lipid panel routine cbc cmp pain control IV fluids w/ d5 NPO. Atrial Fibrillation: -Sotalol Congestive Heart Failure: -BNP 1,290 -IVF with caution -Holding Lasix, Kcl -No CHF symptoms on admission Severe Lymphedema: -Continue layered wraps and resume Lasix when appropriate Hypokalemia: -K 3.1 -IV Kcl 40 meq X 1 on admission -Follow DVT prevention with Eliquis Time Spent With Patient Critical Care time: I spent a total of [] minutes of critical care time on this patient's care today; this time is exclusive of procedural time.
[2022-07-08] MEDS: POTASSIUM CHLORIDE IN WATER 10 MEQ/100 ML PIGGYBACK 50 MEQ IV ×2 (19:24→20:40)
--- NOTE | 2022-07-08 19:37 | PC.ADMIT ---
Addendum entered by Radha Pacheco R.N. 07/08/22 19:38: Pt arrived to the floor at 1800. Pt is A&Ox4, able to make needs know. IV in R AC SL. Pt arrived with tablet, clothing, backpack, and home medications. Home medications labeled and sent down to the pharmacy via the tube system. Pt oriented to the room. Pt informed of bedside change of shift report, how to call infante. All questions answered at this time. Original Note: [email or web address] [facility] Admission Note: The patient,Adela Arthur,51 y/o, was given written information regarding hospital policies, unit procedures and contact persons. Patient's smoking status: Never smoker. Vital Signs - 8 hr 07/08/22 14:58 07/08/22 15:11 07/08/22 15:30 Temperature 97.9 F Pulse Rate 62 61 Respiratory Rate 18 26 H Blood Pressure 100/58 L 116/64 Pulse Oximetry 94 98 Oxygen Delivery Method Room Air Room Air Oxygen Flow Rate 07/08/22 15:30 07/08/22 16:00 07/08/22 16:01 Temperature Pulse Rate 58 L 70 Respiratory Rate 25 H Blood Pressure 116/57 L Pulse Oximetry 96 95 Oxygen Delivery Method Room Air Oxygen Flow Rate 07/08/22 16:01 07/08/22 16:30 07/08/22 16:30 Temperature Pulse Rate 64 65 Respiratory Rate 18 20 Blood Pressure 116/56 L Pulse Oximetry 96 95 Oxygen Delivery Method Oxygen Flow Rate 07/08/22 17:00 07/08/22 17:00 07/08/22 17:30 Temperature Pulse Rate 66 Respiratory Rate 20 Blood Pressure 106/57 L 114/61 Pulse Oximetry 95 Oxygen Delivery Method Room Air Oxygen Flow Rate 07/08/22 17:30 07/08/22 18:16 Temperature 97.4 F L Pulse Rate 63 62 Respiratory Rate 17 17 Blood Pressure 136/77 Pulse Oximetry 97 97 Oxygen Delivery Method Room Air Oxygen Flow Rate 0
[2022-07-08] MEDS: POTASSIUM CHLORIDE IN WATER 10 MEQ/100 ML PIGGYBACK 100 MEQ IV ×2 (22:30→23:18)
[2022-07-09] VITALS (7 sets, daily range): BP systolic 116–141; BP diastolic 60–66; PULSE 53–71; RESP 16–20; TEMP 36.3–36.7; O2SAT 93–99; BMI 34.7
[2022-07-09 04:43] LABS: Alanine Aminotransferase 19 IU/L (<35); Albumin Globulin Ratio 1.2 (1.0-2.8); Alkaline Phosphatase 74 U/L (38-126); Aspartate Aminotransferase 23 IU/L (14-36); BUN Creatinine Ratio 23.2 (6-22); Bilirubin Total 0.4 mg/dL (0.2-1.3); Blood Urea Nitrogen 22 mg/dL (7-17); Calcium 8.1 mg/dL (8.4-10.2); Carbon Dioxide 24 mmol/L (22-32); Chloride 112 mmol/L (98-107); Estimated Glomerular Filt Rate > 60 mL/min (>60); Globulin 2.6 g/dL (1.7-4.1); Glucose 117 mg/dL (70-100); HEMOLYSIS < 15 (0-50); Potassium 3.5 mmol/L (3.4-5.1); Sodium 142 mmol/L (137-145); Total Protein 5.6 g/dL (6.3-8.2)
[2022-07-09 04:45] LABS: Add Manual Diff / Slide Review NO; Basophils Absolute Auto 100 /uL (0-100); Basophils Percent Auto 0.5 % (0-2); Eosinophils Absolute Auto 100 /uL (0-450); Eosinophils Percent Auto 0.6 % (2-4); Hematocrit 37.2 % (36-46); Hemoglobin 11.9 g/dL (12.0-16.0); Lymphocytes Absolute Auto 600 /uL (1100-4500); Lymphocytes Percent Auto 5.7 % (25-40); Mean Corpuscular HGB Conc 31.9 % (30-36); Mean Corpuscular Volume 106.4 fL (80-100); Monocytes Absolute Auto 800 /uL (0-900); Monocytes Percent Auto 7.6 % (3-14); Neutrophils Absolute Auto 9400 /uL (1500-7000); Neutrophils Percent Auto 85.6 % (50-75); Platelet Count 206 X10^3/uL (150-400); Red Blood Cell Count 3.49 X10^6/uL (4.0-5.2); Red Cell Distribution Width 16.5 % (11.6-14.8)
[2022-07-09 05:12] LABS: Cholesterol 99 mg/dL (140-199); HDL Cholesterol 47 mg/dL (40-60); LDL Cholesterol Calculated 27 mg/dL (<100); Triglycerides 126 mg/dL (35-150)
[2022-07-09 05:38] LABS: Lipase 2017 U/L (23-300)
[2022-07-09] MEDS: SOTALOL 80 MG TABLET PO ×2 (09:13→20:00)
[2022-07-09] MEDS: APIXABAN 5 MG TABLET PO ×2 (09:13→20:00)
[2022-07-09] MEDS: HYDROMORPHONE 1 MG INJ IV ×2 (09:13→20:05)
[2022-07-09] MEDS: POTASSIUM CHLORIDE IN WATER 10 MEQ/100 ML PIGGYBACK 100 MEQ IV ×2 (09:14→11:13)
[2022-07-09] MEDS: DEXTROSE 5%-0.9% NS 1,000 ML 100 ML IV (09:14)
--- NOTE | 2022-07-09 11:44 | PC.NURSE ---
Assess- Patient is alert and oriented x4, given 1mg of iv pain medication and this has been helpful to patient. She has special dressings applied to her lower extremities as she has lymph edema. Patient has yeast area's under her folds. She is sleeping now and second k rider is almost finished.
--- NOTE | 2022-07-09 15:49 | P.PN_ITS ---
Subjective Subjective Date Patient Seen: 07/09/22 Interval history: 51 F admitted with acute pancreatitis. Unknown etiology as patient denies EtOH, no apparent biliary source, and triglycerides are negative. She is thirsty this morning, abdominal pain is slightly improved but still 4-5/10. Would like to try some liquids today. Exam Vital Signs (past 8 hours): - 07/09/22 13:34 Temperature 97.7 F Pulse Rate 53 L Respiratory Rate 16 Blood Pressure 120/65 Pulse Oximetry 96 Oxygen Flow Rate 1 Fraction of Inspired Oxygen 24 SaO2/FiO2 Ratio 387 Oxygen Delivery Method Nasal Cannula Oxygen Flow Rate 1 Narrative Exam Narrative: GENERAL: [51] year old patient appears stated age. Well-developed obese patient, no acute distress HEENT: dry mucous membranes, NCAT. NECK: Trachea midline. Non tender CARDIOVASCULAR: Regular rate and rhythm without murmurs, gallops, or rubs. RESPIRATORY: Clear to auscultation. Breath sounds equal bilaterally. No wheezes, rales, or rhonchi.? GASTROINTESTINAL: Abdomen soft, moderate, central and epigastric abdominal tenderness, nondistended.? Bowel sounds present in all 4 quadrants EXTREMITIES: b/l LE edema, chronic, no joint effusions. BACK: without deformity. No flank tenderness. NEURO: AOx3. No tremor. CN 2-12 intact. no focal neurological deficits. SKIN: No rash or erythema of visible areas Objective Labs Result Diagrams: 07/09/22 04:19 07/09/22 04:19 Labs: Laboratory Results - last 24 hr 07/08/22 07/08/22 07/09/22 15:05 15:44 04:19 WBC 11.0 RBC 3.49 L Hgb 11.9 L Hct 37.2 MCV 106.4 H MCH 34.0 MCHC 31.9 RDW 16.5 H Plt Count 206 Neut % (Auto) 85.6 H Lymph % (Auto) 5.7 L [place] % (Auto) 7.6 Eos % (Auto) 0.6 L Baso % (Auto) 0.5 Neut # (Auto) 9400 H Lymph # (Auto) 600 L [place] # (Auto) 800 Eos # (Auto) 100 Baso # (Auto) 100 Sodium Potassium Chloride Carbon Dioxide BUN Creatinine Estimated GFR BUN/Creatinine Ratio Glucose Calcium Total Bilirubin AST ALT Alkaline Phosphatase Troponin I < 0.012 NT-Pro-B Natriuret Pep 1290 H Total Protein Albumin Globulin Albumin/Globulin Ratio Triglycerides Cholesterol LDL Cholesterol, Calc HDL Cholesterol Lipase 5488 H SARS-CoV-2 (PCR) Negative Influenza A (RT-PCR) Flu a negative Influenza B (RT-PCR) Flu b negative RSV (PCR) Negative 07/09/22 07/09/22 04:19 04:19 WBC RBC Hgb Hct MCV MCH MCHC RDW Plt Count Neut % (Auto) Lymph % (Auto) [place] % (Auto) Eos % (Auto) Baso % (Auto) Neut # (Auto) Lymph # (Auto) [place] # (Auto) Eos # (Auto) Baso # (Auto) Sodium 142 Potassium 3.5 Chloride 112 H Carbon Dioxide 24 BUN 22 H Creatinine 0.95 Estimated GFR > 60 BUN/Creatinine Ratio 23.2 H Glucose 117 H Calcium 8.1 L Total Bilirubin 0.4 AST 23 ALT 19 Alkaline Phosphatase 74 Troponin I NT-Pro-B Natriuret Pep Total Protein 5.6 L Albumin 3.0 L Globulin 2.6 Albumin/Globulin Ratio 1.2 Triglycerides 126 Cholesterol 99 L LDL Cholesterol, Calc 27 HDL Cholesterol 47 Lipase 2017 H D SARS-CoV-2 (PCR) Influenza A (RT-PCR) Influenza B (RT-PCR) RSV (PCR) PFSH Medical History (Updated 07/08/22 @ 18:13 by Srinivas Manzo MD) Atrial fibrillation CHF (congestive heart failure) Depression Depression Lymphedema Morbid obesity due to excess calories Surgical History (Updated 07/08/22 @ 18:12 by Srinivas Manzo MD) History of gastric bypass History of Liam-en-Y gastric bypass History of tonsillectomy Status post panniculectomy Family History (Updated 07/08/22 @ 18:11 by Srinivas Manzo MD) Father Prostate cancer Mother Congestive heart failure COPD (chronic obstructive pulmonary disease) Gallstones Social History household members: none Smoking Status: Never smoker alcohol intake: never Assessment & Plan Assessment & Plan narrative: This is a 51 year old female with CHF, Afib and Lymphedema who is admitted with an episode of pancreatitis. Acute Pancreatitis: -Lipase 5488 -CT scan with: Suspected pancreatitis with questionable hypoenhancement of the pancreatic head which could represent early necrosis. Moderate peripancreatic edema.?There is also likely reactive inflammatory changes around the duodenum.? Additional focal inflammatory change around the splenic flexure of the colon, possibly focal colitis.?Differential includes water shed hypoperfusion.? -No history of gallstones, no alcohol consumption, TG normal, etiology not entirely clear may be medication related? -continue to advanced diet as tolerated, to clears today. Can also start oral pain relief. Atrial Fibrillation: -Sotalol Congestive Heart Failure: -BNP 1,290 -can stop IV fluids today if tolerating clears. -Holding Lasix, Kcl -No CHF symptoms on admission Severe Lymphedema: -Continue layered wraps and resume Lasix when appropriate Hypokalemia: -K 3.1 -IV Kcl 40 meq X 1 on admission -Follow DVT prevention with Eliquis Time Spent With Patient Critical Care time: I spent a total of [] minutes of critical care time on this patient's care toda y; this time is exclusive of procedural time. Quality VTE Deep Vein Thrombosis/Pulmonary Embolism Present on Admission: No
--- NOTE | 2022-07-09 16:27 | CM.DANOTE ---
Discharge Assessment Note: Case reviewed and met with patient in her room. Introduced self and role. Payer: [facility] and Medicaid PCP: Dottie Miller 51 year old obese admitted yesterday with abdominal pain, CHF, Afib, hypokalemia. She has severe lymphedema which she manages with Farro wraps to calves. Patient lives alone in rented condo with her dogs and is independent in ADLs, drives. Her brother in law helps her with dogs. Her sister lives in [place]. Plan: Return home to prior living arrangement when medically cleared. [place] Discharge Planning/Care Management CM Discharge Assessment Start: 07/09/22 16:25 Freq: Status: Active Protocol: Document 07/09/22 16:25 (Rec: 07/09/22 16:27 [id number]) Discharge Planning Assessment Assigned Ship[employer] Faith Mercedes RN/DCP Advance Directives? Yes Advance Directives on File Yes: Given at last vist History Provided By Patient,Medical Record Prior Living Arrangements Apartment/Condo Household Members none Type of transporation used prior to Drives own vehicle admit Independent with ADL's Yes Is patient alert and oriented? Yes Caregiver for Another No Comment Has all DME (her mother's previously) She uses Farro wraps to her legs for lymphedema. Discharge Plan Home Referrals Initiated None needed Review Status In Process Next Review Type Continued Stay Review
[2022-07-09] MEDS: GABAPENTIN 600 MG TABLET PO (20:00)
[2022-07-10] VITALS (7 sets, daily range): BP systolic 104–124; BP diastolic 55–71; PULSE 72–87; RESP 16–18; TEMP 36.3–36.7; O2SAT 92–97
[2022-07-10] MEDS: HYDROMORPHONE 1 MG INJ IV ×3 (03:00→21:51)
[2022-07-10 05:12] LABS: Add Manual Diff / Slide Review NO; Basophils Absolute Auto 0 /uL (0-100); Basophils Percent Auto 0.3 % (0-2); Eosinophils Absolute Auto 300 /uL (0-450); Eosinophils Percent Auto 2.9 % (2-4); Hematocrit 34.6 % (36-46); Hemoglobin 11.1 g/dL (12.0-16.0); Lymphocytes Absolute Auto 900 /uL (1100-4500); Lymphocytes Percent Auto 8.3 % (25-40); Mean Corpuscular Hemoglobin 34.5 PG (26-34); Mean Corpuscular Volume 107.7 fL (80-100); Monocytes Absolute Auto 1200 /uL (0-900); Monocytes Percent Auto 11.2 % (3-14); Neutrophils Absolute Auto 8200 /uL (1500-7000); Neutrophils Percent Auto 77.3 % (50-75); Platelet Count 190 X10^3/uL (150-400); Red Blood Cell Count 3.21 X10^6/uL (4.0-5.2); Red Cell Distribution Width 16.4 % (11.6-14.8); White Blood Cell Count 10.6 X10^3/uL (4.5-11.0)
[2022-07-10 05:37] LABS: Alanine Aminotransferase 17 IU/L (<35); Albumin 2.7 g/dL (3.5-5.0); Alkaline Phosphatase 84 U/L (38-126); Aspartate Aminotransferase 20 IU/L (14-36); BUN Creatinine Ratio 21.3 (6-22); Bilirubin Total 0.5 mg/dL (0.2-1.3); Blood Urea Nitrogen 17 mg/dL (7-17); Calcium 8.1 mg/dL (8.4-10.2); Carbon Dioxide 25 mmol/L (22-32); Chloride 108 mmol/L (98-107); Estimated Glomerular Filt Rate > 60 mL/min (>60); Globulin 2.6 g/dL (1.7-4.1); Glucose 91 mg/dL (70-100); HEMOLYSIS < 15 (0-50); Magnesium 2.1 mg/dL (1.6-2.3); Potassium 3.8 mmol/L (3.4-5.1); Sodium 137 mmol/L (137-145); Total Protein 5.3 g/dL (6.3-8.2)
[2022-07-10] MEDS: APIXABAN 5 MG TABLET PO ×2 (08:21→21:51)
[2022-07-10] MEDS: SOTALOL 80 MG TABLET PO ×2 (08:21→21:51)
[2022-07-10] MEDS: OXYCODONE IR 5 MG TABLET PO (12:46)
--- NOTE | 2022-07-10 16:38 | P.PN_ITS ---
Subjective Subjective Date Patient Seen: 07/10/22 Interval history: 51 F admitted with acute pancreatitis. Unknown etiology as patient denies EtOH, no apparent biliary source, and triglycerides are negative. She has continued abdominal pain and slight nausea, but would like to trial increased diet. Exam Vital Signs (past 8 hours): - 07/10/22 08:58 07/10/22 10:55 07/10/22 15:47 Temperature 97.9 F 97.8 F Pulse Rate 77 72 87 Respiratory Rate 16 16 Blood Pressure 124/70 104/63 105/56 L Pulse Oximetry 93 93 Fraction of Inspired Oxygen 28 SaO2/FiO2 Ratio 332 Oxygen Delivery Method Nasal Cannula Oxygen Flow Rate 2 Narrative Exam Narrative: GENERAL: [51] year old patient appears stated age. Well-developed obese patient, no acute distress HEENT: dry mucous membranes, NCAT. NECK: Trachea midline. Non tender CARDIOVASCULAR: Regular rate and rhythm without murmurs, gallops, or rubs. RESPIRATORY: Clear to auscultation. Breath sounds equal bilaterally. No wheezes, rales, or rhonchi.? GASTROINTESTINAL: Abdomen soft, moderate, central and epigastric abdominal tenderness, nondistended.? Bowel sounds present in all 4 quadrants EXTREMITIES: b/l LE edema, chronic, no joint effusions. BACK: without deformity. No flank tenderness. NEURO: AOx3. No tremor. CN 2-12 intact. no focal neurological deficits. SKIN: No rash or erythema of visible areas Objective Labs Result Diagrams: 07/10/22 04:43 07/10/22 04:43 Labs: Laboratory Results - last 24 hr 07/10/22 07/10/22 04:43 04:43 WBC 10.6 RBC 3.21 L Hgb 11.1 L Hct 34.6 L MCV 107.7 H MCH 34.5 H MCHC 32.0 RDW 16.4 H Plt Count 190 Neut % (Auto) 77.3 H Lymph % (Auto) 8.3 L [place] % (Auto) 11.2 Eos % (Auto) 2.9 Baso % (Auto) 0.3 Neut # (Auto) 8200 H Lymph # (Auto) 900 L [place] # (Auto) 1200 H Eos # (Auto) 300 Baso # (Auto) 0 Sodium 137 Potassium 3.8 Chloride 108 H Carbon Dioxide 25 BUN 17 Creatinine 0.80 Estimated GFR > 60 BUN/Creatinine Ratio 21.3 Glucose 91 Calcium 8.1 L Magnesium 2.1 Total Bilirubin 0.5 AST 20 ALT 17 Alkaline Phosphatase 84 Total Protein 5.3 L Albumin 2.7 L Globulin 2.6 Albumin/Globulin Ratio 1.0 PFSH Medical History (Updated 07/08/22 @ 18:13 by Srinivas Manzo MD) Atrial fibrillation CHF (congestive heart failure) Depression Depression Lymphedema Morbid obesity due to excess calories Surgical History (Updated 07/08/22 @ 18:12 by Srinivas Manzo MD) History of gastric bypass History of Liam-en-Y gastric bypass History of tonsillectomy Status post panniculectomy Family History (Updated 07/08/22 @ 18:11 by Srinivas Manzo MD) Father Prostate cancer Mother Congestive heart failure COPD (chronic obstructive pulmonary disease) Gallstones Social History household members: none Smoking Status: Never smoker alcohol intake: never Assessment & Plan Assessment & Plan narrative: This is a 51 year old female with CHF, Afib and Lymphedema who is admitted with an episode of pancreatitis. Acute Pancreatitis: -Lipase 5488 -CT scan with: Suspected pancreatitis with questionable hypoenhancement of the pancreatic head which could represent early necrosis. Moderate peripancreatic edema.?There is also likely reactive inflammatory changes around the duodenum.? Additional focal inflammatory change around the splenic flexure of the colon, possibly focal colitis.?Differential includes water shed hypoperfusion.? -No history of gallstones, no alcohol consumption, TG normal, etiology not entirely clear may be medication related? -continue to advanced diet as tolerated, to low fat this evening.continue oral pain relief. Atrial Fibrillation: -Sotalol to continue, no implication in pancreatitis. -continue eliquis Severe Lymphedema: -Continue layered wraps and resume Lasix when appropriate Hypokalemia: -K 3.1 -IV Kcl 40 meq X 1 on admission -Follow DVT prevention with Eliquis Time Spent With Patient Critical Care time: I spent a total of [] minutes of critical care time on this patient's care today; this time is exclusive of procedural time. Quality VTE Deep Vein Thrombosis/Pulmonary Embolism Present on Admission: No
[2022-07-10] MEDS: GABAPENTIN 600 MG TABLET PO (21:51)
[2022-07-11 02:10] VITALS: BP 101/54; PULSE 73; RESP 14; TEMP 36.7; O2SAT 97
[2022-07-11 05:29] LABS: Add Manual Diff / Slide Review NO; Basophils Absolute Auto 100 /uL (0-100); Basophils Percent Auto 0.6 % (0-2); Eosinophils Absolute Auto 400 /uL (0-450); Eosinophils Percent Auto 3.7 % (2-4); Hematocrit 34.5 % (36-46); Lymphocytes Absolute Auto 1100 /uL (1100-4500); Lymphocytes Percent Auto 11.7 % (25-40); Mean Corpuscular HGB Conc 31.8 % (30-36); Mean Corpuscular Hemoglobin 34.5 PG (26-34); Mean Corpuscular Volume 108.7 fL (80-100); Monocytes Absolute Auto 1100 /uL (0-900); Monocytes Percent Auto 11.5 % (3-14); Neutrophils Absolute Auto 6800 /uL (1500-7000); Neutrophils Percent Auto 72.5 % (50-75); Platelet Count 199 X10^3/uL (150-400); Red Blood Cell Count 3.18 X10^6/uL (4.0-5.2); Red Cell Distribution Width 16.3 % (11.6-14.8); White Blood Cell Count 9.4 X10^3/uL (4.5-11.0)
[2022-07-11 05:43] LABS: Alanine Aminotransferase 16 IU/L (<35); Albumin 2.6 g/dL (3.5-5.0); Albumin Globulin Ratio 0.9 (1.0-2.8); Alkaline Phosphatase 85 U/L (38-126); Aspartate Aminotransferase 18 IU/L (14-36); BUN Creatinine Ratio 21.4 (6-22); Bilirubin Total 0.6 mg/dL (0.2-1.3); Blood Urea Nitrogen 15 mg/dL (7-17); Calcium 8.2 mg/dL (8.4-10.2); Carbon Dioxide 25 mmol/L (22-32); Chloride 105 mmol/L (98-107); Estimated Glomerular Filt Rate > 60 mL/min (>60); Globulin 2.8 g/dL (1.7-4.1); Glucose 90 mg/dL (70-100); HEMOLYSIS < 15 (0-50); Magnesium 2.2 mg/dL (1.6-2.3); Potassium 3.8 mmol/L (3.4-5.1); Sodium 138 mmol/L (137-145); Total Protein 5.4 g/dL (6.3-8.2)
[2022-07-11] MEDS: ONDANSETRON 4 MG/2 ML INJ IV (06:34)
[2022-07-11 08:59] VITALS: BP 103/53; PULSE 77; RESP 18; TEMP 36.4; O2SAT 95
[2022-07-11] MEDS: APIXABAN 5 MG TABLET PO ×2 (10:46→21:58)
[2022-07-11] MEDS: SOTALOL 80 MG TABLET PO (10:46)
[2022-07-11] MEDS: OXYCODONE IR 5 MG TABLET PO (10:47)
[2022-07-11 10:57] VITALS: O2SAT 98
[2022-07-11 12:10] VITALS: BP 97/54; PULSE 74; RESP 18; TEMP 37.3; O2SAT 93
--- NOTE | 2022-07-11 16:49 | P.PN_ITS ---
Subjective Subjective Date Patient Seen: 07/11/22 Interval history: 51 F admitted with acute pancreatitis. Unknown etiology as patient denies EtOH, no apparent biliary source, and triglycerides are negative. She has continued abdominal pain and slight nausea on low fat diet. Exam Vital Signs (past 8 hours): - 07/11/22 08:59 07/11/22 10:57 07/11/22 12:10 Temperature 97.6 F 99.1 F Pulse Rate 77 74 Respiratory Rate 18 18 Blood Pressure 103/53 L 97/54 L Pulse Oximetry 95 98 93 Oxygen Delivery Method Nasal Cannula Oxygen Flow Rate 1 0.5 0 Fraction of Inspired Oxygen 24 SaO2/FiO2 Ratio 387 Oxygen Delivery Method Nasal Cannula Oxygen Flow Rate 0 Narrative Exam Narrative: GENERAL: [51] year old patient appears stated age. Well-developed obese patient, no acute distress HEENT: dry mucous membranes, NCAT. NECK: Trachea midline. Non tender CARDIOVASCULAR: Regular rate and rhythm without murmurs, gallops, or rubs. RESPIRATORY: Clear to auscultation. Breath sounds equal bilaterally. No wheezes, rales, or rhonchi.? GASTROINTESTINAL: Abdomen soft, moderate, central and epigastric abdominal tenderness, nondistended.? Bowel sounds present in all 4 quadrants EXTREMITIES: b/l LE edema, chronic, no joint effusions. BACK: without deformity. No flank tenderness. NEURO: AOx3. No tremor. CN 2-12 intact. no focal neurological deficits. SKIN: No rash or erythema of visible areas Objective Labs Result Diagrams: 07/11/22 05:04 07/11/22 05:04 Labs: Laboratory Results - last 24 hr 07/11/22 07/11/22 05:04 05:04 WBC 9.4 RBC 3.18 L Hgb 11.0 L Hct 34.5 L MCV 108.7 H MCH 34.5 H MCHC 31.8 RDW 16.3 H Plt Count 199 Neut % (Auto) 72.5 Lymph % (Auto) 11.7 L Dickinson % (Auto) 11.5 Eos % (Auto) 3.7 Baso % (Auto) 0.6 Neut # (Auto) 6800 Lymph # (Auto) 1100 Dickinson # (Auto) 1100 H Eos # (Auto) 400 Baso # (Auto) 100 Sodium 138 Potassium 3.8 Chloride 105 Carbon Dioxide 25 BUN 15 Creatinine 0.70 Estimated GFR > 60 BUN/Creatinine Ratio 21.4 Glucose 90 Calcium 8.2 L Magnesium 2.2 Total Bilirubin 0.6 AST 18 ALT 16 Alkaline Phosphatase 85 Total Protein 5.4 L Albumin 2.6 L Globulin 2.8 Albumin/Globulin Ratio 0.9 L PFSH Medical History (Updated 07/08/22 @ 18:13 by Srinivas Manzo MD) Atrial fibrillation CHF (congestive heart failure) Depression Depression Lymphedema Morbid obesity due to excess calories Surgical History (Updated 07/08/22 @ 18:12 by Srinivas Manzo MD) History of gastric bypass History of Liam-en-Y gastric bypass History of tonsillectomy Status post panniculectomy Family History (Updated 07/08/22 @ 18:11 by Srinivas Manzo MD) Father Prostate cancer Mother Congestive heart failure COPD (chronic obstructive pulmonary disease) Gallstones Social History household members: none Smoking Status: Never smoker alcohol intake: never Assessment & Plan Assessment & Plan narrative: This is a 51 year old female with CHF, Afib and Lymphedema who is admitted with an episode of pancreatitis. Acute Pancreatitis: -Lipase 5488 -CT scan with: Suspected pancreatitis with questionable hypoenhancement of the pancreatic head which could represent early necrosis. Moderate peripancreatic edema.?There is also likely reactive inflammatory changes around the duodenum.? Additional focal inflammatory change around the splenic flexure of the colon, possibly focal colitis.?Differential includes water shed hypoperfusion.? -No history of gallstones, no alcohol consumption, TG normal, etiology not ent irely clear may be medication related? -continue to advanced diet as tolerated, now on low fat but continued abdominal pain and nausea. If controlled with oral medications possible discharge home tomorrow. Atrial Fibrillation: -Sotalol to continue, no implication in pancreatitis. -continue eliquis Severe Lymphedema: -Continue layered wraps and resume Lasix when appropriate Hypokalemia: -K 3.1, now improved -IV Kcl 40 meq X 1 on admission -Follow DVT prevention with Eliquis Time Spent With Patient Critical Care time: I spent a total of [] minutes of critical care time on this patient's care today; this time is exclusive of procedural time. Quality VTE Deep Vein Thrombosis/Pulmonary Embolism Present on Admission: No
[2022-07-11] MEDS: HYDROMORPHONE 2 MG TABLET PO ×2 (18:11→22:22)
[2022-07-11 18:44] VITALS: BP 104/54; PULSE 75; RESP 18; TEMP 36.5; O2SAT 92
[2022-07-11] MEDS: GABAPENTIN 600 MG TABLET PO (21:58)
[2022-07-11 22:23] VITALS: BP 109/66; PULSE 81; RESP 17; TEMP 36.7; O2SAT 93
[2022-07-12 05:23] LABS: Add Manual Diff / Slide Review NO; Basophils Absolute Auto 100 /uL (0-100); Basophils Percent Auto 0.6 % (0-2); Eosinophils Absolute Auto 300 /uL (0-450); Eosinophils Percent Auto 4.1 % (2-4); Hematocrit 31.2 % (36-46); Hemoglobin 9.9 g/dL (12.0-16.0); Lymphocytes Absolute Auto 1200 /uL (1100-4500); Lymphocytes Percent Auto 14.2 % (25-40); Mean Corpuscular HGB Conc 31.8 % (30-36); Mean Corpuscular Hemoglobin 34.4 PG (26-34); Mean Corpuscular Volume 108.3 fL (80-100); Monocytes Absolute Auto 1100 /uL (0-900); Monocytes Percent Auto 12.8 % (3-14); Neutrophils Absolute Auto 5700 /uL (1500-7000); Neutrophils Percent Auto 68.3 % (50-75); Platelet Count 227 X10^3/uL (150-400); Red Blood Cell Count 2.88 X10^6/uL (4.0-5.2); White Blood Cell Count 8.4 X10^3/uL (4.5-11.0)
[2022-07-12 05:26] VITALS: BP 107/59; PULSE 76; RESP 16; TEMP 36.1; O2SAT 96
[2022-07-12 05:29] LABS: Alanine Aminotransferase 15 IU/L (<35); Albumin 2.5 g/dL (3.5-5.0); Albumin Globulin Ratio 0.9 (1.0-2.8); Alkaline Phosphatase 80 U/L (38-126); Aspartate Aminotransferase 15 IU/L (14-36); BUN Creatinine Ratio 19.7 (6-22); Bilirubin Total 0.6 mg/dL (0.2-1.3); Blood Urea Nitrogen 13 mg/dL (7-17); Calcium 7.9 mg/dL (8.4-10.2); Carbon Dioxide 28 mmol/L (22-32); Chloride 105 mmol/L (98-107); Estimated Glomerular Filt Rate > 60 mL/min (>60); Globulin 2.7 g/dL (1.7-4.1); Glucose 85 mg/dL (70-100); HEMOLYSIS < 15 (0-50); Potassium 3.9 mmol/L (3.4-5.1); Sodium 137 mmol/L (137-145); Total Protein 5.2 g/dL (6.3-8.2)
[2022-07-12] MEDS: APIXABAN 5 MG TABLET PO ×2 (09:22→21:17)
[2022-07-12] MEDS: HYDROMORPHONE 2 MG TABLET PO (09:28)
[2022-07-12] MEDS: ONDANSETRON 4 MG/2 ML INJ IV ×2 (09:30→15:14)
[2022-07-12 09:56] LABS: Lipase 436 U/L (23-300)
[2022-07-12 12:00] VITALS: BP 104/61; PULSE 86; RESP 18; TEMP 37.2; O2SAT 94
--- NOTE | 2022-07-12 14:43 | P.PN_ITS ---
Subjective Subjective Date Patient Seen: 07/12/22 Interval history: 51 F admitted with acute pancreatitis. Unknown etiology as patient denies EtOH, no apparent biliary source, and triglycerides are negative. Minimally tolerating a low fat diet, she has less pain than yesterday however. Exam Vital Signs (past 8 hours): - 07/12/22 12:00 Temperature 98.9 F Pulse Rate 86 Respiratory Rate 18 Blood Pressure 104/61 Pulse Oximetry 94 Oxygen Flow Rate 0 Fraction of Inspired Oxygen 24 SaO2/FiO2 Ratio 387 Oxygen Delivery Method Nasal Cannula Oxygen Flow Rate 0 Narrative Exam Narrative: GENERAL: [51] year old patient appears stated age. Well-developed obese patient, no acute distress HEENT: dry mucous membranes, NCAT. NECK: Trachea midline. Non tender CARDIOVASCULAR: Regular rate and rhythm without murmurs, gallops, or rubs. RESPIRATORY: Clear to auscultation. Breath sounds equal bilaterally. No wheezes, rales, or rhonchi.? GASTROINTESTINAL: Abdomen soft, moderate, central and epigastric abdominal tenderness, nondistended.? Bowel sounds present in all 4 quadrants EXTREMITIES: b/l LE edema, chronic, no joint effusions. BACK: without deformity. No flank tenderness. NEURO: AOx3. No tremor. CN 2-12 intact. no focal neurological deficits. SKIN: No rash or erythema of visible areas Objective Labs Result Diagrams: 07/12/22 04:55 07/12/22 04:55 Labs: Laboratory Results - last 24 hr 07/12/22 07/12/22 07/12/22 04:55 04:55 04:55 WBC 8.4 RBC 2.88 L Hgb 9.9 L Hct 31.2 L MCV 108.3 H MCH 34.4 H MCHC 31.8 RDW 16.0 H Plt Count 227 Neut % (Auto) 68.3 Lymph % (Auto) 14.2 L [place] % (Auto) 12.8 Eos % (Auto) 4.1 H Baso % (Auto) 0.6 Neut # (Auto) 5700 Lymph # (Auto) 1200 [place] # (Auto) 1100 H Eos # (Auto) 300 Baso # (Auto) 100 Sodium 137 Potassium 3.9 Chloride 105 Carbon Dioxide 28 BUN 13 Creatinine 0.66 Estimated GFR > 60 BUN/Creatinine Ratio 19.7 Glucose 85 Calcium 7.9 L Magnesium 2.0 Total Bilirubin 0.6 AST 15 ALT 15 Alkaline Phosphatase 80 Total Protein 5.2 L Albumin 2.5 L Globulin 2.7 Albumin/Globulin Ratio 0.9 L Lipase 436 H [facility] Medical History (Updated 07/08/22 @ 18:13 by Srinivas Manzo MD) Atrial fibrillation CHF (congestive heart failure) Depression Depression Lymphedema Morbid obesity due to excess calories Surgical History (Updated 07/08/22 @ 18:12 by Srinivas Manzo MD) History of gastric bypass History of Liam-en-Y gastric bypass History of tonsillectomy Status post panniculectomy Family History (Updated 07/08/22 @ 18:11 by Srinivas Manzo MD) Father Prostate cancer Mother Congestive heart failure COPD (chronic obstructive pulmonary disease) Gallstones Social History household members: none Smoking Status: Never smoker alcohol intake: never Assessment & Plan Assessment & Plan narrative: This is a 51 year old female with CHF, Afib and Lymphedema who is admitted with an episode of pancreatitis. Acute Pancreatitis: -Lipase 5488 on admission. -CT scan with: Suspected pancreatitis with questionable hypoenhancement of the pancreatic head which could represent early necrosis. Moderate peripancreatic edema.?There is also likely reactive inflammatory changes around the duodenum.? Additional focal inflammatory change around the splenic flexure of the colon, possibly focal colitis.?Differential includes water shed hypoperfusion.? -No history of gallstones, no alcohol consumption, TG normal, etiology not entirely clear may be medication related? -continue to advanced diet as tolerated, now on low fat but continued poor appetite, pain is slow to improve. -Lipase improved to 436 which was repeated to reassess her pancreatitis given poor appetite. If not able to tolerate adequate oral intake tomorrow, consider repeat imaging. Atrial Fibrillation: -Sotalol to continue, no implication in pancreatitis. -continue eliquis Severe Lymphedema: -Continue layered wraps and resume Lasix when appropriate Hypokalemia: -K 3.1, now improved suspect secondary to GI losses -IV Kcl 40 meq X 1 on admission -Follow DVT prevention with Eliquis Time Spent With Patient Critical Care time: I spent a total of [] minutes of critical care time on this patient's care today; this time is exclusive of procedural time. Quality VTE Deep Vein Thrombosis/Pulmonary Embolism Present on Admission: No
[2022-07-12] MEDS: HYDROMORPHONE 1 MG INJ IV ×2 (14:47→21:22)
[2022-07-12 18:00] VITALS: BP 104/60; PULSE 80; RESP 17; TEMP 36.4; O2SAT 95
[2022-07-12 20:25] VITALS: BP 116/65; PULSE 75; RESP 18; TEMP 36.6; O2SAT 94
[2022-07-12] MEDS: GABAPENTIN 600 MG TABLET PO (21:17)
[2022-07-12] MEDS: SOTALOL 80 MG TABLET PO (21:17)
[2022-07-13 05:00] VITALS: BP 101/56; PULSE 69; RESP 18; TEMP 36.6; O2SAT 100
[2022-07-13] MEDS: HYDROMORPHONE 1 MG INJ IV (05:45)
[2022-07-13] MEDS: APIXABAN 5 MG TABLET PO ×2 (08:38→20:40)
[2022-07-13] MEDS: SOTALOL 80 MG TABLET PO ×2 (08:38→20:40)
--- NOTE | 2022-07-13 10:22 | PC.NURSE ---
Addendum entered by Yohana Chapman R.N. 07/13/22 14:09: 1400- Patient was able to eat a tuna sandwich for lunch. She had no pain but did feel nauseated. Medicated per order. Will continue regular diet at dinner and see how she tolerates it. MD aware. Original Note: 1000- Patient pain free so far this am. Plan to advance diet at lunch and monitor for s/s. Patient aware of plan.
[2022-07-13 11:55] VITALS: BP 100/60; PULSE 67; RESP 18; TEMP 36.6; O2SAT 98
[2022-07-13] MEDS: ONDANSETRON 4 MG/2 ML INJ IV (13:38)
--- NOTE | 2022-07-13 17:03 | PM.PN.1 ---
Subjective Subjective Date Patient Seen: 07/13/22 Interval history: 51 F admitted with acute pancreatitis. Unknown etiology as patient denies EtOH, no apparent biliary source, and triglycerides are negative. Minimally tolerating a low fat diet but continues to have nausea. Exam Vital Signs (past 8 hours): - 07/13/22 11:55 Temperature 97.8 F Pulse Rate 67 Respiratory Rate 18 Blood Pressure 100/60 Pulse Oximetry 98 Oxygen Flow Rate 0 Fraction of Inspired Oxygen 24 SaO2/FiO2 Ratio 387 Oxygen Delivery Method Room Air Oxygen Flow Rate 0 Narrative Exam Narrative: GENERAL: [51] year old patient appears stated age. Well-developed obese patient, no acute distress HEENT: dry mucous membranes, NCAT. NECK: Trachea midline. Non tender CARDIOVASCULAR: Regular rate and rhythm without murmurs, gallops, or rubs. RESPIRATORY: Clear to auscultation. Breath sounds equal bilaterally. No wheezes, rales, or rhonchi.? GASTROINTESTINAL: Abdomen soft, moderate, central and epigastric abdominal tenderness, nondistended.? Bowel sounds present in all 4 quadrants EXTREMITIES: b/l LE edema, chronic, no joint effusions. BACK: without deformity. No flank tenderness. NEURO: AOx3. No tremor. CN 2-12 intact. no focal neurological deficits. SKIN: No rash or erythema of visible areas Objective Labs Result Diagrams: 07/12/22 04:55 07/12/22 04:55 [facility] Medical History (Updated 07/08/22 @ 18:13 by Srinivas Manzo MD) Atrial fibrillation CHF (congestive heart failure) Depression Depression Lymphedema Morbid obesity due to excess calories Surgical History (Updated 07/08/22 @ 18:12 by Srinivas Manzo MD) History of gastric bypass History of Liam-en-Y gastric bypass History of tonsillectomy Status post panniculectomy Family History (Updated 07/08/22 @ 18:11 by Srinivas Manzo MD) Father Prostate cancer Mother Congestive heart failure COPD (chronic obstructive pulmonary disease) Gallstones Social History household members: none Smoking Status: Never smoker alcohol intake: never Assessment & Plan Assessment & Plan narrative: This is a 51 year old female with CHF, Afib and Lymphedema who is admitted with an episode of pancreatitis. Acute Pancreatitis: -Lipase 5488 on admission. -CT scan with: Suspected pancreatitis with questionable hypoenhancement of the pancreatic head which could represent early necrosis. Moderate peripancreatic edema.?There is also likely reactive inflammatory changes around the duodenum.? Additional focal inflammatory change around the splenic flexure of the colon, possibly focal colitis.?Differential includes water shed hypoperfusion.? -No history of gallstones, no alcohol consumption, TG normal, etiology not entirely clear may be medication related? -continue to advanced diet as tolerated, now on low fat but continued poor appetite, pain is slow to improve. -Lipase improved to 436 which was repeated to reassess her pancreatitis given poor appetite. Diet improved today but continued nausea -if tolerating diet tomorrow controlled on oral pain medications, can discharge home, otherwise consider repeat imaging. Atrial Fibrillation: -Sotalol to continue, no implication in pancreatitis. -continue eliquis Severe Lymphedema: -Continue layered wraps and resume Lasix when appropriate Hypokalemia: -K 3.1, now improved suspect secondary to GI losses -IV Kcl 40 meq X 1 on admission -Follow DVT prevention with Eliquis Dispo: likely home tomorrow if tolerates diet with oral pain medications and anti-nauseal medications. Time Spent With Patient Critical Care time: I spent a total of [] minutes of critical care time on this patient's care today; this time is exclusive of procedural time. Quality VTE Deep Vein Thrombosis/Pulmonary Embolism Present on Admission: No
[2022-07-13 18:00] VITALS: BP 99/51; PULSE 66; RESP 18; TEMP 36.6; O2SAT 94
[2022-07-13] MEDS: GABAPENTIN 600 MG TABLET PO (20:40)
[2022-07-13] MEDS: ACETAMINOPHEN 325 MG TABLET 650 MG PO (20:41)
[2022-07-14] VITALS: BP 126/65; PULSE 65; RESP 17; TEMP 36.6; O2SAT 95
[2022-07-14 05:55] VITALS: BP 128/68; PULSE 66; RESP 17; TEMP 36.7; O2SAT 95
[2022-07-14] MEDS: ONDANSETRON 4 MG ODT SL (08:25)
[2022-07-14] MEDS: APIXABAN 5 MG TABLET PO (08:25)
[2022-07-14] MEDS: SOTALOL 80 MG TABLET PO (08:33)
--- NOTE | 2022-07-14 12:05 | PC.NURSE ---
Pt is A&Ox3, she reports feeling an appetite this morning and wanting to try regular food. She is given prn zofran before breakfast and is able to tolerate a small breakfast this a.m. She denies pain but reports she ate a little fast and gets some stomach irritation eating too fast after gastric bypass surgery. She denies abdominal pain or nausea this a.m. The hospitalist evaluates her at bedside this a .m. and clears her medically to discharge home. She informs RN that her liu from [employer] will be able to give her a ride home. She verbalizes understanding of discharge instructions, and the importance of following up with her PCP. She is escorted at approximately noon by w/ch to private vehicle with her friends for discharge home with all of her belongings and home medications from pharmacy.
--- NOTE | 2022-07-14 12:23 | PM.DS.1 ---
History of Present Illness History of Present Illness Date Patient Seen: 07/08/22 Time Patient Seen: 18:07 Chief complaint: abdominal pain Narrative: Per admitting provider: This is a 51 year old female with CHF, Afib and Lymphedema who developed a strong pain in her abdomen radiating to her back yesterday afternoon while grocery shopping yesterday. The pain has not abated and she rates it as an 8.5 out of ten. She has no vomiting or rectal bleeding. She states that her history is complicated? by a ibrahima-en-y gastric bypass in 2013. She states that her lipids are well controlled by her statin. She denies alcohol use or a history of gallstone disease, although she mentions that her mother had gallstone problems. She states that she has been on disability for some time due to difficulty ambulating 2/2 lymphedema knee pain and weight gain. Her Lipase is elevated at 1,[address] scan shows: Suspected pancreatitis with questionable hypoenhancement of the pancreatic head which could represent early necrosis. Moderate peripancreatic edema.?There is also likely reactive inflammatory changes around the duodenum.? Additional focal inflammatory change around the splenic flexure of the colon, possibly focal colitis.?Differential includes water shed hypoperfusion.? Medical conditions: history of TROY, TIA, a-fib, CHF, Cellulitis of left leg, wound dehiscence, depression, morbid obesity Medications: bupropion, cetirizine, fluoxetine, furosemide, gabapentin, Eliquis, pantoprazole, sotalol, kcl Discharge Providers Provider Date of admission: 07/08/22 17:16 Discharge Date: 07/14/22 Primary care physician: Dottie Miller PA-C Discharge provider: Jordan Howell MD Summary Hospital Course Discharge Diagnosis: 1. Acute pancreatitis 2. Atrial fibrillation 3. Severe lymphedema 4. Hypokalemia Hospital Course: Ms. Arthur came in to the hospital with pancreatitis. She improved with medical management though her improvement was low. Ultimately she was able to tolerate a diet without nausea and with good pain control and was discharged home. The etiology of her pancreatitis was not clear upon discharge, but was unlikely to be gallstones, medications, alcohol, or electrolyte related. Exam Vital Signs (past 8 hours): Fraction of Inspired Oxygen 24 SaO2/FiO2 Ratio 387 Oxygen Delivery Method Room Air Oxygen Flow Rate 0 Narrative Exam Narrative: GENERAL: no acute distress GASTROINTESTINAL:soft nontender Objective Labs Result Diagrams: 07/12/22 04:55 07/12/22 04:55 [facility] Medical History (Updated 07/08/22 @ 18:13 by Srinivas Manzo MD) Atrial fibrillation CHF (congestive heart failure) Depression Depression Lymphedema Morbid obesity due to excess calories Surgical History (Updated 07/08/22 @ 18:12 by Srinivas Manzo MD) History of gastric bypass History of Ibrahima-en-Y gastric bypass History of tonsillectomy Status post panniculectomy Family History (Updated 07/08/22 @ 18:11 by Srinivas Manzo MD) Father Prostate cancer Mother Congestive heart failure COPD (chronic obstructive pulmonary disease) Gallstones Social History household members: none Smoking Status: Never smoker alcohol intake: never Discharge Plan Discharge Plan Patient Disposition: Home Provider Discharge Comment: Ms. Arthur came in to the hospital with abdominal pain. She was found to have pancreatitis. She improved after a few days. She should follow up with her PCP within one week. Discharge orders & Medications Prescriptions: Continued fluoxetine 40 MG capsule 80 mg PO QDAY Qty: 0 gabapentin [Neurontin] 600 MG tablet 600 mg PO BEDTIME Qty: 2 pantoprazole [Protonix] 40 MG tablet,delayed release (DR/EC) 40 mg PO QDAY Qty: 0 bupropion HCl [Wellbutrin XL] 300 MG tablet extended release 24 hr 300 mg PO QDAY Qty: 0 cholecalciferol (vitamin D3) [Vitamin D3] 2,000 UNIT capsule 8,000 unit PO QDAY Qty: 0 cyanocobalamin (vitamin B-12) Vitamin B-12 solution 1,000 mcg IM QMONTH Qty: 0 cetirizine [Zyrtec] 10 mg Tablet 10 mg PO DAILY acetaminophen [Tylenol] 325 mg Capsule 650 mg PO Q4H PRN (Reason: Pain (Scale Score 1-3)) sotalol 80 mg tablet 80 mg PO BID Label Comments: Take 1 tablet by mouth twice a day potassium chloride 20 mEq packet 20 meq PO BID Qty: 14 0RF Eliquis 5 mg tablet 5 mg PO BID Label Comments: TAKE 1 TABLET BY MOUTH TWICE DAILY Discontinued warfarin 5 mg tablet 5 mg PO DAILY Label Comments: TAKE 1 TABLET BY MOUTH IN THE EVENING OR DIRECTED BASED ON INR Follow up/Referrals: Dottie Miller PA-C [Primary Care Provider] - 1 Week Diet/Activity/Treatments Diet: Regular Discharge Data Primary Care Provider: Dottie Miller Attending Provider: Srinivas Manzo Quality VTE Deep Vein Thrombosis/Pulmonary Embolism Present on Admission: No
== END 2022-07-14 12:00 | disposition home or self-care (01) | DRG 440 ==
LOC: ED 14:56 → AC 17:50
PROVIDERS: Internal Medicine; Admitting Provider Family Medicine; Emergency Provider Emergency Medicine; PCP Physician Assistant Medical; Referring Provider Emergency Medicine; Visit Provider Family Medicine
DX: K85.91 Acute pancreatitis with uninfected necrosis, unspecified (principal); I48.91 Unspecified atrial fibrillation; I50.9 Heart failure, unspecified; K52.9 Noninfective gastroenteritis and colitis, unspecified; I89.0 Lymphedema, not elsewhere classified; E87.6 Hypokalemia; Z20.822 Contact with and (suspected) exposure to COVID-19
CPT/HCPCS: 0241U; 36415; 74022; 74177; 80053; 80061; 81003; 81015; 82550; 83605; 83690; 83735; 83880; 84484; 85025; 85610; 87077; 87086; 87186; 93005; 94760; 96374; 96375; 99284; 99285; G0378; C9113; J1170; J2405; Q9967

== ENCOUNTER 2023-04-16 10:00 | Outpatient (RCR) | payer OTHER, MEDICAID, SELFPAY ==
[2022-07-09 14:30] VITALS: BMI 34.7
--- NOTE | 2023-03-15 14:40 | PT.OIE ---
Current Diagnoses Presence of unspecified artificial knee joint (03/15/23) Past Medical History (Last Updated 07/08/22 @ 18:13 by Srinivas Manzo MD) Atrial fibrillation CHF (congestive heart failure) Depression Depression Lymphedema Morbid obesity due to excess calories Past Surgical History (Last Updated 07/08/22 @ 18:12 by Srinivas Manzo MD) History of gastric bypass History of Liam-en-Y gastric bypass History of tonsillectomy Status post panniculectomy Visit Care Team Role Provider Type Dottie Miller PA-C Primary Care Provider Non-Staff Specialty: Medical Address: [address] [place] [address] [address], [place], [address] Email: Arabella Miller MD Family Provider Non-Staff Specialty: Psychiatry Address: [address] [place], [address] Email: Karan Washington DO Attending Provider Non-Staff Referring Provider Specialty: Orthopedics Address: [address] [place], [address] Email: Physical Therapy Initial Evaluation PT-OP-A Visit Information Start: 03/15/23 10:55 Freq: Status: Active Protocol: Document 03/15/23 10:56 AB (Rec: 03/15/23 14:39 AB [id number]) Out-Patient Physical Therapy Visit Information Visit Information Visit Type Initial Evaluation Visit Start Time 11:00 Visit Stop Time 11:45 Total Visit Minutes 45 Visit Number 1 Number of PROP MAKER Visits 0 Evaluation Information Evaluation Date 03/15/23 Precautions Precautions Lymphedema, Afib PT-OP-B Current Condition Start: 03/15/23 10:55 Freq: Status: Active Protocol: Document 03/15/23 10:56 AB (Rec: 03/15/23 14:39 AB [id number]) Current Condition History of Current Condition Onset Date 02/08/23 History of Current Condition Pt is s/p right TKA performed on 02/08/23. Recieved home health PT and was discharged yesterday. Currently the pt is having some pain with walking a block and a half and standing (/10), but is pain free otherwise. She is a candidate for left TKA in the future, as her left knee pain is worse than her right. Treatment Goals Patient/Caregiver Goals To improve her RLE strength and get to the point where he is not using 4WW. Prior Functional Status Baseline Function- ADL's Independent Baseline Function- Mobility Independent Baseline Function- Gait Began using 4WW due to knee pain and shortness of breath due to Afib Current Functional Impairments (Reported) Functional Limitations- ADL's No limitations in her ADLs Functional Limitations- Recreation/ Not yet able to go more than a Hobbies block on her daily walks. PT-OP-C Subjective Start: 03/15/23 10:55 Freq: Status: Active Protocol: Document 03/15/23 10:56 AB (Rec: 03/15/23 14:39 AB [id number]) OP-PT Subjective Patient Comments Patient Comments See hx of current condition Patient Reported Progress Improving Patient Questionnaires Lower Extremity Functional Scale LEFS Score 49/80 LEFS Impairment 20 to 39% Impaired (Score 48- 62) PT-OP-G Mobility & Gait Start: 03/15/23 10:55 Freq: Status: Active Protocol: Document 03/15/23 10:56 AB (Rec: 03/15/23 14:39 AB [id number]) OP Gait Assessment Gait Gait Assistance Required: Independent Gait Deviations General Gait Pattern Antalgic,Decreased Stride Length Factors Limiting Gait Function Factors Limiting Gait Function Decreased Activity Tolerance, Decreased Strength,Limited Range of Motion,Pain PT-OP-K Range of Motion Start: 03/15/23 10:55 Freq: Status: Active Protocol: Document 03/15/23 10:56 AB (Rec: 03/15/23 14:39 AB [id number]) Knee Goniometric Range of Motion Knee Right Knee ROM WFL Yes Patient Position Supine Flexion Active (degrees) 90 Extension Active (degrees) 0 Comments limited by lymphedema and compression garments Left Knee ROM WFL Yes Patient Position Supine Flexion Active (degrees) 96 Extension Active (degrees) 0 Comments limited by lymphedema and compression garments PT-OP-M Strength Start: 03/15/23 10:55 Freq: Status: Active Protocol: Document 03/15/23 10:56 AB (Rec: 03/15/23 14:39 AB [id number]) Hip Strength Hip Manual Muscle Testing Right Flexion (L2) 4+ Good+ Extension (S1) 3+ Fair+ Abduction 4 Good Adduction 4 Good External Rotation 4 Good Internal Rotation 4 Good Left Flexion (L2) 4+ Good+ Extension (S1) 3+ Fair+ Abduction 4 Good Adduction 4 Good External Rotation 4 Good Internal Rotation 4 Good Knee Strength Knee Manual Muscle Testing Right Flexion (S2) 4- Good- Extension (L3) 5 Normal Left Flexion (S2) 4- Good- Extension (L3) 5 Normal PT-OP-Q Treatments Start: 03/15/23 10:55 Freq: Status: Active Protocol: Document 03/15/23 10:56 AB (Rec: 03/15/23 14:39 AB [id number]) Cardio Equipment Recumbent Bicycle Duration (Minutes) 5 Seat Position 9 Therapeutic Exercises Standing Exercises 2 Standing Exercise Name Knee ext stretch on step Side right Reps/Minutes [id number] 1 Standing Exercise Name Knee flex stretch on step Side right Reps/Minutes [id number] PT-OP-T Assessment and Plan Start: 03/15/23 10:55 Freq: Status: Active Protocol: Document 03/15/23 10:56 AB (Rec: 03/15/23 14:39 AB [id number]) Physical Therapy Assessment Rehab Potential Rehabilitation Potential Good Evaluation Complexity Number of Personal Factors/Comorbidities 3 or More Number of Body Systems Impaired 1-2 Clinical Presentation at Evaluation Stable Impairments Impairments Activity Tolerance,Functional Activities,Functional Mobility ,Gait,Pain,ROM,Strength Goals Five Impairment Return to PLOF Short Term Goal (STG) Pt to be able to walk 2 blocks or more in one bout with LRAD to show improving activity tolerance to return to PLOF. STG Duration 4 Messaging Architect Goal (LTG) Pt to be able to walk 4 blocks or more in one bout with LRAD to show improving activity tolerance to return to PLOF. LTG Duration 6 Four Impairment Gait Short Term Goal (STG) Pt to demonstrate symmetrical stride lengths to decrease antalgic gait pattern when ambulating to show improving gait abnormalities. STG Duration 4 Chcf Goal (LTG) Pt to demonstrate improved knee flexion when ambulating to increase step clearance to show improving gait abnormalities. LTG Duration 6 Three Impairment Patient questionnaire Short Term Goal (STG) Pt's LEFS score to improve by 10 points or better to show improving symptoms and QOL. STG Duration 4 Chcf Goal (LTG) Pt's LEFS score to improve by 20 points or better to show improving symptoms and QOL. LTG Duration 6 Two Impairment Muscular weakness Short Term Goal (STG) Pt's gross LE MMT scores to improve to 4/5 or better to show improving strength to be able to perform functional mobility with increased ease. STG Duration 4 Chcf Goal (LTG) Pt's gross LE MMT scores to improve to 4+/5 or better to show improving strength to be able to perform functional mobility with increased ease. LTG Duration 6 One Impairment Knee AROM deficit Short Term Goal (STG) Pt's right knee AROM to improve to 95 degrees or better to by symmetrical with LLE and to improve gait mechanics. STG Duration 4 Chcf Goal (LTG) Pt's right knee AROM to improve to 105degrees or better to improve gait mechanics and ability to perform functional mobility such as STS and stairs. LTG Duration 6 Assessment Summary Assessment Adela Arthur is a 52 year old female patient who presents to outpatient PT clinic status post right TKA performed on . Today's physical therapy examination revealed deficits consistent with this surgical procedure including knee AROM deficits, muscular weakness, and gait abnormalities, as detailed above. Based on these findings , the pt would benefit from skilled PT to return to her PLOF and improve her post surgical outcomes. Her rehab potential is good based on her motivation to participate in physical therapy and age. However, lymphedema and current mobility deficits should be considered when assessing her progress in therapy. Physical Therapy Plan Frequency and Duration Frequency of Treatment 2x/Week Duration of treatment (weeks) 6 Plan of Care Start Date 03/15/23 Plan of Care End Date 05/10/23 Therapeutic Interventions Therapeutic Interventions Balance Training,Gait Training ,Home Exercise Program,Joint Mobilizations,Manual Therapy, Neuromuscular Re-education, Patient/Caregiver Education, Self-Care/Home Management, Therapeutic Activities, Therapeutic Exercises Modalities Cold Pack/Ice Massage,Electric Stimulation,Hot Packs Next Visit Focus/Plan Next Note Type Treatment Note Next Visit Plan Review HEP. Add exercises to improve knee flexion and to strengthen BLEs.
--- NOTE | 2023-03-15 14:41 | PT.OPPOC ---
Physical, Occupational & Speech Therapy At [facility] Current Diagnoses Presence of unspecified artificial knee joint (03/15/23) Visit Care Team Role Provider Type Dottie Miller PA-C Primary Care Provider Non-Staff Specialty: Medical Address: [facility] [address], [place], [address] Email: Arabella Miller MD Family Provider Non-Staff Specialty: Psychiatry Address: [address] [place], [address] Email: Karan Washington DO Attending Provider Non-Staff Referring Provider Specialty: Orthopedics Address: [address] [facility], [place], [address] Email: Plan Of Care PT-OP-T Assessment and Plan Start: 03/15/23 10:55 Freq: Status: Active Protocol: Document 03/15/23 10:56 AB (Rec: 03/15/23 14:39 AB [id number]) Physical Therapy Assessment Rehab Potential Rehabilitation Potential Good Evaluation Complexity Number of Personal Factors/Comorbidities 3 or More Number of Body Systems Impaired 1-2 Clinical Presentation at Evaluation Stable Impairments Impairments Activity Tolerance,Functional Activities,Functional Mobility ,Gait,Pain,ROM,Strength Goals Five Impairment Return to PLOF Short Term Goal (STG) Pt to be able to walk 2 blocks or more in one bout with LRAD to show improving activity tolerance to return to PLOF. STG Duration 4 Chcf Goal (LTG) Pt to be able to walk 4 blocks or more in one bout with LRAD to show improving activity tolerance to return to PLOF. LTG Duration 6 Four Impairment Gait Short Term Goal (STG) Pt to demonstrate symmetrical stride lengths to decrease antalgic gait pattern when ambulating to show improving gait abnormalites. STG Duration 4 Chcf Goal (LTG) Pt to demonstrate improved knee flexion when ambulating to increase step clearance to show improving gait abnormalities. LTG Duration 6 Three Impairment Patient questionnaire Short Term Goal (STG) Pt's LEFS score to improve by 10 points or better to show improving symptoms and QOL. STG Duration 4 Plaster Model And Mold Maker Goal (LTG) Pt's LEFS score to improve by 20 points or better to show improving symptoms and QOL. LTG Duration 6 Two Impairment Muscular weakness Short Term Goal (STG) Pt's gross LE MMT scores to improve to 4/5 or better to show impring strength to be able to perform functional mobility with increased ease. STG Duration 4 Chcf Goal (LTG) Pt's gross LE MMT scores to improve to 4+/5 or better to show impring strength to be able to perform functional mobility with increased ease. LTG Duration 6 One Impairment Knee AROM deficit Short Term Goal (STG) Pt's right knee AROM to improve to 95 degrees or better to by symmetrical with LLE and to improve gait mechanics. STG Duration 4 Plaster Model And Mold Maker Goal (LTG) Pt's right knee AROM to improve to 105degrees or better to improve gait mechanics and ability to perform functional mobility such as STS and stairs. LTG Duration 6 Assessment Summary Assessment Adela Arthur is a 52 year old female patient who presents to outpatient PT clinic status post right TKA performed on . Today's physical therapy examination revealed deficits consistent with this surgical procedure including knee AROM deficits, muscular weakness, and gait abnormalities, as detailed above. Based on these findings , the pt would benefit from skilled PT to return to her PLOF and improve her post surgical outcomes. Her rehab potential is good based on her motivation to participate in physical therapy and age. However, lymphedema and current mobility deficits should be considered when assessing her progress in therapy. Physical Therapy Plan Frequency and Duration Frequency of Treatment 2x/Week Duration of treatment (weeks) 6 Plan of Care Start Date 03/15/23 Plan of Care End Date 05/10/23 Therapeutic Interventions Therapeutic Interventions Balance Training,Gait Training ,Home Exercise Program,Joint Mobilizations,Manual Therapy, Neuromuscular Re-education, Patient/Caregiver Education, Self-Care/Home Management, Therapeutic Activities, Therapeutic Exercises Modalities Cold Pack/Ice Massage,Electric Stimulation,Hot Packs Next Visit Focus/Plan Next Note Type Treatment Note Next Visit Plan Review HEP. Add exercises to improve knee flexion and to strengthen BLEs. Plan of Care Dates Plan of Care Start Date 03/15/23 Plan of Care End Date 05/10/23 Electronically Signed by: Omar Saldivar, PT 03/15/23 1706 If you are in agreement with this Plan of Care, please return a signed and dated copy. I have reviewed this Plan of Care and certify that the skilled therapy services above are required to meet the patient?s needs. Physician Signature Date Printed Name and Credentials Clinical Instructor Signature Printed Name and Credentials
--- NOTE | 2023-03-19 12:20 | PT.OTN ---
Current Diagnoses Presence of unspecified artificial knee joint (03/19/23) Physical Therapy Treatment Note PT-OP-A Visit Information Start: 03/15/23 10:55 Freq: Status: Active Protocol: Document 03/19/23 11:07 AB (Rec: 03/19/23 12:19 AB [id number]) Out-Patient Physical Therapy Visit Information Visit Information Visit Type Treatment Note Visit Start Time 11:02 Visit Stop Time 11:45 Total Visit Minutes 43 Visit Number 2 Number of SOLAR SALES ESTIMATOR Visits 0 PT-OP-B Current Condition Start: 03/15/23 10:55 Freq: Status: Active Protocol: Document 03/15/23 10:56 AB (Rec: 03/15/23 14:39 AB [id number]) Current Condition History of Current Condition Onset Date 02/08/23 History of Current Condition Pt is s/p right TKA performed on 02/08/23. Recieved home health PT and was discharged yesterday. Currently the pt is having some pain with walking a block and a half and standing (2/10), but is pain free otherwise. She is a candidate for left TKA in the future, as her left knee pain is worse than her right. Treatment Goals Patient/Caregiver Goals To improve her RLE strength and get to the point where he is not using 4WW. Prior Functional Status Baseline Function- ADL's Independent Baseline Function- Mobility Independent Baseline Function- Gait Began using 4WW due to knee pain and shortness of breath due to Afib Current Functional Impairments (Reported) Functional Limitations- ADL's No limitations in her ADLs Functional Limitations- Recreation/ Not yet able to go more than a Hobbies block on her daily walks. PT-OP-C Subjective Start: 03/15/23 10:55 Freq: Status: Active Protocol: Document 03/19/23 11:07 AB (Rec: 03/19/23 12:19 AB [id number]) OP-PT Subjective Patient Comments Patient Comments The pt reports she has been doing well, without any pain in her R knee. However, her L knee has been bothering her and she feels like it catches . PT-OP-G Mobility & Gait Start: 03/15/23 10:55 Freq: Status: Active Protocol: Document 03/15/23 10:56 AB (Rec: 03/15/23 14:39 AB [id number]) OP Gait Assessment Gait Gait Assistance Required: Independent Gait Deviations General Gait Pattern Antalgic,Decreased Stride Length Factors Limiting Gait Function Factors Limiting Gait Function Decreased Activity Tolerance, Decreased Strength,Limited Range of Motion,Pain PT-OP-K Range of Motion Start: 03/15/23 10:55 Freq: Status: Active Protocol: Document 03/15/23 10:56 AB (Rec: 03/15/23 14:39 AB [id number]) Knee Goniometric Range of Motion Knee Right Knee ROM WFL Yes Patient Position Supine Flexion Active (degrees) 90 Extension Active (degrees) 0 Comments limited by lymphedema and compression garments Left Knee ROM WFL Yes Patient Position Supine Flexion Active (degrees) 96 Extension Active (degrees) 0 Comments limited by lymphedema and compression garments PT-OP-M Strength Start: 03/15/23 10:55 Freq: Status: Active Protocol: Document 03/15/23 10:56 AB (Rec: 03/15/23 14:39 AB [id number]) Hip Strength Hip Manual Muscle Testing Right Flexion (L2) 4+ Good+ Extension (S1) 3+ Fair+ Abduction 4 Good Adduction 4 Good External Rotation 4 Good Internal Rotation 4 Good Left Flexion (L2) 4+ Good+ Extension (S1) 3+ Fair+ Abduction 4 Good Adduction 4 Good External Rotation 4 Good Internal Rotation 4 Good Knee Strength Knee Manual Muscle Testing Right Flexion (S2) 4- Good- Extension (L3) 5 Normal Left Flexion (S2) 4- Good- Extension (L3) 5 Normal PT-OP-Q Treatments Start: 03/15/23 10:55 Freq: Status: Active Protocol: Document 03/19/23 11:07 AB (Rec: 03/19/23 12:19 AB [id number]) Cardio Equipment Recumbent Bicycle Duration (Minutes) 5 Therapeutic Exercises Sitting Exercises LAQ Side bilateral Reps/Minutes 2x10 ea Standing Exercises HS curls Side bilateral Reps/Minutes 1x10ea Mini Squats Reps/Minutes 2x10 Comments With UE support 2 Standing Exercise Name Knee ext stretch on step Side bilateral Reps/Minutes [id number] 1 Standing Exercise Name Knee flex stretch on step Side bilateral Reps/Minutes [id number] Gait Training Gait Activity 1 Description Normal gait Device Used SBQC Level of Assistance SBA Surface even Distance/Duration 20ft x 3 laps Treatment Focus 3pt gait pattern to 2pt gait pattern PT-OP-T Assessment and Plan Start: 03/15/23 10:55 Freq: Status: Active Protocol: Document 03/19/23 11:07 AB (Rec: 03/19/23 12:19 AB [id number]) Physical Therapy Assessment Goals Five Impairment Return to PLOF Short Term Goal (STG) Pt to be able to walk 2 blocks or more in one bout with LRAD to show improving activity tolerance to return to PLOF. STG Duration 4 Press Operator Carbon Blocks Goal (LTG) Pt to be able to walk 4 blocks or more in one bout with LRAD to show improving activity tolerance to return to PLOF. LTG Duration 6 Four Impairment Gait Short Term Goal (STG) Pt to demonstrate symmetrical stride lengths to decrease antalgic gait pattern when ambulating to show improving gait abnormalites. STG Duration 4 Fdc Goal (LTG) Pt to demonstrate improved knee flexion when ambulating to increase step clearance to show improving gait abnormalities. LTG Duration 6 Three Impairment Patient questionnaire Short Term Goal (STG) Pt's LEFS score to improve by 10 points or better to show improving symptoms and QOL. STG Duration 4 Press Operator Carbon Blocks Goal (LTG) Pt's LEFS score to improve by 20 points or better to show improving symptoms and QOL. LTG Duration 6 Two Impairment Muscular weakness Short Term Goal (STG) Pt's gross LE MMT scores to improve to 4/5 or better to show impring strength to be able to perform functional mobility with increased ease. STG Duration 4 Fdc Goal (LTG) Pt's gross LE MMT scores to improve to 4+/5 or better to show impring strength to be able to perform functional mobility with increased ease. LTG Duration 6 One Impairment Knee AROM deficit Short Term Goal (STG) Pt's right knee AROM to improve to 95 degrees or better to by symmetrical with LLE and to improve gait mechanics. STG Duration 4 Fdc Goal (LTG) Pt's right knee AROM to improve to 105degrees or better to improve gait mechanics and ability to perform functional mobility such as STS and stairs. LTG Duration 6 Assessment Summary Assessment The pt's HEP was reviewed with the pt demonstrating good recall. She was progressed today by adding LE strengthening exercises including mini squats, LAQs and HS curls. Gait training with SBQC was performed in order to increase her level of function, with the goal of ambulating with LRAD. The SBQC was used with her RUE due to increased pain and weakness of LLE compared to RLE. The pt demonstrated decreased confidence when trying to progress to 2pt gait pattern, as she reports feeling afraid that her left knee is going to buckle like it has in the past. The pt was educated on use of AD to provide increase stability to reduce risk for falls. The pt would benefit from continued skilled PT to improve her deficits and return to PLOF. Physical Therapy Plan Frequency and Duration Frequency of Treatment 2x/Week Duration of treatment (weeks) 6 Plan of Care Start Date 03/15/23 Plan of Care End Date 05/10/23 Therapeutic Interventions Therapeutic Interventions Balance Training,Gait Training ,Home Exercise Program,Joint Mobilizations,Manual Therapy, Neuromuscular Re-education, Patient/Caregiver Education, Self-Care/Home Management, Therapeutic Activities, Therapeutic Exercises Modalities Cold Pack/Ice Massage,Electric Stimulation,Hot Packs Next Visit Focus/Plan Next Note Type Treatment Note Next Visit Plan Continue with gait training and adding LE strength and mobility exercises as tolerated.
--- NOTE | 2023-03-21 12:04 | PT.OTN ---
Current Diagnoses Presence of unspecified artificial knee joint (03/21/23) Physical Therapy Treatment Note PT-OP-A Visit Information Start: 03/15/23 10:55 Freq: Status: Active Protocol: Document 03/19/23 11:07 AB (Rec: 03/19/23 12:19 AB [id number]) Out-Patient Physical Therapy Visit Information Visit Information Visit Type Treatment Note Visit Start Time 11:02 Visit Stop Time 11:45 Total Visit Minutes 43 Visit Number 2 Number of QUALITY REVIEW SPECIALIST Visits 0 PT-OP-B Current Condition Start: 03/15/23 10:55 Freq: Status: Active Protocol: Document 03/15/23 10:56 AB (Rec: 03/15/23 14:39 AB [id number]) Current Condition History of Current Condition Onset Date 02/08/23 History of Current Condition Pt is s/p right TKA performed on 02/08/23. Recieved home health PT and was discharged yesterday. Currently the pt is having some pain with walking a block and a half and standing (2/10), but is pain free otherwise. She is a candidate for left TKA in the future, as her left knee pain is worse than her right. Treatment Goals Patient/Caregiver Goals To improve her RLE strength and get to the point where he is not using 4WW. Prior Functional Status Baseline Function- ADL's Independent Baseline Function- Mobility Independent Baseline Function- Gait Began using 4WW due to knee pain and shortness of breath due to Afib Current Functional Impairments (Reported) Functional Limitations- ADL's No limitations in her ADLs Functional Limitations- Recreation/ Not yet able to go more than a Hobbies block on her daily walks. PT-OP-C Subjective Start: 03/15/23 10:55 Freq: Status: Active Protocol: Document 03/19/23 11:07 AB (Rec: 03/19/23 12:19 AB [id number]) OP-PT Subjective Patient Comments Patient Comments The pt reports she has been doing well, without any pain in her R knee. However, her L knee has been bothering her and she feels like it catches . PT-OP-G Mobility & Gait Start: 03/15/23 10:55 Freq: Status: Active Protocol: Document 03/15/23 10:56 AB (Rec: 03/15/23 14:39 AB [id number]) OP Gait Assessment Gait Gait Assistance Required: Independent Gait Deviations General Gait Pattern Antalgic,Decreased Stride Length Factors Limiting Gait Function Factors Limiting Gait Function Decreased Activity Tolerance, Decreased Strength,Limited Range of Motion,Pain PT-OP-K Range of Motion Start: 03/15/23 10:55 Freq: Status: Active Protocol: Document 03/15/23 10:56 AB (Rec: 03/15/23 14:39 AB [id number]) Knee Goniometric Range of Motion Knee Right Knee ROM WFL Yes Patient Position Supine Flexion Active (degrees) 90 Extension Active (degrees) 0 Comments limited by lymphedema and compression garments Left Knee ROM WFL Yes Patient Position Supine Flexion Active (degrees) 96 Extension Active (degrees) 0 Comments limited by lymphedema and compression garments PT-OP-M Strength Start: 03/15/23 10:55 Freq: Status: Active Protocol: Document 03/15/23 10:56 AB (Rec: 03/15/23 14:39 AB [id number]) Hip Strength Hip Manual Muscle Testing Right Flexion (L2) 4+ Good+ Extension (S1) 3+ Fair+ Abduction 4 Good Adduction 4 Good External Rotation 4 Good Internal Rotation 4 Good Left Flexion (L2) 4+ Good+ Extension (S1) 3+ Fair+ Abduction 4 Good Adduction 4 Good External Rotation 4 Good Internal Rotation 4 Good Knee Strength Knee Manual Muscle Testing Right Flexion (S2) 4- Good- Extension (L3) 5 Normal Left Flexion (S2) 4- Good- Extension (L3) 5 Normal PT-OP-Q Treatments Start: 03/15/23 10:55 Freq: Status: Active Protocol: Document 03/19/23 11:07 AB (Rec: 03/19/23 12:19 AB [id number]) Cardio Equipment Recumbent Bicycle Duration (Minutes) 5 Therapeutic Exercises Sitting Exercises LAQ Side bilateral Reps/Minutes 2x10 ea Standing Exercises HS curls Side bilateral Reps/Minutes 1x10ea Mini Squats Reps/Minutes 2x10 Comments With UE support 2 Standing Exercise Name Knee ext stretch on step Side bilateral Reps/Minutes [id number] 1 Standing Exercise Name Knee flex stretch on step Side bilateral Reps/Minutes [id number] Gait Training Gait Activity 1 Description Normal gait Device Used SBQC Level of Assistance SBA Surface even Distance/Duration 20ft x 3 laps Treatment Focus 3pt gait pattern to 2pt gait pattern PT-OP-T Assessment and Plan Start: 03/15/23 10:55 Freq: Status: Active Protocol: Document 03/19/23 11:07 AB (Rec: 03/19/23 12:19 AB [id number]) Physical Therapy Assessment Goals Five Impairment Return to PLOF Short Term Goal (STG) Pt to be able to walk 2 blocks or more in one bout with LRAD to show improving activity tolerance to return to PLOF. STG Duration 4 Payment Processor Goal (LTG) Pt to be able to walk 4 blocks or more in one bout with LRAD to show improving activity tolerance to return to PLOF. LTG Duration 6 Four Impairment Gait Short Term Goal (STG) Pt to demonstrate symmetrical stride lengths to decrease antalgic gait pattern when ambulating to show improving gait abnormalites. STG Duration 4 [facility] Goal (LTG) Pt to demonstrate improved knee flexion when ambulating to increase step clearance to show improving gait abnormalities. LTG Duration 6 Three Impairment Patient questionnaire Short Term Goal (STG) Pt's LEFS score to improve by 10 points or better to show improving symptoms and QOL. STG Duration 4 Payment Processor Goal (LTG) Pt's LEFS score to improve by 20 points or better to show improving symptoms and QOL. LTG Duration 6 Two Impairment Muscular weakness Short Term Goal (STG) Pt's gross LE MMT scores to improve to 4/5 or better to show improving strength to be able to perform functional mobility with increased ease. STG Duration 4 Payment Processor Goal (LTG) Pt's gross LE MMT scores to improve to 4+/5 or better to show improving strength to be able to perform functional mobility with increased ease. LTG Duration 6 One Impairment Knee AROM deficit Short Term Goal (STG) Pt's right knee AROM to improve to 95 degrees or better to by symmetrical with LLE and to improve gait mechanics. STG Duration 4 [facility] Goal (LTG) Pt's right knee AROM to improve to 105degrees or better to improve gait mechanics and ability to perform functional mobility such as STS and stairs. LTG Duration 6 Assessment Summary Assessment The pt's HEP was reviewed with the pt demonstrating good recall. She was progressed today by adding LE strengthening exercises including mini squats, LAQs and HS curls. Gait training with SBQC was performed in order to increase her level of function, with the goal of ambulating with LRAD. The SBQC was used with her RUE due to increased pain and weakness of LLE compared to RLE. The pt demonstrated decreased confidence when trying to progress to 2pt gait pattern, as she reports feeling afraid that her left knee is going to buckle like it has in the past. The pt was educated on use of AD to provide increase stability to reduce risk for falls. The pt would benefit from continued skilled PT to improve her deficits and return to PLOF. Physical Therapy Plan Frequency and Duration Frequency of Treatment 2x/Week Duration of treatment (weeks) 6 Plan of Care Start Date 03/15/23 Plan of Care End Date 05/10/23 Therapeutic Interventions Therapeutic Interventions Balance Training,Gait Training ,Home Exercise Program,Joint Mobilizations,Manual Therapy, Neuromuscular Re-education, Patient/Caregiver Education, Self-Care/Home Management, Therapeutic Activities, Therapeutic Exercises Modalities Cold Pack/Ice Massage,Electric Stimulation,Hot Packs Next Visit Focus/Plan Next Note Type Treatment Note Next Visit Plan Continue with gait training and adding LE strength and mobility exercises as tolerated.
--- NOTE | 2023-03-21 12:11 | PT.OTN ---
Current Diagnoses Presence of unspecified artificial knee joint (03/21/23) Physical Therapy Treatment Note PT-OP-A Visit Information Start: 03/15/23 10:55 Freq: Status: Active Protocol: Document 03/21/23 11:21 AB (Rec: 03/21/23 12:11 AB [id number]) Out-Patient Physical Therapy Visit Information Visit Information Visit Type Treatment Note Visit Note Pt arrived 11 minutes late to appointment due to construction delays. Visit Start Time 11:11 Visit Stop Time 11:46 Total Visit Minutes 35 Visit Number 3 Number of MULTIMEDIA DEVELOPER Visits 0 PT-OP-B Current Condition Start: 03/15/23 10:55 Freq: Status: Active Protocol: Document 03/15/23 10:56 AB (Rec: 03/15/23 14:39 AB [id number]) Current Condition History of Current Condition Onset Date 02/08/23 History of Current Condition Pt is s/p right TKA performed on 02/08/23. Recieved home health PT and was discharged yesterday. Currently the pt is having some pain with walking a block and a half and standing (2/10), but is pain free otherwise. She is a candidate for left TKA in the future, as her left knee pain is worse than her right. Treatment Goals Patient/Caregiver Goals To improve her RLE strength and get to the point where he is not using 4WW. Prior Functional Status Baseline Function- ADL's Independent Baseline Function- Mobility Independent Baseline Function- Gait Began using 4WW due to knee pain and shortness of breath due to Afib Current Functional Impairments (Reported) Functional Limitations- ADL's No limitations in her ADLs Functional Limitations- Recreation/ Not yet able to go more than a Hobbies block on her daily walks. PT-OP-C Subjective Start: 03/15/23 10:55 Freq: Status: Active Protocol: Document 03/21/23 11:21 AB (Rec: 03/21/23 12:11 AB [id number]) OP-PT Subjective Patient Comments Patient Comments The pt reports she had increased soreness yeterday, though she believes this is due to the weather rather than activity. She continues with left knee pain that is bothering her more than her right knee. Patient Reported Progress Improving PT-OP-G Mobility & Gait Start: 03/15/23 10:55 Freq: Status: Active Protocol: Document 03/15/23 10:56 AB (Rec: 03/15/23 14:39 AB [id number]) OP Gait Assessment Gait Gait Assistance Required: Independent Gait Deviations General Gait Pattern Antalgic,Decreased Stride Length Factors Limiting Gait Function Factors Limiting Gait Function Decreased Activity Tolerance, Decreased Strength,Limited Range of Motion,Pain PT-OP-K Range of Motion Start: 03/15/23 10:55 Freq: Status: Active Protocol: Document 03/15/23 10:56 AB (Rec: 03/15/23 14:39 AB [id number]) Knee Goniometric Range of Motion Knee Right Knee ROM WFL Yes Patient Position Supine Flexion Active (degrees) 90 Extension Active (degrees) 0 Comments limited by lymphedema and compression garments Left Knee ROM WFL Yes Patient Position Supine Flexion Active (degrees) 96 Extension Active (degrees) 0 Comments limited by lymphedema and compression garments PT-OP-M Strength Start: 03/15/23 10:55 Freq: Status: Active Protocol: Document 03/15/23 10:56 AB (Rec: 03/15/23 14:39 AB [id number]) Hip Strength Hip Manual Muscle Testing Right Flexion (L2) 4+ Good+ Extension (S1) 3+ Fair+ Abduction 4 Good Adduction 4 Good External Rotation 4 Good Internal Rotation 4 Good Left Flexion (L2) 4+ Good+ Extension (S1) 3+ Fair+ Abduction 4 Good Adduction 4 Good External Rotation 4 Good Internal Rotation 4 Good Knee Strength Knee Manual Muscle Testing Right Flexion (S2) 4- Good- Extension (L3) 5 Normal Left Flexion (S2) 4- Good- Extension (L3) 5 Normal PT-OP-Q Treatments Start: 03/15/23 10:55 Freq: Status: Active Protocol: Document 03/21/23 11:21 AB (Rec: 03/21/23 12:11 AB [id number]) Therapeutic Exercises Standing Exercises Heel/toe raises Side bilateral Reps/Minutes 2x15 ea Comments BUE support HS curls Side bilateral Reps/Minutes 2x10ea Comments BUE support Mini Squats Reps/Minutes 2x10 Comments With UE support Gait Training Gait Activity 1 Description Normal gait Device Used SPC Level of Assistance SBA Surface even Distance/Duration 20ft x 2 laps Treatment Focus 3pt gait pattern to 2pt gait pattern PT-OP-T Assessment and Plan Start: 03/15/23 10:55 Freq: Status: Active Protocol: Document 03/21/23 11:21 AB (Rec: 03/21/23 12:11 AB [id number]) Physical Therapy Assessment Goals Five Impairment Return to PLOF Short Term Goal (STG) Pt to be able to walk 2 blocks or more in one bout with LRAD to show improving activity tolerance to return to PLOF. STG Duration 4 Servicenow Administrator Goal (LTG) Pt to be able to walk 4 blocks or more in one bout with LRAD to show improving activity tolerance to return to PLOF. LTG Duration 6 Four Impairment Gait Short Term Goal (STG) Pt to demonstrate symmetrical stride lengths to decrease antalgic gait pattern when ambulating to show improving gait abnormalites. STG Duration 4 Longterm Goal (LTG) Pt to demonstrate improved knee flexion when ambulating to increase step clearance to show improving gait abnormalities. LTG Duration 6 Three Impairment Patient questionnaire Short Term Goal (STG) Pt's LEFS score to improve by 10 points or better to show improving symptoms and QOL. STG Duration 4 Servicenow Administrator Goal (LTG) Pt's LEFS score to improve by 20 points or better to show improving symptoms and QOL. LTG Duration 6 Two Impairment Muscular weakness Short Term Goal (STG) Pt's gross LE MMT scores to improve to 4/5 or better to show impring strength to be able to perform functional mobility with increased ease. STG Duration 4 Servicenow Administrator Goal (LTG) Pt's gross LE MMT scores to improve to 4+/5 or better to show impring strength to be able to perform functional mobility with increased ease. LTG Duration 6 One Impairment Knee AROM deficit Short Term Goal (STG) Pt's right knee AROM to improve to 95 degrees or better to by symmetrical with LLE and to improve gait mechanics. STG Duration 4 Longterm Goal (LTG) Pt's right knee AROM to improve to 105degrees or better to improve gait mechanics and ability to perform functional mobility such as STS and stairs. LTG Duration 6 Assessment Summary Assessment Additional LE strength and mobility exercises were added to improve the pt's ROM and strength deficits. The pt reported good tolerance in RLE , but is limited by LLE symptoms. She requires verbal cues to avoid compensating by leaning with her body to perform standing exercises, specifically with heel and toe raises and hamstring curls. She was progressed by performing gait training with SPC rather than SBQC, with improved 3pt gait pattern though she continues with difficulty maintaining proper pattern if she tries 2pt gait pattern. No instability noted with ambulation, though antalgic gait and trendelenburg sign are noted likely due to weakness and left knee pain. The pt continues to benefit from skilled PT to improve to her highest level of function. Physical Therapy Plan Frequency and Duration Frequency of Treatment 2x/Week Duration of treatment (weeks) 6 Plan of Care Start Date 03/15/23 Plan of Care End Date 05/10/23 Therapeutic Interventions Therapeutic Interventions Balance Training,Gait Training ,Home Exercise Program,Joint Mobilizations,Manual Therapy, Neuromuscular Re-education, Patient/Caregiver Education, Self-Care/Home Management, Therapeutic Activities, Therapeutic Exercises Modalities Cold Pack/Ice Massage,Electric Stimulation,Hot Packs Next Visit Focus/Plan Next Note Type Treatment Note Next Visit Plan Continue with gait training and adding LE strength and mobility exercises as tolerated.
--- NOTE | 2023-03-28 10:52 | PT.OTN ---
Current Diagnoses Presence of unspecified artificial knee joint (03/28/23) Physical Therapy Treatment Note PT-OP-A Visit Information Start: 03/15/23 10:55 Freq: Status: Active Protocol: Document 03/28/23 09:25 AB (Rec: 03/28/23 10:51 AB [id number]) Out-Patient Physical Therapy Visit Information Visit Information Visit Type Treatment Note Visit Start Time 09:20 Visit Stop Time 10:00 Total Visit Minutes 40 Visit Number 4 Number of SLIDE FASTENERS INSPECTOR Visits 0 PT-OP-B Current Condition Start: 03/15/23 10:55 Freq: Status: Active Protocol: Document 03/15/23 10:56 AB (Rec: 03/15/23 14:39 AB [id number]) Current Condition History of Current Condition Onset Date 02/08/23 History of Current Condition Pt is s/p right TKA performed on 02/08/23. Received home health PT and was discharged yesterday. Currently the pt is having some pain with walking a block and a half and standing (2/10), but is pain free otherwise. She is a candidate for left TKA in the future, as her left knee pain is worse than her right. Treatment Goals Patient/Caregiver Goals To improve her RLE strength and get to the point where he is not using 4WW. Prior Functional Status Baseline Function- ADL's Independent Baseline Function- Mobility Independent Baseline Function- Gait Began using 4WW due to knee pain and shortness of breath due to Afib Current Functional Impairments (Reported) Functional Limitations- ADL's No limitations in her ADLs Functional Limitations- Recreation/ Not yet able to go more than a Hobbies block on her daily walks. PT-OP-C Subjective Start: 03/15/23 10:55 Freq: Status: Active Protocol: Document 03/28/23 09:25 AB (Rec: 03/28/23 10:51 AB [id number]) OP-PT Subjective Patient Comments Patient Comments The pt reports her left knee is bothering her more today. She also states that Dr. [place] is pleased with her progress. PT-OP-G Mobility & Gait Start: 03/15/23 10:55 Freq: Status: Active Protocol: Document 03/15/23 10:56 AB (Rec: 03/15/23 14:39 AB [id number]) OP Gait Assessment Gait Gait Assistance Required: Independent Gait Deviations General Gait Pattern Antalgic,Decreased Stride Length Factors Limiting Gait Function Factors Limiting Gait Function Decreased Activity Tolerance, Decreased Strength,Limited Range of Motion,Pain PT-OP-K Range of Motion Start: 03/15/23 10:55 Freq: Status: Active Protocol: Document 03/15/23 10:56 AB (Rec: 03/15/23 14:39 AB [id number]) Knee Goniometric Range of Motion Knee Right Knee ROM WFL Yes Patient Position Supine Flexion Active (degrees) 90 Extension Active (degrees) 0 Comments limited by lymphedema and compression garments Left Knee ROM WFL Yes Patient Position Supine Flexion Active (degrees) 96 Extension Active (degrees) 0 Comments limited by lymphedema and compression garments PT-OP-M Strength Start: 03/15/23 10:55 Freq: Status: Active Protocol: Document 03/15/23 10:56 AB (Rec: 03/15/23 14:39 AB [id number]) Hip Strength Hip Manual Muscle Testing Right Flexion (L2) 4+ Good+ Extension (S1) 3+ Fair+ Abduction 4 Good Adduction 4 Good External Rotation 4 Good Internal Rotation 4 Good Left Flexion (L2) 4+ Good+ Extension (S1) 3+ Fair+ Abduction 4 Good Adduction 4 Good External Rotation 4 Good Internal Rotation 4 Good Knee Strength Knee Manual Muscle Testing Right Flexion (S2) 4- Good- Extension (L3) 5 Normal Left Flexion (S2) 4- Good- Extension (L3) 5 Normal PT-OP-Q Treatments Start: 03/15/23 10:55 Freq: Status: Active Protocol: Document 03/28/23 09:25 AB (Rec: 03/28/23 10:51 AB [id number]) Cardio Equipment Recumbent Stepper (Sci-Fit) Duration (Minutes) 3 Seat Position 14 Recumbent Bicycle Duration (Minutes) 2 Therapeutic Exercises Standing Exercises Hip ext Reps/Minutes 1x10 ea Comments BUE support Hip ABD Reps/Minutes 2x10ea Comments BUE support Heel/toe raises Side bilateral Reps/Minutes 2x15 ea Comments BUE support HS curls Side bilateral Reps/Minutes 2x10ea Comments BUE support Mini Squats Reps/Minutes 2x10, 2 sec hold Comments With UE support Gait Training Gait Activity 1 Description Normal gait Device Used no AD Level of Assistance IND Surface even Distance/Duration 20ft x 2 laps Treatment Focus improving gait pattern without AD PT-OP-T Assessment and Plan Start: 03/15/23 10:55 Freq: Status: Active Protocol: Document 03/28/23 09:25 AB (Rec: 03/28/23 10:51 AB [id number]) Physical Therapy Assessment Goals Five Impairment Return to PLOF Short Term Goal (STG) Pt to be able to walk 2 blocks or more in one bout with LRAD to show improving activity tolerance to return to PLOF. STG Duration 4 Residential Goal (LTG) Pt to be able to walk 4 blocks or more in one bout with LRAD to show improving activity tolerance to return to PLOF. LTG Duration 6 Four Impairment Gait Short Term Goal (STG) Pt to demonstrate symmetrical stride lengths to decrease antalgic gait pattern when ambulating to show improving gait abnormalites. STG Duration 4 Sewing Machine Repairer Goal (LTG) Pt to demonstrate improved knee flexion when ambulating to increase step clearance to show improving gait abnormalities. LTG Duration 6 Three Impairment Patient questionnaire Short Term Goal (STG) Pt's LEFS score to improve by 10 points or better to show improving symptoms and QOL. STG Duration 4 Sewing Machine Repairer Goal (LTG) Pt's LEFS score to improve by 20 points or better to show improving symptoms and QOL. LTG Duration 6 Two Impairment Muscular weakness Short Term Goal (STG) Pt's gross LE MMT scores to improve to 4/5 or better to show impring strength to be able to perform functional mobility with increased ease. STG Duration 4 Sewing Machine Repairer Goal (LTG) Pt's gross LE MMT scores to improve to 4+/5 or better to show impring strength to be able to perform functional mobility with increased ease. LTG Duration 6 One Impairment Knee AROM deficit Short Term Goal (STG) Pt's right knee AROM to improve to 95 degrees or better to by symmetrical with LLE and to improve gait mechanics. STG Duration 4 Sewing Machine Repairer Goal (LTG) Pt's right knee AROM to improve to 105degrees or better to improve gait mechanics and ability to perform functional mobility such as STS and stairs. LTG Duration 6 Assessment Summary Assessment The pt demonstrates improved stability when ambulating, even without an AD, however she shows antalgic gait pattern due to left knee pain. She was educated on continuing to use an AD when ambulating on uneven surfaces or for long distances. During recumbent bike warm up, the pt reported increased left knee pain, therefore she finished on recumbent elliptical which did not cause any pain. The pt was also progressed by adding additional standing strengthening exercises with good tolerance, but continues to require cues for posture and to avoid compensation of leaning trunk to elevate LE. These should be added to HEP next visit if she reports good tolerance to today's session. Physical Therapy Plan Frequency and Duration Frequency of Treatment 2x/Week Duration of treatment (weeks) 6 Plan of Care Start Date 03/15/23 Plan of Care End Date 05/10/23 Therapeutic Interventions Therapeutic Interventions Balance Training,Gait Training ,Home Exercise Program,Joint Mobilizations,Manual Therapy, Neuromuscular Re-education, Patient/Caregiver Education, Self-Care/Home Management, Therapeutic Activities, Therapeutic Exercises Modalities Cold Pack/Ice Massage,Electric Stimulation,Hot Packs Next Visit Focus/Plan Next Note Type Treatment Note Next Visit Plan Continue with gait training and adding LE strength and mobility exercises as tolerated. Update HEP with standing strengthening exercises.
--- NOTE | 2023-04-04 11:46 | PT.OTN ---
Current Diagnoses Presence of unspecified artificial knee joint (04/04/23) Physical Therapy Treatment Note PT-OP-A Visit Information Start: 03/15/23 10:55 Freq: Status: Active Protocol: Document 04/04/23 11:13 AB (Rec: 04/04/23 11:45 AB [id number]) Out-Patient Physical Therapy Visit Information Visit Information Visit Type Treatment Note Visit Note The pt arrived 11 minutes late . Visit Start Time 11:11 Visit Stop Time 11:45 Total Visit Minutes 34 Visit Number 5 PT-OP-B Current Condition Start: 03/15/23 10:55 Freq: Status: Active Protocol: Document 03/15/23 10:56 AB (Rec: 03/15/23 14:39 AB [id number]) Current Condition History of Current Condition Onset Date 02/08/23 History of Current Condition Pt is s/p right TKA performed on 02/08/23. Recieved home health PT and was discharged yesterday. Currently the pt is having some pain with walking a block and a half and standing (09/01), but is pain free otherwise. She is a candidate for left TKA in the future, as her left knee pain is worse than her right. Treatment Goals Patient/Caregiver Goals To improve her RLE strength and get to the point where he is not using 4WW. Prior Functional Status Baseline Function- ADL's Independent Baseline Function- Mobility Independent Baseline Function- Gait Began using 4WW due to knee pain and shortness of breath due to Afib Current Functional Impairments (Reported) Functional Limitations- ADL's No limitations in her ADLs Functional Limitations- Recreation/ Not yet able to go more than a Hobbies block on her daily walks. PT-OP-C Subjective Start: 03/15/23 10:55 Freq: Status: Active Protocol: Document 04/04/23 11:13 AB (Rec: 04/04/23 11:45 AB [id number]) OP-PT Subjective Patient Comments Patient Comments The pt reports no significant change since her last visit. PT-OP-G Mobility & Gait Start: 03/15/23 10:55 Freq: Status: Active Protocol: Document 03/15/23 10:56 AB (Rec: 03/15/23 14:39 AB [id number]) OP Gait Assessment Gait Gait Assistance Required: Independent Gait Deviations General Gait Pattern Antalgic,Decreased Stride Length Factors Limiting Gait Function Factors Limiting Gait Function Decreased Activity Tolerance, Decreased Strength,Limited Range of Motion,Pain PT-OP-K Range of Motion Start: 03/15/23 10:55 Freq: Status: Active Protocol: Document 03/15/23 10:56 AB (Rec: 03/15/23 14:39 AB [id number]) Knee Goniometric Range of Motion Knee Right Knee ROM WFL Yes Patient Position Supine Flexion Active (degrees) 90 Extension Active (degrees) 0 Comments limited by lymphedema and compression garments Left Knee ROM WFL Yes Patient Position Supine Flexion Active (degrees) 96 Extension Active (degrees) 0 Comments limited by lymphedema and compression garments PT-OP-M Strength Start: 03/15/23 10:55 Freq: Status: Active Protocol: Document 03/15/23 10:56 AB (Rec: 03/15/23 14:39 AB [id number]) Hip Strength Hip Manual Muscle Testing Right Flexion (L2) 4+ Good+ Extension (S1) 3+ Fair+ Abduction 4 Good Adduction 4 Good External Rotation 4 Good Internal Rotation 4 Good Left Flexion (L2) 4+ Good+ Extension (S1) 3+ Fair+ Abduction 4 Good Adduction 4 Good External Rotation 4 Good Internal Rotation 4 Good Knee Strength Knee Manual Muscle Testing Right Flexion (S2) 4- Good- Extension (L3) 5 Normal Left Flexion (S2) 4- Good- Extension (L3) 5 Normal PT-OP-Q Treatments Start: 03/15/23 10:55 Freq: Status: Active Protocol: Document 04/04/23 11:13 AB (Rec: 04/04/23 11:45 AB [id number]) Cardio Equipment Recumbent Stepper (Sci-Fit) Duration (Minutes) 5 Seat Position 13 Therapeutic Exercises Standing Exercises Step ups Side bilateral Equipment Used 4 step Reps/Minutes 2x10 ea Hip ext Reps/Minutes 2x10 ea Comments BUE support Hip ABD Reps/Minutes 2x10ea Comments BUE support Heel/toe raises Side bilateral Reps/Minutes 2x15 ea Comments BUE support HS curls Side bilateral Reps/Minutes 2x10ea Comments BUE support Mini Squats Reps/Minutes 2x10, 2 sec hold Comments With UE support PT-OP-T Assessment and Plan Start: 03/15/23 10:55 Freq: Status: Active Protocol: Document 09/13/23 11:13 AB (Rec: 04/04/23 11:45 AB [id number]) Physical Therapy Assessment Goals Five Impairment Return to PLOF Short Term Goal (STG) Pt to be able to walk 2 blocks or more in one bout with LRAD to show improving activity tolerance to return to PLOF. STG Duration 4 Skilled Nursing Goal (LTG) Pt to be able to walk 4 blocks or more in one bout with LRAD to show improving activity tolerance to return to PLOF. LTG Duration 6 Four Impairment Gait Short Term Goal (STG) Pt to demonstrate symmetrical stride lengths to decrease antalgic gait pattern when ambulating to show improving gait abnormalites. STG Duration 4 Skilled Nursing Goal (LTG) Pt to demonstrate improved knee flexion when ambulating to increase step clearance to show improving gait abnormalities. LTG Duration 6 Three Impairment Patient questionnaire Short Term Goal (STG) Pt's LEFS score to improve by 10 points or better to show improving symptoms and QOL. STG Duration 4 Skilled Nursing Goal (LTG) Pt's LEFS score to improve by 20 points or better to show improving symptoms and QOL. LTG Duration 6 Two Impairment Muscular weakness Short Term Goal (STG) Pt's gross LE MMT scores to improve to 4/5 or better to show impring strength to be able to perform functional mobility with increased ease. STG Duration 4 Skilled Nursing Goal (LTG) Pt's gross LE MMT scores to improve to 4+/5 or better to show impring strength to be able to perform functional mobility with increased ease. LTG Duration 6 One Impairment Knee AROM deficit Short Term Goal (STG) Pt's right knee AROM to improve to 95 degrees or better to by symmetrical with LLE and to improve gait mechanics. STG Duration 4 Skilled Nursing Goal (LTG) Pt's right knee AROM to improve to 105degrees or better to improve gait mechanics and ability to perform functional mobility such as STS and stairs. LTG Duration 6 Assessment Summary Assessment The focus of today's treatment session was on performing exercises that will be added to her HEP to continue progressing. The pt continues to require verbal cues to avoid compensating by using momentum or trunk lean. Step ups were added today, though these were not added to HEP, as the pt requires continued practice to perform with proper for, specifically to control eccentric portion. The pt would benefit from continued progression next visit by adding exercises such as STS and mini lunges, etc to strengthen LEs. Physical Therapy Plan Frequency and Duration Frequency of Treatment 2x/Week Duration of treatment (weeks) 6 Plan of Care Start Date 03/15/23 Plan of Care End Date 05/10/23 Therapeutic Interventions Therapeutic Interventions Balance Training,Gait Training ,Home Exercise Program,Joint Mobilizations,Manual Therapy, Neuromuscular Re-education, Patient/Caregiver Education, Self-Care/Home Management, Therapeutic Activities, Therapeutic Exercises Modalities Cold Pack/Ice Massage,Electric Stimulation,Hot Packs Next Visit Focus/Plan Next Note Type Treatment Note Next Visit Plan Continue with gait training and adding LE strength and mobility exercises as tolerated.
--- NOTE | 2023-04-09 13:30 | PT.OTN ---
Current Diagnoses Presence of unspecified artificial knee joint (04/09/23) Physical Therapy Treatment Note PT-OP-A Visit Information Start: 03/15/23 10:55 Freq: Status: Active Protocol: Document 04/09/23 12:50 SP (Rec: 04/09/23 13:34 SP [id number]) Out-Patient Physical Therapy Visit Information Visit Information Visit Type Treatment Note Visit Start Time 12:50 Visit Stop Time 13:30 Total Visit Minutes 40 Visit Number 6 Number of FARM MACHINE OPERATOR Visits 1 Evaluation Information Evaluation Date 03/15/23 Precautions Precautions Lymphedema, Afib PT-OP-B Current Condition Start: 03/15/23 10:55 Freq: Status: Active Protocol: Document 03/15/23 10:56 AB (Rec: 03/15/23 14:39 AB [id number]) Current Condition History of Current Condition Onset Date 02/08/23 History of Current Condition Pt is s/p right TKA performed on 02/08/23. Recieved home health PT and was discharged yesterday. Currently the pt is having some pain with walking a block and a half and standing (2/10), but is pain free otherwise. She is a candidate for left TKA in the future, as her left knee pain is worse than her right. Treatment Goals Patient/Caregiver Goals To improve her RLE strength and get to the point where he is not using 4WW. Prior Functional Status Baseline Function- ADL's Independent Baseline Function- Mobility Independent Baseline Function- Gait Began using 4WW due to knee pain and shortness of breath due to Afib Current Functional Impairments (Reported) Functional Limitations- ADL's No limitations in her ADLs Functional Limitations- Recreation/ Not yet able to go more than a Hobbies block on her daily walks. PT-OP-C Subjective Start: 03/15/23 10:55 Freq: Status: Active Protocol: Document 04/09/23 12:50 SP (Rec: 04/09/23 13:34 SP [id number]) OP-PT Subjective Patient Comments Patient Comments Pt reports has been able to increase distance gait w/ 4WW while walking her dog. She reports only taking Tylenol now and she can now lay down and bend knees with feet flat on bed/table. PT-OP-G Mobility & Gait Start: 03/15/23 10:55 Freq: Status: Active Protocol: Document 03/15/23 10:56 AB (Rec: 03/15/23 14:39 AB [id number]) OP Gait Assessment Gait Gait Assistance Required: Independent Gait Deviations General Gait Pattern Antalgic,Decreased Stride Length Factors Limiting Gait Function Factors Limiting Gait Function Decreased Activity Tolerance, Decreased Strength,Limited Range of Motion,Pain PT-OP-K Range of Motion Start: 03/15/23 10:55 Freq: Status: Active Protocol: Document 04/09/23 12:50 SP (Rec: 04/09/23 13:34 SP [id number]) Knee Goniometric Range of Motion Knee Right Knee ROM WFL Yes Patient Position Supine Flexion Active (degrees) 103 Extension Active (degrees) 0 Comments limited by lymphedema and compression garments 04/09/23: Improved R knee AROM 13 deg ( 103*) Left Knee ROM WFL Yes Patient Position Supine Flexion Active (degrees) 105 Extension Active (degrees) 0 Comments limited by lymphedema and compression garments 04/09/23: improved L knee AROM 9 deg ( 105*) PT-OP-M Strength Start: 03/15/23 10:55 Freq: Status: Active Protocol: Document 03/15/23 10:56 AB (Rec: 03/15/23 14:39 AB [id number]) Hip Strength Hip Manual Muscle Testing Right Flexion (L2) 4+ Good+ Extension (S1) 3+ Fair+ Abduction 4 Good Adduction 4 Good External Rotation 4 Good Internal Rotation 4 Good Left Flexion (L2) 4+ Good+ Extension (S1) 3+ Fair+ Abduction 4 Good Adduction 4 Good External Rotation 4 Good Internal Rotation 4 Good Knee Strength Knee Manual Muscle Testing Right Flexion (S2) 4- Good- Extension (L3) 5 Normal Left Flexion (S2) 4- Good- Extension (L3) 5 Normal PT-OP-Q Treatments Start: 03/15/23 10:55 Freq: Status: Active Protocol: Document 04/09/23 12:50 SP (Rec: 04/09/23 13:34 SP [id number]) Gym Equipment Shuttle Recovery unilateral squat Details B Resistance 25# (new band) Reps/Time x15 bilateral squat Resistance 50# (old bands) Reps/Time x20 Therapeutic Exercises Supine Exercises TA SLR Supine Exercise Name added to HEP Side bilateral Reps/Minutes 5, 8 reps Comments cued TKE bridge Supine Exercise Name added to HEP Side bilateral Resistance AROM Reps/Minutes x10 Comments good response to allowance knee flexion to perform Standing Exercises Step ups Side bilateral Equipment Used 6 step, //bars Reps/Minutes 2x10 ea Comments Requires UE support BUE approx 30% Hip ext Equipment Used light 1 UE on rail Reps/Minutes 2x10 ea Comments cued elongated posture ROM good posture Heel/toe raises Side bilateral Equipment Used PRN 1 UE light support rail Reps/Minutes 2x15 ea Comments improved HR Mini Squats Side bilateral Resistance AROM Equipment Used PRN UE support on rail Reps/Minutes 2x10, 2 sec hold Comments good hip hinge- ski squat position Gait Training Gait Activity trek poles Description trialed in PT: 2 pt gait Device Used trek poles Level of Assistance SBA Distance/Duration 20 ft x3 laps Treatment Focus decrease stride Comments 1 LOB R lateral due to to NBOS , Min A recovery. Cues increase MADAN- improved posturing, challenge patterning at first. 1 Description Normal gait Device Used no AD Level of Assistance IND Surface even Distance/Duration 20ft x 2 laps near rail Treatment Focus improving gait pattern without AD Comments decreased stance time on RLE, compensates trunk rotation. PT-OP-T Assessment and Plan Start: 03/15/23 10:55 Freq: Status: Active Protocol: Document 04/09/23 12:50 SP (Rec: 04/09/23 13:34 SP [id number]) Physical Therapy Assessment Goals Five Impairment Return to PLOF Short Term Goal (STG) Pt to be able to walk 2 blocks or more in one bout with LRAD to show improving activity tolerance to return to PLOF. STG Duration 4 Senior Care Goal (LTG) Pt to be able to walk 4 blocks or more in one bout with LRAD to show improving activity tolerance to return to PLOF. LTG Duration 6 Four Impairment Gait Short Term Goal (STG) Pt to demonstrate symmetrical stride lengths to decrease antalgic gait pattern when ambulating to show improving gait abnormalites. STG Duration 4 Senior Care Goal (LTG) Pt to demonstrate improved knee flexion when ambulating to increase step clearance to show improving gait abnormalities. LTG Duration 6 Three Impairment Patient questionnaire Short Term Goal (STG) Pt's LEFS score to improve by 10 points or better to show improving symptoms and QOL. STG Duration 4 Senior Care Goal (LTG) Pt's LEFS score to improve by 20 points or better to show improving symptoms and QOL. LTG Duration 6 Two Impairment Muscular weakness Short Term Goal (STG) Pt's gross LE MMT scores to improve to 4/5 or better to show impring strength to be able to perform functional mobility with increased ease. STG Duration 4 Direct Mail Marketer Goal (LTG) Pt's gross LE MMT scores to improve to 4+/5 or better to show impring strength to be able to perform functional mobility with increased ease. LTG Duration 6 One Impairment Knee AROM deficit Short Term Goal (STG) Pt's right knee AROM to improve to 95 degrees or better to by symmetrical with LLE and to improve gait mechanics. STG Duration 4 Direct Mail Marketer Goal (LTG) Pt's right knee AROM to improve to 105degrees or better to improve gait mechanics and ability to perform functional mobility such as STS and stairs. LTG Duration 6 Progress Towards Goals Progress Towards Goals Progressing Toward Goals Progress Comments limited by lymphedema and compression garments 04/09/23: -Improved R knee AROM 13 deg ( 103*) -limited by lymphedema and compression garments 04/09/23: improved L knee AROM 9 deg ( 105*) Assessment Summary Assessment Pt better understanding standing HEP review, able to perform with PRN UE support today. She reported gaining B knee flexion in supine feet on bed. Instructed core/ LE TA SLR and bridging to HEP for warm up pre getting up in am with good response. Pt making gains in B knee ROM measured today. Pt unsteady without AD and trunk rotation compensation. Trialed gait with trek poles for opportunity to progress to if wanting in future and increase more upright posturing. Physical Therapy Plan Frequency and Duration Frequency of Treatment 2x/Week Duration of treatment (weeks) 6 Plan of Care Start Date 03/15/23 Plan of Care End Date 05/10/23 Therapeutic Interventions Therapeutic Interventions Balance Training,Gait Training ,Home Exercise Program,Joint Mobilizations,Manual Therapy, Neuromuscular Re-education, Patient/Caregiver Education, Self-Care/Home Management, Therapeutic Activities, Therapeutic Exercises Modalities Cold Pack/Ice Massage,Electric Stimulation,Hot Packs Next Visit Focus/Plan Next Note Type Treatment Note Next Visit Plan REcheck added supine TA SLR and bridge to HEP. POC: Continue with gait training and adding LE strength and mobility exercises as tolerated.
--- NOTE | 2023-04-11 13:18 | PT.OTN ---
Current Diagnoses Presence of unspecified artificial knee joint (04/11/23) Physical Therapy Treatment Note PT-OP-A Visit Information Start: 03/15/23 10:55 Freq: Status: Active Protocol: Document 04/11/23 12:07 AB (Rec: 04/11/23 13:16 AB [id number]) Out-Patient Physical Therapy Visit Information Visit Information Visit Type Treatment Note Visit Start Time 11:47 Visit Stop Time 12:30 Total Visit Minutes 42 Visit Number 7 PT-OP-B Current Condition Start: 03/15/23 10:55 Freq: Status: Active Protocol: Document 03/15/23 10:56 AB (Rec: 03/15/23 14:39 AB [id number]) Current Condition History of Current Condition Onset Date 02/08/23 History of Current Condition Pt is s/p right TKA performed on 02/08/23. Recieved home health PT and was discharged yesterday. Currently the pt is having some pain with walking a block and a half and standing (2/10), but is pain free otherwise. She is a candidate for left TKA in the future, as her left knee pain is worse than her right. Treatment Goals Patient/Caregiver Goals To improve her RLE strength and get to the point where he is not using 4WW. Prior Functional Status Baseline Function- ADL's Independent Baseline Function- Mobility Independent Baseline Function- Gait Began using 4WW due to knee pain and shortness of breath due to Afib Current Functional Impairments (Reported) Functional Limitations- ADL's No limitations in her ADLs Functional Limitations- Recreation/ Not yet able to go more than a Hobbies block on her daily walks. PT-OP-C Subjective Start: 03/15/23 10:55 Freq: Status: Active Protocol: Document 04/11/23 12:07 AB (Rec: 04/11/23 13:16 AB [id number]) OP-PT Subjective Patient Comments Patient Comments The pt reports she is doing well, and denies any symptoms in her left knee. PT-OP-G Mobility & Gait Start: 03/15/23 10:55 Freq: Status: Active Protocol: Document 03/15/23 10:56 AB (Rec: 03/15/23 14:39 AB [id number]) OP Gait Assessment Gait Gait Assistance Required: Independent Gait Deviations General Gait Pattern Antalgic,Decreased Stride Length Factors Limiting Gait Function Factors Limiting Gait Function Decreased Activity Tolerance, Decreased Strength,Limited Range of Motion,Pain PT-OP-K Range of Motion Start: 03/15/23 10:55 Freq: Status: Active Protocol: Document 04/09/23 12:50 SP (Rec: 04/09/23 13:34 SP [id number]) Knee Goniometric Range of Motion Knee Right Knee ROM WFL Yes Patient Position Supine Flexion Active (degrees) 103 Extension Active (degrees) 0 Comments limited by lymphedema and compression garments 04/09/23: Improved R knee AROM 13 deg ( 103*) Left Knee ROM WFL Yes Patient Position Supine Flexion Active (degrees) 105 Extension Active (degrees) 0 Comments limited by lymphedema and compression garments 04/09/23: improved L knee AROM 9 deg ( 105*) PT-OP-M Strength Start: 03/15/23 10:55 Freq: Status: Active Protocol: Document 03/15/23 10:56 AB (Rec: 03/15/23 14:39 AB [id number]) Hip Strength Hip Manual Muscle Testing Right Flexion (L2) 4+ Good+ Extension (S1) 3+ Fair+ Abduction 4 Good Adduction 4 Good External Rotation 4 Good Internal Rotation 4 Good Left Flexion (L2) 4+ Good+ Extension (S1) 3+ Fair+ Abduction 4 Good Adduction 4 Good External Rotation 4 Good Internal Rotation 4 Good Knee Strength Knee Manual Muscle Testing Right Flexion (S2) 4- Good- Extension (L3) 5 Normal Left Flexion (S2) 4- Good- Extension (L3) 5 Normal PT-OP-Q Treatments Start: 03/15/23 10:55 Freq: Status: Active Protocol: Document 04/11/23 12:07 AB (Rec: 04/11/23 13:16 AB [id number]) Cardio Equipment Recumbent Stepper (Sci-Fit) Duration (Minutes) 5 Seat Position 13 Therapeutic Exercises Supine Exercises TA SLR Side bilateral Reps/Minutes 2x8 ea Comments cued TKE bridge Side bilateral Reps/Minutes 2x10 Sitting Exercises LAQ Side bilateral Reps/Minutes 2x10 ea Standing Exercises HS curls Side bilateral Reps/Minutes 1x15ea Comments BUE support Mini Squats Side bilateral Resistance AROM Equipment Used PRN UE support on rail Reps/Minutes 2x10, 2 sec hold Other Exercises STS Resistance 5# for last set Reps/Minutes 2x8 PT-OP-T Assessment and Plan Start: 03/15/23 10:55 Freq: Status: Active Protocol: Document 04/11/23 12:07 AB (Rec: 04/11/23 13:16 AB [id number]) Physical Therapy Assessment Goals Five Impairment Return to PLOF Short Term Goal (STG) Pt to be able to walk 2 blocks or more in one bout with LRAD to show improving activity tolerance to return to PLOF. STG Duration 4 Manager [employer] Goal (LTG) Pt to be able to walk 4 blocks or more in one bout with LRAD to show improving activity tolerance to return to PLOF. LTG Duration 6 Four Impairment Gait Short Term Goal (STG) Pt to demonstrate symmetrical stride lengths to decrease antalgic gait pattern when ambulating to show improving gait abnormalites. STG Duration 4 Manager [employer] Goal (LTG) Pt to demonstrate improved knee flexion when ambulating to increase step clearance to show improving gait abnormalities. LTG Duration 6 Three Impairment Patient questionnaire Short Term Goal (STG) Pt's LEFS score to improve by 10 points or better to show improving symptoms and QOL. STG Duration 4 Manager [employer] Goal (LTG) Pt's LEFS score to improve by 20 points or better to show improving symptoms and QOL. LTG Duration 6 Two Impairment Muscular weakness Short Term Goal (STG) Pt's gross LE MMT scores to improve to 4/5 or better to show impring strength to be able to perform functional mobility with increased ease. STG Duration 4 Manager [employer] Goal (LTG) Pt's gross LE MMT scores to improve to 4+/5 or better to show impring strength to be able to perform functional mobility with increased ease. LTG Duration 6 One Impairment Knee AROM deficit Short Term Goal (STG) Pt's right knee AROM to improve to 95 degrees or better to by symmetrical with LLE and to improve gait mechanics. STG Duration 4 Manager [employer] Goal (LTG) Pt's right knee AROM to improve to 105degrees or better to improve gait mechanics and ability to perform functional mobility such as STS and stairs. LTG Duration 6 Assessment Summary Assessment Exercises added to HEP were reviewed today, with the pt demonstrating good form and requiring only minimal verbal cues to perform with good form . She also demonstrates improved LE STS, as she is able to perform STS without use of BUEs, and was even able to add weight today. The pt continues to benefit from skilled PT at this time. Physical Therapy Plan Frequency and Duration Frequency of Treatment 2x/Week Duration of treatment (weeks) 6 Plan of Care Start Date 03/15/23 Plan of Care End Date 05/10/23 Therapeutic Interventions Therapeutic Interventions Balance Training,Gait Training ,Home Exercise Program,Joint Mobilizations,Manual Therapy, Neuromuscular Re-education, Patient/Caregiver Education, Self-Care/Home Management, Therapeutic Activities, Therapeutic Exercises Modalities Cold Pack/Ice Massage,Electric Stimulation,Hot Packs Next Visit Focus/Plan Next Note Type Progress Note Next Visit Plan Progress note and possible d/c to independent HEP.
--- NOTE | 2023-04-16 11:06 | PT.OPDS ---
Current Diagnoses Presence of unspecified artificial knee joint (04/16/23) Visit Care Team Role Provider Type Dottie Miller PA-C Primary Care Provider Non-Staff Specialty: Medical Address: [address], [place], [address] Email: Arabella Miller MD Family Provider Non-Staff Specialty: Psychiatry Address: [address] [facility], [place], [address] Email: Karan Washington DO Attending Provider Non-Staff Referring Provider Specialty: Orthopedics Address: [address] [facility], [place], [address] Email: Visit Number Visit Number 8 Discharge Summary PT-OP-B Current Condition Start: 03/15/23 10:55 Freq: Status: Active Protocol: Document 04/16/23 10:02 AB (Rec: 04/16/23 10:59 AB [id number]) Current Condition History of Current Condition Onset Date 02/08/23 History of Current Condition Pt is s/p right TKA performed on 02/08/23. Received home health PT and was discharged yesterday. Currently the pt is having some pain with walking a block and a half and standing (2/10), but is pain free otherwise. She is a candidate for left TKA in the future, as her left knee pain is worse than her right. She also reports she could walk 0. 5-1 mile with her 4WW. Treatment Goals Patient/Caregiver Goals To improve her RLE strength and get to the point where he is not using 4WW. Prior Functional Status Baseline Function- ADL's Independent Baseline Function- Mobility Independent Baseline Function- Gait Began using 4WW due to knee pain and shortness of breath due to Afib Current Functional Impairments (Reported) Functional Limitations- ADL's No limitations in her ADLs Functional Limitations- Recreation/ Not yet able to go more than a Hobbies block on her daily walks. PT-OP-C Subjective Start: 03/15/23 10:55 Freq: Status: Active Protocol: Document 04/16/23 10:02 AB (Rec: 04/16/23 10:59 AB [id number]) OP-PT Subjective Patient Comments Patient Comments THe pt reports she has made great improvements since beginning PT. Specifically, her balance is a lot better, she no longer needs to use 4WW in her home, she doesn't have much pain at all in RLE. At this point, she reports feeling like her left knee is holding her back. Patient Questionnaires Lower Extremity Functional Scale LEFS Score 57/80 LEFS Impairment 20 to 39% Impaired (Score 48- 62) PT-OP-G Mobility & Gait Start: 03/15/23 10:55 Freq: Status: Active Protocol: Document 04/16/23 10:02 AB (Rec: 04/16/23 10:59 AB [id number]) OP Gait Assessment Gait Gait Assistance Required: Independent Gait Deviations General Gait Pattern Within Normal Limits Factors Limiting Gait Function Factors Limiting Gait Function Decreased Activity Tolerance, Pain PT-OP-K Range of Motion Start: 03/15/23 10:55 Freq: Status: Active Protocol: Document 04/16/23 10:02 AB (Rec: 04/16/23 10:59 AB [id number]) Knee Goniometric Range of Motion Knee Right Knee ROM WFL Yes Patient Position Supine Flexion Active (degrees) 114 Extension Active (degrees) 0 Comments limited by lymphedema and compression garments Left Knee ROM WFL Yes Patient Position Supine Flexion Active (degrees) 106 Extension Active (degrees) 0 Comments limited by lymphedema and compression garments PT-OP-M Strength Start: 03/15/23 10:55 Freq: Status: Active Protocol: Document 04/16/23 10:02 AB (Rec: 04/16/23 10:59 AB [id number]) Hip Strength Hip Manual Muscle Testing Right Flexion (L2) 4+ Good+ Extension (S1) 4- Good- Abduction 4+ Good+ Adduction 4+ Good+ External Rotation 4+ Good+ Internal Rotation 4+ Good+ Left Flexion (L2) 4+ Good+ Extension (S1) 4- Good- Abduction 4+ Good+ Adduction 4+ Good+ External Rotation 4+ Good+ Internal Rotation 4+ Good+ Knee Strength Knee Manual Muscle Testing Right Flexion (S2) 5 Normal Extension (L3) 5 Normal Left Flexion (S2) 4 Good Extension (L3) 5 Normal PT-OP-T Assessment and Plan Start: 03/15/23 10:55 Freq: Status: Active Protocol: Document 04/16/23 10:02 AB (Rec: 04/16/23 10:59 AB [id number]) Physical Therapy Assessment Goals Five Impairment Return to PLOF Short Term Goal (STG) Pt to be able to walk 2 blocks or more in one bout with LRAD to show improving activity tolerance to return to PLOF. STG Duration 4 Mine Exploration Engineer Goal (LTG) Pt to be able to walk 4 blocks or more in one bout with LRAD to show improving activity tolerance to return to PLOF. LTG Duration 6 Four Impairment Gait Short Term Goal (STG) Pt to demonstrate symmetrical stride lengths to decrease antalgic gait pattern when ambulating to show improving gait abnormalities. STG Duration 4 Mine Exploration Engineer Goal (LTG) Pt to demonstrate improved knee flexion when ambulating to increase step clearance to show improving gait abnormalities. LTG Duration 6 Three Impairment Patient questionnaire Short Term Goal (STG) Pt's LEFS score to improve by 10 points or better to show improving symptoms and QOL. STG Duration 4 Mine Exploration Engineer Goal (LTG) Pt's LEFS score to improve by 20 points or better to show improving symptoms and QOL. LTG Duration 6 Two Impairment Muscular weakness Short Term Goal (STG) Pt's gross LE MMT scores to improve to 4/5 or better to show impring strength to be able to perform functional mobility with increased ease. STG Duration 4 Penitentiary Goal (LTG) Pt's gross LE MMT scores to improve to 4+/5 or better to show impring strength to be able to perform functional mobility with increased ease. LTG Duration 6 One Impairment Knee AROM deficit Short Term Goal (STG) Pt's right knee AROM to improve to 95 degrees or better to by symmetrical with LLE and to improve gait mechanics. STG Duration 4 Mine Exploration Engineer Goal (LTG) Pt's right knee AROM to improve to 105degrees or better to improve gait mechanics and ability to perform functional mobility such as STS and stairs. LTG Duration 6 Assessment Summary Assessment Adela Arthur has completed 8 visits of skilled PT to address right knee ROM and weakness secondary to right TKA. She demonstrates significant improvement in her ROM, as her right knee AROM is better than her left knee, improved LE strength, improved gait mechanics, improved dynamic balance, increased tolerance to activity, and decreased pain symptoms, as detailed above. The pt also reports she is independent with her HEP, has a plan to join a gym to continue progressing on her own, and feels like she is ready to be discharged. Based on her improvement, the pt has met goals to discharge to independent [facility]. She verbalizes understanding of all education provided. Physical Therapy Plan Frequency and Duration Frequency of Treatment 2x/Week Duration of treatment (weeks) 6 Plan of Care Start Date 03/15/23 Plan of Care End Date 05/10/23 Therapeutic Interventions Therapeutic Interventions Balance Training,Gait Training ,Home Exercise Program,Joint Mobilizations,Manual Therapy, Neuromuscular Re-education, Patient/Caregiver Education, Self-Care/Home Management, Therapeutic Activities, Therapeutic Exercises Modalities Cold Pack/Ice Massage,Electric Stimulation,Hot Packs Discharge Physical Therapy Discharge Reasons Goals Met Next Visit Focus/Plan Next Visit Plan PT is being discharged to independent [facility].
== END 2023-04-17 13:59 | disposition home or self-care (01) ==
LOC: PHYS 10:00
PROVIDERS: Family Provider Family Medicine; PCP Physician Assistant Medical; Referring Provider Orthopaedic Surgery; Visit Provider Orthopaedic Surgery
DX: Z96.659 Presence of unspecified artificial knee joint (principal)
CPT/HCPCS: 97110; 97116; 97162

== ENCOUNTER → 2023-08-15 14:14 | Outpatient (CLI) | payer OTHER, MEDICAID, SELFPAY ==
[2022-07-09 14:30] VITALS: BMI 34.7
--- NOTE | 2023-08-15 14:16 | DI.RAD.S_ITS ---
PROCEDURE: XR FINGER LT MIN 2V INDICATIONS: Thumb injury TECHNIQUE: AP hand, 3 views of the 1st finger(s) acquired. COMPARISON: None. FINDINGS: Bones: No dislocations. Questionable avulsion injury at the base of the proximal 1st phalan, seen on the lateral view of the thumb. Soft tissues: Questionable swelling of the thumb noted. IMPRESSION: Questionable avulsion injury to the base of the 1st proximal phalanx; correlate with torn collateral ligament/gamekeeper's thumb/skiers thumb. Dictated by: Marco Steinberg M.D. on 08/15/2023 at 18:06 Approved by: Marco Steinberg M.D. on 08/15/2023 at 18:14
== END ==
PROVIDERS: Family Provider Family Medicine; PCP Physician Assistant Medical; Referring Provider Nurse Practitioner Family; Visit Provider Nurse Practitioner Family
DX: S69.92XA Unspecified injury of left wrist, hand and finger(s), initial encounter (principal); X58.XXXA Exposure to other specified factors, initial encounter
CPT/HCPCS: 73140

== ENCOUNTER → 2023-09-10 08:44 | Outpatient (CLI) | payer OTHER, MEDICAID, SELFPAY ==
[2022-07-09 14:30] VITALS: BMI 34.7
--- NOTE | 2023-09-10 | DI.MRI.S_ITS ---
PROCEDURE: MR HAND LT WO CON INDICATIONS: Sprain of metacarpophalangeal joint of left thumb TECHNIQUE: Noncontrast coronal T1 spin echo and T2 fast spin echo with fat saturation, axial proton density fast spin echo and T2 fast spin echo with fat saturation, sagittal T1 spin echo and STIR through the hand and fingers. Additional axial and oblique coronal T2 fast spin echo and oblique sagittal T1 spin echo through the thumb. COMPARISON: [facility], [place], XR FINGER(S) LEFT, 09/03/2023, 13:20. [facility], CR, XR FINGER LT MIN 2V, 08/15/2023, 14:19. FINDINGS: Image quality: Excellent. Bones: Mild osseous edema is seen in the 1st proximal phalangeal base. A small minimally displaced osseous fragment is seen at the ulnar collateral ligament insertion that is suspicious for a minimally displaced avulsion injury. Moderate degenerative changes are seen at the 1st carpometacarpal joint. There are mild scattered degenerative changes throughout the remainder of the hand and wrist. Soft tissues: There is full-thickness tearing of the distal ulnar collateral ligament at the 1st metacarpophalangeal joint from its insertion onto the 1st proximal phalangeal base with suspected osseous avulsion. There is minimal displacement of torn ligament fibers without definite Stener lesion seen. Radial collateral ligament appears mildly thickened, compatible with a low-grade sprain. The dorsal and volar joint capsule is grossly intact. Mild soft tissue edema is seen surrounding the 1st metacarpophalangeal joint. Mild edema is seen tracking along the abductor pollicis muscle that may indicate low-grade strain. There is mild flexor pollicis longus tenosynovitis. Mild tenosynovitis is noted at the 2nd and 3rd flexor tendons at the level of the metacarpal heads. IMPRESSION: 1. Complete tearing of the ulnar collateral ligament at the 1st metacarpophalangeal joint from its distal insertion with associated osseous avulsion. Minimal proximal displacement of torn ligament fibers is seen without a definite Stener lesion. Mild osseous edema is seen in the 1st proximal phalangeal base. 2. Chronic appearing low-grade sprain of the radial collateral ligament. 3. Mild edema in the adductor pollicis muscle is suspicious for a low-grade strain. Adductor aponeurosis appears to remain intact. 4. [id number] flexor pollicis longus tenosynovitis. Mild tenosynovitis of the 2nd and 3rd flexor tendons. 5. Moderate 1st carpometacarpal osteoarthrosis. Approved by: Manuel Sanches M.D. on 09/10/2023 at 16:21
== END ==
PROVIDERS: Family Provider Family Medicine; PCP Physician Assistant Medical; Referring Provider Orthopaedic Surgery; Visit Provider Orthopaedic Surgery
DX: S63.642A Sprain of metacarpophalangeal joint of left thumb, initial encounter (principal); S53.32XA Traumatic rupture of left ulnar collateral ligament, initial encounter; S53.22XA Traumatic rupture of left radial collateral ligament, initial encounter; M65.842 Other synovitis and tenosynovitis, left hand; M18.12 Unilateral primary osteoarthritis of first carpometacarpal joint, left hand; X58.XXXA Exposure to other specified factors, initial encounter
CPT/HCPCS: 73218

== ENCOUNTER 2023-09-27 10:30 | Outpatient (RCR) | payer OTHER, MEDICAID, SELFPAY ==
[2022-07-09 14:30] VITALS: BMI 34.7
--- NOTE | 2023-08-03 16:32 | PT.OIE ---
Current Diagnoses Unilateral primary osteoarthritis, left knee (08/03/23) Past Medical History (Last Updated 07/08/22 @ 18:13 by Srinivas Manzo MD) Atrial fibrillation CHF (congestive heart failure) Depression Depression Lymphedema Morbid obesity due to excess calories Past Surgical History (Last Updated 07/08/22 @ 18:12 by Srinivas Manzo MD) History of gastric bypass History of Liam-en-Y gastric bypass History of tonsillectomy Status post panniculectomy Visit Care Team Role Provider Type Dottie Miller PA-C Primary Care Provider Non-Staff Specialty: Medical Address: [address] [place] [address] [address], [place], [address] Email: Arabella Miller MD Family Provider Non-Staff Specialty: Psychiatry Address: [address] [place], [address] Email: Brittany Sims PA-C Attending Provider Non-Staff Referring Provider Specialty: Medical Address: [address] [place] [address], [phone] Email: Physical Therapy Initial Evaluation PT-OP-A Visit Information Start: 08/03/23 13:47 Freq: Status: Active Protocol: Document 08/03/23 13:48 NM (Rec: 08/03/23 16:26 NM [id number]) Out-Patient Physical Therapy Visit Information Visit Information Visit Type Initial Evaluation Visit Note 16 visits total DOS: 06/19/23 Visit Start Time 13:48 Visit Stop Time 14:33 Total Visit Minutes 45 Visit Number 1 Evaluation Information Evaluation Date 08/03/23 Precautions Precautions Move slowly with positional changes d/t reported orthostasis 8 weeks: 08/13/23 12 weeks: 09/10/23 PT-OP-B Current Condition Start: 08/03/23 13:47 Freq: Status: Active Protocol: Document 08/03/23 13:48 NM (Rec: 08/03/23 16:26 NM [id number]) Current Condition History of Current Condition Onset Date 06/19/23 Current Complaints pain, ache History of Current Condition Pt presents to clinic s/p L TKA performed on 06/19/[address] Washington. Pt reports that she just had her follow up with him this past week, and she states he is pleased with the ROM. Prior to arrival at [facility], pt had HHPT following surgery with recent discharge last week. Pt uses a 4WW for balance during gait and did prior to surgery. She reports that she is able to ambulate in her house without her 4WW for short distances. Hx of R TKA earlier in 2022. Pt has hx of lymphedema so BLE are completely wrapped from ankle to hip; pt reports that she has had significantly less swelling in her knee since she was able to use the wraps that go to her hip. Pt has a hx of falls, 1-2x/yr but none since her surgery. Also has hx of neuropathy on RLE below the knee. Lives alone with no stairs. Prior Functional Status Baseline Function- ADL's Independent Baseline Function- Mobility Independent Baseline Function- Gait household and short community distances with 4WW Baseline Function- Recreation/Hobbies Work out at gym 2-3x/wk (bike, nustep, arm exercise machines ), water aerobics Current Functional Impairments (Reported) Functional Limitations- Mobility/Gait household distances without 4ww PT-OP-C Subjective Start: 08/03/23 13:47 Freq: Status: Active Protocol: Document 08/03/23 13:48 NM (Rec: 08/03/23 16:26 NM [id number]) OP-PT Subjective Patient Comments Patient Comments see hx above for pt report OP-PT Pain Assessment Pain Assessment Grid Paper Pain Assessment Grid Completed Yes Location L knee Pain Location Details medial and lateral knee pain, superior knee pain Intensity 1 Scale Used Numeric (0 - 10) Description Aching Description- Other worse- 1 Frequency Intermittent Radiating Location none Pain Aggravating Factors Activity,Standing,Walking Other Pain Aggravating Factors worse in evening (1-2) Pain Alleviating Factors Medication,Elevation,Rest Other Pain Alleviating Factors tylenol- 1x/day PT-OP-D Balance Start: 08/03/23 13:47 Freq: Status: Active Protocol: Document 08/03/23 13:48 NM (Rec: 08/03/23 16:26 NM [id number]) OP-PT Balance Assessment Sitting Balance Static Sitting Balance Ability Normal Dynamic Sitting Balance Ability Normal Standing Balance Static Standing Balance Ability Fair Dynamic Standing Balance Ability Poor Balance Tests Romberg Romberg 10 sec Semi-Tandem Standing Semi-Tandem Standing Balance R < 3 sec, L <3 sec Tandem Tandem Standing Unable to get into position w/ o UE support; <1 sec ea De Leon Fall Scale Copyright Permission PT-OP-E Functional Tests Start: 08/03/23 13:47 Freq: Status: Active Protocol: Document 08/03/23 13:48 NM (Rec: 08/03/23 16:26 NM [id number]) Functional Tests Five Times Sit to Stand Test Score 21.83 sec Comments reports no knee pain Timed Up and Go (TUG) Score 13 sec Comments with FWW Tinetti Balance and Gait Assessment Balance Score 11 Gait Score 6 Composite Score 17/28 Balance Score Impairment Rating 20 to <40% Impaired (Score 10- 12) Gait Score Impairment Rating 40 to <60% Impaired (Score 5-7 ) Composite Score Impairment Rating 20 to <40% Impaired (Score 17- 22) PT-OP-F Manual Assessment Start: 08/03/23 13:47 Freq: Status: Active Protocol: Document 08/03/23 13:48 NM (Rec: 08/03/23 16:26 NM [id number]) Manual Assessments Soft Tissue Assessment Soft Tissue Mobility Assessment Pt has bilateral lymphedema, which limits ROM. No restrictions of B hamstrings, quads, hip flexors Joint Mobility Assessment Joint Mobility Assessment B hip PROM limited in flexion but good IR/ER in supine. B knees limited passive flexion, full extension. Limited B ankle dorsiflexion PT-OP-G Mobility & Gait Start: 08/03/23 13:47 Freq: Status: Active Protocol: Document 08/03/23 13:48 NM (Rec: 08/03/23 16:26 NM [id number]) OP Gait Assessment Gait Gait Assistance Required: Independent Distance (Feet) 150 Able to Maintain Weight Bearing Status Yes During Gait Assistive Devices Assistive Device Gait Belt,4 Wheeled Walker Gait Deviations General Gait Pattern Antalgic,Flexed Trunk,Step-to Gait,Wide Based Gait Factors Limiting Gait Function Factors Limiting Gait Function Decreased Activity Tolerance, Decreased Sensation,Decreased Strength,Limited Range of Motion,Pain,Poor Balance Stair Climbing Evaluation Comments Stair Climbing Comments Trialed placing LLE on step, but difficulty with flexing knee enough to place on step; performs hip circumduction to lift onto step. Did not attempt climbing PT-OP-H Neuro Start: 08/03/23 13:47 Freq: Status: Active Protocol: Document 08/03/23 13:48 NM (Rec: 08/03/23 16:26 NM [id number]) Sensation Evaluation Gross Sensation Gross Sensation Right LE Impaired Dermatome Impairments L4,L5 Comments Summary Comments LLE intact to light touch sensation L2-L5, S1-2. RLE impaired laterally below knee, L4 dermatome. Vital Signs Comments Vital Signs Comments 08/03/23 BP 109/68 (sitting), 98 spo2, 63 bpm PT-OP-J Posture/Palpation/Skin Start: 08/03/23 13:47 Freq: Status: Active Protocol: Document 08/03/23 13:48 NM (Rec: 08/03/23 16:26 NM [id number]) Posture Evaluation Position Standing Evaluation View Lateral Head/C-Spine Posture Forward Head T-Spine Posture Increased Kyphosis L-Spine Posture Increased Lordosis Shoulder Posture (L) Forward,(R) Forward Weight Distribution Balanced Hip Posture (L) Neutral,(R) Neutral Knee Posture (L) Genu Varus,(R) Genu Varus Ankle/Foot Posture (L) Pronated,(R) Pronated Palpation Assessment Location L knee Palpation Location anterior, medial/lateral knee Palpation Findings Edema Palpation Details Lymphedema, so increased swelling. Minimal tenderness along medial knee Skin Assessment Incisional Assessment Incision Appearance/Comments Pt reports that incision is intact with no scars; she performs mobilizations at home when her wrappings are not on . Unable to formally assess due to lymphedema wrappings. PT-OP-K Range of Motion Start: 08/03/23 13:47 Freq: Status: Active Protocol: Document 08/03/23 13:48 NM (Rec: 08/03/23 16:26 NM [id number]) Hip Goniometric Range of Motion Hip Right Flexion w/Knee Flexed 100 Left Flexion w/Knee Flexed 100 Knee Goniometric Range of Motion Knee Right Flexion Active (degrees) 102 Extension Active (degrees) 0 Left Patient Position Supine Flexion Active (degrees) 100 Flexion Passive (degrees) 103 Extension Active (degrees) 3 Extension Passive (degrees) 0 Comments minimal pain with flexion Knee ROM Limitations Knee ROM Limitations Swelling Comments Lymphedema wrappings and swelling limit ROM PT-OP-M Strength Start: 08/03/23 13:47 Freq: Status: Active Protocol: Document 08/03/23 13:48 NM (Rec: 08/03/23 16:26 NM [id number]) Hip Strength Hip Manual Muscle Testing Right Flexion (L2) 4- Good- Extension (S1) 4- Good- Abduction 4- Good- External Rotation 4- Good- Internal Rotation 4- Good- Left Flexion (L2) 4- Good- Extension (S1) 3+ Fair+ Abduction 3+ Fair+ External Rotation 4- Good- Internal Rotation 4- Good- Knee Strength Knee Manual Muscle Testing Right Flexion (S2) 4- Good- Extension (L3) 4- Good- Left Flexion (S2) 3+ Fair+ Extension (L3) 3+ Fair+ Comments Reports min pain with resisted extension Ankle/Foot Strength Ankle and Foot Manual Muscle Testing Right Dorsiflexion (L4) 4+ Good+ Plantarflexion (S1) 4+ Good+ Left Dorsiflexion (L4) 4+ Good+ Plantarflexion (S1) 4+ Good+ PT-OP-T Assessment and Plan Start: 08/03/23 13:47 Freq: Status: Active Protocol: Document 08/03/23 13:48 NM (Rec: 08/03/23 16:26 NM [id number]) Physical Therapy Assessment Rehab Potential Rehabilitation Potential Good Evaluation Complexity Number of Personal Factors/Comorbidities 3 or More Number of Body Systems Impaired 1-2 Clinical Presentation at Evaluation Stable Impairments Impairments Activity Tolerance,Balance, Coordination,Edema,Functional Activities,Functional Mobility ,Gait,Integument,Pain,Posture, ROM,Sensation,Soft Tissue Mobility,Strength Goals Eight Impairment gait Screw Machine Set Up Operator Tool Goal (LTG) Pt will be able to ambulate community distances (at least 500 ft) using 4WW or LRAD LTG Duration 8 weeks Seven Impairment strength Screw Machine Set Up Operator Tool Goal (LTG) Pt will improve global B hip strength to at least 4+/5 in order to demonstrate increased hip strength for better stability during gait LTG Duration 8 weeks Six Impairment strength Impairment L hip abd/ext 3+/5 Short Term Goal (STG) Pt will improve L hip abd/ext strength to at least 4/5 in order to demonstrate increased hip strength for improved gait and balance STG Duration 4 weeks Penitentiary Goal (LTG) Pt will improve L hip abd/ext strength to at least 4+/5 in order to demonstrate increased hip strength for improved gait and balance LTG Duration 8 weeks Five Impairment strength Impairment L knee flex/ext 3+/5 MMT Short Term Goal (STG) Pt will improve L knee flex/ ext strength to at least 4/5 in order to demonstrate increased knee strength for gait STG Duration 4 weeks Penitentiary Goal (LTG) Pt will improve L knee flex/ ext strength to at least 4+/5 in order to demonstrate increased knee strength for gait LTG Duration 8 weeks Four Impairment strength Impairment 5x STS: 21.83 seconds Short Term Goal (STG) Pt will decrease 5x STS time to less than 20 seconds in order to demonstrate improved BLE strength Penitentiary Goal (LTG) Pt will decrease 5x STS time to less than 18 seconds in order to demonstrate improved BLE strength LTG Duration 8 weeks Three Impairment balance Impairment TU seconds with 4WW Screw Machine Set Up Operator Tool Goal (LTG) Pt will decrease TUG score to less than 13 seconds using LRAD in order to demonstrate improved balance and decrease fall risk LTG Duration 8 weeks Two Impairment ROM Impairment R knee flex ROM 100 deg Short Term Goal (STG) Pt will increase R knee flex ROM to at least 110 deg in order to be able to ride her bike if possible due to lymphedema STG Duration 4 weeks Penitentiary Goal (LTG) Pt will increase R knee flex ROM to at least 115 deg in order to be able to ride her bike if possible due to lymphedema LTG Duration 8 weeks One Impairment function Impairment LEFS: 51/80 Screw Machine Set Up Operator Tool Goal (LTG) Pt will increase LEFS score by at least 9 points (1 MCID) in order to demonstrate improved tolerance for ADLs. LTG Duration 8 weeks Assessment Summary Assessment Pt is a 52 y.o. female s/p L TKA on 06/19/24. She is currently 6.5 weeks post-op. Prior to evaluation, pt received several weeks of HHPT . Pt has hx of B lymphedema and her legs are wrapped. She presents with 4WW during gait, which she used pre- operatively as well for stability. Pt has minimal L knee pain. She has near L terminal knee extension, but is only able to flex her L knee 100 deg partly due to her lymphedema. Pt presents with decreased B hip and knee strength, most limited in hip ext and abd. Able to perform 5x sit to grain trader 21 seconds. Currently, pt has Tinetti score of 17/28 and a TUG time of 13 seconds, indicating a fall risk. Pt would benefit from skilled PT for BLE hip and knee strengthening, L knee ROM, and balance/gait training in order to improve activity tolerance, decrease fall risk, and return to PLOF. Physical Therapy Plan Frequency and Duration Frequency of Treatment 2x/Week Duration of treatment (weeks) 8 Plan of Care Start Date 08/03/23 Plan of Care End Date 09/28/23 Therapeutic Interventions Therapeutic Interventions Aquatic Therapy,Balance Training,Gait Training,Home Exercise Program,Joint Mobilizations,Manual Therapy, Neuromuscular Re-education, Orthotic/Prosthetic Management ,Patient/Caregiver Education, Self-Care/Home Management, Sensory Integration,Soft Tissue Mobilization,Taping, Therapeutic Activities, Therapeutic Exercises Modalities Cold Pack/Ice Massage,Hot Packs Next Visit Focus/Plan Next Note Type Treatment Note Next Visit Plan Manual: knee flexion, patellar mobilizations Initiate: LAQ, hip abd, hip ext, hip flex, HSC
--- NOTE | 2023-08-03 16:33 | PT.OPPOC ---
Physical, Occupational & Speech Therapy At [facility] Current Diagnoses Unilateral primary osteoarthritis, left knee (08/03/23) Visit Care Team Role Provider Type Dottie Miller PA-C Primary Care Provider Non-Staff Specialty: Medical Address: [facility] [address], [place], [address] Email: Arabella Miller MD Family Provider Non-Staff Specialty: Psychiatry Address: [address] [place], [address] Email: Brittany Sims PA-C Attending Provider Non-Staff Referring Provider Specialty: Medical Address: [address] [place], [address] Email: Plan Of Care PT-OP-T Assessment and Plan Start: 08/03/23 13:47 Freq: Status: Active Protocol: Document 08/03/23 13:48 NM (Rec: 08/03/23 16:26 NM [id number]) Physical Therapy Assessment Rehab Potential Rehabilitation Potential Good Evaluation Complexity Number of Personal Factors/Comorbidities 3 or More Number of Body Systems Impaired 1-2 Clinical Presentation at Evaluation Stable Impairments Impairments Activity Tolerance,Balance, Coordination,Edema,Functional Activities,Functional Mobility ,Gait,Integument,Pain,Posture, ROM,Sensation,Soft Tissue Mobility,Strength Goals Eight Impairment gait Processing Engineer Goal (LTG) Pt will be able to ambulate community distances (at least 500 ft) using 4WW or LRAD LTG Duration 8 weeks Seven Impairment strength Alf Goal (LTG) Pt will improve global B hip strength to at least 4+/5 in order to demonstrate increased hip strength for better stability during gait LTG Duration 8 weeks Six Impairment strength Impairment L hip abd/ext 3+/5 Short Term Goal (STG) Pt will improve L hip abd/ext strength to at least 4/5 in order to demonstrate increased hip strength for improved gait and balance STG Duration 4 weeks Processing Engineer Goal (LTG) Pt will improve L hip abd/ext strength to at least 4+/5 in order to demonstrate increased hip strength for improved gait and balance LTG Duration 8 weeks Five Impairment strength Impairment L knee flex/ext 3+/5 MMT Short Term Goal (STG) Pt will improve L knee flex/ ext strength to at least 4/5 in order to demonstrate increased knee strength for gait STG Duration 4 weeks Alf Goal (LTG) Pt will improve L knee flex/ ext strength to at least 4+/5 in order to demonstrate increased knee strength for gait LTG Duration 8 weeks Four Impairment strength Impairment 5x STS: 21.83 seconds Short Term Goal (STG) Pt will decrease 5x STS time to less than 20 seconds in order to demonstrate improved BLE strength Processing Engineer Goal (LTG) Pt will decrease 5x STS time to less than 18 seconds in order to demonstrate improved BLE strength LTG Duration 8 weeks Three Impairment balance Impairment TU seconds with 4WW Alf Goal (LTG) Pt will decrease TUG score to less than 13 seconds using LRAD in order to demonstrate improved balance and decrease fall risk LTG Duration 8 weeks Two Impairment ROM Impairment R knee flex ROM 100 deg Short Term Goal (STG) Pt will increase R knee flex ROM to at least 110 deg in order to be able to ride her bike if possible due to lymphedema STG Duration 4 weeks Processing Engineer Goal (LTG) Pt will increase R knee flex ROM to at least 115 deg in order to be able to ride her bike if possible due to lymphedema LTG Duration 8 weeks One Impairment function Impairment LEFS: 51/80 Processing Engineer Goal (LTG) Pt will increase LEFS score by at least 9 points (1 MCID) in order to demonstrate improved tolerance for ADLs. LTG Duration 8 weeks Assessment Summary Assessment Pt is a 52 y.o. female s/p L TKA on 06/19/24. She is currently 6.5 weeks post-op. Prior to evaluation, pt received several weeks of HHPT . Pt has hx of B lymphedema and her legs are wrapped. She presents with 4WW during gait, which she used pre- operatively as well for stability. Pt has minimal L knee pain. She has near L terminal knee extension, but is only able to flex her L knee 100 deg partly due to her lymphedema. Pt presents with decreased B hip and knee strength, most limited in hip ext and abd. Able to perform 5x sit to unloading checker 21 seconds. Currently, pt has Tinetti score of 17/28 and a TUG time of 13 seconds, indicating a fall risk. Pt would benefit from skilled PT for BLE hip and knee strengthening, L knee ROM, and balance/gait training in order to improve activity tolerance, decrease fall risk, and return to PLOF. Physical Therapy Plan Frequency and Duration Frequency of Treatment 2x/Week Duration of treatment (weeks) 8 Plan of Care Start Date 08/03/23 Plan of Care End Date 09/28/23 Therapeutic Interventions Therapeutic Interventions Aquatic Therapy,Balance Training,Gait Training,Home Exercise Program,Joint Mobilizations,Manual Therapy, Neuromuscular Re-education, Orthotic/Prosthetic Management ,Patient/Caregiver Education, Self-Care/Home Management, Sensory Integration,Soft Tissue Mobilization,Taping, Therapeutic Activities, Therapeutic Exercises Modalities Cold Pack/Ice Massage,Hot Packs Next Visit Focus/Plan Next Note Type Treatment Note Next Visit Plan Manual: knee flexion, patellar mobilizations Initiate: LAQ, hip abd, hip ext, hip flex, HSC Plan of Care Dates Plan of Care Start Date 08/03/23 Plan of Care End Date 09/28/23 Electronically Signed by: Chanelle Clemons, PT 08/03/23 0397 If you are in agreement with this Plan of Care, please return a signed and dated copy. I have reviewed this Plan of Care and certify that the skilled therapy services above are required to meet the patient?s needs. Physician Signature Date Printed Name and Credentials Clinical Instructor Signature Printed Name and Credentials
--- NOTE | 2023-08-10 16:25 | PT.OTN ---
Current Diagnoses Unilateral primary osteoarthritis, left knee (08/10/23) Physical Therapy Treatment Note PT-OP-A Visit Information Start: 08/03/23 13:47 Freq: Status: Active Protocol: Document 08/10/23 13:47 NM (Rec: 08/10/23 14:32 NM [id number]) Out-Patient Physical Therapy Visit Information Visit Information Visit Type Treatment Note Visit Note 16 visits total DOS: 06/19/23 Visit Start Time 13:47 Visit Stop Time 14:30 Total Visit Minutes 43 Visit Number 2 Evaluation Information Evaluation Date 08/03/23 Precautions Precautions Move slowly with positional changes d/t reported orthostasis 8 weeks: 08/13/23 12 weeks: 09/10/23 PT-OP-B Current Condition Start: 08/03/23 13:47 Freq: Status: Active Protocol: Document 08/03/23 13:48 NM (Rec: 08/03/23 16:26 NM [id number]) Current Condition History of Current Condition Onset Date 06/19/23 Current Complaints pain, ache History of Current Condition Pt presents to clinic s/p L TKA performed on 06/19/[address] [place]. Pt reports that she just had her follow up with him this past week, and she states he is pleased with the ROM. Prior to arrival at [facility], pt had HHPT following surgery with recent discharge last week. Pt uses a 4WW for balance during gait and did prior to surgery. She reports that she is able to ambulate in her house without her 4WW for short distances. Hx of R TKA earlier in 2022. Pt has hx of lymphedema so BLE are completely wrapped from ankle to hip; pt reports that she has had significantly less swelling in her knee since she was able to use the wraps that go to her hip. Pt has a hx of falls, 1-2x/yr but none since her surgery. Also has hx of neuropathy on RLE below the knee. Lives alone with no stairs. Prior Functional Status Baseline Function- ADL's Independent Baseline Function- Mobility Independent Baseline Function- Gait household and short community distances with 4WW Baseline Function- Recreation/Hobbies Work out at gym 2-3x/wk (bike, nustep, arm exercise machines ), water aerobics Current Functional Impairments (Reported) Functional Limitations- Mobility/Gait household distances without 4ww PT-OP-C Subjective Start: 08/03/23 13:47 Freq: Status: Active Protocol: Document 08/10/23 13:47 NM (Rec: 08/10/23 14:32 NM [id number]) OP-PT Subjective Patient Comments Patient Comments Pt presents with 4WW and reports 1/10 knee pain. She states that she has been trying to ambulate inside her home (1 story) without her 4WW and feels stable. PT-OP-D Balance Start: 08/03/23 13:47 Freq: Status: Active Protocol: Document 08/03/23 13:48 NM (Rec: 08/03/23 16:26 NM [id number]) OP-PT Balance Assessment Sitting Balance Static Sitting Balance Ability Normal Dynamic Sitting Balance Ability Normal Standing Balance Static Standing Balance Ability Fair Dynamic Standing Balance Ability Poor Balance Tests Romberg Romberg 10 sec Semi-Tandem Standing Semi-Tandem Standing Balance R < 3 sec, L <3 sec Tandem Tandem Standing Unable to get into position w/ o UE support; <1 sec ea De Leon Fall Scale Copyright Permission PT-OP-E Functional Tests Start: 08/03/23 13:47 Freq: Status: Active Protocol: Document 08/03/23 13:48 NM (Rec: 08/03/23 16:26 NM [id number]) Functional Tests Five Times Sit to Stand Test Score 21.83 sec Comments reports no knee pain Timed Up and Go (TUG) Score 13 sec Comments with FWW Tinetti Balance and Gait Assessment Balance Score 11 Gait Score 6 Composite Score 17/28 Balance Score Impairment Rating 20 to <40% Impaired (Score 10- 12) Gait Score Impairment Rating 40 to <60% Impaired (Score 5-7 ) Composite Score Impairment Rating 20 to <40% Impaired (Score 17- 22) PT-OP-F Manual Assessment Start: 08/03/23 13:47 Freq: Status: Active Protocol: Document 08/03/23 13:48 NM (Rec: 08/03/23 16:26 NM [id number]) Manual Assessments Soft Tissue Assessment Soft Tissue Mobility Assessment Pt has bilateral lymphedema, which limits ROM. No restrictions of B hamstrings, quads, hip flexors Joint Mobility Assessment Joint Mobility Assessment B hip PROM limited in flexion but good IR/ER in supine. B knees limited passive flexion, full extension. Limited B ankle dorsiflexion PT-OP-G Mobility & Gait Start: 08/03/23 13:47 Freq: Status: Active Protocol: Document 08/03/23 13:48 NM (Rec: 08/03/23 16:26 NM [id number]) OP Gait Assessment Gait Gait Assistance Required: Independent Distance (Feet) 150 Able to Maintain Weight Bearing Status Yes During Gait Assistive Devices Assistive Device Gait Belt,4 Wheeled Walker Gait Deviations General Gait Pattern Antalgic,Flexed Trunk,Step-to Gait,Wide Based Gait Factors Limiting Gait Function Factors Limiting Gait Function Decreased Activity Tolerance, Decreased Sensation,Decreased Strength,Limited Range of Motion,Pain,Poor Balance Stair Climbing Evaluation Comments Stair Climbing Comments Trialed placing LLE on step, but difficulty with flexing knee enough to place on step; performs hip circumduction to lift onto step. Did not attempt climbing PT-OP-H Neuro Start: 08/03/23 13:47 Freq: Status: Active Protocol: Document 08/03/23 13:48 NM (Rec: 08/03/23 16:26 NM [id number]) Sensation Evaluation Gross Sensation Gross Sensation Right LE Impaired Dermatome Impairments L4,L5 Comments Summary Comments LLE intact to light touch sensation L2-L5, S1-2. RLE impaired laterally below knee, L4 dermatome. Vital Signs Comments Vital Signs Comments 08/03/23 BP 109/68 (sitting), 98 spo2, 63 bpm PT-OP-J Posture/Palpation/Skin Start: 08/03/23 13:47 Freq: Status: Active Protocol: Document 08/03/23 13:48 NM (Rec: 08/03/23 16:26 NM [id number]) Posture Evaluation Position Standing Evaluation View Lateral Head/C-Spine Posture Forward Head T-Spine Posture Increased Kyphosis L-Spine Posture Increased Lordosis Shoulder Posture (L) Forward,(R) Forward Weight Distribution Balanced Hip Posture (L) Neutral,(R) Neutral Knee Posture (L) Genu Varus,(R) Genu Varus Ankle/Foot Posture (L) Pronated,(R) Pronated Palpation Assessment Location L knee Palpation Location anterior, medial/lateral knee Palpation Findings Edema Palpation Details Lymphedema, so increased swelling. Minimal tenderness along medial knee Skin Assessment Incisional Assessment Incision Appearance/Comments Pt reports that incision is intact with no scars; she performs mobilizations at home when her wrappings are not on . Unable to formally assess due to lymphedema wrappings. PT-OP-K Range of Motion Start: 08/03/23 13:47 Freq: Status: Active Protocol: Document 08/03/23 13:48 NM (Rec: 08/03/23 16:26 NM [id number]) Hip Goniometric Range of Motion Hip Right Flexion w/Knee Flexed 100 Left Flexion w/Knee Flexed 100 Knee Goniometric Range of Motion Knee Right Flexion Active (degrees) 102 Extension Active (degrees) 0 Left Patient Position Supine Flexion Active (degrees) 100 Flexion Passive (degrees) 103 Extension Active (degrees) 3 Extension Passive (degrees) 0 Comments minimal pain with flexion Knee ROM Limitations Knee ROM Limitations Swelling Comments Lymphedema wrappings and swelling limit ROM PT-OP-M Strength Start: 08/03/23 13:47 Freq: Status: Active Protocol: Document 08/03/23 13:48 NM (Rec: 08/03/23 16:26 NM [id number]) Hip Strength Hip Manual Muscle Testing Right Flexion (L2) 4- Good- Extension (S1) 4- Good- Abduction 4- Good- External Rotation 4- Good- Internal Rotation 4- Good- Left Flexion (L2) 4- Good- Extension (S1) 3+ Fair+ Abduction 3+ Fair+ External Rotation 4- Good- Internal Rotation 4- Good- Knee Strength Knee Manual Muscle Testing Right Flexion (S2) 4- Good- Extension (L3) 4- Good- Left Flexion (S2) 3+ Fair+ Extension (L3) 3+ Fair+ Comments Reports min pain with resisted extension Ankle/Foot Strength Ankle and Foot Manual Muscle Testing Right Dorsiflexion (L4) 4+ Good+ Plantarflexion (S1) 4+ Good+ Left Dorsiflexion (L4) 4+ Good+ Plantarflexion (S1) 4+ Good+ PT-OP-Q Treatments Start: 08/03/23 13:47 Freq: Status: Active Protocol: Document 08/10/23 13:47 NM (Rec: 08/10/23 14:32 NM [id number]) Therapeutic Exercises Supine Exercises SAQ Side left Equipment Used large pillow under knee Reps/Minutes 1x10 with brief hold Comments reports min pain with terminal knee ext on ant knee; cue for quad activatio Sidelying Exercises clams Sidelying Exercise Name trialed sidelying hip abd but unable to coordinate w/o hip flex use Side left Reps/Minutes 2x10 with brief hold at top of range Comments cues to prevent hip rolling bwd Sitting Exercises LAQ Side left Resistance lvl 3 craig green tb Equipment Used tb around ankles Reps/Minutes 2x10 Comments cue for quad contract and TKE, tapping to help facilitate better; no pain Standing Exercises Step taps Standing Exercise Name trialed Side left Equipment Used 6 step with B stairs Reps/Minutes 1x10 Comments tactile and verbal cues to prevent hip circumduct; very difficult, d/c Knee flexion mobilization/stretch Standing Exercise Name L foot elevated on 6 step, bend fwd at knee into flex Side left Reps/Minutes 10x10 Comments cued ppt, upright posture, knee flexion only Minisquat Standing Exercise Name to chair Side bilateral Equipment Used chair behind to for target; BUE support on //bar Reps/Minutes 1x10 Comments cue to sit back twd chair for more glutes; demos fwd hip/ knee shift Sit to stand Standing Exercise Name with fwd reach to promote weight shift Equipment Used plinth 20 height, demos improved eccentric lowering with cueing Reps/Minutes 2x8 Comments cue to prevent use of momentum to stand; fwd reach for ant wt shift Manual Therapy Treatment Manual Techniques PROM Type L knee flexion Body Position Supine Reps/Duration 10x10 Comments PROM into L knee flex with stretch at end range, up to 106 deg before painful. Pain reported on anterior knee. Limited also by lymphedema knee wraps Self-Care/Home Management Treatment Education Patient Education Body Mechanics,Fall Risk,Home Exercise Program,Joint Protection,Pain Management, Posture,Safety Other Education Issued HEP: LAQ with band, standing knee flex on stairs with UE support, sit to stand with support to counter top, minisquat to chair with countertop UE support, clams ( add band if easy). Educated on joint protection, pain management (ice, elevate), importance of regaining knee flexion as nearing 8 weeks post op, safety during exercise and ambulation at home (instructed to use 4ww rather than ambulate without), no water aerobics at this time due to safety with wet surface/unable to do stairs and completely healed incision PT-OP-T Assessment and Plan Start: 08/03/23 13:47 Freq: Status: Active Protocol: Document 08/10/23 13:47 NM (Rec: 08/10/23 14:32 NM [id number]) Physical Therapy Assessment Goals Eight Impairment gait Senior Living Goal (LTG) Pt will be able to ambulate community distances (at least 500 ft) using 4WW or LRAD LTG Duration 8 weeks Seven Impairment strength Plastic Surgery Nurse Goal (LTG) Pt will improve global B hip strength to at least 4+/5 in order to demonstrate increased hip strength for better stability during gait LTG Duration 8 weeks Six Impairment strength Impairment L hip abd/ext 3+/5 Short Term Goal (STG) Pt will improve L hip abd/ext strength to at least 4/5 in order to demonstrate increased hip strength for improved gait and balance STG Duration 4 weeks Senior Living Goal (LTG) Pt will improve L hip abd/ext strength to at least 4+/5 in order to demonstrate increased hip strength for improved gait and balance LTG Duration 8 weeks Five Impairment strength Impairment L knee flex/ext 3+/5 MMT Short Term Goal (STG) Pt will improve L knee flex/ ext strength to at least 4/5 in order to demonstrate increased knee strength for gait STG Duration 4 weeks Plastic Surgery Nurse Goal (LTG) Pt will improve L knee flex/ ext strength to at least 4+/5 in order to demonstrate increased knee strength for gait LTG Duration 8 weeks Four Impairment strength Impairment 5x STS: 21.83 seconds Short Term Goal (STG) Pt will decrease 5x STS time to less than 20 seconds in order to demonstrate improved BLE strength Senior Living Goal (LTG) Pt will decrease 5x STS time to less than 18 seconds in order to demonstrate improved BLE strength LTG Duration 8 weeks Three Impairment balance Impairment TU seconds with 4WW Plastic Surgery Nurse Goal (LTG) Pt will decrease TUG score to less than 13 seconds using LRAD in order to demonstrate improved balance and decrease fall risk LTG Duration 8 weeks Two Impairment ROM Impairment R knee flex ROM 100 deg Short Term Goal (STG) Pt will increase R knee flex ROM to at least 110 deg in order to be able to ride her bike if possible due to lymphedema STG Duration 4 weeks Plastic Surgery Nurse Goal (LTG) Pt will increase R knee flex ROM to at least 115 deg in order to be able to ride her bike if possible due to lymphedema LTG Duration 8 weeks One Impairment function Impairment LEFS: 51/80 Senior Living Goal (LTG) Pt will increase LEFS score by at least 9 points (1 MCID) in order to demonstrate improved tolerance for ADLs. LTG Duration 8 weeks Assessment Summary Assessment Pt tolerated treatment well. She was wearing all of her lymphedema wrappings that she has to wear 12/02 so limited knee flex ROM slightly. PT asked pt if able to take off her knee wrapping during PT sessions and then don before leaving, which pt agreed should be ok. Initiated glute and quad strengthening with sit<>stands, minisquats, SAQ, LAQ, clams. Trialed sidelying hip abd but pt unable to perform without compensation into hip flexion despite tactile/verbal cues. Pain reported at terminal knee ext with SAQ/LAQ but demos improved quad contraction since last session. PT tapping during LAQ to promote better quad activation for full knee ext. During squats, pt demos fwd knee/hip flex vs post shift for glute activation; tactile cues with chair and PT facilitating hinge at hips briefly. Cued for anterior weight shift during sit<>stand and prevent momentum. Inititated standing knee flexion mobilization on stairs to promote greater knee range . Performed manual PROM stretching into knee flex to increase ROM, up to 106 deg before painful. Pt educated regarding HEP, safety during gait and exercises, did not approve starting water aerobics at this time, and pain management with modalities. Pt would benefit from skilled PT for progressive functional BLE strengthening and knee ROM in order to improve activity tolerance, improve pain management, and to decrease fall risk. Physical Therapy Plan Frequency and Duration Frequency of Treatment 2x/Week Duration of treatment (weeks) 8 Plan of Care Start Date 08/03/23 Plan of Care End Date 09/28/23 Therapeutic Interventions Therapeutic Interventions Aquatic Therapy,Balance Training,Gait Training,Home Exercise Program,Joint Mobilizations,Manual Therapy, Neuromuscular Re-education, Orthotic/Prosthetic Management ,Patient/Caregiver Education, Self-Care/Home Management, Sensory Integration,Soft Tissue Mobilization,Taping, Therapeutic Activities, Therapeutic Exercises Modalities Cold Pack/Ice Massage,Hot Packs Next Visit Focus/Plan Next Note Type Treatment Note Next Visit Plan Manual: knee flexion ( mobilizations, PROM to increase ROM), patellar mobilizations as able Initiate/continue: LAQ ( progress if able- target quad set), hip abd (trial standing hip abd vs side step), hip ext (trial standing hip ext), hip flex (seated vs standing march), HSC (standing vs prone ); promote good quad/glute strengthening (trial leg press if tolerated). have pt take off lymphedema knee wrap for better knee flex
--- NOTE | 2023-08-15 14:57 | PT.OTN ---
Current Diagnoses Unilateral primary osteoarthritis, left knee (08/15/23) Physical Therapy Treatment Note PT-OP-A Visit Information Start: 08/03/23 13:47 Freq: Status: Active Protocol: Document 08/15/23 10:59 AB (Rec: 08/15/23 14:53 AB [id number]) Out-Patient Physical Therapy Visit Information Visit Information Visit Type Treatment Note Visit Note 16 visits total DOS: 06/19/23 Visit Start Time 11:20 Visit Stop Time 12:04 Visit Number 3 Number of PRESSED OR BLOWN GLASS WORKER Visits 1 PT-OP-B Current Condition Start: 08/03/23 13:47 Freq: Status: Active Protocol: Document 08/03/23 13:48 NM (Rec: 08/03/23 16:26 NM [id number]) Current Condition History of Current Condition Onset Date 06/19/23 Current Complaints pain, ache History of Current Condition Pt presents to clinic s/p L TKA performed on 06/19/[address] [place]. Pt reports that she just had her follow up with him this past week, and she states he is pleased with the ROM. Prior to arrival at [facility], pt had [facility] following surgery with recent discharge last week. Pt uses a 4WW for balance during gait and did prior to surgery. She reports that she is able to ambulate in her house without her 4WW for short distances. Hx of R TKA earlier in 2022. Pt has hx of lymphedema so BLE are completely wrapped from ankle to hip; pt reports that she has had significantly less swelling in her knee since she was able to use the wraps that go to her hip. Pt has a hx of falls, 1-2x/yr but none since her surgery. Also has hx of neuropathy on RLE below the knee. Lives alone with no stairs. Prior Functional Status Baseline Function- ADL's Independent Baseline Function- Mobility Independent Baseline Function- Gait household and short community distances with 4WW Baseline Function- Recreation/Hobbies Work out at gym 2-3x/wk (bike, nustep, arm exercise machines ), water aerobics Current Functional Impairments (Reported) Functional Limitations- Mobility/Gait household distances without 4ww PT-OP-C Subjective Start: 08/03/23 13:47 Freq: Status: Active Protocol: Document 08/15/23 10:59 AB (Rec: 08/15/23 14:53 AB [id number]) OP-PT Subjective Patient Comments Patient Comments Patient reports she is the same. Patient reports having no pain. Patient reports that she is not back to stairs, but does step onto a curb to get her mail, comments she has been working on keeping the leg straight avoiding moving the leg to the side. Patient reports she is now able to cross her leg, which she wasn' t able to do prior to surgery. PT-OP-D Balance Start: 08/03/23 13:47 Freq: Status: Active Protocol: Document 08/03/23 13:48 NM (Rec: 08/03/23 16:26 NM [id number]) OP-PT Balance Assessment Sitting Balance Static Sitting Balance Ability Normal Dynamic Sitting Balance Ability Normal Standing Balance Static Standing Balance Ability Fair Dynamic Standing Balance Ability Poor Balance Tests Romberg Romberg 10 sec Semi-Tandem Standing Semi-Tandem Standing Balance R < 3 sec, L <3 sec Tandem Tandem Standing Unable to get into position w/ o UE support; <1 sec ea De Leon Fall Scale Copyright Permission PT-OP-E Functional Tests Start: 08/03/23 13:47 Freq: Status: Active Protocol: Document 08/03/23 13:48 NM (Rec: 08/03/23 16:26 NM [id number]) Functional Tests Five Times Sit to Stand Test Score 21.83 sec Comments reports no knee pain Timed Up and Go (TUG) Score 13 sec Comments with FWW Tinetti Balance and Gait Assessment Balance Score 11 Gait Score 6 Composite Score 17/28 Balance Score Impairment Rating 20 to <40% Impaired (Score 10- 12) Gait Score Impairment Rating 40 to <60% Impaired (Score 5-7 ) Composite Score Impairment Rating 20 to <40% Impaired (Score 17- 22) PT-OP-F Manual Assessment Start: 08/03/23 13:47 Freq: Status: Active Protocol: Document 08/03/23 13:48 NM (Rec: 08/03/23 16:26 NM [id number]) Manual Assessments Soft Tissue Assessment Soft Tissue Mobility Assessment Pt has bilateral lymphedema, which limits ROM. No restrictions of B hamstrings, quads, hip flexors Joint Mobility Assessment Joint Mobility Assessment B hip PROM limited in flexion but good IR/ER in supine. B knees limited passive flexion, full extension. Limited B ankle dorsiflexion PT-OP-G Mobility & Gait Start: 08/03/23 13:47 Freq: Status: Active Protocol: Document 08/03/23 13:48 NM (Rec: 08/03/23 16:26 NM [id number]) OP Gait Assessment Gait Gait Assistance Required: Independent Distance (Feet) 150 Able to Maintain Weight Bearing Status Yes During Gait Assistive Devices Assistive Device Gait Belt,4 Wheeled Walker Gait Deviations General Gait Pattern Antalgic,Flexed Trunk,Step-to Gait,Wide Based Gait Factors Limiting Gait Function Factors Limiting Gait Function Decreased Activity Tolerance, Decreased Sensation,Decreased Strength,Limited Range of Motion,Pain,Poor Balance Stair Climbing Evaluation Comments Stair Climbing Comments Trialed placing LLE on step, but difficulty with flexing knee enough to place on step; performs hip circumduction to lift onto step. Did not attempt climbing PT-OP-H Neuro Start: 08/03/23 13:47 Freq: Status: Active Protocol: Document 08/03/23 13:48 NM (Rec: 08/03/23 16:26 NM [id number]) Sensation Evaluation Gross Sensation Gross Sensation Right LE Impaired Dermatome Impairments L4,L5 Comments Summary Comments LLE intact to light touch sensation L2-L5, S1-2. RLE impaired laterally below knee, L4 dermatome. Vital Signs Comments Vital Signs Comments 08/03/23 BP 109/68 (sitting), 98 spo2, 63 bpm PT-OP-J Posture/Palpation/Skin Start: 08/03/23 13:47 Freq: Status: Active Protocol: Document 08/03/23 13:48 NM (Rec: 08/03/23 16:26 NM [id number]) Posture Evaluation Position Standing Evaluation View Lateral Head/C-Spine Posture Forward Head T-Spine Posture Increased Kyphosis L-Spine Posture Increased Lordosis Shoulder Posture (L) Forward,(R) Forward Weight Distribution Balanced Hip Posture (L) Neutral,(R) Neutral Knee Posture (L) Genu Varus,(R) Genu Varus Ankle/Foot Posture (L) Pronated,(R) Pronated Palpation Assessment Location L knee Palpation Location anterior, medial/lateral knee Palpation Findings Edema Palpation Details Lymphedema, so increased swelling. Minimal tenderness along medial knee Skin Assessment Incisional Assessment Incision Appearance/Comments Pt reports that incision is intact with no scars; she performs mobilizations at home when her wrappings are not on . Unable to formally assess due to lymphedema wrappings. PT-OP-K Range of Motion Start: 08/03/23 13:47 Freq: Status: Active Protocol: Document 08/03/23 13:48 NM (Rec: 08/03/23 16:26 NM [id number]) Hip Goniometric Range of Motion Hip Right Flexion w/Knee Flexed 100 Left Flexion w/Knee Flexed 100 Knee Goniometric Range of Motion Knee Right Flexion Active (degrees) 102 Extension Active (degrees) 0 Left Patient Position Supine Flexion Active (degrees) 100 Flexion Passive (degrees) 103 Extension Active (degrees) 3 Extension Passive (degrees) 0 Comments minimal pain with flexion Knee ROM Limitations Knee ROM Limitations Swelling Comments Lymphedema wrappings and swelling limit ROM PT-OP-M Strength Start: 08/03/23 13:47 Freq: Status: Active Protocol: Document 08/03/23 13:48 NM (Rec: 08/03/23 16:26 NM [id number]) Hip Strength Hip Manual Muscle Testing Right Flexion (L2) 4- Good- Extension (S1) 4- Good- Abduction 4- Good- External Rotation 4- Good- Internal Rotation 4- Good- Left Flexion (L2) 4- Good- Extension (S1) 3+ Fair+ Abduction 3+ Fair+ External Rotation 4- Good- Internal Rotation 4- Good- Knee Strength Knee Manual Muscle Testing Right Flexion (S2) 4- Good- Extension (L3) 4- Good- Left Flexion (S2) 3+ Fair+ Extension (L3) 3+ Fair+ Comments Reports min pain with resisted extension Ankle/Foot Strength Ankle and Foot Manual Muscle Testing Right Dorsiflexion (L4) 4+ Good+ Plantarflexion (S1) 4+ Good+ Left Dorsiflexion (L4) 4+ Good+ Plantarflexion (S1) 4+ Good+ PT-OP-Q Treatments Start: 08/03/23 13:47 Freq: Status: Active Protocol: Document 08/15/23 10:59 AB (Rec: 08/15/23 14:53 AB [id number]) Therapeutic Exercises Supine Exercises leg press Supine Exercise Name Leg press Side bilateral Resistance dark blue 25 lb light blue 25 lb Equipment Used leg press Reps/Minutes 2X10 Comments VC to avoid locking knees, 4 reps for set up to determing tolerance at 25 # Heel slide Supine Exercise Name AROM HS left knee Side left Equipment Used towel under left foot Reps/Minutes X10 Comments post manual therapy, VC and encouragment to fully flex knee flexion on ball Supine Exercise Name knee flexion with feet on ball Side bilateral Resistance none Equipment Used ball Reps/Minutes 2 minutes Comments performed to increase ROM and decrease swelling ie LE above heart gravity assisted knee flexion Supine Exercise Name Copake assisted knee flexion Side left Resistance none other than gravity Equipment Used towel Reps/Minutes 2 minutes Comments monitored for pain and tolerance to holding the position with UE's SAQ Side left Equipment Used foam roller under knee Reps/Minutes 2X10 Comments Verbal cue to fully extend Sitting Exercises LAQ Side left Reps/Minutes 2x10 Comments verbal cues to fully extend and lower slowly Therapeutic Activity Therapeutic Activity sit to stand Name UE use 18.5 inch seat height Reps/Minutes 2X8 Comments Patient ed use of selft tactile cues for hip hinge, VC for knee alignment, additional reps for training X4, then 2X8 Manual Therapy Treatment Joint Mobilizations left patella Joint left patella Direction superior, inferior CW and CCW Grade IV Body Position Supine Comments monitored for pain left knee Joint left knee Direction tibia on femur PA and AP Grade III Body Position Supine Comments monitored for pain Manual Techniques PROM Type L knee flexion Body Position Seated Reps/Duration X 3 Comments monitored for pain PT-OP-T Assessment and Plan Start: 08/03/23 13:47 Freq: Status: Active Protocol: Document 08/15/23 10:59 AB (Rec: 08/15/23 14:53 AB [id number]) Physical Therapy Assessment Goals Eight Impairment gait Parking Lot Spotter Goal (LTG) Pt will be able to ambulate community distances (at least 500 ft) using 4WW or LRAD LTG Duration 8 weeks Seven Impairment strength Correction Goal (LTG) Pt will improve global B hip strength to at least 4+/5 in order to demonstrate increased hip strength for better stability during gait LTG Duration 8 weeks Six Impairment strength Impairment L hip abd/ext 3+/5 Short Term Goal (STG) Pt will improve L hip abd/ext strength to at least 4/5 in order to demonstrate increased hip strength for improved gait and balance STG Duration 4 weeks Correction Goal (LTG) Pt will improve L hip abd/ext strength to at least 4+/5 in order to demonstrate increased hip strength for improved gait and balance LTG Duration 8 weeks Five Impairment strength Impairment L knee flex/ext 3+/5 MMT Short Term Goal (STG) Pt will improve L knee flex/ ext strength to at least 4/5 in order to demonstrate increased knee strength for gait STG Duration 4 weeks Parking Lot Spotter Goal (LTG) Pt will improve L knee flex/ ext strength to at least 4+/5 in order to demonstrate increased knee strength for gait LTG Duration 8 weeks Four Impairment strength Impairment 5x STS: 21.83 seconds Short Term Goal (STG) Pt will decrease 5x STS time to less than 20 seconds in order to demonstrate improved BLE strength Parking Lot Spotter Goal (LTG) Pt will decrease 5x STS time to less than 18 seconds in order to demonstrate improved BLE strength LTG Duration 8 weeks Three Impairment balance Impairment TU seconds with 4WW Correction Goal (LTG) Pt will decrease TUG score to less than 13 seconds using LRAD in order to demonstrate improved balance and decrease fall risk LTG Duration 8 weeks Two Impairment ROM Impairment R knee flex ROM 100 deg Short Term Goal (STG) Pt will increase R knee flex ROM to at least 110 deg in order to be able to ride her bike if possible due to lymphedema STG Duration 4 weeks Correction Goal (LTG) Pt will increase R knee flex ROM to at least 115 deg in order to be able to ride her bike if possible due to lymphedema LTG Duration 8 weeks One Impairment function Impairment LEFS: 51/80 Correction Goal (LTG) Pt will increase LEFS score by at least 9 points (1 MCID) in order to demonstrate improved tolerance for ADLs. LTG Duration 8 weeks Assessment Summary Assessment Patient into session with AROM left knee lacking 12 deg extension to 104 deg flexion, sit to stand with UE use increased knee varus and valgus reports no increase in pain start of session, able to perform sit to stand without knee varus/valgus and improved hip hinge end of session. left knee flexion AROM to 106 deg post manual therapy and exercise and patient rates pain 0/10 left knee ambulating out of session with Four wheeled walker. SLS left and right LE without UE use assessed with patient reporting having no pain, but 1 to less than one second on 2 to 3 trials each LE. Physical Therapy Plan Frequency and Duration Frequency of Treatment 2x/Week Duration of treatment (weeks) 8 Plan of Care Start Date 08/03/23 Plan of Care End Date 09/28/23 Next Visit Focus/Plan Next Note Type Treatment Note Next Visit Plan Manual: knee flexion ( mobilizations, PROM to increase ROM), patellar mobilizations as able Initiate/continue: LAQ ( progress if able- target quad set), hip abd (trial standing hip abd vs side step), hip ext (trial standing hip ext), hip flex (seated vs standing march), HSC (standing vs prone ); promote good quad/glute strengthening (trial leg press if tolerated). have pt take off lymphedema knee wrap for better knee flex possibly balance
--- NOTE | 2023-08-17 13:23 | PT.OTN ---
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 [place]. Pt reports that she just had her follow up with him this past week, and she states he is pleased with the ROM. Prior to arrival at [facility], pt had [facility] following surgery with recent discharge last week. Pt uses a 4WW for balance during gait and did prior to surgery. She reports that she is able to ambulate in her house without her 4WW for short distances. Hx of R TKA earlier in 2022. Pt has hx of lymphedema so BLE are completely wrapped from ankle to hip; pt reports that she has had significantly less swelling in her knee since she was able to use the wraps that go to her hip. Pt has a hx of falls, 1-2x/yr but none since her surgery. Also has hx of neuropathy on RLE below the knee. Lives alone with no stairs. Prior Functional Status Baseline Function- ADL's Independent Baseline Function- Mobility Independent Baseline Function- Gait household and short community distances with 4WW Baseline Function- Recreation/Hobbies Work out at gym 2-3x/wk (bike, nustep, arm exercise machines ), water aerobics Current Functional Impairments (Reported) Functional Limitations- Mobility/Gait household distances without 4ww PT-OP-C Subjective Start: 08/03/23 13:47 Freq: Status: Active Protocol: Document 08/17/23 08:21 AB (Rec: 08/17/23 13:15 AB [id number]) OP-PT Subjective Patient Comments Patient Comments Patient reports she is doing well with the knee. Patient reports she has a fx left thumb and is going to walk in clinic to get a brace. PT-OP-D Balance Start: 08/03/23 13:47 Freq: Status: Active Protocol: Document 08/03/23 13:48 NM (Rec: 08/03/23 16:26 NM [id number]) OP-PT Balance Assessment Sitting Balance Static Sitting Balance Ability Normal Dynamic Sitting Balance Ability Normal Standing Balance Static Standing Balance Ability Fair Dynamic Standing Balance Ability Poor Balance Tests Romberg Romberg 10 sec Semi-Tandem Standing Semi-Tandem Standing Balance R < 3 sec, L <3 sec Tandem Tandem Standing Unable to get into position w/ o UE support; <1 sec ea De Leon Fall Scale Copyright Permission PT-OP-E Functional Tests Start: 08/03/23 13:47 Freq: Status: Active Protocol: Document 08/03/23 13:48 NM (Rec: 08/03/23 16:26 NM [id number]) Functional Tests Five Times Sit to Stand Test Score 21.83 sec Comments reports no knee pain Timed Up and Go (TUG) Score 13 sec Comments with FWW Tinetti Balance and Gait Assessment Balance Score 11 Gait Score 6 Composite Score 17/28 Balance Score Impairment Rating 20 to <40% Impaired (Score 10- 12) Gait Score Impairment Rating 40 to <60% Impaired (Score 5-7 ) Composite Score Impairment Rating 20 to <40% Impaired (Score 17- 22) PT-OP-F Manual Assessment Start: 08/03/23 13:47 Freq: Status: Active Protocol: Document 08/03/23 13:48 NM (Rec: 08/03/23 16:26 NM [id number]) Manual Assessments Soft Tissue Assessment Soft Tissue Mobility Assessment Pt has bilateral lymphedema, which limits ROM. No restrictions of B hamstrings, quads, hip flexors Joint Mobility Assessment Joint Mobility Assessment B hip PROM limited in flexion but good IR/ER in supine. B knees limited passive flexion, full extension. Limited B ankle dorsiflexion PT-OP-G Mobility & Gait Start: 08/03/23 13:47 Freq: Status: Active Protocol: Document 08/03/23 13:48 NM (Rec: 08/03/23 16:26 NM [id number]) OP Gait Assessment Gait Gait Assistance Required: Independent Distance (Feet) 150 Able to Maintain Weight Bearing Status Yes During Gait Assistive Devices Assistive Device Gait Belt,4 Wheeled Walker Gait Deviations General Gait Pattern Antalgic,Flexed Trunk,Step-to Gait,Wide Based Gait Factors Limiting Gait Function Factors Limiting Gait Function Decreased Activity Tolerance, Decreased Sensation,Decreased Strength,Limited Range of Motion,Pain,Poor Balance Stair Climbing Evaluation Comments Stair Climbing Comments Trialed placing LLE on step, but difficulty with flexing knee enough to place on step; performs hip circumduction to lift onto step. Did not attempt climbing PT-OP-H Neuro Start: 08/03/23 13:47 Freq: Status: Active Protocol: Document 08/03/23 13:48 NM (Rec: 08/03/23 16:26 NM [id number]) Sensation Evaluation Gross Sensation Gross Sensation Right LE Impaired Dermatome Impairments L4,L5 Comments Summary Comments LLE intact to light touch sensation L2-L5, S1-2. RLE impaired laterally below knee, L4 dermatome. Vital Signs Comments Vital Signs Comments 08/03/23 BP 109/68 (sitting), 98 spo2, 63 bpm PT-OP-J Posture/Palpation/Skin Start: 08/03/23 13:47 Freq: Status: Active Protocol: Document 08/03/23 13:48 NM (Rec: 08/03/23 16:26 NM [id number]) Posture Evaluation Position Standing Evaluation View Lateral Head/C-Spine Posture Forward Head T-Spine Posture Increased Kyphosis L-Spine Posture Increased Lordosis Shoulder Posture (L) Forward,(R) Forward Weight Distribution Balanced Hip Posture (L) Neutral,(R) Neutral Knee Posture (L) Genu Varus,(R) Genu Varus Ankle/Foot Posture (L) Pronated,(R) Pronated Palpation Assessment Location L knee Palpation Location anterior, medial/lateral knee Palpation Findings Edema Palpation Details Lymphedema, so increased swelling. Minimal tenderness along medial knee Skin Assessment Incisional Assessment Incision Appearance/Comments Pt reports that incision is intact with no scars; she performs mobilizations at home when her wrappings are not on . Unable to formally assess due to lymphedema wrappings. PT-OP-K Range of Motion Start: 08/03/23 13:47 Freq: Status: Active Protocol: Document 08/03/23 13:48 NM (Rec: 08/03/23 16:26 NM [id number]) Hip Goniometric Range of Motion Hip Right Flexion w/Knee Flexed 100 Left Flexion w/Knee Flexed 100 Knee Goniometric Range of Motion Knee Right Flexion Active (degrees) 102 Extension Active (degrees) 0 Left Patient Position Supine Flexion Active (degrees) 100 Flexion Passive (degrees) 103 Extension Active (degrees) 3 Extension Passive (degrees) 0 Comments minimal pain with flexion Knee ROM Limitations Knee ROM Limitations Swelling Comments Lymphedema wrappings and swelling limit ROM PT-OP-M Strength Start: 08/03/23 13:47 Freq: Status: Active Protocol: Document 08/03/23 13:48 NM (Rec: 08/03/23 16:26 NM [id number]) Hip Strength Hip Manual Muscle Testing Right Flexion (L2) 4- Good- Extension (S1) 4- Good- Abduction 4- Good- External Rotation 4- Good- Internal Rotation 4- Good- Left Flexion (L2) 4- Good- Extension (S1) 3+ Fair+ Abduction 3+ Fair+ External Rotation 4- Good- Internal Rotation 4- Good- Knee Strength Knee Manual Muscle Testing Right Flexion (S2) 4- Good- Extension (L3) 4- Good- Left Flexion (S2) 3+ Fair+ Extension (L3) 3+ Fair+ Comments Reports min pain with resisted extension Ankle/Foot Strength Ankle and Foot Manual Muscle Testing Right Dorsiflexion (L4) 4+ Good+ Plantarflexion (S1) 4+ Good+ Left Dorsiflexion (L4) 4+ Good+ Plantarflexion (S1) 4+ Good+ PT-OP-Q Treatments Start: 08/03/23 13:47 Freq: Status: Active Protocol: Document 08/17/23 08:21 AB (Rec: 08/17/23 13:15 AB [id number]) Therapeutic Exercises Supine Exercises leg press Supine Exercise Name Leg press Side bilateral Resistance dark blue 25 lb light blue 25 lb Equipment Used leg press Reps/Minutes 2X10 Comments VC to avoid locking knees Heel slide Supine Exercise Name AROM HS left knee Side left Equipment Used towel under left foot Reps/Minutes [id number] Comments post manual therapy, VC and encouragment to fully flex knee flexion on ball Supine Exercise Name knee flexion with feet on ball Side bilateral Resistance none Equipment Used ball Reps/Minutes 2 minutes Comments performed to increase ROM and decrease swelling ie LE above heart gravity assisted knee flexion Supine Exercise Name Brule assisted knee flexion Side left Resistance none other than gravity Equipment Used towel Reps/Minutes 1 minute X2 Comments monitored for pain and tolerance to holding the position with UE's Standing Exercises standing hip abduction Side bilateral Reps/Minutes X10 Comments VC to avoid toeing out standing hip extension Side bilateral Reps/Minutes X10 Comments Verbal and visual cues., monitored lumbar extension Therapeutic Activity Therapeutic Activity sit to stand Name 20.5 inch seat height Reps/Minutes 3X10 holding 4.4lb Comments Initial trials from lower depths required increased use of momentum. 3X10 from 20.5 inch seat, adequate hip hinge, VC for fully upright posture between reps Gait Training Gait Activity ambulation with 4 wheeled walker Device Used four wheeled walker Level of Assistance Supervision Distance/Duration 30 feet Comments Verbal cues for posture and to keep the knee straight on heel strike Manual Therapy Treatment Joint Mobilizations left patella Joint left patella Direction superior, inferior CW and CCW Grade IV Body Position Supine Comments monitored for pain left knee Joint left knee Direction tibia on femur PA and AP Grade III Body Position Supine Comments monitored for pain Manual Techniques PROM Type L knee flexion Body Position Seated Reps/Duration X 3 Comments monitored for pain PT-OP-T Assessment and Plan Start: 08/03/23 13:47 Freq: Status: Active Protocol: Document 08/17/23 08:21 AB (Rec: 08/17/23 13:15 AB [id number]) Physical Therapy Assessment Goals Eight Impairment gait Examiner Of Currency Goal (LTG) Pt will be able to ambulate community distances (at least 500 ft) using 4WW or LRAD LTG Duration 8 weeks Seven Impairment strength Examiner Of Currency Goal (LTG) Pt will improve global B hip strength to at least 4+/5 in order to demonstrate increased hip strength for better stability during gait LTG Duration 8 weeks Six Impairment strength Impairment L hip abd/ext 3+/5 Short Term Goal (STG) Pt will improve L hip abd/ext strength to at least 4/5 in order to demonstrate increased hip strength for improved gait and balance STG Duration 4 weeks Alf Goal (LTG) Pt will improve L hip abd/ext strength to at least 4+/5 in order to demonstrate increased hip strength for improved gait and balance LTG Duration 8 weeks Five Impairment strength Impairment L knee flex/ext 3+/5 MMT Short Term Goal (STG) Pt will improve L knee flex/ ext strength to at least 4/5 in order to demonstrate increased knee strength for gait STG Duration 4 weeks Alf Goal (LTG) Pt will improve L knee flex/ ext strength to at least 4+/5 in order to demonstrate increased knee strength for gait LTG Duration 8 weeks Four Impairment strength Impairment 5x STS: 21.83 seconds Short Term Goal (STG) Pt will decrease 5x STS time to less than 20 seconds in order to demonstrate improved BLE strength Examiner Of Currency Goal (LTG) Pt will decrease 5x STS time to less than 18 seconds in order to demonstrate improved BLE strength LTG Duration 8 weeks Three Impairment balance Impairment TU seconds with 4WW Alf Goal (LTG) Pt will decrease TUG score to less than 13 seconds using LRAD in order to demonstrate improved balance and decrease fall risk LTG Duration 8 weeks Two Impairment ROM Impairment R knee flex ROM 100 deg Short Term Goal (STG) Pt will increase R knee flex ROM to at least 110 deg in order to be able to ride her bike if possible due to lymphedema STG Duration 4 weeks Examiner Of Currency Goal (LTG) Pt will increase R knee flex ROM to at least 115 deg in order to be able to ride her bike if possible due to lymphedema LTG Duration 8 weeks One Impairment function Impairment LEFS: 51/80 Examiner Of Currency Goal (LTG) Pt will increase LEFS score by at least 9 points (1 MCID) in order to demonstrate improved tolerance for ADLs. LTG Duration 8 weeks Assessment Summary Assessment AROM left knee flexion to 107 start of session 109 deg end of session. Noted increased use of momentum with sit to stand from seat heights lower than 20.5 inches. LE strength continues to be limited. Patient will benefit from progression of strengthening, ROM and balance exercises for progression of functional mobility. Physical Therapy Plan Frequency and Duration Frequency of Treatment 2x/Week Duration of treatment (weeks) 8 Plan of Care Start Date 08/03/23 Plan of Care End Date 09/28/23 Next Visit Focus/Plan Next Note Type Treatment Note Next Visit Plan Manual: knee flexion ( mobilizations, PROM to increase ROM), patellar mobilizations as able Initiate/continue: LAQ ( progress if able- target quad set), hip abd (trial standing hip abd vs side step), hip ext (trial standing hip ext), hip flex (seated vs standing september), HSC (standing vs prone ); promote good quad/glute strengthening possibly with band have pt take off lymphedema knee wrap for better knee flex possibly balance
--- NOTE | 2023-08-22 11:33 | PT.OTN ---
Current Diagnoses Unilateral primary osteoarthritis, left knee (08/22/23) Physical Therapy Treatment Note PT-OP-A Visit Information Start: 08/03/23 13:47 Freq: Status: Active Protocol: Document 08/22/23 08:06 AB (Rec: 08/22/23 11:33 AB [id number]) Out-Patient Physical Therapy Visit Information Visit Information Visit Type Treatment Note Visit Note 16 visits total DOS: 06/19/23 Access code [email or web address] Visit Start Time 10:35 Visit Stop Time 11:19 Visit Number 5 Number of ASSOCIATE PR[employer] MANAGER Visits 3 Precautions Precautions Move slowly with positional changes d/t reported orthostasis 8 weeks: 08/13/23 12 weeks: 09/10/23 PT-OP-B Current Condition Start: 08/03/23 13:47 Freq: Status: Active Protocol: Document 08/03/23 13:48 NM (Rec: 08/03/23 16:26 NM [id number]) Current Condition History of Current Condition Onset Date 06/19/23 Current Complaints pain, ache History of Current Condition Pt presents to clinic s/p L TKA performed on 06/19/[address] [place]. Pt reports that she just had her follow up with him this past week, and she states he is pleased with the ROM. Prior to arrival at [facility], pt had [facility] following surgery with recent discharge last week. Pt uses a 4WW for balance during gait and did prior to surgery. She reports that she is able to ambulate in her house without her 4WW for short distances. Hx of R TKA earlier in 2022. Pt has hx of lymphedema so BLE are completely wrapped from ankle to hip; pt reports that she has had significantly less swelling in her knee since she was able to use the wraps that go to her hip. Pt has a hx of falls, 1-2x/yr but none since her surgery. Also has hx of neuropathy on RLE below the knee. Lives alone with no stairs. Prior Functional Status Baseline Function- ADL's Independent Baseline Function- Mobility Independent Baseline Function- Gait household and short community distances with 4WW Baseline Function- Recreation/Hobbies Work out at gym 2-3x/wk (bike, nustep, arm exercise machines ), water aerobics Current Functional Impairments (Reported) Functional Limitations- Mobility/Gait household distances without 4ww PT-OP-C Subjective Start: 08/03/23 13:47 Freq: Status: Active Protocol: Document 08/22/23 08:06 AB (Rec: 08/22/23 11:33 AB [id number]) OP-PT Subjective Patient Comments Patient Comments Patient reports the tendon behind the knee is hurting, but it feels better after stretching. Patient reports she was sleeping w/pillow under knee, but has stopped. PT-OP-D Balance Start: 08/03/23 13:47 Freq: Status: Active Protocol: Document 08/03/23 13:48 NM (Rec: 08/03/23 16:26 NM [id number]) OP-PT Balance Assessment Sitting Balance Static Sitting Balance Ability Normal Dynamic Sitting Balance Ability Normal Standing Balance Static Standing Balance Ability Fair Dynamic Standing Balance Ability Poor Balance Tests Romberg Romberg 10 sec Semi-Tandem Standing Semi-Tandem Standing Balance R < 3 sec, L <3 sec Tandem Tandem Standing Unable to get into position w/ o UE support; <1 sec ea De Leon Fall Scale Copyright Permission PT-OP-E Functional Tests Start: 08/03/23 13:47 Freq: Status: Active Protocol: Document 08/03/23 13:48 NM (Rec: 08/03/23 16:26 NM [id number]) Functional Tests Five Times Sit to Stand Test Score 21.83 sec Comments reports no knee pain Timed Up and Go (TUG) Score 13 sec Comments with FWW Tinetti Balance and Gait Assessment Balance Score 11 Gait Score 6 Composite Score 17/28 Balance Score Impairment Rating 20 to <40% Impaired (Score 10- 12) Gait Score Impairment Rating 40 to <60% Impaired (Score 5-7 ) Composite Score Impairment Rating 20 to <40% Impaired (Score 17- 22) PT-OP-F Manual Assessment Start: 08/03/23 13:47 Freq: Status: Active Protocol: Document 08/03/23 13:48 NM (Rec: 08/03/23 16:26 NM [id number]) Manual Assessments Soft Tissue Assessment Soft Tissue Mobility Assessment Pt has bilateral lymphedema, which limits ROM. No restrictions of B hamstrings, quads, hip flexors Joint Mobility Assessment Joint Mobility Assessment B hip PROM limited in flexion but good IR/ER in supine. B knees limited passive flexion, full extension. Limited B ankle dorsiflexion PT-OP-G Mobility & Gait Start: 08/03/23 13:47 Freq: Status: Active Protocol: Document 08/03/23 13:48 NM (Rec: 08/03/23 16:26 NM [id number]) OP Gait Assessment Gait Gait Assistance Required: Independent Distance (Feet) 150 Able to Maintain Weight Bearing Status Yes During Gait Assistive Devices Assistive Device Gait Belt,4 Wheeled Walker Gait Deviations General Gait Pattern Antalgic,Flexed Trunk,Step-to Gait,Wide Based Gait Factors Limiting Gait Function Factors Limiting Gait Function Decreased Activity Tolerance, Decreased Sensation,Decreased Strength,Limited Range of Motion,Pain,Poor Balance Stair Climbing Evaluation Comments Stair Climbing Comments Trialed placing LLE on step, but difficulty with flexing knee enough to place on step; performs hip circumduction to lift onto step. Did not attempt climbing PT-OP-H Neuro Start: 08/03/23 13:47 Freq: Status: Active Protocol: Document 08/03/23 13:48 NM (Rec: 08/03/23 16:26 NM [id number]) Sensation Evaluation Gross Sensation Gross Sensation Right LE Impaired Dermatome Impairments L4,L5 Comments Summary Comments LLE intact to light touch sensation L2-L5, S1-2. RLE impaired laterally below knee, L4 dermatome. Vital Signs Comments Vital Signs Comments 08/03/23 BP 109/68 (sitting), 98 spo2, 63 bpm PT-OP-J Posture/Palpation/Skin Start: 08/03/23 13:47 Freq: Status: Active Protocol: Document 08/03/23 13:48 NM (Rec: 08/03/23 16:26 NM [id number]) Posture Evaluation Position Standing Evaluation View Lateral Head/C-Spine Posture Forward Head T-Spine Posture Increased Kyphosis L-Spine Posture Increased Lordosis Shoulder Posture (L) Forward,(R) Forward Weight Distribution Balanced Hip Posture (L) Neutral,(R) Neutral Knee Posture (L) Genu Varus,(R) Genu Varus Ankle/Foot Posture (L) Pronated,(R) Pronated Palpation Assessment Location L knee Palpation Location anterior, medial/lateral knee Palpation Findings Edema Palpation Details Lymphedema, so increased swelling. Minimal tenderness along medial knee Skin Assessment Incisional Assessment Incision Appearance/Comments Pt reports that incision is intact with no scars; she performs mobilizations at home when her wrappings are not on . Unable to formally assess due to lymphedema wrappings. PT-OP-K Range of Motion Start: 08/03/23 13:47 Freq: Status: Active Protocol: Document 08/03/23 13:48 NM (Rec: 08/03/23 16:26 NM [id number]) Hip Goniometric Range of Motion Hip Right Flexion w/Knee Flexed 100 Left Flexion w/Knee Flexed 100 Knee Goniometric Range of Motion Knee Right Flexion Active (degrees) 102 Extension Active (degrees) 0 Left Patient Position Supine Flexion Active (degrees) 100 Flexion Passive (degrees) 103 Extension Active (degrees) 3 Extension Passive (degrees) 0 Comments minimal pain with flexion Knee ROM Limitations Knee ROM Limitations Swelling Comments Lymphedema wrappings and swelling limit ROM PT-OP-M Strength Start: 08/03/23 13:47 Freq: Status: Active Protocol: Document 08/03/23 13:48 NM (Rec: 08/03/23 16:26 NM [id number]) Hip Strength Hip Manual Muscle Testing Right Flexion (L2) 4- Good- Extension (S1) 4- Good- Abduction 4- Good- External Rotation 4- Good- Internal Rotation 4- Good- Left Flexion (L2) 4- Good- Extension (S1) 3+ Fair+ Abduction 3+ Fair+ External Rotation 4- Good- Internal Rotation 4- Good- Knee Strength Knee Manual Muscle Testing Right Flexion (S2) 4- Good- Extension (L3) 4- Good- Left Flexion (S2) 3+ Fair+ Extension (L3) 3+ Fair+ Comments Reports min pain with resisted extension Ankle/Foot Strength Ankle and Foot Manual Muscle Testing Right Dorsiflexion (L4) 4+ Good+ Plantarflexion (S1) 4+ Good+ Left Dorsiflexion (L4) 4+ Good+ Plantarflexion (S1) 4+ Good+ PT-OP-Q Treatments Start: 08/03/23 13:47 Freq: Status: Active Protocol: Document 08/22/23 08:06 AB (Rec: 08/22/23 11:33 AB [id number]) Therapeutic Exercises Supine Exercises hamstring stretch Supine Exercise Name hamstring stretch Side left Reps/Minutes X2 one minute Comments Verbal cues to extend knee Heel slide Supine Exercise Name AROM HS left knee Side left Equipment Used towel under left foot Reps/Minutes [id number] Comments post manual therapy, VC and encouragment to fully flex knee flexion on ball Supine Exercise Name knee flexion with feet on ball Side bilateral Resistance none Equipment Used ball Reps/Minutes 2 minutes Comments performed to increase ROM and decrease swelling ie LE above heart gravity assisted knee flexion Supine Exercise Name [place] assisted knee flexion Side left Resistance none other than gravity Equipment Used towel Reps/Minutes 2 min x1 Comments monitored for pain and tolerance to holding the position with UE's Sitting Exercises Seated hip abduction with band Sitting Exercise Name hip abd with band Side bilateral Resistance teal level 2 band Reps/Minutes 2X10 Comments Pt ed rationale of glut med strng to prevent lateral knee mvt Manual Therapy Treatment Joint Mobilizations left patella Joint left patella Direction superior, inferior CW and CCW Grade IV Body Position Supine Comments monitored for pain left knee Joint left knee Direction tibia on femur PA and AP Grade III Body Position Supine Comments monitored for pain Manual Techniques PROM Type L knee flexion Body Position Seated Reps/Duration X 3 Comments monitored for pain Neuro Re-Education Treatment Balance Activities step up taps Details without UE use Surface floor Equipment 4 inch step Reps/Duration X10 left and right LE Comments CGA with gait belt foam pad Romberg Details limited Romberg due to lymphedema Surface foam pad Reps/Duration X4 Comments eyes closed CGA with gait belt min assist to step off pad marching in place Details marching without UE use Surface floor Reps/Duration X10 Comments CGA with gait belt Other Activities glute med activation Details seated hip abduction with band Reps/Duration 1 one minute hold Comments level 2 teal band Verbal cues PT-OP-T Assessment and Plan Start: 08/03/23 13:47 Freq: Status: Active Protocol: Document 08/22/23 08:06 AB (Rec: 08/22/23 11:33 AB [id number]) Physical Therapy Assessment Goals Eight Impairment gait Half-Way Goal (LTG) Pt will be able to ambulate community distances (at least 500 ft) using 4WW or LRAD LTG Duration 8 weeks Seven Impairment strength Half-Way Goal (LTG) Pt will improve global B hip strength to at least 4+/5 in order to demonstrate increased hip strength for better stability during gait LTG Duration 8 weeks Six Impairment strength Impairment L hip abd/ext 3+/5 Short Term Goal (STG) Pt will improve L hip abd/ext strength to at least 4/5 in order to demonstrate increased hip strength for improved gait and balance STG Duration 4 weeks Half-Way Goal (LTG) Pt will improve L hip abd/ext strength to at least 4+/5 in order to demonstrate increased hip strength for improved gait and balance LTG Duration 8 weeks Five Impairment strength Impairment L knee flex/ext 3+/5 MMT Short Term Goal (STG) Pt will improve L knee flex/ ext strength to at least 4/5 in order to demonstrate increased knee strength for gait STG Duration 4 weeks Half-Way Goal (LTG) Pt will improve L knee flex/ ext strength to at least 4+/5 in order to demonstrate increased knee strength for gait LTG Duration 8 weeks Four Impairment strength Impairment 5x STS: 21.83 seconds Short Term Goal (STG) Pt will decrease 5x STS time to less than 20 seconds in order to demonstrate improved BLE strength Half-Way Goal (LTG) Pt will decrease 5x STS time to less than 18 seconds in order to demonstrate improved BLE strength LTG Duration 8 weeks Three Impairment balance Impairment TU seconds with 4WW Half-Way Goal (LTG) Pt will decrease TUG score to less than 13 seconds using LRAD in order to demonstrate improved balance and decrease fall risk LTG Duration 8 weeks Two Impairment ROM Impairment R knee flex ROM 100 deg Short Term Goal (STG) Pt will increase R knee flex ROM to at least 110 deg in order to be able to ride her bike if possible due to lymphedema STG Duration 4 weeks Half-Way Goal (LTG) Pt will increase R knee flex ROM to at least 115 deg in order to be able to ride her bike if possible due to lymphedema LTG Duration 8 weeks One Impairment function Impairment LEFS: 51/80 Half-Way Goal (LTG) Pt will increase LEFS score by at least 9 points (1 MCID) in order to demonstrate improved tolerance for ADLs. LTG Duration 8 weeks Assessment Summary Assessment Pt into session with 2 sec SLS right LE w/o UE use. AROM left knee 0 to 100 deg start of session. 104 deg AROM left knee flexion post manual therapy and exercises. SLS left LE remains at 2 sec without UE use Physical Therapy Plan Frequency and Duration Frequency of Treatment 2x/Week Duration of treatment (weeks) 8 Plan of Care Start Date 08/03/23 Plan of Care End Date 09/28/23 Next Visit Focus/Plan Next Visit Plan Manual: knee flexion ( mobilizations, PROM to increase ROM), patellar mobilizations as able Initiate/continue: LAQ ( progress if able- target quad set), hip abd (trial standing hip abd vs side step), hip ext (trial standing hip ext), hip flex (seated vs standing march), HSC (standing vs prone ); promote good quad/glute strengthening possibly progress to level 3 band for seated ex have pt take off lymphedema knee wrap for better knee flex balance, progress to lower seat height for sit to stand, leg press as time permits
--- NOTE | 2023-08-29 15:45 | PT.OTN ---
Current Diagnoses Unilateral primary osteoarthritis, left knee (08/29/23) Physical Therapy Treatment Note PT-OP-A Visit Information Start: 08/03/23 13:47 Freq: Status: Active Protocol: Document 08/29/23 09:47 NM (Rec: 08/29/23 10:33 NM [id number]) Out-Patient Physical Therapy Visit Information Visit Information Visit Type Treatment Note Visit Note 16 visits total DOS: 06/19/23 Visit Start Time 09:47 Visit Stop Time 10:30 Visit Number 6 Evaluation Information Evaluation Date 08/03/23 Precautions Precautions Move slowly with positional changes d/t reported orthostasis 8 weeks: 08/13/23 12 weeks: 09/10/23 PT-OP-B Current Condition Start: 08/03/23 13:47 Freq: Status: Active Protocol: Document 08/03/23 13:48 NM (Rec: 08/03/23 16:26 NM [id number]) Current Condition History of Current Condition Onset Date 06/19/23 Current Complaints pain, ache History of Current Condition Pt presents to clinic s/p L TKA performed on 06/19/[address] [place]. Pt reports that she just had her follow up with him this past week, and she states he is pleased with the ROM. Prior to arrival at [facility], pt had [facility] following surgery with recent discharge last week. Pt uses a 4WW for balance during gait and did prior to surgery. She reports that she is able to ambulate in her house without her 4WW for short distances. Hx of R TKA earlier in 2022. Pt has hx of lymphedema so BLE are completely wrapped from ankle to hip; pt reports that she has had significantly less swelling in her knee since she was able to use the wraps that go to her hip. Pt has a hx of falls, 1-2x/yr but none since her surgery. Also has hx of neuropathy on RLE below the knee. Lives alone with no stairs. Prior Functional Status Baseline Function- ADL's Independent Baseline Function- Mobility Independent Baseline Function- Gait household and short community distances with 4WW Baseline Function- Recreation/Hobbies Work out at gym 2-3x/wk (bike, nustep, arm exercise machines ), water aerobics Current Functional Impairments (Reported) Functional Limitations- Mobility/Gait household distances without 4ww PT-OP-C Subjective Start: 08/03/23 13:47 Freq: Status: Active Protocol: Document 08/29/23 09:47 NM (Rec: 08/29/23 10:33 NM [id number]) OP-PT Subjective Patient Comments Patient Comments Pt reports 1/10 L knee pain. Has been walking dog, no difficulty with HEP. Not wearing knee brace today, thinks it is source of hamstring pain. She still feels like she has hamstring tightness. PT-OP-D Balance Start: 08/03/23 13:47 Freq: Status: Active Protocol: Document 08/03/23 13:48 NM (Rec: 08/03/23 16:26 NM [id number]) OP-PT Balance Assessment Sitting Balance Static Sitting Balance Ability Normal Dynamic Sitting Balance Ability Normal Standing Balance Static Standing Balance Ability Fair Dynamic Standing Balance Ability Poor Balance Tests Romberg Romberg 10 sec Semi-Tandem Standing Semi-Tandem Standing Balance R < 3 sec, L <3 sec Tandem Tandem Standing Unable to get into position w/ o UE support; <1 sec ea De Leon Fall Scale Copyright Permission PT-OP-E Functional Tests Start: 08/03/23 13:47 Freq: Status: Active Protocol: Document 08/03/23 13:48 NM (Rec: 08/03/23 16:26 NM [id number]) Functional Tests Five Times Sit to Stand Test Score 21.83 sec Comments reports no knee pain Timed Up and Go (TUG) Score 13 sec Comments with FWW Tinetti Balance and Gait Assessment Balance Score 11 Gait Score 6 Composite Score 17/28 Balance Score Impairment Rating 20 to <40% Impaired (Score 10- 12) Gait Score Impairment Rating 40 to <60% Impaired (Score 5-7 ) Composite Score Impairment Rating 20 to <40% Impaired (Score 17- 22) PT-OP-F Manual Assessment Start: 08/03/23 13:47 Freq: Status: Active Protocol: Document 08/03/23 13:48 NM (Rec: 08/03/23 16:26 NM [id number]) Manual Assessments Soft Tissue Assessment Soft Tissue Mobility Assessment Pt has bilateral lymphedema, which limits ROM. No restrictions of B hamstrings, quads, hip flexors Joint Mobility Assessment Joint Mobility Assessment B hip PROM limited in flexion but good IR/ER in supine. B knees limited passive flexion, full extension. Limited B ankle dorsiflexion PT-OP-G Mobility & Gait Start: 08/03/23 13:47 Freq: Status: Active Protocol: Document 08/03/23 13:48 NM (Rec: 08/03/23 16:26 NM [id number]) OP Gait Assessment Gait Gait Assistance Required: Independent Distance (Feet) 150 Able to Maintain Weight Bearing Status Yes During Gait Assistive Devices Assistive Device Gait Belt,4 Wheeled Walker Gait Deviations General Gait Pattern Antalgic,Flexed Trunk,Step-to Gait,Wide Based Gait Factors Limiting Gait Function Factors Limiting Gait Function Decreased Activity Tolerance, Decreased Sensation,Decreased Strength,Limited Range of Motion,Pain,Poor Balance Stair Climbing Evaluation Comments Stair Climbing Comments Trialed placing LLE on step, but difficulty with flexing knee enough to place on step; performs hip circumduction to lift onto step. Did not attempt climbing PT-OP-H Neuro Start: 08/03/23 13:47 Freq: Status: Active Protocol: Document 08/03/23 13:48 NM (Rec: 08/03/23 16:26 NM [id number]) Sensation Evaluation Gross Sensation Gross Sensation Right LE Impaired Dermatome Impairments L4,L5 Comments Summary Comments LLE intact to light touch sensation L2-L5, S1-2. RLE impaired laterally below knee, L4 dermatome. Vital Signs Comments Vital Signs Comments 08/03/23 BP 109/68 (sitting), 98 spo2, 63 bpm PT-OP-J Posture/Palpation/Skin Start: 08/03/23 13:47 Freq: Status: Active Protocol: Document 08/03/23 13:48 NM (Rec: 08/03/23 16:26 NM [id number]) Posture Evaluation Position Standing Evaluation View Lateral Head/C-Spine Posture Forward Head T-Spine Posture Increased Kyphosis L-Spine Posture Increased Lordosis Shoulder Posture (L) Forward,(R) Forward Weight Distribution Balanced Hip Posture (L) Neutral,(R) Neutral Knee Posture (L) Genu Varus,(R) Genu Varus Ankle/Foot Posture (L) Pronated,(R) Pronated Palpation Assessment Location L knee Palpation Location anterior, medial/lateral knee Palpation Findings Edema Palpation Details Lymphedema, so increased swelling. Minimal tenderness along medial knee Skin Assessment Incisional Assessment Incision Appearance/Comments Pt reports that incision is intact with no scars; she performs mobilizations at home when her wrappings are not on . Unable to formally assess due to lymphedema wrappings. PT-OP-K Range of Motion Start: 08/03/23 13:47 Freq: Status: Active Protocol: Document 08/03/23 13:48 NM (Rec: 08/03/23 16:26 NM [id number]) Hip Goniometric Range of Motion Hip Right Flexion w/Knee Flexed 100 Left Flexion w/Knee Flexed 100 Knee Goniometric Range of Motion Knee Right Flexion Active (degrees) 102 Extension Active (degrees) 0 Left Patient Position Supine Flexion Active (degrees) 100 Flexion Passive (degrees) 103 Extension Active (degrees) 3 Extension Passive (degrees) 0 Comments minimal pain with flexion Knee ROM Limitations Knee ROM Limitations Swelling Comments Lymphedema wrappings and swelling limit ROM PT-OP-M Strength Start: 08/03/23 13:47 Freq: Status: Active Protocol: Document 08/03/23 13:48 NM (Rec: 08/03/23 16:26 NM [id number]) Hip Strength Hip Manual Muscle Testing Right Flexion (L2) 4- Good- Extension (S1) 4- Good- Abduction 4- Good- External Rotation 4- Good- Internal Rotation 4- Good- Left Flexion (L2) 4- Good- Extension (S1) 3+ Fair+ Abduction 3+ Fair+ External Rotation 4- Good- Internal Rotation 4- Good- Knee Strength Knee Manual Muscle Testing Right Flexion (S2) 4- Good- Extension (L3) 4- Good- Left Flexion (S2) 3+ Fair+ Extension (L3) 3+ Fair+ Comments Reports min pain with resisted extension Ankle/Foot Strength Ankle and Foot Manual Muscle Testing Right Dorsiflexion (L4) 4+ Good+ Plantarflexion (S1) 4+ Good+ Left Dorsiflexion (L4) 4+ Good+ Plantarflexion (S1) 4+ Good+ PT-OP-Q Treatments Start: 08/03/23 13:47 Freq: Status: Active Protocol: Document 08/29/23 09:47 NM (Rec: 08/29/23 10:33 NM [id number]) Gym Equipment Shuttle Recovery unilateral squat Details cued L TKE without locking LLE , demos slight knee valgus Resistance 37#> 25# (navABODO) Shuttle Recovery Platform Stable Reps/Time 1x5 > 1x15 bilateral squat Details cued TKE without locking LLE Resistance 50# (navABODO) Shuttle Recovery Platform Stable Reps/Time 2x15 Therapeutic Exercises Sitting Exercises Seated hip abduction with band Sitting Exercise Name hip abd with band Side bilateral Resistance nikolai green lvl 3 tb Reps/Minutes 2x30 isometric hold Comments cued for form; edu on pelvic stabilization Standing Exercises standing hip abduction Standing Exercise Name side steps Side bilateral Resistance teal tb lvl 2 around ankles Equipment Used B flat hand support on table for balance Reps/Minutes 5 sets x 8 ft Comments vc cues to avoid toeing out, foot clearance standing hip extension Side bilateral Resistance teal tb around ankles Reps/Minutes 2x8 Comments verbal cues for execution, min trunk flex; monitored LS ext Knee flexion mobilization/stretch Standing Exercise Name performed seated on 4WW, pt rolling fwd until knee flex behind Side left Reps/Minutes 2x30 Comments pt reports performing at home vs step knee flex mobilization [place]at Standing Exercise Name to chair for knee flexion Side bilateral Equipment Used chair behind to for target; BUE support on plinth Reps/Minutes 1x10 Comments cue to sit back twd chair for more glutes; demos fwd hip/ knee shift instead Sit to stand Standing Exercise Name 5x STS form 20 table Side bilateral Reps/Minutes 25.58 sec Comments reports min L post knee pain; improved form but slower Manual Therapy Treatment Soft Tissue Mobilization L knee Body Location HS Mobilization Type Instrument Assisted,Rolling, Strumming,Sustained Pressure Intensity/Depth Moderate Body Position Hooklying Comments 1. PT performing rolling, strumming, sustained pressure. Medial HS most tender, limited. 2. Rolling of hamstring with rolling pin for further muscle relaxation; educated pt on use of rolling pin for STM as part of HEP. Then Pt performing rolling with rolling pin 2 min Joint Mobilizations left patella Joint left patella Direction superior, inferior, med/ lateral Grade IV Body Position Supine Comments Improved patellar mobility, rossy sup/inf for better knee ROM left knee Joint left knee Direction tibia on femur PA and AP Grade III Body Position Supine Comments For end range ext and to improve knee flexoin, monitored for pain Manual Techniques PROM Type L knee flexion Reps/Duration 1x5 ea Comments 1. Supine 2. Seated with tibial IR 90 deg flex before, 105 deg after mobilization Monitored for pain, performed to pt tolerance Self-Care/Home Management Treatment Education Patient Education Home Exercise Program,Safety Other Education HEP: standing hip abduction, standing hip extension, side steps with band (around ankles ). All exercises to be performed using stable surface for BUE support for balance/ safety. PT added instructions to ea exercise and discussed with pt for safety; pt verbalizing agreement. PT-OP-T Assessment and Plan Start: 08/03/23 13:47 Freq: Status: Active Protocol: Document 08/29/23 09:47 NM (Rec: 08/29/23 10:33 NM [id number]) Physical Therapy Assessment Goals Eight Impairment gait Relief Cook Goal (LTG) Pt will be able to ambulate community distances (at least 500 ft) using 4WW or LRAD LTG Duration 8 weeks Seven Impairment strength Nursing Home Goal (LTG) Pt will improve global B hip strength to at least 4+/5 in order to demonstrate increased hip strength for better stability during gait LTG Duration 8 weeks Six Impairment strength Impairment L hip abd/ext 3+/5 Short Term Goal (STG) Pt will improve L hip abd/ext strength to at least 4/5 in order to demonstrate increased hip strength for improved gait and balance STG Duration 4 weeks Nursing Home Goal (LTG) Pt will improve L hip abd/ext strength to at least 4+/5 in order to demonstrate increased hip strength for improved gait and balance LTG Duration 8 weeks Five Impairment strength Impairment L knee flex/ext 3+/5 MMT Short Term Goal (STG) Pt will improve L knee flex/ ext strength to at least 4/5 in order to demonstrate increased knee strength for gait STG Duration 4 weeks Nursing Home Goal (LTG) Pt will improve L knee flex/ ext strength to at least 4+/5 in order to demonstrate increased knee strength for gait LTG Duration 8 weeks Four Impairment strength Impairment 5x STS: 21.83 seconds Short Term Goal (STG) Pt will decrease 5x STS time to less than 20 seconds in order to demonstrate improved BLE strength 08/29/23: from 20 table, 25 sec with improved form Relief Cook Goal (LTG) Pt will decrease 5x STS time to less than 18 seconds in order to demonstrate improved BLE strength LTG Duration 8 weeks Three Impairment balance Impairment TU seconds with 4WW Nursing Home Goal (LTG) Pt will decrease TUG score to less than 13 seconds using LRAD in order to demonstrate improved balance and decrease fall risk LTG Duration 8 weeks Two Impairment ROM Impairment R knee flex ROM 100 deg Short Term Goal (STG) Pt will increase R knee flex ROM to at least 110 deg in order to be able to ride her bike if possible due to lymphedema STG Duration 4 weeks Relief Cook Goal (LTG) Pt will increase R knee flex ROM to at least 115 deg in order to be able to ride her bike if possible due to lymphedema LTG Duration 8 weeks One Impairment function Impairment LEFS: 51/80 Relief Cook Goal (LTG) Pt will increase LEFS score by at least 9 points (1 MCID) in order to demonstrate improved tolerance for ADLs. LTG Duration 8 weeks Assessment Summary Assessment Pt tolerated session well but increased time for activity. Continues to demonstrate limitations in L knee flexion. Prior to mobilizatioon L knee flex AROM 90 deg, 105 deg post mobilization. Pt has full knee extension AROM with quad set and LLE elevated. Pt has soft tissue limitations of L hamstring, so performed soft tissue mobilization and educated pt on self soft tissue mobilization at home for muscle relaxation and pain reduction. Continued with BLE strengthening of hip abd/ glutes/quads with emphasis on balance and safety during exercises. Performed 5x STS with increased time but better weight shifts/form and glute/ quad activation. Pt continues to demo improvements in activity tolerance, but is most limited by balance and BLE weakness. Pt would benefit from skilled PT for progressive, functional LLE strengthening, gait and balance training, and L knee mobility in order to decrease fall risk and improve activity tolerance. Physical Therapy Plan Frequency and Duration Frequency of Treatment 2x/Week Duration of treatment (weeks) 8 Plan of Care Start Date 08/03/23 Plan of Care End Date 09/28/23 Therapeutic Interventions Therapeutic Interventions Aquatic Therapy,Balance Training,Gait Training,Home Exercise Program,Joint Mobilizations,Manual Therapy, Neuromuscular Re-education, Orthotic/Prosthetic Management ,Patient/Caregiver Education, Self-Care/Home Management, Sensory Integration,Soft Tissue Mobilization,Taping, Therapeutic Activities, Therapeutic Exercises Modalities Cold Pack/Ice Massage,Hot Packs Next Visit Focus/Plan Next Note Type Treatment Note Next Visit Plan Cont manual treatment with emphasis on knee flexion. Cont balance training (SLS, TUG, tandem, decrease hand support) , LLE strength training (trial bike, 2-4 step up with BUE support or lateral step up, LAQ, glute strengthening) have pt take off lymphedema knee wrap for better knee flex balance, progress to lower seat height for sit to stand, leg press as time permits PN on 08/06
--- NOTE | 2023-08-31 14:03 | PT.OTN ---
Current Diagnoses Unilateral primary osteoarthritis, left knee (08/31/23) Physical Therapy Treatment Note PT-OP-A Visit Information Start: 08/03/23 13:47 Freq: Status: Active Protocol: Document 08/31/23 10:25 AB (Rec: 08/31/23 14:03 AB [id number]) Out-Patient Physical Therapy Visit Information Visit Information Visit Type Treatment Note Visit Note 16 visits total DOS: 06/19/23 Visit Start Time 13:02 Visit Stop Time 13:44 Visit Number 7 Number of SHARED SERVICES REPRESENTATIVE Visits 1 Evaluation Information Evaluation Date 08/03/23 Precautions Precautions Move slowly with positional changes d/t reported orthostasis 8 weeks: 08/13/23 12 weeks: 09/10/23 PT-OP-B Current Condition Start: 08/03/23 13:47 Freq: Status: Active Protocol: Document 08/03/23 13:48 NM (Rec: 08/03/23 16:26 NM [id number]) Current Condition History of Current Condition Onset Date 06/19/23 Current Complaints pain, ache History of Current Condition Pt presents to clinic s/p L TKA performed on 06/19/[address] [place]. Pt reports that she just had her follow up with him this past week, and she states he is pleased with the ROM. Prior to arrival at [facility], pt had [facility] following surgery with recent discharge last week. Pt uses a 4WW for balance during gait and did prior to surgery. She reports that she is able to ambulate in her house without her 4WW for short distances. Hx of R TKA earlier in 2022. Pt has hx of lymphedema so BLE are completely wrapped from ankle to hip; pt reports that she has had significantly less swelling in her knee since she was able to use the wraps that go to her hip. Pt has a hx of falls, 1-2x/yr but none since her surgery. Also has hx of neuropathy on RLE below the knee. Lives alone with no stairs. Prior Functional Status Baseline Function- ADL's Independent Baseline Function- Mobility Independent Baseline Function- Gait household and short community distances with 4WW Baseline Function- Recreation/Hobbies Work out at gym 2-3x/wk (bike, nustep, arm exercise machines ), water aerobics Current Functional Impairments (Reported) Functional Limitations- Mobility/Gait household distances without 4ww PT-OP-C Subjective Start: 08/03/23 13:47 Freq: Status: Active Protocol: Document 08/31/23 10:25 AB (Rec: 08/31/23 14:03 AB [id number]) OP-PT Subjective Patient Comments Patient Comments Patient reports the back of her knee is better, stopped wearing the strap that went around her knee, reports no change in lymphema symptoms. PT-OP-D Balance Start: 08/03/23 13:47 Freq: Status: Active Protocol: Document 08/03/23 13:48 NM (Rec: 08/03/23 16:26 NM [id number]) OP-PT Balance Assessment Sitting Balance Static Sitting Balance Ability Normal Dynamic Sitting Balance Ability Normal Standing Balance Static Standing Balance Ability Fair Dynamic Standing Balance Ability Poor Balance Tests Romberg Romberg 10 sec Semi-Tandem Standing Semi-Tandem Standing Balance R < 3 sec, L <3 sec Tandem Tandem Standing Unable to get into position w/ o UE support; <1 sec ea De Leon Fall Scale Copyright Permission PT-OP-E Functional Tests Start: 08/03/23 13:47 Freq: Status: Active Protocol: Document 08/03/23 13:48 NM (Rec: 08/03/23 16:26 NM [id number]) Functional Tests Five Times Sit to Stand Test Score 21.83 sec Comments reports no knee pain Timed Up and Go (TUG) Score 13 sec Comments with FWW Tinetti Balance and Gait Assessment Balance Score 11 Gait Score 6 Composite Score 17/28 Balance Score Impairment Rating 20 to <40% Impaired (Score 10- 12) Gait Score Impairment Rating 40 to <60% Impaired (Score 5-7 ) Composite Score Impairment Rating 20 to <40% Impaired (Score 17- 22) PT-OP-F Manual Assessment Start: 08/03/23 13:47 Freq: Status: Active Protocol: Document 08/03/23 13:48 NM (Rec: 08/03/23 16:26 NM [id number]) Manual Assessments Soft Tissue Assessment Soft Tissue Mobility Assessment Pt has bilateral lymphedema, which limits ROM. No restrictions of B hamstrings, quads, hip flexors Joint Mobility Assessment Joint Mobility Assessment B hip PROM limited in flexion but good IR/ER in supine. B knees limited passive flexion, full extension. Limited B ankle dorsiflexion PT-OP-G Mobility & Gait Start: 08/03/23 13:47 Freq: Status: Active Protocol: Document 08/03/23 13:48 NM (Rec: 08/03/23 16:26 NM [id number]) OP Gait Assessment Gait Gait Assistance Required: Independent Distance (Feet) 150 Able to Maintain Weight Bearing Status Yes During Gait Assistive Devices Assistive Device Gait Belt,4 Wheeled Walker Gait Deviations General Gait Pattern Antalgic,Flexed Trunk,Step-to Gait,Wide Based Gait Factors Limiting Gait Function Factors Limiting Gait Function Decreased Activity Tolerance, Decreased Sensation,Decreased Strength,Limited Range of Motion,Pain,Poor Balance Stair Climbing Evaluation Comments Stair Climbing Comments Trialed placing LLE on step, but difficulty with flexing knee enough to place on step; performs hip circumduction to lift onto step. Did not attempt climbing PT-OP-H Neuro Start: 08/03/23 13:47 Freq: Status: Active Protocol: Document 08/03/23 13:48 NM (Rec: 08/03/23 16:26 NM [id number]) Sensation Evaluation Gross Sensation Gross Sensation Right LE Impaired Dermatome Impairments L4,L5 Comments Summary Comments LLE intact to light touch sensation L2-L5, S1-2. RLE impaired laterally below knee, L4 dermatome. Vital Signs Comments Vital Signs Comments 08/03/23 BP 109/68 (sitting), 98 spo2, 63 bpm PT-OP-J Posture/Palpation/Skin Start: 08/03/23 13:47 Freq: Status: Active Protocol: Document 08/03/23 13:48 NM (Rec: 08/03/23 16:26 NM [id number]) Posture Evaluation Position Standing Evaluation View Lateral Head/C-Spine Posture Forward Head T-Spine Posture Increased Kyphosis L-Spine Posture Increased Lordosis Shoulder Posture (L) Forward,(R) Forward Weight Distribution Balanced Hip Posture (L) Neutral,(R) Neutral Knee Posture (L) Genu Varus,(R) Genu Varus Ankle/Foot Posture (L) Pronated,(R) Pronated Palpation Assessment Location L knee Palpation Location anterior, medial/lateral knee Palpation Findings Edema Palpation Details Lymphedema, so increased swelling. Minimal tenderness along medial knee Skin Assessment Incisional Assessment Incision Appearance/Comments Pt reports that incision is intact with no scars; she performs mobilizations at home when her wrappings are not on . Unable to formally assess due to lymphedema wrappings. PT-OP-K Range of Motion Start: 08/03/23 13:47 Freq: Status: Active Protocol: Document 08/03/23 13:48 NM (Rec: 08/03/23 16:26 NM [id number]) Hip Goniometric Range of Motion Hip Right Flexion w/Knee Flexed 100 Left Flexion w/Knee Flexed 100 Knee Goniometric Range of Motion Knee Right Flexion Active (degrees) 102 Extension Active (degrees) 0 Left Patient Position Supine Flexion Active (degrees) 100 Flexion Passive (degrees) 103 Extension Active (degrees) 3 Extension Passive (degrees) 0 Comments minimal pain with flexion Knee ROM Limitations Knee ROM Limitations Swelling Comments Lymphedema wrappings and swelling limit ROM PT-OP-M Strength Start: 08/03/23 13:47 Freq: Status: Active Protocol: Document 08/03/23 13:48 NM (Rec: 08/03/23 16:26 NM [id number]) Hip Strength Hip Manual Muscle Testing Right Flexion (L2) 4- Good- Extension (S1) 4- Good- Abduction 4- Good- External Rotation 4- Good- Internal Rotation 4- Good- Left Flexion (L2) 4- Good- Extension (S1) 3+ Fair+ Abduction 3+ Fair+ External Rotation 4- Good- Internal Rotation 4- Good- Knee Strength Knee Manual Muscle Testing Right Flexion (S2) 4- Good- Extension (L3) 4- Good- Left Flexion (S2) 3+ Fair+ Extension (L3) 3+ Fair+ Comments Reports min pain with resisted extension Ankle/Foot Strength Ankle and Foot Manual Muscle Testing Right Dorsiflexion (L4) 4+ Good+ Plantarflexion (S1) 4+ Good+ Left Dorsiflexion (L4) 4+ Good+ Plantarflexion (S1) 4+ Good+ PT-OP-Q Treatments Start: 08/03/23 13:47 Freq: Status: Active Protocol: Document 08/31/23 10:25 AB (Rec: 08/31/23 14:03 AB [id number]) Cardio Equipment Recumbent Elliptical ([place]) Resistance 45 Seat Position 12 Other 3.5 min Therapeutic Exercises Sitting Exercises Seated hip abduction with band Sitting Exercise Name hip abd with band Side bilateral Resistance [place] green lvl 3 tb Reps/Minutes one minute X 2 Comments prior to balance work Standing Exercises bilateral heel raise Standing Exercise Name with UE support Side bilateral Reps/Minutes 3X10 Comments Verbal cues to lower heels to floor slowly Neuro Re-Education Treatment Balance Activities balance board (rocker Details CGA hands above bars Equipment rocker board Comments focus on balancing the board one minute then visual scanning added, and head turns Retro stepping Details CGA hands above bars Surface floor Reps/Duration 10 feet X 4 Shuttle Details CGA hands above bars Equipment shuttle Comments feet on 4's hands above bars X 2 min, then left foot fwd X 4 right foot fwd X 4 IE reaches for bar when unsteady X [address] Details hands above parallel bars to use as needed, gait belt in place CGA Surface Foam pad Reps/Duration X10 Comments VC to keep eyes on pad due to small foam pad Tandem stepping Details hands above parallel bars to use as needed CGA with gait belt Reps/Duration 10 feet X 4 step up taps Details hands above parallel bars to use as needed Surface floor Equipment 2,4,6 inch step Reps/Duration X10 eacj step left and right LE Comments CGA with gait belt foam pad Romberg Details limited Romberg due to lymphedema Surface foam pad Reps/Duration X4 Comments eyes closed CGA with gait belt min assist to step off pad PT-OP-T Assessment and Plan Start: 08/03/23 13:47 Freq: Status: Active Protocol: Document 08/31/23 10:25 AB (Rec: 08/31/23 14:03 AB [id number]) Physical Therapy Assessment Goals Eight Impairment gait [employer] Goal (LTG) Pt will be able to ambulate community distances (at least 500 ft) using 4WW or LRAD LTG Duration 8 weeks Seven Impairment strength Nursing Home Goal (LTG) Pt will improve global B hip strength to at least 4+/5 in order to demonstrate increased hip strength for better stability during gait LTG Duration 8 weeks Six Impairment strength Impairment L hip abd/ext 3+/5 Short Term Goal (STG) Pt will improve L hip abd/ext strength to at least 4/5 in order to demonstrate increased hip strength for improved gait and balance STG Duration 4 weeks [employer] Goal (LTG) Pt will improve L hip abd/ext strength to at least 4+/5 in order to demonstrate increased hip strength for improved gait and balance LTG Duration 8 weeks Five Impairment strength Impairment L knee flex/ext 3+/5 MMT Short Term Goal (STG) Pt will improve L knee flex/ ext strength to at least 4/5 in order to demonstrate increased knee strength for gait STG Duration 4 weeks [employer] Goal (LTG) Pt will improve L knee flex/ ext strength to at least 4+/5 in order to demonstrate increased knee strength for gait LTG Duration 8 weeks Four Impairment strength Impairment 5x STS: 21.83 seconds Short Term Goal (STG) Pt will decrease 5x STS time to less than 20 seconds in order to demonstrate improved BLE strength 08/29/23: from 20 table, 25 sec with improved form Nursing Home Goal (LTG) Pt will decrease 5x STS time to less than 18 seconds in order to demonstrate improved BLE strength LTG Duration 8 weeks Three Impairment balance Impairment TU seconds with 4WW [employer] Goal (LTG) Pt will decrease TUG score to less than 13 seconds using LRAD in order to demonstrate improved balance and decrease fall risk LTG Duration 8 weeks Two Impairment ROM Impairment R knee flex ROM 100 deg Short Term Goal (STG) Pt will increase R knee flex ROM to at least 110 deg in order to be able to ride her bike if possible due to lymphedema STG Duration 4 weeks Nursing Home Goal (LTG) Pt will increase R knee flex ROM to at least 115 deg in order to be able to ride her bike if possible due to lymphedema LTG Duration 8 weeks One Impairment function Impairment LEFS: 51/80 Nursing Home Goal (LTG) Pt will increase LEFS score by at least 9 points (1 MCID) in order to demonstrate improved tolerance for ADLs. LTG Duration 8 weeks Assessment Summary Assessment SLS left and right LE without UE use 3 seconds end of session, increased from 1 second start of session. Balance continues to be limited, but Adela demonstrated good eli to balance exercises rating knee pain 0/10 end of session. Physical Therapy Plan Frequency and Duration Frequency of Treatment 2x/Week Duration of treatment (weeks) 8 Plan of Care Start Date 08/03/23 Plan of Care End Date 09/28/23 Next Visit Focus/Plan Next Note Type Treatment Note Next Visit Plan Cont manual treatment with emphasis on knee flexion. Cont balance training (SLS, TUG, tandem, decrease hand support) , LLE strength training (trial bike, 2-4 step up with BUE support or lateral step up, LAQ, glute strengthening) have pt take off lymphedema knee wrap for better knee flex balance, progress to lower seat height for sit to stand, leg press as time permits PN on 08/06
--- NOTE | 2023-09-04 11:41 | PT.OTN ---
Current Diagnoses Unilateral primary osteoarthritis, left knee (09/04/23) Physical Therapy Treatment Note PT-OP-A Visit Information Start: 08/03/23 13:47 Freq: Status: Active Protocol: Document 09/04/23 08:15 AB (Rec: 09/04/23 11:40 AB [id number]) Out-Patient Physical Therapy Visit Information Visit Information Visit Type Treatment Note Visit Note 16 visits total DOS: 06/19/23 Access Code: [email or web address] Visit Start Time 10:30 Visit Stop Time 11:25 Visit Number 8 Number of PROJECT BUYER Visits 2 Evaluation Information Evaluation Date 08/03/23 Precautions Precautions Move slowly with positional changes d/t reported orthostasis 8 weeks: 08/13/23 12 weeks: 09/10/23 PT-OP-B Current Condition Start: 08/03/23 13:47 Freq: Status: Active Protocol: Document 08/03/23 13:48 NM (Rec: 08/03/23 16:26 NM [id number]) Current Condition History of Current Condition Onset Date 06/19/23 Current Complaints pain, ache History of Current Condition Pt presents to clinic s/p L TKA performed on 06/19/[address] [place]. Pt reports that she just had her follow up with him this past week, and she states he is pleased with the ROM. Prior to arrival at [facility], pt had [facility] following surgery with recent discharge last week. Pt uses a 4WW for balance during gait and did prior to surgery. She reports that she is able to ambulate in her house without her 4WW for short distances. Hx of R TKA earlier in 2022. Pt has hx of lymphedema so BLE are completely wrapped from ankle to hip; pt reports that she has had significantly less swelling in her knee since she was able to use the wraps that go to her hip. Pt has a hx of falls, 1-2x/yr but none since her surgery. Also has hx of neuropathy on RLE below the knee. Lives alone with no stairs. Prior Functional Status Baseline Function- ADL's Independent Baseline Function- Mobility Independent Baseline Function- Gait household and short community distances with 4WW Baseline Function- Recreation/Hobbies Work out at gym 2-3x/wk (bike, nustep, arm exercise machines ), water aerobics Current Functional Impairments (Reported) Functional Limitations- Mobility/Gait household distances without 4ww PT-OP-C Subjective Start: 08/03/23 13:47 Freq: Status: Active Protocol: Document 09/04/23 08:15 AB (Rec: 09/04/23 11:40 AB [id number]) OP-PT Subjective Patient Comments Patient Comments Patient reports the knee is better, was able to walk [place] at the dog park with the walker. Patient also reports she is able to wear the compression strap over the knee every other day. PT-OP-D Balance Start: 08/03/23 13:47 Freq: Status: Active Protocol: Document 09/04/23 08:15 AB (Rec: 09/04/23 11:40 AB [id number]) Balance Tests Single Limb Standing Single Limb- Left 1,1,1 second without UE use pre and post session PT-OP-E Functional Tests Start: 08/03/23 13:47 Freq: Status: Active Protocol: Document 08/03/23 13:48 NM (Rec: 08/03/23 16:26 NM [id number]) Functional Tests Five Times Sit to Stand Test Score 21.83 sec Comments reports no knee pain Timed Up and Go (TUG) Score 13 sec Comments with FWW Tinetti Balance and Gait Assessment Balance Score 11 Gait Score 6 Composite Score 17/28 Balance Score Impairment Rating 20 to <40% Impaired (Score 10- 12) Gait Score Impairment Rating 40 to <60% Impaired (Score 5-7 ) Composite Score Impairment Rating 20 to <40% Impaired (Score 17- 22) PT-OP-F Manual Assessment Start: 08/03/23 13:47 Freq: Status: Active Protocol: Document 08/03/23 13:48 NM (Rec: 08/03/23 16:26 NM [id number]) Manual Assessments Soft Tissue Assessment Soft Tissue Mobility Assessment Pt has bilateral lymphedema, which limits ROM. No restrictions of B hamstrings, quads, hip flexors Joint Mobility Assessment Joint Mobility Assessment B hip PROM limited in flexion but good IR/ER in supine. B knees limited passive flexion, full extension. Limited B ankle dorsiflexion PT-OP-G Mobility & Gait Start: 08/03/23 13:47 Freq: Status: Active Protocol: Document 08/03/23 13:48 NM (Rec: 08/03/23 16:26 NM [id number]) OP Gait Assessment Gait Gait Assistance Required: Independent Distance (Feet) 150 Able to Maintain Weight Bearing Status Yes During Gait Assistive Devices Assistive Device Gait Belt,4 Wheeled Walker Gait Deviations General Gait Pattern Antalgic,Flexed Trunk,Step-to Gait,Wide Based Gait Factors Limiting Gait Function Factors Limiting Gait Function Decreased Activity Tolerance, Decreased Sensation,Decreased Strength,Limited Range of Motion,Pain,Poor Balance Stair Climbing Evaluation Comments Stair Climbing Comments Trialed placing LLE on step, but difficulty with flexing knee enough to place on step; performs hip circumduction to lift onto step. Did not attempt climbing PT-OP-H Neuro Start: 08/03/23 13:47 Freq: Status: Active Protocol: Document 08/03/23 13:48 NM (Rec: 08/03/23 16:26 NM [id number]) Sensation Evaluation Gross Sensation Gross Sensation Right LE Impaired Dermatome Impairments L4,L5 Comments Summary Comments LLE intact to light touch sensation L2-L5, S1-2. RLE impaired laterally below knee, L4 dermatome. Vital Signs Comments Vital Signs Comments 08/03/23 BP 109/68 (sitting), 98 spo2, 63 bpm PT-OP-J Posture/Palpation/Skin Start: 08/03/23 13:47 Freq: Status: Active Protocol: Document 08/03/23 13:48 NM (Rec: 08/03/23 16:26 NM [id number]) Posture Evaluation Position Standing Evaluation View Lateral Head/C-Spine Posture Forward Head T-Spine Posture Increased Kyphosis L-Spine Posture Increased Lordosis Shoulder Posture (L) Forward,(R) Forward Weight Distribution Balanced Hip Posture (L) Neutral,(R) Neutral Knee Posture (L) Genu Varus,(R) Genu Varus Ankle/Foot Posture (L) Pronated,(R) Pronated Palpation Assessment Location L knee Palpation Location anterior, medial/lateral knee Palpation Findings Edema Palpation Details Lymphedema, so increased swelling. Minimal tenderness along medial knee Skin Assessment Incisional Assessment Incision Appearance/Comments Pt reports that incision is intact with no scars; she performs mobilizations at home when her wrappings are not on . Unable to formally assess due to lymphedema wrappings. PT-OP-K Range of Motion Start: 08/03/23 13:47 Freq: Status: Active Protocol: Document 08/03/23 13:48 NM (Rec: 08/03/23 16:26 NM [id number]) Hip Goniometric Range of Motion Hip Right Flexion w/Knee Flexed 100 Left Flexion w/Knee Flexed 100 Knee Goniometric Range of Motion Knee Right Flexion Active (degrees) 102 Extension Active (degrees) 0 Left Patient Position Supine Flexion Active (degrees) 100 Flexion Passive (degrees) 103 Extension Active (degrees) 3 Extension Passive (degrees) 0 Comments minimal pain with flexion Knee ROM Limitations Knee ROM Limitations Swelling Comments Lymphedema wrappings and swelling limit ROM PT-OP-M Strength Start: 08/03/23 13:47 Freq: Status: Active Protocol: Document 08/03/23 13:48 NM (Rec: 08/03/23 16:26 NM [id number]) Hip Strength Hip Manual Muscle Testing Right Flexion (L2) 4- Good- Extension (S1) 4- Good- Abduction 4- Good- External Rotation 4- Good- Internal Rotation 4- Good- Left Flexion (L2) 4- Good- Extension (S1) 3+ Fair+ Abduction 3+ Fair+ External Rotation 4- Good- Internal Rotation 4- Good- Knee Strength Knee Manual Muscle Testing Right Flexion (S2) 4- Good- Extension (L3) 4- Good- Left Flexion (S2) 3+ Fair+ Extension (L3) 3+ Fair+ Comments Reports min pain with resisted extension Ankle/Foot Strength Ankle and Foot Manual Muscle Testing Right Dorsiflexion (L4) 4+ Good+ Plantarflexion (S1) 4+ Good+ Left Dorsiflexion (L4) 4+ Good+ Plantarflexion (S1) 4+ Good+ PT-OP-Q Treatments Start: 08/03/23 13:47 Freq: Status: Active Protocol: Document 09/04/23 08:15 AB (Rec: 09/04/23 11:40 AB [id number]) Therapeutic Exercises Supine Exercises Heel slide Supine Exercise Name AROM HS post manual therapy Side left Reps/Minutes X10 Comments no change in AROM left knee flexion Sitting Exercises Seated hip abduction with band Sitting Exercise Name hip abd with band Side bilateral Resistance alutiiq green lvl 3 tb Reps/Minutes one minute X 2 Comments prior to balance work Standing Exercises squat with band Standing Exercise Name squat with teal band level 2 Side bilateral Resistance teal/ level 2 band Reps/Minutes 3X10 Comments Verbal cues for buttocks back and to squat to a depth that does not increas Manual Therapy Treatment Joint Mobilizations left patella Joint left patella Direction superior, inferior, med/ lateral Grade IV Body Position Supine Comments Improved patellar mobility, rossy sup/inf for better knee ROM Manual Techniques PROM Type left knee flexion Body Position seated Reps/Duration X3 90 second holds Neuro Re-Education Treatment Balance Activities Shuttle Details CGA hands above bars Equipment shuttle Comments feet on 4's hands above bars, with head turns and visual scanning, one foot back stagger stance, with visual scanning, CGA to minimal assist 5 min Tandem stepping Details CGA with gait belt Surface floor Reps/Duration 10 feet X 4 step up taps Details 4 inch step hands above rails Equipment 4 inch step and rails Reps/Duration X10 each LE Comments CGA with gait belt Self-Care/Home Management Treatment Activities Self-Care/Home Management Activities squat with band added to HEP PT-OP-T Assessment and Plan Start: 08/03/23 13:47 Freq: Status: Active Protocol: Document 09/04/23 08:15 AB (Rec: 09/04/23 11:40 AB [id number]) Physical Therapy Assessment Goals Eight Impairment gait Clinical Services Consultant Goal (LTG) Pt will be able to ambulate community distances (at least 500 ft) using 4WW or LRAD LTG Duration 8 weeks Seven Impairment strength Clinical Services Consultant Goal (LTG) Pt will improve global B hip strength to at least 4+/5 in order to demonstrate increased hip strength for better stability during gait LTG Duration 8 weeks Six Impairment strength Impairment L hip abd/ext 3+/5 Short Term Goal (STG) Pt will improve L hip abd/ext strength to at least 4/5 in order to demonstrate increased hip strength for improved gait and balance STG Duration 4 weeks Clinical Services Consultant Goal (LTG) Pt will improve L hip abd/ext strength to at least 4+/5 in order to demonstrate increased hip strength for improved gait and balance LTG Duration 8 weeks Five Impairment strength Impairment L knee flex/ext 3+/5 MMT Short Term Goal (STG) Pt will improve L knee flex/ ext strength to at least 4/5 in order to demonstrate increased knee strength for gait STG Duration 4 weeks Clinical Services Consultant Goal (LTG) Pt will improve L knee flex/ ext strength to at least 4+/5 in order to demonstrate increased knee strength for gait LTG Duration 8 weeks Four Impairment strength Impairment 5x STS: 21.83 seconds Short Term Goal (STG) Pt will decrease 5x STS time to less than 20 seconds in order to demonstrate improved BLE strength 08/29/23: from 20 table, 25 sec with improved form Care Home Goal (LTG) Pt will decrease 5x STS time to less than 18 seconds in order to demonstrate improved BLE strength LTG Duration 8 weeks Three Impairment balance Impairment TU seconds with 4WW Clinical Services Consultant Goal (LTG) Pt will decrease TUG score to less than 13 seconds using LRAD in order to demonstrate improved balance and decrease fall risk LTG Duration 8 weeks Two Impairment ROM Impairment R knee flex ROM 100 deg Short Term Goal (STG) Pt will increase R knee flex ROM to at least 110 deg in order to be able to ride her bike if possible due to lymphedema STG Duration 4 weeks Clinical Services Consultant Goal (LTG) Pt will increase R knee flex ROM to at least 115 deg in order to be able to ride her bike if possible due to lymphedema LTG Duration 8 weeks One Impairment function Impairment LEFS: 51/80 Clinical Services Consultant Goal (LTG) Pt will increase LEFS score by at least 9 points (1 MCID) in order to demonstrate improved tolerance for ADLs. LTG Duration 8 weeks Assessment Summary Assessment 105 deg flex AROM right knee start of session, single leg stance left LE 1 second X 3 no change post glute med activation. Balance continues to limited, good tolerance to squat with band, but cannot squat to chair seat depth without increased knee pain. Physical Therapy Plan Frequency and Duration Frequency of Treatment 2x/Week Duration of treatment (weeks) 8 Plan of Care Start Date 08/03/23 Plan of Care End Date 09/28/23 Next Visit Focus/Plan Next Note Type Treatment Note Next Visit Plan Cont manual treatment with emphasis on knee flexion. Cont balance training (SLS, TUG, tandem, decrease hand support) , LLE strength training (trial bike, 2-4 step up with BUE support or lateral step up, LAQ, glute strengthening) have pt take off lymphedema knee wrap for better knee flex balance, progress to lower seat height for sit to stand, leg press as time permits PN on 08/06
--- NOTE | 2023-09-06 15:52 | PT.OTN ---
Current Diagnoses Unilateral primary osteoarthritis, left knee (09/06/23) Physical Therapy Treatment Note PT-OP-A Visit Information Start: 08/03/23 13:47 Freq: Status: Active Protocol: Document 09/06/23 12:16 NM (Rec: 09/06/23 12:39 NM [id number]) Out-Patient Physical Therapy Visit Information Visit Information Visit Type Progress Note Visit Start Time 12:16 Visit Stop Time 13:00 Visit Number 9 Evaluation Information Evaluation Date 08/03/23 Precautions Precautions Move slowly with positional changes d/t reported orthostasis 8 weeks: 08/13/23 12 weeks: 09/10/23 PT-OP-B Current Condition Start: 08/03/23 13:47 Freq: Status: Active Protocol: Document 08/03/23 13:48 NM (Rec: 08/03/23 16:26 NM [id number]) Current Condition History of Current Condition Onset Date 06/19/23 Current Complaints pain, ache History of Current Condition Pt presents to clinic s/p L TKA performed on 06/19/[address] [place]. Pt reports that she just had her follow up with him this past week, and she states he is pleased with the ROM. Prior to arrival at [facility], pt had [facility]PT following surgery with recent discharge last week. Pt uses a 4WW for balance during gait and did prior to surgery. She reports that she is able to ambulate in her house without her 4WW for short distances. Hx of R TKA earlier in 2022. Pt has hx of lymphedema so BLE are completely wrapped from ankle to hip; pt reports that she has had significantly less swelling in her knee since she was able to use the wraps that go to her hip. Pt has a hx of falls, 1-2x/yr but none since her surgery. Also has hx of neuropathy on RLE below the knee. Lives alone with no stairs. Prior Functional Status Baseline Function- ADL's Independent Baseline Function- Mobility Independent Baseline Function- Gait household and short community distances with 4WW Baseline Function- Recreation/Hobbies Work out at gym 2-3x/wk (bike, nustep, arm exercise machines ), water aerobics Current Functional Impairments (Reported) Functional Limitations- Mobility/Gait household distances without 4ww PT-OP-C Subjective Start: 08/03/23 13:47 Freq: Status: Active Protocol: Document 09/06/23 12:16 NM (Rec: 09/06/23 12:38 NM [id number]) OP-PT Subjective Patient Comments Patient Comments She hasn't had any knee pain, hamstring pain has resolved with alternating wearing the knee brace every other day. Pt reports that her balance is still off but thinks it's due to lymphedema. She has been cleaning out cabinets over the last several days; she was able to get up on a step stool. She reports that she is able to lift her leg into/out of shower easier. PT-OP-D Balance Start: 08/03/23 13:47 Freq: Status: Active Protocol: Document 09/04/23 08:15 AB (Rec: 09/04/23 11:40 AB [id number]) Balance Tests Single Limb Standing Single Limb- Left 1,1,1 second without UE use pre and post session PT-OP-E Functional Tests Start: 08/03/23 13:47 Freq: Status: Active Protocol: Document 08/03/23 13:48 NM (Rec: 08/03/23 16:26 NM [id number]) Functional Tests Five Times Sit to Stand Test Score 21.83 sec Comments reports no knee pain Timed Up and Go (TUG) Score 13 sec Comments with FWW Tinetti Balance and Gait Assessment Balance Score 11 Gait Score 6 Composite Score 17/28 Balance Score Impairment Rating 20 to <40% Impaired (Score 10- 12) Gait Score Impairment Rating 40 to <60% Impaired (Score 5-7 ) Composite Score Impairment Rating 20 to <40% Impaired (Score 17- 22) PT-OP-F Manual Assessment Start: 08/03/23 13:47 Freq: Status: Active Protocol: Document 08/03/23 13:48 NM (Rec: 08/03/23 16:26 NM [id number]) Manual Assessments Soft Tissue Assessment Soft Tissue Mobility Assessment Pt has bilateral lymphedema, which limits ROM. No restrictions of B hamstrings, quads, hip flexors Joint Mobility Assessment Joint Mobility Assessment B hip PROM limited in flexion but good IR/ER in supine. B knees limited passive flexion, full extension. Limited B ankle dorsiflexion PT-OP-G Mobility & Gait Start: 08/03/23 13:47 Freq: Status: Active Protocol: Document 08/03/23 13:48 NM (Rec: 08/03/23 16:26 NM [id number]) OP Gait Assessment Gait Gait Assistance Required: Independent Distance (Feet) 150 Able to Maintain Weight Bearing Status Yes During Gait Assistive Devices Assistive Device Gait Belt,4 Wheeled Walker Gait Deviations General Gait Pattern Antalgic,Flexed Trunk,Step-to Gait,Wide Based Gait Factors Limiting Gait Function Factors Limiting Gait Function Decreased Activity Tolerance, Decreased Sensation,Decreased Strength,Limited Range of Motion,Pain,Poor Balance Stair Climbing Evaluation Comments Stair Climbing Comments Trialed placing LLE on step, but difficulty with flexing knee enough to place on step; performs hip circumduction to lift onto step. Did not attempt climbing PT-OP-H Neuro Start: 08/03/23 13:47 Freq: Status: Active Protocol: Document 08/03/23 13:48 NM (Rec: 08/03/23 16:26 NM [id number]) Sensation Evaluation Gross Sensation Gross Sensation Right LE Impaired Dermatome Impairments L4,L5 Comments Summary Comments LLE intact to light touch sensation L2-L5, S1-2. RLE impaired laterally below knee, L4 dermatome. Vital Signs Comments Vital Signs Comments 08/03/23 BP 109/68 (sitting), 98 spo2, 63 bpm PT-OP-J Posture/Palpation/Skin Start: 08/03/23 13:47 Freq: Status: Active Protocol: Document 08/03/23 13:48 NM (Rec: 08/03/23 16:26 NM [id number]) Posture Evaluation Position Standing Evaluation View Lateral Head/C-Spine Posture Forward Head T-Spine Posture Increased Kyphosis L-Spine Posture Increased Lordosis Shoulder Posture (L) Forward,(R) Forward Weight Distribution Balanced Hip Posture (L) Neutral,(R) Neutral Knee Posture (L) Genu Varus,(R) Genu Varus Ankle/Foot Posture (L) Pronated,(R) Pronated Palpation Assessment Location L knee Palpation Location anterior, medial/lateral knee Palpation Findings Edema Palpation Details Lymphedema, so increased swelling. Minimal tenderness along medial knee Skin Assessment Incisional Assessment Incision Appearance/Comments Pt reports that incision is intact with no scars; she performs mobilizations at home when her wrappings are not on . Unable to formally assess due to lymphedema wrappings. PT-OP-K Range of Motion Start: 08/03/23 13:47 Freq: Status: Active Protocol: Document 02/15/24 12:16 NM (Rec: 09/06/23 12:38 NM [id number]) Hip Goniometric Range of Motion Hip Left Flexion w/Knee Flexed 100 Comments 07/06/24: Knee Goniometric Range of Motion Knee Left Patient Position Supine Flexion Active (degrees) 100 Flexion Passive (degrees) 103 Extension Active (degrees) 3 Extension Passive (degrees) 0 Comments minimal pain with flexion 09/06/23: 106 deg AROM knee flexion, full knee extension PT-OP-M Strength Start: 08/03/23 13:47 Freq: Status: Active Protocol: Document 09/06/23 12:16 NM (Rec: 09/06/23 12:38 NM [id number]) Hip Strength Hip Manual Muscle Testing Left Flexion (L2) 4- Good- Extension (S1) 3+ Fair+ Abduction 3+ Fair+ External Rotation 4- Good- Internal Rotation 4- Good- Comments 09/06/23: 4/5 for hip flex, abd , ext Knee Strength Knee Manual Muscle Testing Left Flexion (S2) 3+ Fair+ Extension (L3) 3+ Fair+ Comments @ IE: Reports min pain with resisted extension 09/06/23: 4/5 with both resisted flex and ext; no pain with resisted motion PT-OP-Q Treatments Start: 08/03/23 13:47 Freq: Status: Active Protocol: Document 09/06/23 12:16 NM (Rec: 09/06/23 12:39 NM [id number]) Gym Equipment Shuttle Recovery unilateral squat Details cued L TKE without locking LLE , demos slight knee valgus Resistance 37# ([employer]) Shuttle Recovery Platform Stable Reps/Time 1x10 bilateral squat Details cued TKE without locking LLE Resistance 50# Shuttle Recovery Platform Stable Reps/Time 2x10 Therapeutic Exercises Sitting Exercises Seated hip abduction with band Side bilateral Resistance lvl 4 blue tb Reps/Minutes 2x10 Comments cued upright trunk posture; progressed band for HEP Standing Exercises step up Standing Exercise Name trialed: 4 step up Side bilateral Equipment Used R hand support on rail (unable flat hand) Reps/Minutes 2x10 ea Comments cued for level pelvis, medium difficulty; mod 1 UE support bilateral heel raise Side bilateral Resistance AROM Equipment Used B hand rail use for stability Reps/Minutes 2x10 Comments cued to prevent rocking initially Step taps Standing Exercise Name trialed again: not alternating Side left Equipment Used 6 step with B stairs Reps/Minutes 1x10 Comments minimal hip circumduction, cued slower for knee flexion Sit to stand Standing Exercise Name 5x STS Side bilateral Reps/Minutes 1 set Comments 18 seconds total; improved glute use and weight shift Gait Training Gait Activity ambulation with 4 wheeled walker Device Used four wheeled walker Level of Assistance IND Surface stable Distance/Duration 667 ft, various distances around clinic (8 minutes total ) Treatment Focus endurance, speed, 4ww placement, community ambulation Comments Verbal cues for posture and to keep the knee straight on heel strike. Cued soft hands on 4ww, stand closer to 4ww to limit strain on low back and for safety. Demos equal step length, foot clearance, and stance time. Reports no difficulty with ambulation Neuro Re-Education Treatment Balance Activities TUG Details IND Surface stable Equipment 4ww Reps/Duration 2 reps Comments 1st attempt 15 sec, 2nd attempt 13 sec (goal met). Improved speed, decreased sway . Cued to keep fww closer to body, specifically on turns for safety and to decrease fwd trunk posture Other Activities glute med activation Details seated hip abduction with band Reps/Duration 1 one minute hold Comments level 3 [place] band Verbal cues, prior to gait PT-OP-T Assessment and Plan Start: 08/03/23 13:47 Freq: Status: Active Protocol: Document 09/06/23 12:16 NM (Rec: 09/06/23 12:38 NM [id number]) Physical Therapy Assessment Goals Eight Impairment gait Longterm Goal (LTG) Pt will be able to ambulate community distances (at least 500 ft) using 4WW or LRAD 09/06/23: 667 ft with 4ww, reports no difficulty LTG Duration 8 weeks MET Seven Impairment strength Director Of Math Goal (LTG) Pt will improve global B hip strength to at least 4+/5 in order to demonstrate increased hip strength for better stability during gait 09/06/23: 4/5 LTG Duration 8 weeks Six Impairment strength Impairment L hip abd/ext 3+/5 Short Term Goal (STG) Pt will improve L hip abd/ext strength to at least 4/5 in order to demonstrate increased hip strength for improved gait and balance 09/06/13: 4/5 STG Duration 4 weeks MET Director Of Math Goal (LTG) Pt will improve L hip abd/ext strength to at least 4+/5 in order to demonstrate increased hip strength for improved gait and balance LTG Duration 8 weeks Five Impairment strength Impairment L knee flex/ext 3+/5 MMT Short Term Goal (STG) Pt will improve L knee flex/ ext strength to at least 4/5 in order to demonstrate increased knee strength for gait 09/06/23: 4/5 STG Duration 4 weeks MET Director Of Math Goal (LTG) Pt will improve L knee flex/ ext strength to at least 4+/5 in order to demonstrate increased knee strength for gait LTG Duration 8 weeks Four Impairment strength Impairment 5x STS: 21.83 seconds Short Term Goal (STG) Pt will decrease 5x STS time to less than 20 seconds in order to demonstrate improved BLE strength 09/06/23: 19 seconds from 20 table 08/29/23: from 20 table, 25 sec with improved form STG Duration 4 weeks MET Director Of Math Goal (LTG) Pt will decrease 5x STS time to less than 18 seconds in order to demonstrate improved BLE strength 09/06/23: 19 seconds from 20 table LTG Duration 8 weeks Three Impairment balance Impairment TU seconds with 4WW Longterm Goal (LTG) Pt will decrease TUG score to less than 13 seconds using LRAD in order to demonstrate improved balance and decrease fall risk 09/06/23: 15 seconds, 13 seconds LTG Duration 8 weeks PARTIALLY MET, PROGRESSING Two Impairment ROM Impairment R knee flex ROM 100 deg Short Term Goal (STG) Pt will increase R knee flex ROM to at least 110 deg in order to be able to ride her bike if possible due to lymphedema 09/06/23: 106 deg STG Duration 4 weeks NOT MET Director Of Math Goal (LTG) Pt will increase R knee flex ROM to at least 115 deg in order to be able to ride her bike if possible due to lymphedema LTG Duration 8 weeks One Impairment function Impairment LEFS: 51/80 Longterm Goal (LTG) Pt will increase LEFS score by at least 9 points (1 MCID) in order to demonstrate improved tolerance for ADLs. 09/04/23: 54/80- PROGRESSING LTG Duration 8 weeks Progress Towards Goals Progress Towards Goals Progressing Toward Goals Progress Comments Met several STGs, 1 LTG. Progressing toward others. Most limited still in LEFS/ activity tolerance an knee flexion >105 deg due to lymphedema Assessment Summary Assessment Pt tolerated session well and is progressing toward goals. Pt able to improve in both 5x STS and TUG times, decreasing both and demonstrating decreased fall risk. During both gait and TUG tests, pt places 4ww far in front of body and demos increased trunk lean. PT cued pt multiple times for closer 4ww placement for safety and to decrease strain on lumbar spine. Continued with glute and quad strengthening, in addition to knee flexion AROM. Pt fatigues easily but is able to perform more repetitions before fatiguing. Initiated 4 step ups; pt performed without circumduction of hip but relies heavily on 1 UE for support. PT cued pt for level pelvis, followed by glute medius strengthening. Pt has been seen x8 visits since July 2023 s/p L TKA. Pt is nearly 12 weeks post-op. She reports that her balance is the most limiting factor, but she reports that she has noticed improvements since beginning PT. Pt is progressing toward goals, has met several STGs and 1 LTG ( community ambulation). Pt continues to have limitations in L knee flexion AROM, currently 106 deg; her knee flexion is further limited by her lymphedema, so it is likely to not improve beyond this amount. Pt reports improvements in ability to perform ADLs/IADLs, with limitations due to balance, BLE strength, and activity tolerance. Pt would benefit from skilled PT for progressive BLE strengthening, L knee mobility, and balance training in order to decrease fall risk, improve activity tolerance and QOL, in addition to return to PLOF. Physical Therapy Plan Frequency and Duration Frequency of Treatment 2x/Week Duration of treatment (weeks) 8 Plan of Care Start Date 08/03/23 Plan of Care End Date 09/28/23 Therapeutic Interventions Therapeutic Interventions Aquatic Therapy,Balance Training,Gait Training,Home Exercise Program,Joint Mobilizations,Manual Therapy, Neuromuscular Re-education, Orthotic/Prosthetic Management ,Patient/Caregiver Education, Self-Care/Home Management, Sensory Integration,Soft Tissue Mobilization,Taping, Therapeutic Activities, Therapeutic Exercises Modalities Cold Pack/Ice Massage,Hot Packs Next Visit Focus/Plan Next Note Type Treatment Note Next Visit Plan Cont manual treatment with emphasis on knee flexion. Cont balance training (SLS, TUG, tandem, decrease hand support) , LLE strength training (trial bike, 2-4 step up with BUE support or lateral step up, LAQ, glute strengthening) have pt take off lymphedema knee wrap for better knee flex balance, progress to lower seat height for sit to stand, leg press as time permits
--- NOTE | 2023-09-11 14:20 | PT.OTN ---
Current Diagnoses Unilateral primary osteoarthritis, left knee (09/11/23) Physical Therapy Treatment Note PT-OP-A Visit Information Start: 08/03/23 13:47 Freq: Status: Active Protocol: Document 09/11/23 10:01 AB (Rec: 09/11/23 14:20 AB [id number]) Out-Patient Physical Therapy Visit Information Visit Information Visit Type Treatment Note Visit Note 16 visits total DOS: 06/19/23 Access Code: [email or web address] Visit Start Time 11:10 Visit Stop Time 11:56 Visit Number 10 Number of INTERNAL COMMUNICATIONS WRITER Visits 1 Evaluation Information Evaluation Date 08/03/23 Precautions Precautions Move slowly with positional changes d/t reported orthostasis 8 weeks: 08/13/23 12 weeks: 09/10/23 PT-OP-B Current Condition Start: 08/03/23 13:47 Freq: Status: Active Protocol: Document 08/03/23 13:48 NM (Rec: 08/03/23 16:26 NM [id number]) Current Condition History of Current Condition Onset Date 06/19/23 Current Complaints pain, ache History of Current Condition Pt presents to clinic s/p L TKA performed on 06/19/[address] [place]. Pt reports that she just had her follow up with him this past week, and she states he is pleased with the ROM. Prior to arrival at [facility], pt had [facility] following surgery with recent discharge last week. Pt uses a 4WW for balance during gait and did prior to surgery. She reports that she is able to ambulate in her house without her 4WW for short distances. Hx of R TKA earlier in 2022. Pt has hx of lymphedema so BLE are completely wrapped from ankle to hip; pt reports that she has had significantly less swelling in her knee since she was able to use the wraps that go to her hip. Pt has a hx of falls, 1-2x/yr but none since her surgery. Also has hx of neuropathy on RLE below the knee. Lives alone with no stairs. Prior Functional Status Baseline Function- ADL's Independent Baseline Function- Mobility Independent Baseline Function- Gait household and short community distances with 4WW Baseline Function- Recreation/Hobbies Work out at gym 2-3x/wk (bike, nustep, arm exercise machines ), water aerobics Current Functional Impairments (Reported) Functional Limitations- Mobility/Gait household distances without 4ww PT-OP-C Subjective Start: 08/03/23 13:47 Freq: Status: Active Protocol: Document 09/11/23 10:01 AB (Rec: 09/11/23 14:20 AB [id number]) OP-PT Subjective Patient Comments Patient Comments Patient reports knee is the same, no pain now. Patient reports balance is a little better, is walking around the house without the walker. PT-OP-D Balance Start: 08/03/23 13:47 Freq: Status: Active Protocol: Document 09/04/23 08:15 AB (Rec: 09/04/23 11:40 AB [id number]) Balance Tests Single Limb Standing Single Limb- Left 1,1,1 second without UE use pre and post session PT-OP-E Functional Tests Start: 08/03/23 13:47 Freq: Status: Active Protocol: Document 08/03/23 13:48 NM (Rec: 08/03/23 16:26 NM [id number]) Functional Tests Five Times Sit to Stand Test Score 21.83 sec Comments reports no knee pain Timed Up and Go (TUG) Score 13 sec Comments with FWW Tinetti Balance and Gait Assessment Balance Score 11 Gait Score 6 Composite Score 17/28 Balance Score Impairment Rating 20 to <40% Impaired (Score 10- 12) Gait Score Impairment Rating 40 to <60% Impaired (Score 5-7 ) Composite Score Impairment Rating 20 to <40% Impaired (Score 17- 22) PT-OP-F Manual Assessment Start: 08/03/23 13:47 Freq: Status: Active Protocol: Document 08/03/23 13:48 NM (Rec: 08/03/23 16:26 NM [id number]) Manual Assessments Soft Tissue Assessment Soft Tissue Mobility Assessment Pt has bilateral lymphedema, which limits ROM. No restrictions of B hamstrings, quads, hip flexors Joint Mobility Assessment Joint Mobility Assessment B hip PROM limited in flexion but good IR/ER in supine. B knees limited passive flexion, full extension. Limited B ankle dorsiflexion PT-OP-G Mobility & Gait Start: 08/03/23 13:47 Freq: Status: Active Protocol: Document 08/03/23 13:48 NM (Rec: 08/03/23 16:26 NM [id number]) OP Gait Assessment Gait Gait Assistance Required: Independent Distance (Feet) 150 Able to Maintain Weight Bearing Status Yes During Gait Assistive Devices Assistive Device Gait Belt,4 Wheeled Walker Gait Deviations General Gait Pattern Antalgic,Flexed Trunk,Step-to Gait,Wide Based Gait Factors Limiting Gait Function Factors Limiting Gait Function Decreased Activity Tolerance, Decreased Sensation,Decreased Strength,Limited Range of Motion,Pain,Poor Balance Stair Climbing Evaluation Comments Stair Climbing Comments Trialed placing LLE on step, but difficulty with flexing knee enough to place on step; performs hip circumduction to lift onto step. Did not attempt climbing PT-OP-H Neuro Start: 08/03/23 13:47 Freq: Status: Active Protocol: Document 08/03/23 13:48 NM (Rec: 08/03/23 16:26 NM [id number]) Sensation Evaluation Gross Sensation Gross Sensation Right LE Impaired Dermatome Impairments L4,L5 Comments Summary Comments LLE intact to light touch sensation L2-L5, S1-2. RLE impaired laterally below knee, L4 dermatome. Vital Signs Comments Vital Signs Comments 08/03/23 BP 109/68 (sitting), 98 spo2, 63 bpm PT-OP-J Posture/Palpation/Skin Start: 08/03/23 13:47 Freq: Status: Active Protocol: Document 08/03/23 13:48 NM (Rec: 08/03/23 16:26 NM [id number]) Posture Evaluation Position Standing Evaluation View Lateral Head/C-Spine Posture Forward Head T-Spine Posture Increased Kyphosis L-Spine Posture Increased Lordosis Shoulder Posture (L) Forward,(R) Forward Weight Distribution Balanced Hip Posture (L) Neutral,(R) Neutral Knee Posture (L) Genu Varus,(R) Genu Varus Ankle/Foot Posture (L) Pronated,(R) Pronated Palpation Assessment Location L knee Palpation Location anterior, medial/lateral knee Palpation Findings Edema Palpation Details Lymphedema, so increased swelling. Minimal tenderness along medial knee Skin Assessment Incisional Assessment Incision Appearance/Comments Pt reports that incision is intact with no scars; she performs mobilizations at home when her wrappings are not on . Unable to formally assess due to lymphedema wrappings. PT-OP-K Range of Motion Start: 08/03/23 13:47 Freq: Status: Active Protocol: Document 09/06/23 12:16 NM (Rec: 09/06/23 12:38 NM [id number]) Hip Goniometric Range of Motion Hip Left Flexion w/Knee Flexed 100 Comments 07/06/24: Knee Goniometric Range of Motion Knee Left Patient Position Supine Flexion Active (degrees) 100 Flexion Passive (degrees) 103 Extension Active (degrees) 3 Extension Passive (degrees) 0 Comments minimal pain with flexion 09/06/23: 106 deg AROM knee flexion, full knee extension PT-OP-M Strength Start: 08/03/23 13:47 Freq: Status: Active Protocol: Document 09/06/23 12:16 NM (Rec: 09/06/23 12:38 NM [id number]) Hip Strength Hip Manual Muscle Testing Left Flexion (L2) 4- Good- Extension (S1) 3+ Fair+ Abduction 3+ Fair+ External Rotation 4- Good- Internal Rotation 4- Good- Comments 09/06/23: 4/5 for hip flex, abd , ext Knee Strength Knee Manual Muscle Testing Left Flexion (S2) 3+ Fair+ Extension (L3) 3+ Fair+ Comments @ IE: Reports min pain with resisted extension 09/06/23: 4/5 with both resisted flex and ext; no pain with resisted motion PT-OP-Q Treatments Start: 08/03/23 13:47 Freq: Status: Active Protocol: Document 09/11/23 10:01 AB (Rec: 09/11/23 14:20 AB [id number]) Therapeutic Exercises Sitting Exercises Seated hip abduction with band Sitting Exercise Name hip abd with band Side bilateral Resistance lvl 4 blue tb Reps/Minutes 2x10 Comments Blue band issued for HEP Standing Exercises squat with band Standing Exercise Name squat with blue band level 4 Side bilateral Resistance blue level 4 band Reps/Minutes 3X10 Comments Verbal cues for buttocks back/ monitored for pain bilateral heel raise Side bilateral Equipment Used with UE use Reps/Minutes 3X10 Comments Verbal cues to lower heels slowly Gait Training Gait Activity four 6 inch steps with rails Description ascend and descend reciprocal pattern Level of Assistance supervision Distance/Duration X4 Treatment Focus slight hip hinge descending Comments Patient ed rationale of minimal hinge at hips when descending stairs to decrease force on knees. Verbal cues to avoid circumduction. Neuro Re-Education Treatment Balance Activities SLS Details from floor Reps/Duration X10 each LE Comments CGA grapevine Surface floor Reps/Duration 10 feet L and R with UE use and without UE use Comments CGA Shuttle Details CGA hands above bars Equipment shuttle Comments feet on 4's hands above bars, with head turns and visual scanning, one foot back stagger stance, with visual scanning, CGA to minimal assist 5 min Tandem stepping Details CGA with gait belt Surface floor Reps/Duration 10 feet X 6 step up taps Details 6 inch step hands above rails Equipment 6 inch step and rails Reps/Duration X10 each LE Comments CGA with gait belt marching in place Surface on foam X10 on abdullahi pad X10 Reps/Duration X10 Comments CGA Other Activities glute med activation Details seated hip abduction with band Reps/Duration 3 one minute holds Comments level 4 blue band X1 level 3 band X 2 Self-Care/Home Management Treatment Activities Self-Care/Home Management Activities upgraded to blue band for HEP and bilateral heel raise added PT-OP-T Assessment and Plan Start: 08/03/23 13:47 Freq: Status: Active Protocol: Document 09/11/23 10:01 AB (Rec: 09/11/23 14:20 AB [id number]) Physical Therapy Assessment Goals Eight Impairment gait Check Out Cashier Goal (LTG) Pt will be able to ambulate community distances (at least 500 ft) using 4WW or LRAD 09/06/23: 667 ft with 4ww, reports no difficulty LTG Duration 8 weeks MET Seven Impairment strength Correction Goal (LTG) Pt will improve global B hip strength to at least 4+/5 in order to demonstrate increased hip strength for better stability during gait 09/06/23: 4/5 LTG Duration 8 weeks Six Impairment strength Impairment L hip abd/ext 3+/5 Short Term Goal (STG) Pt will improve L hip abd/ext strength to at least 4/5 in order to demonstrate increased hip strength for improved gait and balance 09/06/13: 4/5 STG Duration 4 weeks MET Correction Goal (LTG) Pt will improve L hip abd/ext strength to at least 4+/5 in order to demonstrate increased hip strength for improved gait and balance LTG Duration 8 weeks Five Impairment strength Impairment L knee flex/ext 3+/5 MMT Short Term Goal (STG) Pt will improve L knee flex/ ext strength to at least 4/5 in order to demonstrate increased knee strength for gait 09/06/23: 4/5 STG Duration 4 weeks MET Correction Goal (LTG) Pt will improve L knee flex/ ext strength to at least 4+/5 in order to demonstrate increased knee strength for gait LTG Duration 8 weeks Four Impairment strength Impairment 5x STS: 21.83 seconds Short Term Goal (STG) Pt will decrease 5x STS time to less than 20 seconds in order to demonstrate improved BLE strength 09/06/23: 19 seconds from 20 table 08/29/23: from 20 table, 25 sec with improved form STG Duration 4 weeks MET Check Out Cashier Goal (LTG) Pt will decrease 5x STS time to less than 18 seconds in order to demonstrate improved BLE strength 09/06/23: 19 seconds from 20 table LTG Duration 8 weeks Three Impairment balance Impairment TU seconds with 4WW Check Out Cashier Goal (LTG) Pt will decrease TUG score to less than 13 seconds using LRAD in order to demonstrate improved balance and decrease fall risk 09/06/23: 15 seconds, 13 seconds LTG Duration 8 weeks PARTIALLY MET, PROGRESSING Two Impairment ROM Impairment R knee flex ROM 100 deg Short Term Goal (STG) Pt will increase R knee flex ROM to at least 110 deg in order to be able to ride her bike if possible due to lymphedema 09/06/23: 106 deg STG Duration 4 weeks NOT MET Correction Goal (LTG) Pt will increase R knee flex ROM to at least 115 deg in order to be able to ride her bike if possible due to lymphedema LTG Duration 8 weeks One Impairment function Impairment LEFS: 51/80 Check Out Cashier Goal (LTG) Pt will increase LEFS score by at least 9 points (1 MCID) in order to demonstrate improved tolerance for ADLs. 09/04/23: 54/80- PROGRESSING LTG Duration 8 weeks Assessment Summary Assessment Adela was able to descend stairs with a reciprocal pattern using 2 rails and an increased hip hinge, reporting decreased pain compared to initial trial of ascending and descending stairs. Physical Therapy Plan Frequency and Duration Frequency of Treatment 2x/Week Duration of treatment (weeks) 8 Plan of Care Start Date 08/03/23 Plan of Care End Date 09/28/23 Next Visit Focus/Plan Next Note Type Treatment Note Next Visit Plan Cont manual treatment with emphasis on knee flexion. Cont balance training (SLS, TUG, tandem, decrease hand support) , LLE strength training (trial bike, 2-4 step up with BUE support or lateral step up, LAQ, glute strengthening) have pt take off lymphedema knee wrap for better knee flex balance, progress to lower seat height for sit to stand, leg press as time permits, focus on step ups next session .
--- NOTE | 2023-09-11 16:40 | PT.OTN ---
Current Diagnoses Unilateral primary osteoarthritis, left knee (09/11/23) Physical Therapy Treatment Note PT-OP-A Visit Information Start: 08/03/23 13:47 Freq: Status: Active Protocol: Document 09/11/23 10:01 AB (Rec: 09/11/23 14:20 AB [id number]) Out-Patient Physical Therapy Visit Information Visit Information Visit Type Treatment Note Visit Note 16 visits total DOS: 06/19/23 Access Code: [email or web address] Visit Start Time 11:10 Visit Stop Time 11:56 Visit Number 10 Number of SPECIAL EVENTS PLANNER Visits 1 Evaluation Information Evaluation Date 08/03/23 Precautions Precautions Move slowly with positional changes d/t reported orthostasis 8 weeks: 08/13/23 12 weeks: 09/10/23 PT-OP-B Current Condition Start: 08/03/23 13:47 Freq: Status: Active Protocol: Document 08/03/23 13:48 NM (Rec: 08/03/23 16:26 NM [id number]) Current Condition History of Current Condition Onset Date 06/19/23 Current Complaints pain, ache History of Current Condition Pt presents to clinic s/p L TKA performed on 06/19/[address] [place]. Pt reports that she just had her follow up with him this past week, and she states he is pleased with the ROM. Prior to arrival at [facility], pt had [facility] following surgery with recent discharge last week. Pt uses a 4WW for balance during gait and did prior to surgery. She reports that she is able to ambulate in her house without her 4WW for short distances. Hx of R TKA earlier in 2022. Pt has hx of lymphedema so BLE are completely wrapped from ankle to hip; pt reports that she has had significantly less swelling in her knee since she was able to use the wraps that go to her hip. Pt has a hx of falls, 1-2x/yr but none since her surgery. Also has hx of neuropathy on RLE below the knee. Lives alone with no stairs. Prior Functional Status Baseline Function- ADL's Independent Baseline Function- Mobility Independent Baseline Function- Gait household and short community distances with 4WW Baseline Function- Recreation/Hobbies Work out at gym 2-3x/wk (bike, nustep, arm exercise machines ), water aerobics Current Functional Impairments (Reported) Functional Limitations- Mobility/Gait household distances without 4ww PT-OP-C Subjective Start: 08/03/23 13:47 Freq: Status: Active Protocol: Document 09/11/23 10:01 AB (Rec: 09/11/23 14:20 AB [id number]) OP-PT Subjective Patient Comments Patient Comments Patient reports knee is the same, no pain now. Patient reports balance is a little better, is walking around the house without the walker. PT-OP-D Balance Start: 08/03/23 13:47 Freq: Status: Active Protocol: Document 09/04/23 08:15 AB (Rec: 09/04/23 11:40 AB [id number]) Balance Tests Single Limb Standing Single Limb- Left 1,1,1 second without UE use pre and post session PT-OP-E Functional Tests Start: 08/03/23 13:47 Freq: Status: Active Protocol: Document 08/03/23 13:48 NM (Rec: 08/03/23 16:26 NM [id number]) Functional Tests Five Times Sit to Stand Test Score 21.83 sec Comments reports no knee pain Timed Up and Go (TUG) Score 13 sec Comments with FWW Tinetti Balance and Gait Assessment Balance Score 11 Gait Score 6 Composite Score 17/28 Balance Score Impairment Rating 20 to <40% Impaired (Score 10- 12) Gait Score Impairment Rating 40 to <60% Impaired (Score 5-7 ) Composite Score Impairment Rating 20 to <40% Impaired (Score 17- 22) PT-OP-F Manual Assessment Start: 08/03/23 13:47 Freq: Status: Active Protocol: Document 08/03/23 13:48 NM (Rec: 08/03/23 16:26 NM [id number]) Manual Assessments Soft Tissue Assessment Soft Tissue Mobility Assessment Pt has bilateral lymphedema, which limits ROM. No restrictions of B hamstrings, quads, hip flexors Joint Mobility Assessment Joint Mobility Assessment B hip PROM limited in flexion but good IR/ER in supine. B knees limited passive flexion, full extension. Limited B ankle dorsiflexion PT-OP-G Mobility & Gait Start: 08/03/23 13:47 Freq: Status: Active Protocol: Document 08/03/23 13:48 NM (Rec: 08/03/23 16:26 NM [id number]) OP Gait Assessment Gait Gait Assistance Required: Independent Distance (Feet) 150 Able to Maintain Weight Bearing Status Yes During Gait Assistive Devices Assistive Device Gait Belt,4 Wheeled Walker Gait Deviations General Gait Pattern Antalgic,Flexed Trunk,Step-to Gait,Wide Based Gait Factors Limiting Gait Function Factors Limiting Gait Function Decreased Activity Tolerance, Decreased Sensation,Decreased Strength,Limited Range of Motion,Pain,Poor Balance Stair Climbing Evaluation Comments Stair Climbing Comments Trialed placing LLE on step, but difficulty with flexing knee enough to place on step; performs hip circumduction to lift onto step. Did not attempt climbing PT-OP-H Neuro Start: 08/03/23 13:47 Freq: Status: Active Protocol: Document 08/03/23 13:48 NM (Rec: 08/03/23 16:26 NM [id number]) Sensation Evaluation Gross Sensation Gross Sensation Right LE Impaired Dermatome Impairments L4,L5 Comments Summary Comments LLE intact to light touch sensation L2-L5, S1-2. RLE impaired laterally below knee, L4 dermatome. Vital Signs Comments Vital Signs Comments 08/03/23 BP 109/68 (sitting), 98 spo2, 63 bpm PT-OP-J Posture/Palpation/Skin Start: 08/03/23 13:47 Freq: Status: Active Protocol: Document 08/03/23 13:48 NM (Rec: 08/03/23 16:26 NM [id number]) Posture Evaluation Position Standing Evaluation View Lateral Head/C-Spine Posture Forward Head T-Spine Posture Increased Kyphosis L-Spine Posture Increased Lordosis Shoulder Posture (L) Forward,(R) Forward Weight Distribution Balanced Hip Posture (L) Neutral,(R) Neutral Knee Posture (L) Genu Varus,(R) Genu Varus Ankle/Foot Posture (L) Pronated,(R) Pronated Palpation Assessment Location L knee Palpation Location anterior, medial/lateral knee Palpation Findings Edema Palpation Details Lymphedema, so increased swelling. Minimal tenderness along medial knee Skin Assessment Incisional Assessment Incision Appearance/Comments Pt reports that incision is intact with no scars; she performs mobilizations at home when her wrappings are not on . Unable to formally assess due to lymphedema wrappings. PT-OP-K Range of Motion Start: 08/03/23 13:47 Freq: Status: Active Protocol: Document 09/06/23 12:16 NM (Rec: 09/06/23 12:38 NM [id number]) Hip Goniometric Range of Motion Hip Left Flexion w/Knee Flexed 100 Comments 07/06/24: Knee Goniometric Range of Motion Knee Left Patient Position Supine Flexion Active (degrees) 100 Flexion Passive (degrees) 103 Extension Active (degrees) 3 Extension Passive (degrees) 0 Comments minimal pain with flexion 09/06/23: 106 deg AROM knee flexion, full knee extension PT-OP-M Strength Start: 08/03/23 13:47 Freq: Status: Active Protocol: Document 09/06/23 12:16 NM (Rec: 09/06/23 12:38 NM [id number]) Hip Strength Hip Manual Muscle Testing Left Flexion (L2) 4- Good- Extension (S1) 3+ Fair+ Abduction 3+ Fair+ External Rotation 4- Good- Internal Rotation 4- Good- Comments 09/06/23: 4/5 for hip flex, abd , ext Knee Strength Knee Manual Muscle Testing Left Flexion (S2) 3+ Fair+ Extension (L3) 3+ Fair+ Comments @ IE: Reports min pain with resisted extension 09/06/23: 4/5 with both resisted flex and ext; no pain with resisted motion PT-OP-Q Treatments Start: 08/03/23 13:47 Freq: Status: Active Protocol: Document 09/11/23 10:01 AB (Rec: 09/11/23 14:20 AB [id number]) Therapeutic Exercises Sitting Exercises Seated hip abduction with band Sitting Exercise Name hip abd with band Side bilateral Resistance lvl 4 blue tb Reps/Minutes 2x10 Comments Blue band issued for HEP Standing Exercises squat with band Standing Exercise Name squat with blue band level 4 Side bilateral Resistance blue level 4 band Reps/Minutes 3X10 Comments Verbal cues for buttocks back/ monitored for pain bilateral heel raise Side bilateral Equipment Used with UE use Reps/Minutes 3X10 Comments Verbal cues to lower heels slowly Gait Training Gait Activity four 6 inch steps with rails Description ascend and descend reciprocal pattern Level of Assistance supervision Distance/Duration X4 Treatment Focus slight hip hinge descending Comments Patient ed rationale of minimal hinge at hips when descending stairs to decrease force on knees. Verbal cues to avoid circumduction. Neuro Re-Education Treatment Balance Activities SLS Details from floor Reps/Duration X10 each LE Comments CGA grapevine Surface floor Reps/Duration 10 feet L and R with UE use and without UE use Comments CGA Shuttle Details CGA hands above bars Equipment shuttle Comments feet on 4's hands above bars, with head turns and visual scanning, one foot back stagger stance, with visual scanning, CGA to minimal assist 5 min Tandem stepping Details CGA with gait belt Surface floor Reps/Duration 10 feet X 6 step up taps Details 6 inch step hands above rails Equipment 6 inch step and rails Reps/Duration X10 each LE Comments CGA with gait belt marching in place Surface on foam X10 on abdullahi pad X10 Reps/Duration X10 Comments CGA Other Activities glute med activation Details seated hip abduction with band Reps/Duration 3 one minute holds Comments level 4 blue band X1 level 3 band X 2 Self-Care/Home Management Treatment Activities Self-Care/Home Management Activities upgraded to blue band for HEP and bilateral heel raise added PT-OP-T Assessment and Plan Start: 08/03/23 13:47 Freq: Status: Active Protocol: Document 09/11/23 10:01 AB (Rec: 09/11/23 14:20 AB [id number]) Physical Therapy Assessment Goals Eight Impairment gait Suction Drum Drier Operator Goal (LTG) Pt will be able to ambulate community distances (at least 500 ft) using 4WW or LRAD 09/06/23: 667 ft with 4ww, reports no difficulty LTG Duration 8 weeks MET Seven Impairment strength Care Home Goal (LTG) Pt will improve global B hip strength to at least 4+/5 in order to demonstrate increased hip strength for better stability during gait 09/06/23: 4/5 LTG Duration 8 weeks Six Impairment strength Impairment L hip abd/ext 3+/5 Short Term Goal (STG) Pt will improve L hip abd/ext strength to at least 4/5 in order to demonstrate increased hip strength for improved gait and balance 09/06/13: 4/5 STG Duration 4 weeks MET Care Home Goal (LTG) Pt will improve L hip abd/ext strength to at least 4+/5 in order to demonstrate increased hip strength for improved gait and balance LTG Duration 8 weeks Five Impairment strength Impairment L knee flex/ext 3+/5 MMT Short Term Goal (STG) Pt will improve L knee flex/ ext strength to at least 4/5 in order to demonstrate increased knee strength for gait 09/06/23: 4/5 STG Duration 4 weeks MET Care Home Goal (LTG) Pt will improve L knee flex/ ext strength to at least 4+/5 in order to demonstrate increased knee strength for gait LTG Duration 8 weeks Four Impairment strength Impairment 5x STS: 21.83 seconds Short Term Goal (STG) Pt will decrease 5x STS time to less than 20 seconds in order to demonstrate improved BLE strength 09/06/23: 19 seconds from 20 table 08/29/23: from 20 table, 25 sec with improved form STG Duration 4 weeks MET Suction Drum Drier Operator Goal (LTG) Pt will decrease 5x STS time to less than 18 seconds in order to demonstrate improved BLE strength 09/06/23: 19 seconds from 20 table LTG Duration 8 weeks Three Impairment balance Impairment TU seconds with 4WW Suction Drum Drier Operator Goal (LTG) Pt will decrease TUG score to less than 13 seconds using LRAD in order to demonstrate improved balance and decrease fall risk 09/06/23: 15 seconds, 13 seconds LTG Duration 8 weeks PARTIALLY MET, PROGRESSING Two Impairment ROM Impairment R knee flex ROM 100 deg Short Term Goal (STG) Pt will increase R knee flex ROM to at least 110 deg in order to be able to ride her bike if possible due to lymphedema 09/06/23: 106 deg STG Duration 4 weeks NOT MET Care Home Goal (LTG) Pt will increase R knee flex ROM to at least 115 deg in order to be able to ride her bike if possible due to lymphedema LTG Duration 8 weeks One Impairment function Impairment LEFS: 51/80 Suction Drum Drier Operator Goal (LTG) Pt will increase LEFS score by at least 9 points (1 MCID) in order to demonstrate improved tolerance for ADLs. 09/04/23: 54/80- PROGRESSING LTG Duration 8 weeks Assessment Summary Assessment Adela was able to descend stairs with a reciprocal pattern using 2 rails and an increased hip hinge, reporting decreased pain compared to initial trial of ascending and descending stairs. Physical Therapy Plan Frequency and Duration Frequency of Treatment 2x/Week Duration of treatment (weeks) 8 Plan of Care Start Date 08/03/23 Plan of Care End Date 09/28/23 Next Visit Focus/Plan Next Note Type Treatment Note Next Visit Plan Cont manual treatment with emphasis on knee flexion. Cont balance training (SLS, TUG, tandem, decrease hand support) , LLE strength training (trial bike, 2-4 step up with BUE support or lateral step up, LAQ, glute strengthening) have pt take off lymphedema knee wrap for better knee flex balance, progress to lower seat height for sit to stand, leg press as time permits, focus on step ups next session .
--- NOTE | 2023-09-13 14:21 | PT.OTN ---
Current Diagnoses Unilateral primary osteoarthritis, left knee (09/13/23) Physical Therapy Treatment Note PT-OP-A Visit Information Start: 08/03/23 13:47 Freq: Status: Active Protocol: Document 09/13/23 11:05 AB (Rec: 09/13/23 14:21 AB [id number]) Out-Patient Physical Therapy Visit Information Visit Information Visit Type Treatment Note Visit Note 16 visits total DOS: 06/19/23 Access Code: [email or web address] Visit Start Time 13:02 Visit Stop Time 13:46 Visit Number 11 Number of DINKEY ENGINEER Visits 2 Evaluation Information Evaluation Date 08/03/23 Precautions Precautions Move slowly with positional changes d/t reported orthostasis 8 weeks: 08/13/23 12 weeks: 09/10/23 PT-OP-B Current Condition Start: 08/03/23 13:47 Freq: Status: Active Protocol: Document 08/03/23 13:48 NM (Rec: 08/03/23 16:26 NM [id number]) Current Condition History of Current Condition Onset Date 06/19/23 Current Complaints pain, ache History of Current Condition Pt presents to clinic s/p L TKA performed on 06/19/[address] [place]. Pt reports that she just had her follow up with him this past week, and she states he is pleased with the ROM. Prior to arrival at [facility], pt had [facility] following surgery with recent discharge last week. Pt uses a 4WW for balance during gait and did prior to surgery. She reports that she is able to ambulate in her house without her 4WW for short distances. Hx of R TKA earlier in 2022. Pt has hx of lymphedema so BLE are completely wrapped from ankle to hip; pt reports that she has had significantly less swelling in her knee since she was able to use the wraps that go to her hip. Pt has a hx of falls, 1-2x/yr but none since her surgery. Also has hx of neuropathy on RLE below the knee. Lives alone with no stairs. Prior Functional Status Baseline Function- ADL's Independent Baseline Function- Mobility Independent Baseline Function- Gait household and short community distances with 4WW Baseline Function- Recreation/Hobbies Work out at gym 2-3x/wk (bike, nustep, arm exercise machines ), water aerobics Current Functional Impairments (Reported) Functional Limitations- Mobility/Gait household distances without 4ww PT-OP-C Subjective Start: 08/03/23 13:47 Freq: Status: Active Protocol: Document 09/13/23 11:05 AB (Rec: 09/13/23 14:21 AB [id number]) OP-PT Subjective Patient Comments Patient Comments Patient reports the knee is good today. Patient reports she sat in a low chair yesterday to scoot around the kitchen, had difficulty getting out of the chair after sitting in it for a longer time. PT-OP-D Balance Start: 08/03/23 13:47 Freq: Status: Active Protocol: Document 09/04/23 08:15 AB (Rec: 09/04/23 11:40 AB [id number]) Balance Tests Single Limb Standing Single Limb- Left 1,1,1 second without UE use pre and post session PT-OP-E Functional Tests Start: 08/03/23 13:47 Freq: Status: Active Protocol: Document 08/03/23 13:48 NM (Rec: 08/03/23 16:26 NM [id number]) Functional Tests Five Times Sit to Stand Test Score 21.83 sec Comments reports no knee pain Timed Up and Go (TUG) Score 13 sec Comments with FWW Tinetti Balance and Gait Assessment Balance Score 11 Gait Score 6 Composite Score 17/28 Balance Score Impairment Rating 20 to <40% Impaired (Score 10- 12) Gait Score Impairment Rating 40 to <60% Impaired (Score 5-7 ) Composite Score Impairment Rating 20 to <40% Impaired (Score 17- 22) PT-OP-F Manual Assessment Start: 08/03/23 13:47 Freq: Status: Active Protocol: Document 08/03/23 13:48 NM (Rec: 08/03/23 16:26 NM [id number]) Manual Assessments Soft Tissue Assessment Soft Tissue Mobility Assessment Pt has bilateral lymphedema, which limits ROM. No restrictions of B hamstrings, quads, hip flexors Joint Mobility Assessment Joint Mobility Assessment B hip PROM limited in flexion but good IR/ER in supine. B knees limited passive flexion, full extension. Limited B ankle dorsiflexion PT-OP-G Mobility & Gait Start: 08/03/23 13:47 Freq: Status: Active Protocol: Document 08/03/23 13:48 NM (Rec: 08/03/23 16:26 NM [id number]) OP Gait Assessment Gait Gait Assistance Required: Independent Distance (Feet) 150 Able to Maintain Weight Bearing Status Yes During Gait Assistive Devices Assistive Device Gait Belt,4 Wheeled Walker Gait Deviations General Gait Pattern Antalgic,Flexed Trunk,Step-to Gait,Wide Based Gait Factors Limiting Gait Function Factors Limiting Gait Function Decreased Activity Tolerance, Decreased Sensation,Decreased Strength,Limited Range of Motion,Pain,Poor Balance Stair Climbing Evaluation Comments Stair Climbing Comments Trialed placing LLE on step, but difficulty with flexing knee enough to place on step; performs hip circumduction to lift onto step. Did not attempt climbing PT-OP-H Neuro Start: 08/03/23 13:47 Freq: Status: Active Protocol: Document 08/03/23 13:48 NM (Rec: 08/03/23 16:26 NM [id number]) Sensation Evaluation Gross Sensation Gross Sensation Right LE Impaired Dermatome Impairments L4,L5 Comments Summary Comments LLE intact to light touch sensation L2-L5, S1-2. RLE impaired laterally below knee, L4 dermatome. Vital Signs Comments Vital Signs Comments 08/03/23 BP 109/68 (sitting), 98 spo2, 63 bpm PT-OP-J Posture/Palpation/Skin Start: 08/03/23 13:47 Freq: Status: Active Protocol: Document 08/03/23 13:48 NM (Rec: 08/03/23 16:26 NM [id number]) Posture Evaluation Position Standing Evaluation View Lateral Head/C-Spine Posture Forward Head T-Spine Posture Increased Kyphosis L-Spine Posture Increased Lordosis Shoulder Posture (L) Forward,(R) Forward Weight Distribution Balanced Hip Posture (L) Neutral,(R) Neutral Knee Posture (L) Genu Varus,(R) Genu Varus Ankle/Foot Posture (L) Pronated,(R) Pronated Palpation Assessment Location L knee Palpation Location anterior, medial/lateral knee Palpation Findings Edema Palpation Details Lymphedema, so increased swelling. Minimal tenderness along medial knee Skin Assessment Incisional Assessment Incision Appearance/Comments Pt reports that incision is intact with no scars; she performs mobilizations at home when her wrappings are not on . Unable to formally assess due to lymphedema wrappings. PT-OP-K Range of Motion Start: 08/03/23 13:47 Freq: Status: Active Protocol: Document 09/06/23 12:16 NM (Rec: 09/06/23 12:38 NM [id number]) Hip Goniometric Range of Motion Hip Left Flexion w/Knee Flexed 100 Comments 07/06/24: Knee Goniometric Range of Motion Knee Left Patient Position Supine Flexion Active (degrees) 100 Flexion Passive (degrees) 103 Extension Active (degrees) 3 Extension Passive (degrees) 0 Comments minimal pain with flexion 09/06/23: 106 deg AROM knee flexion, full knee extension PT-OP-M Strength Start: 08/03/23 13:47 Freq: Status: Active Protocol: Document 09/06/23 12:16 NM (Rec: 09/06/23 12:38 NM [id number]) Hip Strength Hip Manual Muscle Testing Left Flexion (L2) 4- Good- Extension (S1) 3+ Fair+ Abduction 3+ Fair+ External Rotation 4- Good- Internal Rotation 4- Good- Comments 09/06/23: 4/5 for hip flex, abd , ext Knee Strength Knee Manual Muscle Testing Left Flexion (S2) 3+ Fair+ Extension (L3) 3+ Fair+ Comments @ IE: Reports min pain with resisted extension 09/06/23: 4/5 with both resisted flex and ext; no pain with resisted motion PT-OP-Q Treatments Start: 08/03/23 13:47 Freq: Status: Active Protocol: Document 09/13/23 11:05 AB (Rec: 09/13/23 14:21 AB [id number]) Therapeutic Exercises Sitting Exercises Seated hip abduction with band Sitting Exercise Name hip abd with band Side bilateral Resistance lvl 4 blue tb Reps/Minutes 2x10 Standing Exercises side stepping with band Standing Exercise Name with UE use and close supervision Side bilateral Resistance level 4 blue band Reps/Minutes 10 feet left and right X 2 Comments VC to avoid toeing out step up Standing Exercise Name 4 inch and 6 inch step Side bilateral Equipment Used R hand support on rail (unable flat hand) Reps/Minutes 2X10 Comments Monitored for pain bilateral heel raise Side bilateral Equipment Used with UE use Reps/Minutes 1X10 Sit to stand Standing Exercise Name 5X sit to stand and, sit to stand with band Side bilateral Resistance level 4 blue band Reps/Minutes 2X10 Comments 21.65 sec from mesh chair, without UE use X 1 then with UE use Neuro Re-Education Treatment Balance Activities Shuttle Details CGA hands above bars Equipment shuttle Comments feet on 4's hands above bars, with head turns and visual scanning, one foot back stagger stance, with visual scanning, CGA to minimal assist 4 min foam pad marching in place Details hands above parallel bars to use as needed, gait belt in place CGA Surface Foam pad and abdullahi cushion pad Reps/Duration X10 X2 Comments CGA Tandem stepping Details CGA with gait belt Surface floor Reps/Duration 10 feet X 6 step up taps Details 6 inch step hands above rails Equipment 4 and 6 inch step and rails Reps/Duration 2 X10 each LE ( X10 each step and each LE Comments CGA with gait belt PT-OP-T Assessment and Plan Start: 08/03/23 13:47 Freq: Status: Active Protocol: Document 09/13/23 11:05 AB (Rec: 09/13/23 14:21 AB [id number]) Physical Therapy Assessment Goals Eight Impairment gait Stick Roller Goal (LTG) Pt will be able to ambulate community distances (at least 500 ft) using 4WW or LRAD 09/06/23: 667 ft with 4ww, reports no difficulty LTG Duration 8 weeks MET Seven Impairment strength Stick Roller Goal (LTG) Pt will improve global B hip strength to at least 4+/5 in order to demonstrate increased hip strength for better stability during gait 09/06/23: 4/5 LTG Duration 8 weeks Six Impairment strength Impairment L hip abd/ext 3+/5 Short Term Goal (STG) Pt will improve L hip abd/ext strength to at least 4/5 in order to demonstrate increased hip strength for improved gait and balance 09/06/13: 4/5 STG Duration 4 weeks MET Stick Roller Goal (LTG) Pt will improve L hip abd/ext strength to at least 4+/5 in order to demonstrate increased hip strength for improved gait and balance LTG Duration 8 weeks Five Impairment strength Impairment L knee flex/ext 3+/5 MMT Short Term Goal (STG) Pt will improve L knee flex/ ext strength to at least 4/5 in order to demonstrate increased knee strength for gait 09/06/23: 4/5 STG Duration 4 weeks MET Intermediate Goal (LTG) Pt will improve L knee flex/ ext strength to at least 4+/5 in order to demonstrate increased knee strength for gait LTG Duration 8 weeks Four Impairment strength Impairment 5x STS: 21.83 seconds Short Term Goal (STG) Pt will decrease 5x STS time to less than 20 seconds in order to demonstrate improved BLE strength 09/06/23: 19 seconds from 20 table 08/29/23: from 20 table, 25 sec with improved form STG Duration 4 weeks MET Intermediate Goal (LTG) Pt will decrease 5x STS time to less than 18 seconds in order to demonstrate improved BLE strength 09/06/23: 19 seconds from 20 table 09/13/23 21.65 sec from mesh chair, without UE use X 1 then with UE use LTG Duration 8 weeks Three Impairment balance Impairment TU seconds with 4WW Stick Roller Goal (LTG) Pt will decrease TUG score to less than 13 seconds using LRAD in order to demonstrate improved balance and decrease fall risk 09/06/23: 15 seconds, 13 seconds 09/13/23 14.37 sec TUG LTG Duration 8 weeks PARTIALLY MET, PROGRESSING Two Impairment ROM Impairment R knee flex ROM 100 deg Short Term Goal (STG) Pt will increase R knee flex ROM to at least 110 deg in order to be able to ride her bike if possible due to lymphedema 09/06/23: 106 deg STG Duration 4 weeks NOT MET Intermediate Goal (LTG) Pt will increase R knee flex ROM to at least 115 deg in order to be able to ride her bike if possible due to lymphedema LTG Duration 8 weeks One Impairment function Impairment LEFS: 51/80 Stick Roller Goal (LTG) Pt will increase LEFS score by at least 9 points (1 MCID) in order to demonstrate improved tolerance for ADLs. 09/04/23: 54/80- PROGRESSING LTG Duration 8 weeks Assessment Summary Assessment SLS left LE, 3.2.1 second without UE use. Adela reports having no pain end of session ambulating out of session with four wheeled walker. Physical Therapy Plan Frequency and Duration Frequency of Treatment 2x/Week Duration of treatment (weeks) 8 Plan of Care Start Date 08/03/23 Plan of Care End Date 09/28/23 Next Visit Focus/Plan Next Visit Plan Assess hip ext, abd, knee ext and flex, continue with balance training, possibly add standing hip abd with band or step ups to HEP.
--- NOTE | 2023-09-18 11:43 | PT.OTN ---
Current Diagnoses Unilateral primary osteoarthritis, left knee (09/18/23) Physical Therapy Treatment Note PT-OP-A Visit Information Start: 08/03/23 13:47 Freq: Status: Active Protocol: Document 09/18/23 10:32 NM (Rec: 09/18/23 11:43 NM [id number]) Out-Patient Physical Therapy Visit Information Visit Information Visit Type Treatment Note Visit Note 16 visits total DOS: 06/19/23 Visit Start Time 10:32 Visit Stop Time 11:15 Visit Number 12 Evaluation Information Evaluation Date 08/03/23 Precautions Precautions Move slowly with positional changes d/t reported orthostasis 8 weeks: 08/13/23 12 weeks: 09/10/23 PT-OP-B Current Condition Start: 08/03/23 13:47 Freq: Status: Active Protocol: Document 08/03/23 13:48 NM (Rec: 08/03/23 16:26 NM [id number]) Current Condition History of Current Condition Onset Date 06/19/23 Current Complaints pain, ache History of Current Condition Pt presents to clinic s/p L TKA performed on 06/19/[address] [place]. Pt reports that she just had her follow up with him this past week, and she states he is pleased with the ROM. Prior to arrival at [facility], pt had [facility]PT following surgery with recent discharge last week. Pt uses a 4WW for balance during gait and did prior to surgery. She reports that she is able to ambulate in her house without her 4WW for short distances. Hx of R TKA earlier in 2022. Pt has hx of lymphedema so BLE are completely wrapped from ankle to hip; pt reports that she has had significantly less swelling in her knee since she was able to use the wraps that go to her hip. Pt has a hx of falls, 1-2x/yr but none since her surgery. Also has hx of neuropathy on RLE below the knee. Lives alone with no stairs. Prior Functional Status Baseline Function- ADL's Independent Baseline Function- Mobility Independent Baseline Function- Gait household and short community distances with 4WW Baseline Function- Recreation/Hobbies Work out at gym 2-3x/wk (bike, nustep, arm exercise machines ), water aerobics Current Functional Impairments (Reported) Functional Limitations- Mobility/Gait household distances without 4ww PT-OP-C Subjective Start: 08/03/23 13:47 Freq: Status: Active Protocol: Document 09/18/23 10:32 NM (Rec: 09/18/23 11:43 NM [id number]) OP-PT Subjective Patient Comments Patient Comments Pt reports no L knee pain. She reports that she was able to walk up/down a hill using her 4ww Sunday. She reports no difficulty or discomfort, felt safe while performing. She reports her balance is improving, no falls, without 4ww. PT-OP-D Balance Start: 08/03/23 13:47 Freq: Status: Active Protocol: Document 09/04/23 08:15 AB (Rec: 09/04/23 11:40 AB [id number]) Balance Tests Single Limb Standing Single Limb- Left 1,1,1 second without UE use pre and post session PT-OP-E Functional Tests Start: 08/03/23 13:47 Freq: Status: Active Protocol: Document 08/03/23 13:48 NM (Rec: 08/03/23 16:26 NM [id number]) Functional Tests Five Times Sit to Stand Test Score 21.83 sec Comments reports no knee pain Timed Up and Go (TUG) Score 13 sec Comments with FWW Tinetti Balance and Gait Assessment Balance Score 11 Gait Score 6 Composite Score 17/28 Balance Score Impairment Rating 20 to <40% Impaired (Score 10- 12) Gait Score Impairment Rating 40 to <60% Impaired (Score 5-7 ) Composite Score Impairment Rating 20 to <40% Impaired (Score 17- 22) PT-OP-F Manual Assessment Start: 08/03/23 13:47 Freq: Status: Active Protocol: Document 08/03/23 13:48 NM (Rec: 08/03/23 16:26 NM [id number]) Manual Assessments Soft Tissue Assessment Soft Tissue Mobility Assessment Pt has bilateral lymphedema, which limits ROM. No restrictions of B hamstrings, quads, hip flexors Joint Mobility Assessment Joint Mobility Assessment B hip PROM limited in flexion but good IR/ER in supine. B knees limited passive flexion, full extension. Limited B ankle dorsiflexion PT-OP-G Mobility & Gait Start: 08/03/23 13:47 Freq: Status: Active Protocol: Document 08/03/23 13:48 NM (Rec: 08/03/23 16:26 NM [id number]) OP Gait Assessment Gait Gait Assistance Required: Independent Distance (Feet) 150 Able to Maintain Weight Bearing Status Yes During Gait Assistive Devices Assistive Device Gait Belt,4 Wheeled Walker Gait Deviations General Gait Pattern Antalgic,Flexed Trunk,Step-to Gait,Wide Based Gait Factors Limiting Gait Function Factors Limiting Gait Function Decreased Activity Tolerance, Decreased Sensation,Decreased Strength,Limited Range of Motion,Pain,Poor Balance Stair Climbing Evaluation Comments Stair Climbing Comments Trialed placing LLE on step, but difficulty with flexing knee enough to place on step; performs hip circumduction to lift onto step. Did not attempt climbing PT-OP-H Neuro Start: 08/03/23 13:47 Freq: Status: Active Protocol: Document 08/03/23 13:48 NM (Rec: 08/03/23 16:26 NM [id number]) Sensation Evaluation Gross Sensation Gross Sensation Right LE Impaired Dermatome Impairments L4,L5 Comments Summary Comments LLE intact to light touch sensation L2-L5, S1-2. RLE impaired laterally below knee, L4 dermatome. Vital Signs Comments Vital Signs Comments 08/03/23 BP 109/68 (sitting), 98 spo2, 63 bpm PT-OP-J Posture/Palpation/Skin Start: 08/03/23 13:47 Freq: Status: Active Protocol: Document 08/03/23 13:48 NM (Rec: 08/03/23 16:26 NM [id number]) Posture Evaluation Position Standing Evaluation View Lateral Head/C-Spine Posture Forward Head T-Spine Posture Increased Kyphosis L-Spine Posture Increased Lordosis Shoulder Posture (L) Forward,(R) Forward Weight Distribution Balanced Hip Posture (L) Neutral,(R) Neutral Knee Posture (L) Genu Varus,(R) Genu Varus Ankle/Foot Posture (L) Pronated,(R) Pronated Palpation Assessment Location L knee Palpation Location anterior, medial/lateral knee Palpation Findings Edema Palpation Details Lymphedema, so increased swelling. Minimal tenderness along medial knee Skin Assessment Incisional Assessment Incision Appearance/Comments Pt reports that incision is intact with no scars; she performs mobilizations at home when her wrappings are not on . Unable to formally assess due to lymphedema wrappings. PT-OP-K Range of Motion Start: 08/03/23 13:47 Freq: Status: Active Protocol: Document 09/06/23 12:16 NM (Rec: 09/06/23 12:38 NM [id number]) Hip Goniometric Range of Motion Hip Left Flexion w/Knee Flexed 100 Comments 07/06/24: Knee Goniometric Range of Motion Knee Left Patient Position Supine Flexion Active (degrees) 100 Flexion Passive (degrees) 103 Extension Active (degrees) 3 Extension Passive (degrees) 0 Comments minimal pain with flexion 09/06/23: 106 deg AROM knee flexion, full knee extension PT-OP-M Strength Start: 08/03/23 13:47 Freq: Status: Active Protocol: Document 09/06/23 12:16 NM (Rec: 09/06/23 12:38 NM [id number]) Hip Strength Hip Manual Muscle Testing Left Flexion (L2) 4- Good- Extension (S1) 3+ Fair+ Abduction 3+ Fair+ External Rotation 4- Good- Internal Rotation 4- Good- Comments 09/06/23: 4/5 for hip flex, abd , ext Knee Strength Knee Manual Muscle Testing Left Flexion (S2) 3+ Fair+ Extension (L3) 3+ Fair+ Comments @ IE: Reports min pain with resisted extension 09/06/23: 4/5 with both resisted flex and ext; no pain with resisted motion PT-OP-Q Treatments Start: 08/03/23 13:47 Freq: Status: Active Protocol: Document 09/18/23 10:32 NM (Rec: 09/18/23 11:43 NM [id number]) Cardio Equipment Recumbent Bicycle Duration (Minutes) 4 Resistance 0 Seat Position 9 Other warm up; trialed today, full cycles, no hip ER comp Therapeutic Exercises Standing Exercises bilateral toe raise Standing Exercise Name for ankle DF, improved foot clearance Side bilateral Resistance AROM Equipment Used B hand support on rails Reps/Minutes 2x10 Comments cued for no rocking motion, elongated trunk step up Standing Exercise Name 6 inch step Side bilateral Equipment Used R hand support on rail (unable flat hand) Reps/Minutes 2x10 Comments Monitored for pain; challenging bilateral heel raise Side bilateral Equipment Used BUE support on hand rail Reps/Minutes 2x10 Comments cued for no rocking, full AROM , elongated trunk standing hip abduction Side bilateral Resistance isometric Equipment Used B flat hand support on table for balance Reps/Minutes 1x5 Comments cued for strong isometric hold standing hip extension Side bilateral Resistance isometric Reps/Minutes 1x5 Comments cued for strong isometric hold Sit to stand Standing Exercise Name 3 sets 5x STS Side bilateral Equipment Used from 20 plinth, mesh chair Reps/Minutes 3x5 Comments cued for scooting fwd to decrease need for UE support as depth increases Manual Therapy Treatment Joint Mobilizations left knee Joint left knee Direction tibia on femur PA and AP Grade III Body Position Supine Comments For end range ext and to improve knee flexion, monitored for pain 110 deg pre, 111 deg post mob for flexion Manual Techniques PROM Type left knee flexion Body Position seated Reps/Duration 1x3 15 second holds Neuro Re-Education Treatment Balance Activities cones Details square drill Surface stable Equipment 4 cones in square, CGA for safety, no UE support or AD Reps/Duration 2 rep CW, 2 reps CCW Comments Fwd step x5 ft, then side step x5 ft, then retro step x5 ft, then opposite side step 5 ft PT cued pt for larger step length during retro step. CGA for safety but not assisting with stability hurdles Surface stable Equipment 1 hand support on ballet bar Comments 1. 1 set fwd stepping over hurdles, reciprocal pattern challenged with stepping over hurdles. CGA-min A to steady. Difficulty with L hip/knee flex to step over kasie, circumducts LLE 2. 1 kasie step overs fwd/bwd for improved knee flexion, balance min A to steady, cued for weight shift onto stance LE, then flex hip/knee without circumduction foam pad Comments 1. narrow stance, 1x60 2. narrow stance with vertical nods, 1x30 3. narrow stance with horizontal head turns, 1x30 TUG Details IND Surface stable Equipment 4ww Reps/Duration 2 sets Comments 1. 13 sec, 11.5 sec Improved 4ww control and management, gait speed, turning control. No cues for safety. step up taps Details 6 inch step hands above rails Equipment 6 inch step and rails Reps/Duration 2 X10 each LE ( X10 each step and each LE) Comments CGA with gait belt PT-OP-T Assessment and Plan Start: 08/03/23 13:47 Freq: Status: Active Protocol: Document 09/18/23 10:32 NM (Rec: 09/18/23 11:43 NM [id number]) Physical Therapy Assessment Goals Eight Impairment gait [employer] Goal (LTG) Pt will be able to ambulate community distances (at least 500 ft) using 4WW or LRAD 2/15/24: 667 ft with 4ww, reports no difficulty LTG Duration 8 weeks MET Seven Impairment strength [employer] Goal (LTG) Pt will improve global B hip strength to at least 4+/5 in order to demonstrate increased hip strength for better stability during gait 09/06/23: 4/5 global hip strength, improved isometric hold LTG Duration 8 weeks Six Impairment strength Impairment L hip abd/ext 3+/5 Short Term Goal (STG) Pt will improve L hip abd/ext strength to at least 4/5 in order to demonstrate increased hip strength for improved gait and balance 09/06/13: 4/5 STG Duration 4 weeks MET [facility] Living Goal (LTG) Pt will improve L hip abd/ext strength to at least 4+/5 in order to demonstrate increased hip strength for improved gait and balance 09/18/23: 4/5 MMT; improved strength with functional activities (side steps, step ups) LTG Duration 8 weeks NOT MET, PROGRESSING Five Impairment strength Impairment L knee flex/ext 3+/5 MMT Short Term Goal (STG) Pt will improve L knee flex/ ext strength to at least 4/5 in order to demonstrate increased knee strength for gait 09/06/23: 4/5 STG Duration 4 weeks MET [employer]ist Goal (LTG) Pt will improve L knee flex/ ext strength to at least 4+/5 in order to demonstrate increased knee strength for gait 09/18/23: 4+/5 LTG Duration 8 weeks MET Four Impairment strength Impairment 5x STS: 21.83 seconds Short Term Goal (STG) Pt will decrease 5x STS time to less than 20 seconds in order to demonstrate improved BLE strength 09/06/23: 19 seconds from 20 table 08/29/23: from 20 table, 25 sec with improved form STG Duration 4 weeks MET [facility] Living Goal (LTG) Pt will decrease 5x STS time to less than 18 seconds in order to demonstrate improved BLE strength 09/18/23: 13.5 sec from 20 plinth, 23 sec from chair 09/06/23: 19 seconds from 20 table 09/13/23 21.65 sec from mesh chair, without UE use X 1 then with UE use LTG Duration 8 weeks MET Three Impairment balance Impairment TU seconds with 4WW Senior Living Goal (LTG) Pt will decrease TUG score to less than 13 seconds using LRAD in order to demonstrate improved balance and decrease fall risk 09/18/23: 13 sec 4ww, 11.5 sec 4ww 09/06/23: 15 seconds, 13 seconds 09/13/23 14.37 sec TUG LTG Duration 8 weeks MET Two Impairment ROM Impairment R knee flex ROM 100 deg Short Term Goal (STG) Pt will increase R knee flex ROM to at least 110 deg in order to be able to ride her bike if possible due to lymphedema 09/18/23: 110 deg knee flex 09/06/23: 106 deg STG Duration 4 weeks MET [facility] Living Goal (LTG) Pt will increase R knee flex ROM to at least 115 deg in order to be able to ride her bike if possible due to lymphedema 09/18/23: 110 deg LTG Duration 8 weeks NOT MET One Impairment function Impairment LEFS: 51/80 Senior Living Goal (LTG) Pt will increase LEFS score by at least 9 points (1 MCID) in order to demonstrate improved tolerance for ADLs. 09/04/23: 54/80- PROGRESSING 09/18/23: 57/80 LTG Duration 8 weeks PARTIALLY MET Assessment Summary Assessment Pt progressing well; continues to have limitations in B hip abd/ext strength and balance, although progressing well overall toward goals. Pt has met several LTGs and is progressing toward or partially met other LTGs related to strength. Pt feels she is doing well and is wanting to discharge at next session as she is meeting goals and feels like she has returned to PLOF before her B TKAs. PT and pt discussed current progress toward goals, POC; PT and pt in agreement about discharge to maintenance program with HEP and water aerobics, which pt will be starting this week. Pt continues to lack full knee flexion, currently 110 deg. Due to her lymphedema, however , pt is unable to achieve greater knee flexion above 115 . Trialed recumbent bike today ; pt able to make full revolutions without pain, discomfort or compensation. Continued with BLE strengthening and balance training. Pt with improved form during step ups 6 step, although consistently requires hand rail assist to step up for balance. Initiated kasie training for balance; pt demos L hip circumduction compensation to lift LLE over hurdles, occurs with RLE as well but to less extent. PT cued pt for weight shift onto stance LE, slower hip/knee flex to prevent compensation; improved with reps but due to lack of knee flexion AROM, likely to resolve by discharge . Pt would benefit from skilled PT for progressive BLE strengthening and LLE mobility in order to return to PLOF. Physical Therapy Plan Frequency and Duration Frequency of Treatment 2x/Week Duration of treatment (weeks) 8 Plan of Care Start Date 08/03/23 Plan of Care End Date 09/28/23 Therapeutic Interventions Therapeutic Interventions Aquatic Therapy,Balance Training,Gait Training,Home Exercise Program,Joint Mobilizations,Manual Therapy, Neuromuscular Re-education, Orthotic/Prosthetic Management ,Patient/Caregiver Education, Self-Care/Home Management, Sensory Integration,Soft Tissue Mobilization,Taping, Therapeutic Activities, Therapeutic Exercises Modalities Cold Pack/Ice Massage,Hot Packs Next Visit Focus/Plan Next Note Type Discharge Summary Next Visit Plan Assess hip ext, abd, knee ext and flex, continue with balance training, possibly add standing hip abd with band or step ups to HEP.
--- NOTE | 2023-09-20 16:10 | PT.OTN ---
Current Diagnoses Unilateral primary osteoarthritis, left knee (09/20/23) Physical Therapy Treatment Note PT-OP-A Visit Information Start: 08/03/23 13:47 Freq: Status: Active Protocol: Document 09/20/23 13:05 NM (Rec: 09/20/23 13:46 NM [id number]) Out-Patient Physical Therapy Visit Information Visit Information Visit Type Treatment Note Visit Note 16 visits total DOS: 06/19/23 Visit Start Time 13:03 Visit Stop Time 13:45 Visit Number 13 Evaluation Information Evaluation Date 08/03/23 PT-OP-B Current Condition Start: 08/03/23 13:47 Freq: Status: Active Protocol: Document 08/03/23 13:48 NM (Rec: 08/03/23 16:26 NM [id number]) Current Condition History of Current Condition Onset Date 06/19/23 Current Complaints pain, ache History of Current Condition Pt presents to clinic s/p L TKA performed on 06/19/[address] [place]. Pt reports that she just had her follow up with him this past week, and she states he is pleased with the ROM. Prior to arrival at [facility], pt had [facility]PT following surgery with recent discharge last week. Pt uses a 4WW for balance during gait and did prior to surgery. She reports that she is able to ambulate in her house without her 4WW for short distances. Hx of R TKA earlier in 2022. Pt has hx of lymphedema so BLE are completely wrapped from ankle to hip; pt reports that she has had significantly less swelling in her knee since she was able to use the wraps that go to her hip. Pt has a hx of falls, 1-2x/yr but none since her surgery. Also has hx of neuropathy on RLE below the knee. Lives alone with no stairs. Prior Functional Status Baseline Function- ADL's Independent Baseline Function- Mobility Independent Baseline Function- Gait household and short community distances with 4WW Baseline Function- Recreation/Hobbies Work out at gym 2-3x/wk (bike, nustep, arm exercise machines ), water aerobics Current Functional Impairments (Reported) Functional Limitations- Mobility/Gait household distances without 4ww PT-OP-C Subjective Start: 08/03/23 13:47 Freq: Status: Active Protocol: Document 09/20/23 13:05 NM (Rec: 09/20/23 13:46 NM [id number]) OP-PT Subjective Patient Comments Patient Comments Pt reports no L knee pain. She reports no difficulty or discomfort. Able to schedule another visit within POC so will be discharging next session instead PT-OP-D Balance Start: 08/03/23 13:47 Freq: Status: Active Protocol: Document 09/04/23 08:15 AB (Rec: 09/04/23 11:40 AB [id number]) Balance Tests Single Limb Standing Single Limb- Left 1,1,1 second without UE use pre and post session PT-OP-E Functional Tests Start: 08/03/23 13:47 Freq: Status: Active Protocol: Document 08/03/23 13:48 NM (Rec: 08/03/23 16:26 NM [id number]) Functional Tests Five Times Sit to Stand Test Score 21.83 sec Comments reports no knee pain Timed Up and Go (TUG) Score 13 sec Comments with FWW Tinetti Balance and Gait Assessment Balance Score 11 Gait Score 6 Composite Score 17/28 Balance Score Impairment Rating 20 to <40% Impaired (Score 10- 12) Gait Score Impairment Rating 40 to <60% Impaired (Score 5-7 ) Composite Score Impairment Rating 20 to <40% Impaired (Score 17- 22) PT-OP-F Manual Assessment Start: 08/03/23 13:47 Freq: Status: Active Protocol: Document 08/03/23 13:48 NM (Rec: 08/03/23 16:26 NM [id number]) Manual Assessments Soft Tissue Assessment Soft Tissue Mobility Assessment Pt has bilateral lymphedema, which limits ROM. No restrictions of B hamstrings, quads, hip flexors Joint Mobility Assessment Joint Mobility Assessment B hip PROM limited in flexion but good IR/ER in supine. B knees limited passive flexion, full extension. Limited B ankle dorsiflexion PT-OP-G Mobility & Gait Start: 08/03/23 13:47 Freq: Status: Active Protocol: Document 08/03/23 13:48 NM (Rec: 08/03/23 16:26 NM [id number]) OP Gait Assessment Gait Gait Assistance Required: Independent Distance (Feet) 150 Able to Maintain Weight Bearing Status Yes During Gait Assistive Devices Assistive Device Gait Belt,4 Wheeled Walker Gait Deviations General Gait Pattern Antalgic,Flexed Trunk,Step-to Gait,Wide Based Gait Factors Limiting Gait Function Factors Limiting Gait Function Decreased Activity Tolerance, Decreased Sensation,Decreased Strength,Limited Range of Motion,Pain,Poor Balance Stair Climbing Evaluation Comments Stair Climbing Comments Trialed placing LLE on step, but difficulty with flexing knee enough to place on step; performs hip circumduction to lift onto step. Did not attempt climbing PT-OP-H Neuro Start: 08/03/23 13:47 Freq: Status: Active Protocol: Document 08/03/23 13:48 NM (Rec: 08/03/23 16:26 NM [id number]) Sensation Evaluation Gross Sensation Gross Sensation Right LE Impaired Dermatome Impairments L4,L5 Comments Summary Comments LLE intact to light touch sensation L2-L5, S1-2. RLE impaired laterally below knee, L4 dermatome. Vital Signs Comments Vital Signs Comments 08/03/23 BP 109/68 (sitting), 98 spo2, 63 bpm PT-OP-J Posture/Palpation/Skin Start: 08/03/23 13:47 Freq: Status: Active Protocol: Document 08/03/23 13:48 NM (Rec: 08/03/23 16:26 NM [id number]) Posture Evaluation Position Standing Evaluation View Lateral Head/C-Spine Posture Forward Head T-Spine Posture Increased Kyphosis L-Spine Posture Increased Lordosis Shoulder Posture (L) Forward,(R) Forward Weight Distribution Balanced Hip Posture (L) Neutral,(R) Neutral Knee Posture (L) Genu Varus,(R) Genu Varus Ankle/Foot Posture (L) Pronated,(R) Pronated Palpation Assessment Location L knee Palpation Location anterior, medial/lateral knee Palpation Findings Edema Palpation Details Lymphedema, so increased swelling. Minimal tenderness along medial knee Skin Assessment Incisional Assessment Incision Appearance/Comments Pt reports that incision is intact with no scars; she performs mobilizations at home when her wrappings are not on . Unable to formally assess due to lymphedema wrappings. PT-OP-K Range of Motion Start: 08/03/23 13:47 Freq: Status: Active Protocol: Document 09/06/23 12:16 NM (Rec: 09/06/23 12:38 NM [id number]) Hip Goniometric Range of Motion Hip Left Flexion w/Knee Flexed 100 Comments 07/06/24: Knee Goniometric Range of Motion Knee Left Patient Position Supine Flexion Active (degrees) 100 Flexion Passive (degrees) 103 Extension Active (degrees) 3 Extension Passive (degrees) 0 Comments minimal pain with flexion 09/06/23: 106 deg AROM knee flexion, full knee extension PT-OP-M Strength Start: 08/03/23 13:47 Freq: Status: Active Protocol: Document 09/06/23 12:16 NM (Rec: 09/06/23 12:38 NM [id number]) Hip Strength Hip Manual Muscle Testing Left Flexion (L2) 4- Good- Extension (S1) 3+ Fair+ Abduction 3+ Fair+ External Rotation 4- Good- Internal Rotation 4- Good- Comments 09/06/23: 4/5 for hip flex, abd , ext Knee Strength Knee Manual Muscle Testing Left Flexion (S2) 3+ Fair+ Extension (L3) 3+ Fair+ Comments @ IE: Reports min pain with resisted extension 09/06/23: 4/5 with both resisted flex and ext; no pain with resisted motion PT-OP-Q Treatments Start: 08/03/23 13:47 Freq: Status: Active Protocol: Document 09/20/23 13:05 NM (Rec: 09/20/23 13:46 NM [id number]) Cardio Equipment Recumbent Bicycle Duration (Minutes) 4 Resistance 7 Seat Position 9 Other warm up; full cycle; min ER at hip compensation Therapeutic Exercises Sitting Exercises Seated hip abduction with band Sitting Exercise Name hip abd with band Side bilateral Resistance lvl 4 blue tb Reps/Minutes 3x10; 1x30 Comments for hip strengthening LAQ Side left Resistance 4# db Reps/Minutes 2x10 with brief hold end range Comments cued TKE, improved with reps Standing Exercises lateral step up Standing Exercise Name 4 Side left Resistance AROM Equipment Used 1 hand support on rail Reps/Minutes 2x8 Comments cued upright posture step up Standing Exercise Name 4 inch step Side bilateral Equipment Used R hand support on rail (flat hand) Reps/Minutes 2x10 Comments Monitored for pain; challenging bilateral heel raise Side bilateral Equipment Used BUE support on hand rail Reps/Minutes 2x10 Comments cued for no rocking, full AROM , elongated trunk Knee flexion mobilization/stretch Standing Exercise Name 2nd 4 step, 2 hand rail Side left Reps/Minutes 10x10 Comments improved knee flexion compared to previous attempts Sit to stand Side bilateral Equipment Used from 20 plinth Reps/Minutes 1x5 from low mesh chair, 5# ball 2x10 Comments no momentum with added resistance Manual Therapy Treatment Joint Mobilizations left knee Joint left knee Direction tibia on femur PA and AP Grade III Body Position Supine Comments For end range flexion. To tolerance, unable to achieve more due to lymphedema at this time. L knee 111 deg, 113 post mob Manual Techniques PROM Type left knee flexion Body Position seated Reps/Duration 1x5 10 second holds Neuro Re-Education Treatment Balance Activities resisted ambulation Surface stable Equipment lvl green bungee cord Comments 1. fwd/retro, 1x5 ea direction CGA to steady, no UE support or AD 2. lateral, 1x5 ea direction CGA to steady, no UE support or AD Cued for upright posture cones Details M drill Surface stable Equipment 4 cones in square, CGA for safety, no UE support or AD Reps/Duration 2 rep CW, 2 reps CCW Comments Fwd step x5 ft, then side step x5 ft, then retro step x5 ft, then fwd step x5 ft, then opposite side step 5 ft in M then retro step x5 ft PT cued pt for larger step length during retro step. CGA for safety but not assisting with stability. SLS Surface stable Equipment TM bars for support Reps/Duration 2x10 ea Comments for time, 2 hand support at end of session Challenging for time PT-OP-T Assessment and Plan Start: 08/03/23 13:47 Freq: Status: Active Protocol: Document 09/20/23 13:05 NM (Rec: 09/20/23 13:46 NM [id number]) Physical Therapy Assessment Goals Eight Impairment gait Check Processing Clerk Goal (LTG) Pt will be able to ambulate community distances (at least 500 ft) using 4WW or LRAD 09/06/23: 667 ft with 4ww, reports no difficulty LTG Duration 8 weeks MET Seven Impairment strength Usp Goal (LTG) Pt will improve global B hip strength to at least 4+/5 in order to demonstrate increased hip strength for better stability during gait 09/06/23: 4/5 global hip strength, improved isometric hold LTG Duration 8 weeks Six Impairment strength Impairment L hip abd/ext 3+/5 Short Term Goal (STG) Pt will improve L hip abd/ext strength to at least 4/5 in order to demonstrate increased hip strength for improved gait and balance 09/06/13: 4/5 STG Duration 4 weeks MET Check Processing Clerk Goal (LTG) Pt will improve L hip abd/ext strength to at least 4+/5 in order to demonstrate increased hip strength for improved gait and balance 09/18/23: 4/5 MMT; improved strength with functional activities (side steps, step ups) LTG Duration 8 weeks NOT MET, PROGRESSING Five Impairment strength Impairment L knee flex/ext 3+/5 MMT Short Term Goal (STG) Pt will improve L knee flex/ ext strength to at least 4/5 in order to demonstrate increased knee strength for gait 09/06/23: 4/5 STG Duration 4 weeks MET Usp Goal (LTG) Pt will improve L knee flex/ ext strength to at least 4+/5 in order to demonstrate increased knee strength for gait 09/18/23: 4+/5 LTG Duration 8 weeks MET Four Impairment strength Impairment 5x STS: 21.83 seconds Short Term Goal (STG) Pt will decrease 5x STS time to less than 20 seconds in order to demonstrate improved BLE strength 09/06/23: 19 seconds from 20 table 08/29/23: from 20 table, 25 sec with improved form STG Duration 4 weeks MET Check Processing Clerk Goal (LTG) Pt will decrease 5x STS time to less than 18 seconds in order to demonstrate improved BLE strength 09/18/23: 13.5 sec from 20 plinth, 23 sec from chair 09/06/23: 19 seconds from 20 table 09/13/23 21.65 sec from mesh chair, without UE use X 1 then with UE use LTG Duration 8 weeks MET Three Impairment balance Impairment TU seconds with 4WW Usp Goal (LTG) Pt will decrease TUG score to less than 13 seconds using LRAD in order to demonstrate improved balance and decrease fall risk 09/18/23: 13 sec 4ww, 11.5 sec 4ww 09/06/23: 15 seconds, 13 seconds 09/13/23 14.37 sec TUG LTG Duration 8 weeks MET Two Impairment ROM Impairment R knee flex ROM 100 deg Short Term Goal (STG) Pt will increase R knee flex ROM to at least 110 deg in order to be able to ride her bike if possible due to lymphedema 09/18/23: 110 deg knee flex 09/06/23: 106 deg STG Duration 4 weeks MET Usp Goal (LTG) Pt will increase R knee flex ROM to at least 115 deg in order to be able to ride her bike if possible due to lymphedema 09/18/23: 110 deg LTG Duration 8 weeks NOT MET One Impairment function Impairment LEFS: 51/80 Usp Goal (LTG) Pt will increase LEFS score by at least 9 points (1 MCID) in order to demonstrate improved tolerance for ADLs. 09/04/23: 54/80- PROGRESSING 09/18/23: 57/80 LTG Duration 8 weeks PARTIALLY MET Assessment Summary Assessment Pt tolerated session well and is progressing toward goals. Continued with joint mobilizations to improve L knee flexion AROM within available limits. AROM still mostly limited by lymphedema with occasional anterior knee pain at end range. She is at L knee flexion 111 deg prior to mobilization, 113 deg post mobilization. Pt with improved knee flexion on recumbent bike; able to perform with fewer instances of R hip ER compensation, full revolutions and increased resistance. Progressed BLE strengthening. Trialed lateral step ups 4. Requires UE support for balance, cued to limit UE use with step up in order to decrease UE dependence. Continues to be challenged by fwd step up due to decreased glute strength and lymphedema. Progressed to resisted sit to stand; pt performing with improved weight shift and without momentum. Balance training to add perturbations during dynamic movements without UE support. Pt is CGA for all balance activities. PT and pt discussed discharge next session; both in agreement. Pt would benefit from continued BLE strengthening and L knee mobility for return to PLOF. Physical Therapy Plan Frequency and Duration Frequency of Treatment 2x/Week Duration of treatment (weeks) 8 Plan of Care Start Date 08/03/23 Plan of Care End Date 09/28/23 Therapeutic Interventions Therapeutic Interventions Aquatic Therapy,Balance Training,Gait Training,Home Exercise Program,Joint Mobilizations,Manual Therapy, Neuromuscular Re-education, Orthotic/Prosthetic Management ,Patient/Caregiver Education, Self-Care/Home Management, Sensory Integration,Soft Tissue Mobilization,Taping, Therapeutic Activities, Therapeutic Exercises Modalities Cold Pack/Ice Massage,Hot Packs Next Visit Focus/Plan Next Note Type Discharge Summary Next Visit Plan Assess hip ext, abd, knee ext and flex, continue with balance training, possibly add standing hip abd with band or step ups to HEP.
--- NOTE | 2023-09-27 16:51 | PT.OTN ---
Current Diagnoses Unilateral primary osteoarthritis, left knee (09/27/23) Physical Therapy Treatment Note PT-OP-A Visit Information Start: 08/03/23 13:47 Freq: Status: Active Protocol: Document 09/27/23 10:33 NM (Rec: 09/27/23 11:15 NM [id number]) Out-Patient Physical Therapy Visit Information Visit Information Visit Type Discharge Summary Visit Note 16 visits total DOS: 06/19/23 Visit Start Time 10:33 Visit Stop Time 11:15 Visit Number 14 Evaluation Information Evaluation Date 08/03/23 Precautions Precautions Move slowly with positional changes d/t reported orthostasis 8 weeks: 08/13/23 12 weeks: 09/10/23 PT-OP-B Current Condition Start: 08/03/23 13:47 Freq: Status: Active Protocol: Document 08/03/23 13:48 NM (Rec: 08/03/23 16:26 NM [id number]) Current Condition History of Current Condition Onset Date 06/19/23 Current Complaints pain, ache History of Current Condition Pt presents to clinic s/p L TKA performed on 06/19/[address] [place]. Pt reports that she just had her follow up with him this past week, and she states he is pleased with the ROM. Prior to arrival at [facility], pt had HHPT following surgery with recent discharge last week. Pt uses a 4WW for balance during gait and did prior to surgery. She reports that she is able to ambulate in her house without her 4WW for short distances. Hx of R TKA earlier in 2022. Pt has hx of lymphedema so BLE are completely wrapped from ankle to hip; pt reports that she has had significantly less swelling in her knee since she was able to use the wraps that go to her hip. Pt has a hx of falls, 1-2x/yr but none since her surgery. Also has hx of neuropathy on RLE below the knee. Lives alone with no stairs. Prior Functional Status Baseline Function- ADL's Independent Baseline Function- Mobility Independent Baseline Function- Gait household and short community distances with 4WW Baseline Function- Recreation/Hobbies Work out at gym 2-3x/wk (bike, nustep, arm exercise machines ), water aerobics Current Functional Impairments (Reported) Functional Limitations- Mobility/Gait household distances without 4ww PT-OP-C Subjective Start: 08/03/23 13:47 Freq: Status: Active Protocol: Document 09/27/23 10:33 NM (Rec: 09/27/23 11:15 NM [id number]) OP-PT Subjective Patient Comments Patient Comments Pt reports no pain or discomfort in L knee after last session. Reports no difficulty with HEP or ADLs/ IADLs. Only reports challenges in balance, but no falls or near falls. Agrees to discharge today PT-OP-D Balance Start: 08/03/23 13:47 Freq: Status: Active Protocol: Document 09/04/23 08:15 AB (Rec: 09/04/23 11:40 AB [id number]) Balance Tests Single Limb Standing Single Limb- Left 1,1,1 second without UE use pre and post session PT-OP-E Functional Tests Start: 08/03/23 13:47 Freq: Status: Active Protocol: Document 08/03/23 13:48 NM (Rec: 08/03/23 16:26 NM [id number]) Functional Tests Five Times Sit to Stand Test Score 21.83 sec Comments reports no knee pain Timed Up and Go (TUG) Score 13 sec Comments with FWW Tinetti Balance and Gait Assessment Balance Score 11 Gait Score 6 Composite Score 17/28 Balance Score Impairment Rating 20 to <40% Impaired (Score 10- 12) Gait Score Impairment Rating 40 to <60% Impaired (Score 5-7 ) Composite Score Impairment Rating 20 to <40% Impaired (Score 17- 22) PT-OP-F Manual Assessment Start: 08/03/23 13:47 Freq: Status: Active Protocol: Document 08/03/23 13:48 NM (Rec: 08/03/23 16:26 NM [id number]) Manual Assessments Soft Tissue Assessment Soft Tissue Mobility Assessment Pt has bilateral lymphedema, which limits ROM. No restrictions of B hamstrings, quads, hip flexors Joint Mobility Assessment Joint Mobility Assessment B hip PROM limited in flexion but good IR/ER in supine. B knees limited passive flexion, full extension. Limited B ankle dorsiflexion PT-OP-G Mobility & Gait Start: 08/03/23 13:47 Freq: Status: Active Protocol: Document 08/03/23 13:48 NM (Rec: 08/03/23 16:26 NM [id number]) OP Gait Assessment Gait Gait Assistance Required: Independent Distance (Feet) 150 Able to Maintain Weight Bearing Status Yes During Gait Assistive Devices Assistive Device Gait Belt,4 Wheeled Walker Gait Deviations General Gait Pattern Antalgic,Flexed Trunk,Step-to Gait,Wide Based Gait Factors Limiting Gait Function Factors Limiting Gait Function Decreased Activity Tolerance, Decreased Sensation,Decreased Strength,Limited Range of Motion,Pain,Poor Balance Stair Climbing Evaluation Comments Stair Climbing Comments Trialed placing LLE on step, but difficulty with flexing knee enough to place on step; performs hip circumduction to lift onto step. Did not attempt climbing PT-OP-H Neuro Start: 08/03/23 13:47 Freq: Status: Active Protocol: Document 08/03/23 13:48 NM (Rec: 08/03/23 16:26 NM [id number]) Sensation Evaluation Gross Sensation Gross Sensation Right LE Impaired Dermatome Impairments L4,L5 Comments Summary Comments LLE intact to light touch sensation L2-L5, S1-2. RLE impaired laterally below knee, L4 dermatome. Vital Signs Comments Vital Signs Comments 08/03/23 BP 109/68 (sitting), 98 spo2, 63 bpm PT-OP-J Posture/Palpation/Skin Start: 08/03/23 13:47 Freq: Status: Active Protocol: Document 08/03/23 13:48 NM (Rec: 08/03/23 16:26 NM [id number]) Posture Evaluation Position Standing Evaluation View Lateral Head/C-Spine Posture Forward Head T-Spine Posture Increased Kyphosis L-Spine Posture Increased Lordosis Shoulder Posture (L) Forward,(R) Forward Weight Distribution Balanced Hip Posture (L) Neutral,(R) Neutral Knee Posture (L) Genu Varus,(R) Genu Varus Ankle/Foot Posture (L) Pronated,(R) Pronated Palpation Assessment Location L knee Palpation Location anterior, medial/lateral knee Palpation Findings Edema Palpation Details Lymphedema, so increased swelling. Minimal tenderness along medial knee Skin Assessment Incisional Assessment Incision Appearance/Comments Pt reports that incision is intact with no scars; she performs mobilizations at home when her wrappings are not on . Unable to formally assess due to lymphedema wrappings. PT-OP-K Range of Motion Start: 08/03/23 13:47 Freq: Status: Active Protocol: Document 09/27/23 10:33 NM (Rec: 09/27/23 11:15 NM [id number]) Knee Goniometric Range of Motion Knee Right Flexion Active (degrees) 102 Extension Active (degrees) 0 Left Patient Position Supine Flexion Active (degrees) 110 Extension Active (degrees) 0 Comments IE: 100 deg flexion, 103 deg PROM, 3 deg ext AROM, 0 deg ext PROM; minimal pain with flexion 09/06/23: 106 deg AROM knee flexion, full knee extension 09/27/23: 110 deg pre mobilization, 112 deg post mobilization PT-OP-M Strength Start: 08/03/23 13:47 Freq: Status: Active Protocol: Document 09/27/23 10:33 NM (Rec: 09/27/23 11:15 NM [id number]) Hip Strength Hip Manual Muscle Testing Right Flexion (L2) 4+ Good+ Extension (S1) 4+ Good+ Abduction 4+ Good+ Adduction 4+ Good+ External Rotation 4+ Good+ Internal Rotation 4+ Good+ Comments IE: 4-/5 MMT for all 09/27/23: 4+/5 MMT for all Left Flexion (L2) 4+ Good+ Extension (S1) 4+ Good+ Abduction 4+ Good+ Adduction 4+ Good+ External Rotation 4+ Good+ Internal Rotation 4+ Good+ Comments IE: 4- flex/ER/IR, 3+ ext/abd 09/06/23: 4/5 for hip flex, abd , ext 09/27/23: 4+/5 MMT for all Knee Strength Knee Manual Muscle Testing Right Flexion (S2) 4- Good- Extension (L3) 4- Good- Left Flexion (S2) 4+ Good+ Extension (L3) 4+ Good+ Comments IE: 3+ for flex and ext, Reports min pain with resisted extension 09/06/23: 4/5 with both resisted flex and ext; no pain with resisted motion PT-OP-Q Treatments Start: 08/03/23 13:47 Freq: Status: Active Protocol: Document 09/27/23 10:33 NM (Rec: 09/27/23 11:15 NM [id number]) Therapeutic Exercises Supine Exercises straight leg raise Side left Reps/Minutes 1x10 Comments cued for quad set; good eccentric lowering Heel slide Supine Exercise Name Added to HEP for when pt gets out of bed Side left Reps/Minutes 1x15 Comments towel under foot Sitting Exercises Seated hip abduction with band Sitting Exercise Name hip abd with band Side bilateral Resistance lvl 4 blue tb Reps/Minutes 3x10; 1x30 Comments for hip strengthening LAQ Side left Resistance lvl 4 dark band Reps/Minutes 2x15 with brief hold at end range Comments improved with reps Standing Exercises marching Side bilateral Resistance lvl 3 band around thighs Equipment Used hand support on table Reps/Minutes 2x10 ea with brief hold at top bilateral toe raise Standing Exercise Name for ankle DF, improved foot clearance Side bilateral Resistance AROM Equipment Used B hand support on rails Reps/Minutes 2x10 Comments cued for no rocking motion, elongated trunk side stepping with band Standing Exercise Name reviewed for HEP but did not perform squat with band Standing Exercise Name squat with blue band level 4 Side bilateral Resistance blue level 4 band Reps/Minutes 1x10 Comments Verbal cues for buttocks back/ monitored for pain bilateral heel raise Side bilateral Equipment Used BUE support on hand rail Reps/Minutes 2x10 Comments cued for no rocking, full AROM , elongated trunk standing hip abduction Side bilateral Resistance lvl 3 tb around thighs Equipment Used B flat hand support on table for balance Reps/Minutes 2x10 Comments cued for strong isometric hold standing hip extension Side bilateral Resistance lvl 3 tb around thighs Reps/Minutes 2x10 Comments cued for strong isometric hold Knee flexion mobilization/stretch Standing Exercise Name reviewed for HEP in both standing or sitting Sit to stand Side bilateral Resistance lvl 3 tb around thighs Equipment Used from 20 plinth Reps/Minutes 1x10 Comments improved STS, eccentric lowering Manual Therapy Treatment Joint Mobilizations left knee Joint left knee Direction tibia on femur PA and AP Grade III Body Position Supine Comments For end range flexion. To tolerance, unable to achieve more due to lymphedema at this time. L knee 110 deg, 112 post mob Manual Techniques PROM Type left knee flexion Body Position seated Reps/Duration 1x10 with 10 holds Self-Care/Home Management Treatment Education Patient Education Fall Risk,Home Exercise Program,Joint Protection,Pain Management,Safety Other Education 8 minutes: Issued level 4 and level 5 therabands for HEP. Past HEP reviewed, issued final HEP with new exercises. Educated on maintenance program 3x/wk. Recommended continue to use stationary bike and nustep at gym; educated on safety with exercise, equipment. Educated on safety during gait, ADLs, balance activities, modalities prn for pain relief. PT-OP-T Assessment and Plan Start: 08/03/23 13:47 Freq: Status: Active Protocol: Document 09/27/23 10:33 NM (Rec: 09/27/23 11:15 NM [id number]) Physical Therapy Assessment Goals Eight Impairment gait Retirement Goal (LTG) Pt will be able to ambulate community distances (at least 500 ft) using 4WW or LRAD 09/06/23: 667 ft with 4ww, reports no difficulty LTG Duration 8 weeks MET Seven Impairment strength Plate Glass Installer Helper Goal (LTG) Pt will improve global B hip strength to at least 4+/5 in order to demonstrate increased hip strength for better stability during gait 09/06/23: 4/5 global hip strength, improved isometric hold 09/27/23: 4+/5 global strength LTG Duration 8 weeks MET Six Impairment strength Impairment L hip abd/ext 3+/5 Short Term Goal (STG) Pt will improve L hip abd/ext strength to at least 4/5 in order to demonstrate increased hip strength for improved gait and balance 09/06/13: 4/5 STG Duration 4 weeks MET Retirement Goal (LTG) Pt will improve L hip abd/ext strength to at least 4+/5 in order to demonstrate increased hip strength for improved gait and balance 09/18/23: 4/5 MMT; improved strength with functional activities (side steps, step ups) 09/27/23: 4+ flex, 4+ hip ext, abd LTG Duration 8 weeks MET Five Impairment strength Impairment L knee flex/ext 3+/5 MMT Short Term Goal (STG) Pt will improve L knee flex/ ext strength to at least 4/5 in order to demonstrate increased knee strength for gait 09/06/23: 4/5 STG Duration 4 weeks MET Plate Glass Installer Helper Goal (LTG) Pt will improve L knee flex/ ext strength to at least 4+/5 in order to demonstrate increased knee strength for gait 09/18/23: 4+/5 LTG Duration 8 weeks MET Four Impairment strength Impairment 5x STS: 21.83 seconds Short Term Goal (STG) Pt will decrease 5x STS time to less than 20 seconds in order to demonstrate improved BLE strength 09/06/23: 19 seconds from 20 table 08/29/23: from 20 table, 25 sec with improved form STG Duration 4 weeks MET Plate Glass Installer Helper Goal (LTG) Pt will decrease 5x STS time to less than 18 seconds in order to demonstrate improved BLE strength 09/18/23: 13.5 sec from 20 plinth, 23 sec from chair 09/06/23: 19 seconds from 20 table 09/13/23 21.65 sec from mesh chair, without UE use X 1 then with UE use LTG Duration 8 weeks MET Three Impairment balance Impairment TU seconds with 4WW Plate Glass Installer Helper Goal (LTG) Pt will decrease TUG score to less than 13 seconds using LRAD in order to demonstrate improved balance and decrease fall risk 09/18/23: 13 sec 4ww, 11.5 sec 4ww 09/06/23: 15 seconds, 13 seconds 09/13/23 14.37 sec TUG LTG Duration 8 weeks MET Two Impairment ROM Impairment R knee flex ROM 100 deg Short Term Goal (STG) Pt will increase R knee flex ROM to at least 110 deg in order to be able to ride her bike if possible due to lymphedema 09/18/23: 110 deg knee flex 09/06/23: 106 deg STG Duration 4 weeks MET Retirement Goal (LTG) Pt will increase R knee flex ROM to at least 115 deg in order to be able to ride her bike if possible due to lymphedema 09/18/23: 110 deg 09/27/23: 110 pre mobilization, 112 post mobilization LTG Duration 8 weeks NOT MET One Impairment function Impairment LEFS: 51/80 Retirement Goal (LTG) Pt will increase LEFS score by at least 9 points (1 MCID) in order to demonstrate improved tolerance for ADLs. 09/04/23: 54/80 09/18/23: 57/80 09/27/23: 60/80 LTG Duration 8 weeks MET Progress Towards Goals Progress Towards Goals Progressing Toward Goals,Goals Met Progress Comments All goals met except L knee AROM goal Assessment Summary Assessment Pt tolerated session well without increased pain or discomfort in L knee with activity. Session emphasis on reviewing past HEP and issuing final HEP. Continued with emphasizing strength of B hip abductors, glutes, and quads. Initiated supine heel slide for AROM in morning prior to pt getting out of bed for improved L knee mobility. Added standing toe raises with hand support to HEP and single leg stance. Pt continues to demonstrate improved functional quad and glute strength with sit to stands and other functional exercises. Cued today only for elongated posture. Issued level 4 and 5 therabands for pt to progress with HEP. Manual treatment to maximize L knee flexion AROM. Pt is 110 deg pre mobilization and 112 degrees post mobilization. Pt has been seen x13 visits since IE in July 2023 s/p L TKA. Pt demonstrates improved B hip and knee strength, now 4+/5 for all MMT. She is able to perform functional sit to stands, stairs, and gait with few limitations, primarily due to decreased activity tolerance. Pt's L knee AROM is improved since IE; however, continues to be limited mainly due to anatomical limitations from her lymphedema. Pt's current L knee flexion AROM is 110 deg consistently. She is able to perform stairs and ride a stationary bike with small compensations at her hip , which is decreased with cueing. Pt has met all goals except L knee flexion AROM. She demonstrates improved balance and decreased fall risk with 6MWT distance and TUG scores with 4ww. Pt reports minimal limitations in ADLs/IADLS or ability to participate in recreational activities due to her L knee. Her LEFS score has improved by 1 MCID, indicating improved QOL. PT and pt discussed discharge today with both in agreement. Issued final HEP and reviewed previous HEP. PT educated pt on safety, joint protection, fall risk, maintenance program 3x/wk; educated pt to follow up with PCP if symptoms change/worsen or for new PT referral. Pt verbalizes understanding and is safe to discharge to independent exercise. Physical Therapy Plan Frequency and Duration Frequency of Treatment 2x/Week Duration of treatment (weeks) 8 Plan of Care Start Date 08/03/23 Plan of Care End Date 09/28/23 Therapeutic Interventions Therapeutic Interventions Aquatic Therapy,Balance Training,Gait Training,Home Exercise Program,Joint Mobilizations,Manual Therapy, Neuromuscular Re-education, Orthotic/Prosthetic Management ,Patient/Caregiver Education, Self-Care/Home Management, Sensory Integration,Soft Tissue Mobilization,Taping, Therapeutic Activities, Therapeutic Exercises Modalities Cold Pack/Ice Massage,Hot Packs Discharge Physical Therapy Discharge Reasons Goals Met Discharge Comments All goals met except L knee AROM goal. Pt POC expiring tomorrow, only 1 visit left Next Visit Focus/Plan Next Visit Plan Discharge from PT services
--- NOTE | 2023-09-27 16:58 | PT.OPDS ---
Current Diagnoses Unilateral primary osteoarthritis, left knee (09/27/23) Visit Care Team Role Provider Type Dottie Miller PA-C Primary Care Provider Non-Staff Specialty: Medical Address: [address], [place], [address] Email: Arabella Miller MD Family Provider Non-Staff Specialty: Psychiatry Address: [address], [place], [address] Email: Brittany Sims PA-C Attending Provider Non-Staff Referring Provider Specialty: Medical Address: [address], [place], [address] Email: Visit Number Visit Number 14 Discharge Summary PT-OP-B Current Condition Start: 08/03/23 13:47 Freq: Status: Active Protocol: Document 08/03/23 13:48 NM (Rec: 08/03/23 16:26 NM [id number]) Current Condition History of Current Condition Onset Date 06/19/23 Current Complaints pain, ache History of Current Condition Pt presents to clinic s/p L TKA performed on 06/19/[address] [place]. Pt reports that she just had her follow up with him this past week, and she states he is pleased with the ROM. Prior to arrival at [facility], pt had HHPT following surgery with recent discharge last week. Pt uses a 4WW for balance during gait and did prior to surgery. She reports that she is able to ambulate in her house without her 4WW for short distances. Hx of R TKA earlier in 2022. Pt has hx of lymphedema so BLE are completely wrapped from ankle to hip; pt reports that she has had significantly less swelling in her knee since she was able to use the wraps that go to her hip. Pt has a hx of falls, 1-2x/yr but none since her surgery. Also has hx of neuropathy on RLE below the knee. Lives alone with no stairs. Prior Functional Status Baseline Function- ADL's Independent Baseline Function- Mobility Independent Baseline Function- Gait household and short community distances with 4WW Baseline Function- Recreation/Hobbies Work out at gym 2-3x/wk (bike, nustep, arm exercise machines ), water aerobics Current Functional Impairments (Reported) Functional Limitations- Mobility/Gait household distances without 4ww PT-OP-C Subjective Start: 08/03/23 13:47 Freq: Status: Active Protocol: Document 09/27/23 10:33 NM (Rec: 09/27/23 11:15 NM [id number]) OP-PT Subjective Patient Comments Patient Comments Pt reports no pain or discomfort in L knee after last session. Reports no difficulty with HEP or ADLs/ IADLs. Only reports challenges in balance, but no falls or near falls. Agrees to discharge today PT-OP-D Balance Start: 08/03/23 13:47 Freq: Status: Active Protocol: Document 09/04/23 08:15 AB (Rec: 09/04/23 11:40 AB [id number]) Balance Tests Single Limb Standing Single Limb- Left 1,1,1 second without UE use pre and post session PT-OP-E Functional Tests Start: 08/03/23 13:47 Freq: Status: Active Protocol: Document 08/03/23 13:48 NM (Rec: 08/03/23 16:26 NM [id number]) Functional Tests Five Times Sit to Stand Test Score 21.83 sec Comments reports no knee pain Timed Up and Go (TUG) Score 13 sec Comments with FWW Tinetti Balance and Gait Assessment Balance Score 11 Gait Score 6 Composite Score 17/28 Balance Score Impairment Rating 20 to <40% Impaired (Score 10- 12) Gait Score Impairment Rating 40 to <60% Impaired (Score 5-7 ) Composite Score Impairment Rating 20 to <40% Impaired (Score 17- 22) PT-OP-F Manual Assessment Start: 08/03/23 13:47 Freq: Status: Active Protocol: Document 08/03/23 13:48 NM (Rec: 08/03/23 16:26 NM [id number]) Manual Assessments Soft Tissue Assessment Soft Tissue Mobility Assessment Pt has bilateral lymphedema, which limits ROM. No restrictions of B hamstrings, quads, hip flexors Joint Mobility Assessment Joint Mobility Assessment B hip PROM limited in flexion but good IR/ER in supine. B knees limited passive flexion, full extension. Limited B ankle dorsiflexion PT-OP-G Mobility & Gait Start: 08/03/23 13:47 Freq: Status: Active Protocol: Document 08/03/23 13:48 NM (Rec: 08/03/23 16:26 NM [id number]) OP Gait Assessment Gait Gait Assistance Required: Independent Distance (Feet) 150 Able to Maintain Weight Bearing Status Yes During Gait Assistive Devices Assistive Device Gait Belt,4 Wheeled Walker Gait Deviations General Gait Pattern Antalgic,Flexed Trunk,Step-to Gait,Wide Based Gait Factors Limiting Gait Function Factors Limiting Gait Function Decreased Activity Tolerance, Decreased Sensation,Decreased Strength,Limited Range of Motion,Pain,Poor Balance Stair Climbing Evaluation Comments Stair Climbing Comments Trialed placing LLE on step, but difficulty with flexing knee enough to place on step; performs hip circumduction to lift onto step. Did not attempt climbing PT-OP-H Neuro Start: 08/03/23 13:47 Freq: Status: Active Protocol: Document 08/03/23 13:48 NM (Rec: 08/03/23 16:26 NM [id number]) Sensation Evaluation Gross Sensation Gross Sensation Right LE Impaired Dermatome Impairments L4,L5 Comments Summary Comments LLE intact to light touch sensation L2-L5, S1-2. RLE impaired laterally below knee, L4 dermatome. Vital Signs Comments Vital Signs Comments 08/03/23 BP 109/68 (sitting), 98 spo2, 63 bpm PT-OP-J Posture/Palpation/Skin Start: 08/03/23 13:47 Freq: Status: Active Protocol: Document 08/03/23 13:48 NM (Rec: 08/03/23 16:26 NM [id number]) Posture Evaluation Position Standing Evaluation View Lateral Head/C-Spine Posture Forward Head T-Spine Posture Increased Kyphosis L-Spine Posture Increased Lordosis Shoulder Posture (L) Forward,(R) Forward Weight Distribution Balanced Hip Posture (L) Neutral,(R) Neutral Knee Posture (L) Genu Varus,(R) Genu Varus Ankle/Foot Posture (L) Pronated,(R) Pronated Palpation Assessment Location L knee Palpation Location anterior, medial/lateral knee Palpation Findings Edema Palpation Details Lymphedema, so increased swelling. Minimal tenderness along medial knee Skin Assessment Incisional Assessment Incision Appearance/Comments Pt reports that incision is intact with no scars; she performs mobilizations at home when her wrappings are not on . Unable to formally assess due to lymphedema wrappings. PT-OP-K Range of Motion Start: 08/03/23 13:47 Freq: Status: Active Protocol: Document 09/27/23 10:33 NM (Rec: 09/27/23 11:15 NM [id number]) Knee Goniometric Range of Motion Knee Right Flexion Active (degrees) 102 Extension Active (degrees) 0 Left Patient Position Supine Flexion Active (degrees) 110 Extension Active (degrees) 0 Comments IE: 100 deg flexion, 103 deg PROM, 3 deg ext AROM, 0 deg ext PROM; minimal pain with flexion 09/06/23: 106 deg AROM knee flexion, full knee extension 09/27/23: 110 deg pre mobilization, 112 deg post mobilization PT-OP-M Strength Start: 08/03/23 13:47 Freq: Status: Active Protocol: Document 09/27/23 10:33 NM (Rec: 09/27/23 11:15 NM [id number]) Hip Strength Hip Manual Muscle Testing Right Flexion (L2) 4+ Good+ Extension (S1) 4+ Good+ Abduction 4+ Good+ Adduction 4+ Good+ External Rotation 4+ Good+ Internal Rotation 4+ Good+ Comments IE: 4-/5 MMT for all 09/27/23: 4+/5 MMT for all Left Flexion (L2) 4+ Good+ Extension (S1) 4+ Good+ Abduction 4+ Good+ Adduction 4+ Good+ External Rotation 4+ Good+ Internal Rotation 4+ Good+ Comments IE: 4- flex/ER/IR, 3+ ext/abd 09/06/23: 4/5 for hip flex, abd , ext 09/27/23: 4+/5 MMT for all Knee Strength Knee Manual Muscle Testing Right Flexion (S2) 4- Good- Extension (L3) 4- Good- Left Flexion (S2) 4+ Good+ Extension (L3) 4+ Good+ Comments IE: 3+ for flex and ext, Reports min pain with resisted extension 09/06/23: 4/5 with both resisted flex and ext; no pain with resisted motion PT-OP-T Assessment and Plan Start: 08/03/23 13:47 Freq: Status: Active Protocol: Document 09/27/23 10:33 NM (Rec: 09/27/23 11:15 NM [id number]) Physical Therapy Assessment Goals Eight Impairment gait Retirement Goal (LTG) Pt will be able to ambulate community distances (at least 500 ft) using 4WW or LRAD 09/06/23: 667 ft with 4ww, reports no difficulty LTG Duration 8 weeks MET Seven Impairment strength Retirement Goal (LTG) Pt will improve global B hip strength to at least 4+/5 in order to demonstrate increased hip strength for better stability during gait 09/06/23: 4/5 global hip strength, improved isometric hold 09/27/23: 4+/5 global strength LTG Duration 8 weeks MET Six Impairment strength Impairment L hip abd/ext 3+/5 Short Term Goal (STG) Pt will improve L hip abd/ext strength to at least 4/5 in order to demonstrate increased hip strength for improved gait and balance 09/06/13: 4/5 STG Duration 4 weeks MET Sew Out Operator Goal (LTG) Pt will improve L hip abd/ext strength to at least 4+/5 in order to demonstrate increased hip strength for improved gait and balance 09/18/23: 4/5 MMT; improved strength with functional activities (side steps, step ups) 09/27/23: 4+ flex, 4+ hip ext, abd LTG Duration 8 weeks MET Five Impairment strength Impairment L knee flex/ext 3+/5 MMT Short Term Goal (STG) Pt will improve L knee flex/ ext strength to at least 4/5 in order to demonstrate increased knee strength for gait 09/06/23: 4/5 STG Duration 4 weeks MET Retirement Goal (LTG) Pt will improve L knee flex/ ext strength to at least 4+/5 in order to demonstrate increased knee strength for gait 09/18/23: 4+/5 LTG Duration 8 weeks MET Four Impairment strength Impairment 5x STS: 21.83 seconds Short Term Goal (STG) Pt will decrease 5x STS time to less than 20 seconds in order to demonstrate improved BLE strength 09/06/23: 19 seconds from 20 table 08/29/23: from 20 table, 25 sec with improved form STG Duration 4 weeks MET Sew Out Operator Goal (LTG) Pt will decrease 5x STS time to less than 18 seconds in order to demonstrate improved BLE strength 09/18/23: 13.5 sec from 20 plinth, 23 sec from chair 09/06/23: 19 seconds from 20 table 09/13/23 21.65 sec from mesh chair, without UE use X 1 then with UE use LTG Duration 8 weeks MET Three Impairment balance Impairment TU seconds with 4WW Sew Out Operator Goal (LTG) Pt will decrease TUG score to less than 13 seconds using LRAD in order to demonstrate improved balance and decrease fall risk 09/18/23: 13 sec 4ww, 11.5 sec 4ww 09/06/23: 15 seconds, 13 seconds 09/13/23 14.37 sec TUG LTG Duration 8 weeks MET Two Impairment ROM Impairment R knee flex ROM 100 deg Short Term Goal (STG) Pt will increase R knee flex ROM to at least 110 deg in order to be able to ride her bike if possible due to lymphedema 09/18/23: 110 deg knee flex 09/06/23: 106 deg STG Duration 4 weeks MET Retirement Goal (LTG) Pt will increase R knee flex ROM to at least 115 deg in order to be able to ride her bike if possible due to lymphedema 09/18/23: 110 deg 09/27/23: 110 pre mobilization, 112 post mobilization LTG Duration 8 weeks NOT MET One Impairment function Impairment LEFS: 51/80 Retirement Goal (LTG) Pt will increase LEFS score by at least 9 points (1 MCID) in order to demonstrate improved tolerance for ADLs. 09/04/23: 54/80 09/18/23: 57/80 09/27/23: 60/80 LTG Duration 8 weeks MET Progress Towards Goals Progress Towards Goals Progressing Toward Goals,Goals Met Progress Comments All goals met except L knee AROM goal Assessment Summary Assessment Pt tolerated session well without increased pain or discomfort in L knee with activity. Session emphasis on reviewing past HEP and issuing final HEP. Continued with emphasizing strength of B hip abductors, glutes, and quads. Initiated supine heel slide for AROM in morning prior to pt getting out of bed for improved L knee mobility. Added standing toe raises with hand support to HEP and single leg stance. Pt continues to demonstrate improved functional quad and glute strength with sit to stands and other functional exercises. Cued today only for elongated posture. Issued level 4 and 5 therabands for pt to progress with HEP. Manual treatment to maximize L knee flexion AROM. Pt is 110 deg pre mobilization and 112 degrees post mobilization. Pt has been seen x13 visits since IE in July 2023 s/p L TKA. Pt demonstrates improved B hip and knee strength, now 4+/5 for all MMT. She is able to perform functional sit to stands, stairs, and gait with few limitations, primarily due to decreased activity tolerance. Pt's L knee AROM is improved since IE; however, continues to be limited mainly due to anatomical limitations from her lymphedema. Pt's current L knee flexion AROM is 110 deg consistently. She is able to perform stairs and ride a stationary bike with small compensations at her hip , which is decreased with cueing. Pt has met all goals except L knee flexion AROM. She demonstrates improved balance and decreased fall risk with 6MWT distance and TUG scores with 4ww. Pt reports minimal limitations in ADLs/IADLS or ability to participate in recreational activities due to her L knee. Her LEFS score has improved by 1 MCID, indicating improved QOL. PT and pt discussed discharge today with both in agreement. Issued final HEP and reviewed previous HEP. PT educated pt on safety, joint protection, fall risk, maintenance program 3x/wk; educated pt to follow up with PCP if symptoms change/worsen or for new PT referral. Pt verbalizes understanding and is safe to discharge to independent exercise. Physical Therapy Plan Frequency and Duration Frequency of Treatment 2x/Week Duration of treatment (weeks) 8 Plan of Care Start Date 08/03/23 Plan of Care End Date 09/28/23 Therapeutic Interventions Therapeutic Interventions Aquatic Therapy,Balance Training,Gait Training,Home Exercise Program,Joint Mobilizations,Manual Therapy, Neuromuscular Re-education, Orthotic/Prosthetic Management ,Patient/Caregiver Education, Self-Care/Home Management, Sensory Integration,Soft Tissue Mobilization,Taping, Therapeutic Activities, Therapeutic Exercises Modalities Cold Pack/Ice Massage,Hot Packs Discharge Physical Therapy Discharge Reasons Goals Met Discharge Comments All goals met except L knee AROM goal. Pt POC expiring tomorrow, only 1 visit left Next Visit Focus/Plan Next Visit Plan Discharge from PT services
== END 2023-10-02 07:56 | disposition home or self-care (01) ==
LOC: PHYS 10:30
PROVIDERS: Family Provider Family Medicine; PCP Physician Assistant Medical; Referring Provider Physician Assistant; Visit Provider Physician Assistant
DX: M17.12 Unilateral primary osteoarthritis, left knee (principal)
CPT/HCPCS: 97110; 97112; 97116; 97140; 97161; 97530; 97535